=== PATIENT | female | born 1940 | race Caucasian/White ===

== ENCOUNTER 2019-07-22 19:41 | Outpatient (CLI) | payer MEDICARE, BC, SELFPAY ==
--- NOTE | 2019-08-10 06:13 | SLEEP_ITS ---
Sleep Study DATE OF STUDY: PRIMARY DOCTOR: Dr. Kortney Aguirre. HISTORY: The patient is 78 years of age. She is 64 inches tall, weighs 198 pounds with a BMI of 34 kg/m2. The patient gives a history of snoring, history of daytime sleepiness. Has had a history of atrial fibrillation, believed to have reversed to sinus rhythm currently. She has comorbid conditions of hypertension, type 2 diabetes, chronic kidney disease, and peripheral neuropathy. This patient underwent a polysomnographic evaluation using standard monitoring, a split night protocol was used. In the diagnostic study, the sleep architecture was as follows: Lights out was 9:06 p.m., lights on 12:09 a.m. Total recording time 183 minutes. Total sleep time 125 minutes with a 68% sleep efficiency. Sleep latency was 17 minutes and there was no REM sleep in the diagnostic study. SLEEP STAGES: The patient was awake for 41 minutes after sleep onset. Stage N1 was 23.2%, N2 76.8%, and there was absence of stage N3 and stage R. BODY POSITION: Patient was supine 40% of the time. Rest of it was nonsupine. RESPIRATORY EVENTS: Snoring was present, at times loud. CMS criteria were used for identification of hypopneas. The patient had a total of 22 obstructive apneas with index of 10.6. The patient had 68 hypopneas with index of 32.7, apnea-hypopnea index was 43.2. Events were more frequent in supine position with a supine index of 71.3 as compared to nonsupine index of 24.2. This is which is consistent with severe obstructive sleep apnea. LEG MOVEMENT SUMMARY: There were no periodic limb movements noted. EKG ANALYSIS: Rhythm appeared to be relatively regular, but I could not identify P waves easily. The average heart rate during sleep was around 53 beats per minute, presumed to be sinus rhythm. OXYGEN SATURATION: The average saturation was 93%. Lowest saturation was 86%. 6.3 minutes of the record occurred with saturation of 89 or below and 2.3 minutes of record occurred with saturation of 87 or below. Because of the severe nature of the obstructive sleep apnea identified in this study, the patient was offered a CPAP titration study. The patient used AirFit F20 full face mask of medium size. THERAPY ANALYSIS: SLEEP ARCHITECTURE: Total recording time was 303 minutes. Total sleep time was 183 minutes with 60.4% sleep efficiency. Sleep latency was 30 minutes, REM latency was 36 minutes. SLEEP STAGES: The patient was awake for 89 minutes after sleep onset. Stage N1 was 6.3%, N2 78.2%, and stage R of 15.5%. BODY POSITION: During CPAP, the patient was supine 71% of the time, rest was nonsupine. RESPIRATORY EVENTS: During titration, the patient had 5 apneas, all of them were central in nature with index of 1.6. The patient also had 26 hypopneas with index of 8.5. Therefore, combined apnea-hypopnea index was 10.2. Supine index was 11.1, nonsupine index was 7.9, non-REM index was 11.3, and REM index was 4.2. LEG MOVEMENT SUMMARY: There were no periodic limb movements noted. OXYGENATION SUMMARY: The average oxygen saturation during CPAP therapy was 92%. Lowest saturation was 89%. Only 0.4% of the record or 1.3 minutes of the record occurred with saturation of 89, so hypoxia was considered minimal and intermittent. CPAP PRESSURE ANALYSIS: The patient was started on a CPAP of 5 and was titrated to level of 11 cm, which was the highest pressure reached. The patient had 2 hours and 39 minutes of trial at CPAP of 11, about 10 minutes of REM sleep and 1 hour and 11 minutes of non-REM sleep occurred. The patient was in supine position for about 70% of the time during CPAP of 11. The patient during that time had 3 central apneas along with 3 hypopneas, with apne
== END 2019-07-22 19:42 | disposition home or self-care (01) ==
LOC: CHSCSM 19:43
PROVIDERS: PCP Family Medicine; Visit Provider Internal Medicine Critical Care Medicine
DX: G47.30 Sleep apnea, unspecified (principal)
CPT/HCPCS: 95811

== ENCOUNTER 2019-08-09 12:11 | Outpatient (CLI) | payer MEDICARE, BC, SELFPAY ==
--- NOTE | ~2019-08-09 | XR_ITS ---
EXAMINATION: XR knee RT 2V DATE: 08/09/2019 12:43 INDICATION: Right knee pain. Fall. TECHNIQUE: 2 views of right knee were obtained. COMPARISON: Right knee radiograph 11/08/2003 FINDINGS: Bone alignment is normal. No fracture. There is a 2.5 cm sclerotic lesion in proximal tibia l metaphysis without change, likely an enchondroma or osteonecrosis. There is moderate osteoarthritis of medial and patellofemoral compartments and mild osteoarthritis of lateral compartment. There is a small knee joint effusion. IMPRESSION: 1. Moderate right knee osteoarthritis. 2. Small right knee joint effusion. Reviewed, dictated and finalized at location A. ING CARE PRACTITIONER
[2019-08-09 12:24] LABS: Hematocrit 38.8 % (35.0-42.0); Mean Corpuscular HGB Conc 33.5 g/dL (32.0-36.0); Mean Corpuscular Hemoglobin 30.5 pg (27.0-31.0); Mean Corpuscular Volume 91.1 fL (78.0-102.0); Mean Platelet Volume 10.5 fl (9.2-11.8); Platelet Count Result 211 K/mm3 (150-420); Red Blood Count 4.26 M/mm3 (4.20-5.40); White Blood Count 9.2 K/mm3 (4.8-10.8)
[2019-08-09 12:47] LABS: Hemoglobin A1C 6.9 % (<5.7)
[2019-08-09 13:36] LABS: Alanine Aminotransferase 57 U/L (14-59); Albumin Level 3.8 g/dL (3.4-5.0); Alkaline Phosphatase 99 U/L (46-116); Anion Gap 16.4 mmol/L (7-16); Aspartate Amino Transferase 65 U/L (15-37); Bilirubin,Total 0.6 mg/dL (0.00-1.00); Blood Urea Nitrogen 15 mg/dL (7-18); Calcium 9.1 mg/dL (8.5-10.1); Carbon Dioxide 28 mmol/L (21-32); Chloride 103 mmol/L (98-108); Cholesterol 163 mg/dL (0-200); Estimated Glomerular Filt Rate > 60; Glucose 78 mg/dL (70-99); HDL Direct 52 mg/dL (40-60); LDL Cholesterol Calculated 89 mg/dL (<130); Osmolality Calculated 295 mOsm/kg (285-295); Potassium 4.4 mmol/L (3.5-5.1); Sodium 143 mmol/L (136-145); Triglycerides 110 mg/dL (0-150)
[2019-08-09 13:55] LABS: Thyroid Stimulating Hormone Reflex 2.01 u/IU/mL (0.36-3.74)
== END 2019-08-09 12:12 | disposition home or self-care (01) ==
LOC: CHSLAB 12:15
PROVIDERS: PCP Family Medicine; Visit Provider Family Medicine
DX: M25.00 Hemarthrosis, unspecified joint (principal); Z79.01 Long term (current) use of anticoagulants; R53.83 Other fatigue; E11.9 Type 2 diabetes mellitus without complications; I10 Essential (primary) hypertension; M25.561 Pain in right knee
CPT/HCPCS: 36415; 73560; 80053; 80061; 83036; 84443; 85027

== ENCOUNTER 2019-08-26 09:16 | Outpatient (RCR) | payer MEDICARE, SELFPAY ==
[2019-06-20 09:47] LABS: INR 1.7; Prothrombin Time 17.7 Seconds (9.64-11.0)
[2019-07-04 08:25] LABS: INR 2.3; Prothrombin Time 23.4 Seconds (9.64-11.0)
[2019-08-26 09:38] LABS: INR 2.5; Prothrombin Time 25.4 Seconds (9.64-11.0)
== END 2019-09-18 23:59 | disposition home or self-care (01) ==
LOC: CHSLAB 09:16
PROVIDERS: PCP Internal Medicine Cardiovascular Disease; Visit Provider Internal Medicine Cardiovascular Disease
DX: I48.19 Other persistent atrial fibrillation (principal); Z79.01 Long term (current) use of anticoagulants
CPT/HCPCS: 36415; 85610

== ENCOUNTER 2019-08-28 13:07 | Inpatient (IN) | payer MEDICARE, BC, SELFPAY ==
[2019-08-28] VITALS (8 sets, daily range): BP systolic 130–190; BP diastolic 51–109; PULSE 56–71; RESP 16–20; TEMP 36.3–37; O2SAT 94–97; BMI 34.0
--- NOTE | ~2019-08-28 | XR_ITS ---
XR chest 1V 08/28/2019 13:57 Indication: Chest pain after fall Procedure: AP view of the chest Comparison: Comparison to multiple prior studies sequentially, with oldest reviewed study dated 07/06. Findings: Cardiomegaly with pulmonary vascular congestion. No focal pneumonia. No pleural effusion or pneumothorax. No acute osseous abnormality. Impression: 1: Cardiomegaly with pulmonary vascular congestion. Reviewed, dictated and finalized at location A. Impression: 1: Cardiomegaly with pulmonary vascular congestion.
--- NOTE | ~2019-08-28 | XR_ITS ---
EXAMINATION: XR hip RT 1V DATE: 08/31/2019 10:18 INDICATION: Postoperative right hip pain TECHNIQUE: AP view of the right hip was obtained. COMPARISON: None. FINDINGS: Again seen is a noncemented bipolar type right hip hemiarthroplasty which appears to remain well seat ed in near-anatomic alignment. No fracture. Expected small amount of residual postoperative gas along the musculature lateral to the proximal right femur. IMPRESSION: 1. Expected appearance post bipolar type right hip hemiarthroplasty. Reviewed, dictated and finalized at location A.
--- NOTE | ~2019-08-28 | XR_ITS ---
EXAMINATION: XR hip RT 1V DATE: 08/30/2019 18:07 INDICATION: Right femoral neck fracture. TECHNIQUE: A single view of right hip was obtained. COMPARISON: Right hip radiographs 08/28/2019 FINDINGS: There is a bipolar right hip hemiarthroplasty in near-anatomic alignment. No fracture. Righ t hip joint space is normal. There is gas in the soft tissues, consistent with recent surgery. IMPRESSION: 1. Bipolar right hip hemiarthroplasty in near-anatomic alignment. Reviewed, dictated and finalized at location A.
--- NOTE | ~2019-08-28 | CT_ITS ---
EXAMINATION: CT brain wo con DATE: 08/28/2019 13:53 INDICATION: Status post fall. Headache. TECHNIQUE: Computed tomography (CT) of the head was performed without intravenous contrast. The dose- length product was 605.33 mGy-cm. The mA was adjusted according to patient size. Iterative reconstruc tion technique was employed. COMPARISON: CT dated 07/31/2018 FINDINGS: Mild generalized atrophy. No ventriculomegaly or midline shift. Basilar cisterns are patent . There is intracranial atherosclerosis. Basilar cisterns are patent. There are scattered mild perive ntricular and subcortical white matter changes, most likely related to small vessel ischemic disease (microangiopathy). No acute intracranial hemorrhage, infarction, mass or mass effect. There is chroni c right maxillary sinusitis with mucoperiosteal reaction. Mastoids are pneumatized. No depressed skul l fractures. IMPRESSION: 1. No acute intracranial abnormality. 2: Chronic right maxillary sinusitis. 3: Chronic age-related findings. Reviewed, dictated and finalized at location A.
--- NOTE | ~2019-08-28 | XR_ITS ---
XR hip RT min 3V w AP pelvis 08/28/2019 13:46 Indication: Right hip pain after fall Procedure: AP pelvis and 4 views right hip Comparison: 01/23/2011 Findings: There is a displaced right femoral neck fracture with varus angulation pelvic rings are int act. Mild degenerative changes of the hips. No significant soft tissue abnormality. Impression: 1: Displaced right femoral neck fracture with varus angulation. Reviewed, dictated and finalized at location A. Impression: 1: Displaced right femoral neck fracture with varus angulation.
--- NOTE | 2019-08-28 13:26 | ED.GENADULT ---
HPI - General Adult General Chief complaint: Fall Stated complaint: fall, hip fx ?? Time Seen by Provider: 08/28/19 13:11 Source: patient, family and EMS Mode of arrival: EMS Limitations: no limitations History of Present Illness HPI narrative: Patient is a 79-year-old female who presents per EMS from home after her right knee buckled causing her to fall forward onto the right hip patient has since been unable to ambulate with moderate pain to the right hip patient denies other injuries or complaints or recent illness. Patient denies having struck the head loss of consciousness or syncope. Patient on arrival is in mild acute pain distress with any manipulation or movement. Related Data Home Medications Medication Instructions Recorded Confirmed aspirin 81 mg tablet,delayed 81 mg PO DAILY 04/20/19 06/22/19 release fluticasone propionate 110 1 puff INHALATION Q12H 04/20/19 06/22/19 mcg/actuation HFA aerosol inhaler insulin glargine 100 unit/mL 30 unit SUB-Q BID ml 04/20/19 06/22/19 subcutaneous solution lisinopril 20 mg tablet 20 mg PO DAILY 04/20/19 06/22/19 rosuvastatin 20 mg tablet 20 mg PO DAILY 04/20/19 06/22/19 hydrochlorothiazide 12.5 mg capsule 25 mg PO DAILY cap 04/25/19 06/22/19 amiodarone 200 mg tablet 200 mg PO DAILY 06/22/19 06/22/19 glucosamine-chondroitin 250 mg-200 2 tablet PO TID 06/22/19 06/22/19 mg tablet multivit with 1 tablet PO DAILY 06/22/19 06/22/19 srmdjewr-bymc-NL-lutein 8 mg iron-400 mcg-300 mcg tablet warfarin 5 mg tablet 5 mg PO QMWF 06/22/19 06/22/19 eszopiclone 1 mg tablet 1 mg PO ONCE 07/01/19 Allergies Allergy/AdvReac Type Severity Reaction Status Date / Time No Known Allergies Allergy Verified 08/28/19 13:20 Review of Systems Review of Systems: All systems reviewed & are unremarkable except as noted in HPI and below PMFSH Past Medical History Medical History Breast cancer Chronic anticoagulation Chronic kidney disease, stage 3 (moderate) Coronary artery disease Essential hypertension Idiopathic peripheral neuropathy Iron deficiency anemia Mild persistent asthma without complication Paroxysmal atrial fibrillation Personal history of breast cancer Type 2 diabetes mellitus with stage 3 chronic kidney disease and hypertension Family History Family History Father Cerebrovascular accident Hypertension Family history of diabetes mellitus in first degree relative Mother Family history of heart disease in male family member before age 55 Hypertension, Onset Age: 68 Family history of coronary artery disease, Onset Age: 68 Patient's mother is , Onset Age: 68 Other Diabetes mellitus Social History Social History Smoking status: Never smoker Second hand tobacco smoke exposure: No Alcohol intake: never Exam Narrative: Exam Narrative: GENERAL: Well-appearing, well-nourished, and in no acute distress. HEAD: Normocephalic, atraumatic. EYES: PERRLA and EOMI. ENT: Nares clear, no rhinorrhea or epistaxis. Mucous membranes moist. Oropharynx without tonsillar hypertrophy exudate or other lesions. NECK: Supple. No adenopathy or masses. CHEST: Clear to auscultation. No respiratory distress. No wheezes rales or rhonchi HEART: Regular rate and rhythm. No murmur heard. Normal peripheral pulses. ABDOMEN: Soft, nontender, nondistended EXTREMITIES: Tenderness of the right hip SKIN: Warm, dry, no rash. NEURO: No focal deficits. Alert and oriented x3. Cranial nerves II through XII grossly intact PSYCH: Normal mood and affect. Course Course Emergency Course: Patient in the room in no distress aware of case findings treatment plan and diagnosis agreeing to stay in hospital aware of discussions with orthopedic surgery and hospital Consultations Consultation #1: Discusse
[2019-08-28] MEDS: MORPHINE SULFATE 2 MG/ML INJ IV PUSH (13:29)
[2019-08-28] MEDS: ONDANSETRON INJ 4 MG/2 ML VIAL IV PUSH ×2 (13:29→16:07)
[2019-08-28] MEDS: SODIUM CHLORIDE 0.9% IV 1,000 ML 150 ML IV CONT (13:29)
[2019-08-28 13:33] LABS: Basophils Absolute Auto 0.1 K/mm3 (0.0-0.1); Basophils Percent Auto 0.7 % (0.2-1.2); Eosinophils Absolute Auto 0.2 K/mm3 (0-0.3); Eosinophils Percent Auto 2.2 % (0-4.4); Hematocrit 39.3 % (37.0-47.0); Hemoglobin 12.7 g/dL (12.0-15.0); Immature Granulocyte Absolute 0.06 K/mm3 (0.00-0.031); Immature Granulocyte Percent A 0.7 % (0-0.5); Lymphocytes Absolute Auto 2.12 K/mm3 (0.9-3.2); Lymphocytes Percent Auto 23.6 % (18.3-44.2); Mean Corpuscular HGB Conc 32.3 g/dl (32-36); Mean Corpuscular Hemoglobin 29.8 pg (26-34); Mean Corpuscular Volume 92.3 fl (80-100); Mean Platelet Volume 10.9 fl (7.4-10.4); Monocytes Absolute Auto 0.7 K/mm3 (0.1-0.6); Monocytes Percent Auto 7.6 % (2.6-8.5); Neutrophils Absolute Auto 5.9 K/mm3 (1.3-6.7); Neutrophils Percent Auto 65.2 % (45.5-73.1); Platelet Count Result 201 k/mm3 (150-375); Red Blood Count 4.26 M/mm3 (4.2-5.4); Red Cell Distribution Width 14.1 % (11.5-14.5)
[2019-08-28 13:44] LABS: Blood Urea Nitrogen 23 mg/dL (7-17); Calcium 9.6 mg/dL (8.4-10.2); Carbon Dioxide 30 mmol/L (22-30); Chloride 99 mmol/L (98-107); Estimated CRCL calculation 45 ml/min; Estimated Glomerular Filt Rate 53; Glucose 158 mg/dL (65-105); Potassium 4.3 mmol/L (3.4-5.0); Sodium 137 mmol/L (137-145)
[2019-08-28 13:46] LABS: INR 2.2
[2019-08-28 13:47] LABS: Partial Thromboplastin Time 38.3 SECONDS (22.3-36.8)
--- NOTE | 2019-08-28 13:50 | ECG_ITS ---
Measurements Intervals [place] Rate: 58 P: 90 OR: 252 QRS: 70 QRSD: 110 T: 84 QT: 487 QTc: 480 Interpretive Statements SINUS BRADYCARDIA WITH FIRST DEGREE AV BLOCK BORDERLINE ST-T WAVE ABNORMALITY- LATERAL LEADS PROLONGED QT INTERVAL BASELINE ARTIFACT- I, II, III, AVL, AVF ABNORMAL ECG Electronically Signed On 08-28-2019 14:50:51 CDT by Yuniel Wynn D.O.
[2019-08-28] MEDS: MORPHINE SULFATE 4 MG/ML INJ IV PUSH (14:31)
[2019-08-28 14:33] LABS: Add Urine Microscopic? YES; Appearance Urine Clear (Clear); Bilirubin Urine Negative (Negative); Blood Urine Negative (Negative); Color Urine Straw (Yellow); Glucose Urine UA Negative (Negative); Ketones Urine Negative (Negative); Leukocyte Esterase Ur Negative LEU/UL (Negative); Mucus Urine Rare /lpf; Nitrate Urine Negative (Negative); Protein Urine Negative (Negative); Specific Grav Ur 1.013 (1.001-1.035); Squamous Epithelial Cell Urine Rare /hpf (Few); Urobilinogen Urine Negative mg/dL (<2.0); WBC Urine 0-3 /hpf
[2019-08-28 14:52] LABS: NT Pro B Type Natriuretic Pept 564 PG/ML (5-100)
--- NOTE | 2019-08-28 15:17 | ADMGEN ---
This patient, Nohelia Laurent, was admitted to 3 [facility] Surg Room 322-01 @ 1512. Patient/family oriented to hospital policies and general routines including ID bracelet, bed and alarms, visiting hours, pain management, procedures, bathroom and other care routines, personal items, smoking policy, room service/diet, and visiting hours. Valuables list has been completed. Information on how to activate the Rapid Response Team has been discussed. Patient/Family are encouraged to report perceived risks to care and to ask questions if they do not understand what they are told or what they should do.
--- NOTE | 2019-08-28 15:30 | PM.IMHP ---
H&P: HPI History of Present Illness Chief complaint: Hip pain after fall. Narrative: Nohelia Laurent is an 79-year-old female with coronary artery disease and history of stents, paroxysmal atrial fibrillation on long-term anticoagulation, insulin-dependent type 2 diabetes mellitus, hypertension, and history of breast cancer who presented to the emergency department earlier today via EMS for evaluation of hip pain after a fall. While walking down the stairs, her right knee buckled, causing her to fall down 1 step, landing on her right side. She had immediate pain in her right hip, and was unable to move without severe pain. EMS gave her fentanyl on route to the hospital, which did seem to help somewhat. She has subsequently received morphine, also with some benefit, however that has caused her nausea and 1 episode of emesis at the time my evaluation. Currently she complains of a severe spasm and pain on her right lateral hip, occasionally radiating into the groin. She sustained no other injuries in the fall and specifically denies head trauma. There was no loss of consciousness. She was not feeling lightheaded or dizzy prior to the fall, and states it was simply due to her ?bum knee? giving out. Review of Systems Review of Systems: Narrative: Twelve systems were reviewed with pertinent positives and negatives as per HPI. No fever, chills, or sweats. No lightheadedness or dizziness. She denies recent cold and flu symptoms. No exertional chest pain. She does have chronic dyspnea on exertion and that is unchanged. Occasional, intermittent lower extremity edema but nothing significant. No orthopnea or PND. She recently had her CPAP delivered, and has had a hard time getting used to it due to the pressure but is trying. No history of venous thromboembolism. No diarrhea or dysuria. Her diabetes is well controlled with a recent hemoglobin A1c of 6.9% earlier this month. She does have peripheral neuropathy and previous gastric emptying study showed delayed transit consistent with gastroparesis. Except as documented, all other systems were reviewed and are negative. [facility] Past Medical History Medical History (Updated 08/28/19 @ 16:39 by Mansi Mcdonald PA-C) Chronic anticoagulation : Warfarin for paroxysmal atrial fibrillation. Chronic kidney disease, stage 3 (moderate) : GFR ranging between 43 and > 60. Coronary artery disease : With history of stent to LAD done at [facility]. Essential hypertension History of colon polyps History of left breast cancer : Status post lumpectomy, chemotherapy, and radiation. 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 : Hemoglobin A1c was 6.9% 08/09/2019. Iron deficiency anemia Mild persistent asthma without complication Osteoarthritis Paroxysmal atrial fibrillation : History of cardioversions, with previously noted loosely organized thrombus in the left atrial appendage, for which she was subsequently switched from Xarelto to warfarin. : Last cardioversion attempt in May 2018 was unsuccessful and she was referred to an ice handler at [place]. On arrival to that appointment, she was found to be in a normal sinus rhythm, and to her knowledge has remained in such since. Severe obstructive sleep apnea : Noted on sleep study 08/10/2019. : CPAP titrated to 11 cm. Surgical History Surgical History (Updated 08/28/19 @ 15:55 by Mansi Mcdonald PA-C) History of appendectomy History of bilateral cataract extraction History of bladder suspension procedure History of cholecystectomy History of D&C History of heart artery stent : Stent to LAD, done at [facility]. History of hysterectomy History of lumpectomy of left breast Family History Family History Father Family history of diabetes mellitus in first degree relative Hypertension
[2019-08-28] MEDS: carvediloL 25 MG TABLET PO (22:28)
[2019-08-28] MEDS: FAMOTIDINE 20 MG/2 ML VIAL IV PUSH (22:36)
[2019-08-28] MEDS: INSULIN GLARGINE (*BKC) 100 UNITS/ML 30 UNITS SUB-Q (22:37)
[2019-08-28 23:09] LABS: Glucose Point of Care 109 (65-105)
[2019-08-29] VITALS (12 sets, daily range): BP systolic 144–181; BP diastolic 45–92; PULSE 51–83; RESP 18–20; TEMP 36.8–37.3; O2SAT 93–97
[2019-08-29] MEDS: MORPHINE SULFATE 4 MG/ML INJ IV PUSH (00:38)
[2019-08-29] MEDS: ONDANSETRON INJ 4 MG/2 ML VIAL IV PUSH ×3 (00:38→10:48)
[2019-08-29 08:02] LABS: Glucose Point of Care 108 (65-105)
[2019-08-29 08:21] LABS: Basophils Absolute Auto 0.1 K/mm3 (0.0-0.1); Basophils Percent Auto 0.6 % (0.2-1.2); Eosinophils Absolute Auto 0.5 K/mm3 (0-0.3); Eosinophils Percent Auto 4.9 % (0-4.4); Hematocrit 35.3 % (37.0-47.0); Hemoglobin 11.6 g/dL (12.0-15.0); Immature Granulocyte Absolute 0.04 K/mm3 (0.00-0.031); Immature Granulocyte Percent A 0.4 % (0-0.5); Lymphocytes Absolute Auto 1.69 K/mm3 (0.9-3.2); Lymphocytes Percent Auto 17.8 % (18.3-44.2); Mean Corpuscular HGB Conc 32.9 g/dl (32-36); Mean Corpuscular Hemoglobin 30.3 pg (26-34); Mean Corpuscular Volume 92.2 fl (80-100); Mean Platelet Volume 10.8 fl (7.4-10.4); Monocytes Absolute Auto 0.9 K/mm3 (0.1-0.6); Monocytes Percent Auto 9.3 % (2.6-8.5); Neutrophils Absolute Auto 6.4 K/mm3 (1.3-6.7); Platelet Count Result 168 k/mm3 (150-375); Red Blood Count 3.83 M/mm3 (4.2-5.4); Red Cell Distribution Width 14.4 % (11.5-14.5); White Blood Count 9.5 K/mm3 (4.5-10.0)
[2019-08-29 08:32] LABS: INR 2.3; Prothrombin Time 25.1 Seconds (11.1-14.7)
[2019-08-29 08:33] LABS: Blood Urea Nitrogen 19 mg/dL (7-17); Calcium 8.8 mg/dL (8.4-10.2); Carbon Dioxide 29 mmol/L (22-30); Chloride 100 mmol/L (98-107); Estimated CRCL calculation 47 ml/min; Estimated Glomerular Filt Rate 60; Glucose 114 mg/dL (65-105); Sodium 135 mmol/L (137-145)
[2019-08-29] MEDS: PERFLUTREN LIPID MICROSPHERES 1.5 ML VIAL DILUTED TO 10 ML TOTAL VOLUME IV PUSH (09:44)
[2019-08-29] MEDS: FAMOTIDINE 20 MG/2 ML VIAL IV PUSH ×2 (10:05→20:13)
[2019-08-29] MEDS: PHYTONADIONE INJ 10 MG/ML AMP SUB-Q (10:47)
--- NOTE | 2019-08-29 10:48 | PM.CNCAR ---
Assessment and Plan Additional Plan 79-year-old lady with stable coronary artery disease and paroxysmal atrial fib, currently in sinus rhythm on amiodarone treatment. She enters the hospital with a fall and a fracture of her right hip. I do not perceive there to be a significant cardiac issue clinically. Obviously she needs to come off of systemic anticoagulation to have her hip surgery done. Resuming the anticoagulation will of course be deferred to the surgeon and should be resumed as soon is it is surgically acceptable. There is no cardiac urgency to this since she is in sinus rhythm. There is no cardiac alanis to get the patient anticoagulated immediately following an operation. Please call me if you have any cardiac questions but at this point I do not have any specific recommendations soon she does not seem to be in the hospital with a cardiac problem John Najera MD [facility] History of Present Illness History of Present Illness Consult date/time: Date of service Amrita 08/29/19 10:48 Reason For Visit: Hip pain after fall. Narrative: This is an 79-year-old woman who follows in our office with Dr. Bradley who has a history of coronary artery disease and paroxysmal atrial fibrillation. We are seeing the patient at the request of the hospitalist's presumably to see her prior to noncardiac surgery. The notes in the chart however do not specifically detail the reason for cardiology consultation or what is expected. In any event this is a patient that has a history of previous coronary intervention with a stent in her LAD which was done about 11 years ago in 2008. She also has a history of paroxysmal atrial fibrillation which has been her most problematic cardiac diagnosis over the same period of time. She has been essentially maintained in sinus rhythm with antiarrhythmic therapy and has been cardioverted a couple of times. She was initially taking sotalol and because of recurrences is now taking amiodarone. The patient is maintaining sinus rhythm and has not had any recent recognized recurrences of atrial fibrillation. She is in the hospital because she lost her balance with her with her knee giving out resulting in a fall and a fracture of the surgical neck of the right femur. The patient is anticoagulated with warfarin for her atrial fibrillation in this setting we are seeing her in consultation. She not having any cardiac symptoms currently denies any recent significant chest pain not been having orthopnea PND or edema she has not had any palpitations or symptoms to suggest recurrence of atrial fibrillation. Her amiodarone dose to is currently 200 mg daily and her warfarin dosage is 5 mg daily with 2.5 mg once per week. Review of Systems Constitutional: Constitutional: Reports fatigue and Reports lethargy Eyes: Eyes: Reports no additional eye complaints ENT: Reports system reviewed and no additional complaints, except as documented Cardiovascular: Cardiovascular: Reports no additional cardiovascular complaints Respiratory: Respiratory: Reports no additional respiratory complaints Gastrointestinal: Gastrointestinal: Reports no additional gastrointestinal complaints Musculoskeletal: Musculoskeletal: Reports no additional musculoskeletal complaints Integumentary/Breasts: Skin/Breast: Reports system reviewed and no additional complaints, except as docu Neurologic: Reports system reviewed and no additional complaints, except as documented Endocrine: Endocrine: Reports no additional endocrine complaints Hematologic/Lymphatic: Hematologic/Lymphatic: Reports no additional hematologic/lymphatic complaints Allergic/Immunologic: Allergic/Immunologic: Reports no additional allergic/immunologic complaints [facility] Past Medical History Medical History (Updated 08/28/19 @ 16:39 by Mansi Mcdonald PA-C) Chronic anticoagulation : Warfarin for paroxysmal atrial fibrillation. Chronic kidney disease, stage 3 (moderate) : GFR ranging betwe
[2019-08-29 11:37] LABS: Glucose Point of Care 104 (65-105)
[2019-08-29] MEDS: lisinopriL 20 MG TABLET PO (11:38)
[2019-08-29] MEDS: carvediloL 25 MG TABLET PO ×2 (11:39→20:13)
[2019-08-29] MEDS: AMIODARONE HCL 200 MG TABLET PO (11:39)
[2019-08-29] MEDS: hydroCHLOROthiazide 25 MG TABLET PO (11:39)
--- NOTE | 2019-08-29 11:57 | PM.IMPN ---
Progress Note: A&P Assessment and Plan (1) Closed fracture of right hip: Code(s): S72.001A - Fracture of unspecified part of neck of right femur, initial encounter for closed fracture Status: Acute Assessment and Plan: Orthopedic consultation Surgical intervention when INR is 1.5 or below. Analgesics and bowel regimen in the meantime (2) Paroxysmal atrial fibrillation: Code(s): I48.0 - Paroxysmal atrial fibrillation Status: Acute Assessment and Plan: Reverse anticoagulation with vitamin K. Follow-up INR (3) Chronic anticoagulation: Code(s): Z79.01 - superintendent container terminal (current) use of anticoagulants Status: Acute Assessment and Plan: Withhold and reverse for anticipated surgery (4) Severe obstructive sleep apnea: Code(s): G47.33 - Obstructive sleep apnea (adult) (pediatric) Status: Acute Assessment and Plan: CPAP with home settings (5) Insulin dependent type 2 diabetes mellitus: Code(s): E11.9 - Type 2 diabetes mellitus without complications; Z79.4 - superintendent container terminal (current) use of insulin Status: Acute Assessment and Plan: Basal and sliding scale insulin (6) Coronary artery disease: Code(s): I25.10 - Atherosclerotic heart disease of [place] coronary artery without angina pectoris Status: Acute (7) Essential hypertension: Code(s): I10 - Essential (primary) hypertension Status: Acute Assessment and Plan: Asymptomatic Continue home regimen (8) Chronic kidney disease, stage 3 (moderate): Code(s): N18.3 - Chronic kidney disease, stage 3 (moderate) Status: Acute Assessment and Plan: Creatinine is now within normal limits Continue to monitor Subjective Date/time seen: 08/29/19 11:57 Interval history: 79-year-old female with coronary artery disease without angina and chronic atrial fibrillation on warfarin presented with right hip pain after a slip and fall on the last step of the staircase at her home on August 27. She had no loss of consciousness. Currently her only complaint is right hip pain. She denied chest pain palpitations shortness of breath edema abdominal pain diarrhea constipation dysuria or hematuria or other abnormal bleeding. Review of Systems Review of Systems: All systems reviewed & are unremarkable except as noted in HPI and below Exam Narrative: Exam Narrative: HEENT: EOMI, PERRL, sclera nonicteric, pharyngeal mucosa pink and intact NECK: No JVD CHEST: Clear to auscultation. Normal effort. HEART: NL S1/S2, regular, no murmur ABDOMEN: BS+, soft, nontender, no mass, no bruits EXTREMITIES: No cyanosis, edema, or clubbing NEUROLOGIC: CN intact and symmetric to inspection. MUSCULOSKELETAL: Tone and strength symmetric. PSYCH: Alert. Oriented to person, place, and time. Objective Data Vital Signs Vital Signs: Vital Signs - 24 hr 08/28/19 13:06 08/28/19 13:18 08/28/19 14:57 Temperature 97.4 F L Pulse Rate 58 L Respiratory Rate 18 Blood Pressure 190/77 H Pulse Oximetry 95 94 94 08/28/19 15:04 08/28/19 15:20 08/28/19 19:40 Temperature 97.9 F Pulse Rate 68 71 Respiratory Rate 16 20 Blood Pressure 172/67 H 142/109 H 130/80 Pulse Oximetry 94 94 08/28/19 20:00 08/28/19 22:00 08/29/19 00:00 Temperature 98.6 F Pulse Rate 61 61 51 L Respiratory Rate 20 20 Blood Pressure 143/51 H Pulse Oximetry 97 97 08/29/19 02:30 08/29/19 04:00 08/29/19 06:00 Temperature 98.2 F 98.3 F Pulse Rate 70 52 L 61 Respiratory Rate 20 20 Blood Pressure 144/58 H 152/45 H Pulse Oximetry 93 97 08/29/19 08:00 08/29/19 11:39 Temperature Pulse Rate 63 63 Respiratory Rate Blood Pressure Pulse Oximetry Intake/Output Intake/Output: Intake & Output 08/26/19 08/27/19 08/28/19 08/29/19 23:59 23:59 23:59 23:59 Intake Total 500 450 Output Total 600 650 Balance -100 -200 Meds/Results Medications: Active Medicatio
[2019-08-29] MEDS: PROCHLORPERAZINE EDISYLATE 10 MG/2 ML VIAL IV PUSH (12:35)
[2019-08-29] MEDS: HYDROMORPHONE HCL 1 MG/ML INJ IV PUSH (12:36)
--- NOTE | 2019-08-29 14:42 | PC.NURSE ---
Dr. Ruiz and Dr. Mcclellan notified of nausea and vomiting.
[2019-08-29 16:42] LABS: Glucose Point of Care 125 (65-105)
--- NOTE | 2019-08-29 17:19 | PM.CNOR ---
Assessment and Plan Assessment and plan (1) Closed fracture of right hip: Qualifiers: Encounter type: initial encounter Qualified Code(s): S72.001A - Fracture of unspecified part of neck of right femur, initial encounter for closed fracture Code(s): S72.001A - Fracture of unspecified part of neck of right femur, initial encounter for closed fracture Status: Acute Assessment and Plan: Displaced femoral neck fracture. Will benefit from bipolar hemiarthroplasty. We discussed the risks, benefits, and alternatives to surgery. Will start nubain from pain control, as she is very sensitive to narcotics. Also ativan for nausea. vitamin K given to assist normalizing the INR. She is up to 2.3 from 2.2. Will see what it looks like tomorrow afternoon. If she remains elevated we will plan on surgery the following morning. At this point she is scheduled for tomorrow late afternoon. Goal is less than 1.4. History of Present Illness HPI Consult date: 08/29/19 Chief complaint: Hip pain after fall. Narrative: Patient complains of acute hip pain. Fell from standing height. Admitted through the emergency room for definitive managmenet. No previous hip pain. Uncomfortable at rest. No previous hip pain. Review of Systems Review of Systems: Narrative: Denies loss of consciousness. No fever, chills, or sweats. No lightheadedness or dizziness. She denies recent cold and flu symptoms. No exertional chest pain. She does have chronic dyspnea on exertion and that is unchanged. Occasional, intermittent lower extremity edema but nothing significant. No orthopnea or PND. She recently had her CPAP delivered, and has had a hard time getting used to it due to the pressure but is trying. No history of venous thromboembolism. No diarrhea or dysuria. Her diabetes is well controlled with a recent hemoglobin A1c of 6.9% earlier this month. She does have peripheral neuropathy and previous gastric emptying study showed delayed transit consistent with gastroparesis. All systems reviewed & are unremarkable except as noted in HPI and below PMFSH Past Medical History Medical History Chronic anticoagulation : Warfarin for paroxysmal atrial fibrillation. Chronic kidney disease, stage 3 (moderate) : GFR ranging between 43 and > 60. Coronary artery disease : With history of stent to LAD done at [facility]. Essential hypertension History of colon polyps History of left breast cancer : Status post lumpectomy, chemotherapy, and radiation. 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 : Hemoglobin A1c was 6.9% 08/09/2019. Iron deficiency anemia Mild persistent asthma without complication Osteoarthritis Paroxysmal atrial fibrillation : History of cardioversions, with previously noted loosely organized thrombus in the left atrial appendage, for which she was subsequently switched from Xarelto to warfarin. : Last cardioversion attempt in May 2018 was unsuccessful and she was referred to an claim service representative at [place]. On arrival to that appointment, she was found to be in a normal sinus rhythm, and to her knowledge has remained in such since. Severe obstructive sleep apnea : Noted on sleep study 08/10/2019. : CPAP titrated to 11 cm. Surgical History Surgical History History of appendectomy History of bilateral cataract extraction History of bladder suspension procedure History of cholecystectomy History of D&C History of heart artery stent : Stent to LAD, done at [facility]. History of hysterectomy History of lumpectomy of left breast Family History Family History Father Family history of diabetes mellitus in first degree relative Hypertension Cerebrovascular a
[2019-08-29] MEDS: SENNOSIDES 8.6 MG TABLET PO (17:46)
--- NOTE | 2019-08-29 18:16 | ECHO_ITS ---
Patient Info Name: Nohelia Laurent Age: 79 years : 1940 Gender: Female Ht: 64 in Wt: 198 lbs BSA: 2.05 m2 HR: 60 bpm BP: 152 / 45 mmHg Heart Rhythm: Sinus Rhythm Technical Quality: Good Exam Date: 08/29/2019 9:17 AM Exam Location: [facility] [place] Card Pulmonary Patient Status: Inpatient Admit Date: 08/28/2019 Staff Ordering Physician: Mansi Mcdonald PA-C Mannequin Mold Maker: Imer Kwon RDCS Attending Provider: Mina Brown MD Referring Physician: Tamara CANALES; Exam Type: CA echo dop color flow w con Study Info Indications I51.7 - Cardiomegaly Complete two-dimensional, color flow and Doppler transthoracic echocardiogram is performed. Contrast/Agitated Saline Contrast/Ag. Saline: Definity Amount: 2.00 ml Administered By: Ti Mcdonnell, RN Existing IV Access: Yes History/Risk Factors Cardiomegaly; CAD w/ stents, Afib, DM2, HTN, THOMPSON, murmur. Summary 1. Left ventricular systolic function is normal, estimated at 50-55%. 2. There is mild concentric increased left ventricular wall thickness. 3. Left atrial chamber dimension is moderately enlarged. 4. There is mild aortic valve stenosis with a peak velocity of 280.08 cm/s, mean gradient of 18 mmHg, and aortic valve area of 1.20 cm2. Left Ventricle Left ventricular chamber dimension is normal. Left ventricular systolic function is normal, estimated at 50-55%. There is mild concentric increased left ventricular wall thickness. The left ventricular diastolic function is grade I diastolic dysfunction. Right Ventricle Right ventricular chamber dimension is normal. Left Atria Left atrial chamber dimension is moderately enlarged. Right Atria Right atrial chamber dimension is normal. Aortic Valve The aortic valve is trileaflet. There is mild aortic valve sclerosis. There is mild aortic valve stenosis with a peak velocity of 280.08 cm/s, mean gradient of 18 mmHg, and aortic valve area of 1.20 cm2. Pulmonic Valve The pulmonic valve is not well visualized. Mitral Valve The mitral valve has normal leaflets and calcified annulus. There is trace mitral valve regurgitation. Tricuspid Valve The tricuspid valve leaflets are normal. Pericardium/Pleural The pericardium appears normal. Aorta The aortic root size at the sinus of Valsalva is normal. Left Ventricular Outflow Tract Name Value Normal LVOT 2D LVOT Diameter 1.87 cm LVOT Doppler LVOT Peak Gradient 6 mmHg LVOT Mean Gradient 3 mmHg LVOT VTI 27.82 cm LVOT VTI/AV VTI Ratio 0.37 LVOT Stroke Volume 76.05 ml LVOT CO 4.21 l/min LVOT CI 2.05 L/min/m2 Mitral Valve Name Value Normal MV Doppler
[2019-08-29] MEDS: INSULIN GLARGINE (*BKC) 100 UNITS/ML 30 UNITS SUB-Q (20:11)
[2019-08-29] MEDS: NALBUPHINE HCL 10 MG/ML AMPUL IM (20:20)
[2019-08-29] MEDS: LORAZEPAM INJ 2 MG/ML VIAL 1 MG IV PUSH (21:38)
[2019-08-29 22:34] LABS: Glucose Point of Care 133 (65-105)
[2019-08-30] VITALS (20 sets, daily range): BP systolic 117–210; BP diastolic 45–88; PULSE 51–88; RESP 13–20; TEMP 36.5–37.7; O2SAT 88–99
[2019-08-30] MEDS: NALBUPHINE HCL 10 MG/ML AMPUL IM ×2 (02:14→09:22)
[2019-08-30 05:43] LABS: Hematocrit 38.9 % (37.0-47.0); Hemoglobin 12.7 g/dL (12.0-15.0); Mean Corpuscular HGB Conc 32.6 g/dl (32-36); Mean Platelet Volume 10.3 fl (7.4-10.4); Platelet Count Result 182 k/mm3 (150-375); Red Blood Count 4.23 M/mm3 (4.2-5.4); Red Cell Distribution Width 13.9 % (11.5-14.5); White Blood Count 9.8 K/mm3 (4.5-10.0)
[2019-08-30 05:53] LABS: INR 1.6; Prothrombin Time 18.7 Seconds (11.1-14.7)
[2019-08-30 06:07] LABS: Blood Urea Nitrogen 15 mg/dL (7-17); Calcium 9.1 mg/dL (8.4-10.2); Carbon Dioxide 33 mmol/L (22-30); Chloride 97 mmol/L (98-107); Estimated CRCL calculation 53 ml/min; Estimated Glomerular Filt Rate > 60; Glucose 103 mg/dL (65-105); Potassium 3.9 mmol/L (3.4-5.0); Sodium 133 mmol/L (137-145)
[2019-08-30] MEDS: PROCHLORPERAZINE EDISYLATE 10 MG/2 ML VIAL IV PUSH (09:21)
[2019-08-30] MEDS: LACTATED RINGERS 1,000 ML 30 ML IV CONT ×3 (09:25→17:24)
[2019-08-30] MEDS: ROSUVASTATIN 10 MG TABLET 20 MG PO (09:32)
[2019-08-30] MEDS: SENNOSIDES 8.6 MG TABLET PO (09:32)
[2019-08-30] MEDS: AMIODARONE HCL 200 MG TABLET PO (09:33)
[2019-08-30] MEDS: lisinopriL 20 MG TABLET PO (09:33)
[2019-08-30] MEDS: THERAPEUTIC MULTIVITAMINS/MINERALS TAB (*BKC) 1 TABLET PO (09:33)
[2019-08-30] MEDS: FAMOTIDINE 20 MG/2 ML VIAL IV PUSH ×2 (09:34→20:22)
[2019-08-30] MEDS: carvediloL 25 MG TABLET PO ×2 (09:34→21:07)
[2019-08-30 09:52] LABS: Glucose Point of Care 109 (65-105)
--- NOTE | 2019-08-30 10:02 | PM.IMPN ---
Progress Note: A&P Assessment and Plan (1) Closed fracture of right hip: Qualifiers: Encounter type: initial encounter Qualified Code(s): S72.001A - Fracture of unspecified part of neck of right femur, initial encounter for closed fracture Code(s): S72.001A - Fracture of unspecified part of neck of right femur, initial encounter for closed fracture Status: Acute Assessment and Plan: Orthopedic has seen and plans on OR later today, INR decreased to 1.6 today Analgesics and bowel regimen in the meantime (2) Paroxysmal atrial fibrillation: Code(s): I48.0 - Paroxysmal atrial fibrillation Status: Acute Assessment and Plan: Reversed anticoagulation with vitamin K. INR today is 1.6 which is acceptable with ortho (3) Chronic anticoagulation: Code(s): Z79.01 - salvage determiner (current) use of anticoagulants Status: Acute Assessment and Plan: Withhold and reverse for anticipated surgery start postop per ortho , in SR so not emergent (4) Severe obstructive sleep apnea: Code(s): G47.33 - Obstructive sleep apnea (adult) (pediatric) Status: Acute Assessment and Plan: CPAP with home settings (5) Insulin dependent type 2 diabetes mellitus: Code(s): E11.9 - Type 2 diabetes mellitus without complications; Z79.4 - detention (current) use of insulin Status: Acute Assessment and Plan: Basal and sliding scale insulin (6) Coronary artery disease: Code(s): I25.10 - Atherosclerotic heart disease of [place] coronary artery without angina pectoris Status: Acute Assessment and Plan: stable , will continue beta regina, RENÉ and statin post op (7) Essential hypertension: Code(s): I10 - Essential (primary) hypertension Status: Acute Assessment and Plan: Asymptomatic Continue home regimen, beta regina, rené and diuretic (8) Chronic kidney disease, stage 3 (moderate): Code(s): N18.3 - Chronic kidney disease, stage 3 (moderate) Status: Acute Assessment and Plan: Creatinine is now within normal limits Continue to monitor Subjective Date/time seen: 08/30/19 10:02 Interval history: Date of visit 08/29. 79-year-old female with coronary artery disease without angina and chronic atrial fibrillation on warfarin presented with right hip pain after a slip and fall on the last step of the staircase at her home on August 27. She had no loss of consciousness. Currently her only complaint is right hip pain. She denied chest pain palpitations shortness of breath edema abdominal pain diarrhea constipation dysuria or hematuria or other abnormal bleeding. surgery today Exam Narrative: Exam Narrative: HEENT: EOMI, PERRL, sclera nonicteric, NECK: No JVD CHEST: Clear to auscultation. Normal effort. HEART: NL S1/S2, regular, no murmur ABDOMEN: BS+, soft, nontender, no mass, no bruits EXTREMITIES: No cyanosis, edema, or clubbing, R leg rotated laterally NEUROLOGIC: CN intact and symmetric to inspection. MUSCULOSKELETAL: Tone and strength symmetric. PSYCH: Alert. Oriented to person, place, and time. Objective Data Vital Signs Vital Signs: Vital Signs - 24 hr 08/29/19 11:39 08/29/19 12:00 08/29/19 14:27 Temperature 37.3 C Pulse Rate 63 63 68 Respiratory Rate 18 Blood Pressure 181/56 H Pulse Oximetry 94 08/29/19 16:00 08/29/19 20:00 08/29/19 20:13 Temperature Pulse Rate 57 L 69 60 Respiratory Rate Blood Pressure Pulse Oximetry 08/29/19 22:00 08/30/19 00:00 08/30/19 02:00 Temperature 36.9 C 36.6 C Pulse Rate 83 60 71 Respiratory Rate 20 20 Blood Pressure 158/92 H 210/65 H Pulse Oximetry 94 96 08/30/19 03:09 08/30/19 04:00 08/30/19 06:00 Temperature 36.5 C Pulse Rate 59 L 57 L Respiratory Rate 16 Blood Pressure 142/88 H 178/57 H Pulse Oximetry 99 08/30/19 09:33 08/30/19 09:34 Temperature Pulse Rate 70 70 Respiratory Rate B
[2019-08-30 12:34] LABS: Glucose Point of Care 114 (65-105)
--- NOTE | 2019-08-30 14:54 | PC.NURSE ---
To OR per [ bed], IV [ 20 RAC SL]
--- NOTE | 2019-08-30 15:35 | WPDHPUPDATE1 ---
History and Physical Update Update Date/Time: 08/30/19 15:35 History and Physical has been reviewed, including an updated exam of the patient. There are NO changes in the patient's condition. Risks, benefits, and alternatives have been discussed and questions answered. Patient agrees to proceed with procedure.
--- NOTE | 2019-08-30 15:38 | WPDANESEPPF ---
Anes - Initial Pre Proc Eval Procedure: Operation Date: 08/30/19 16:30 Proposed Procedures p Bipolar Right Hip Replacement - Terrance Ruiz MD Date/Time: 08/30/19 15:38 Surgeon: Wayne Brown MD Pre Op Diagnosis: Closed R hip fracture Patient Data Age: 79 Gender: F Height: 5 ft 4 in Weight: 91.8 kg Last Vital Signs Temp 37.7 C H 08/30/19 15:08 Pulse 72 08/30/19 15:08 Resp 20 08/30/19 15:08 BP 161/59 H 08/30/19 15:08 Pulse Ox 92 08/30/19 15:08 Allergies Allergy/AdvReac Type Severity Reaction Status Date / Time No Known Allergies Allergy Verified 08/28/19 13:20 Home Medications Medication Instructions Recorded Confirmed Type fluticasone propionate 110 1 puff INHALATION Q12H PRN 04/20/19 08/28/19 History mcg/actuation HFA aerosol inhaler insulin glargine 100 unit/mL 30 unit SUB-Q HS ml 04/20/19 08/28/19 History subcutaneous solution lisinopril 20 mg tablet 20 mg PO DAILY 04/20/19 08/28/19 History rosuvastatin 20 mg tablet 20 mg PO DAILY 04/20/19 08/28/19 History hydrochlorothiazide 12.5 mg capsule 25 mg PO DAILY cap 04/25/19 08/28/19 History nitroglycerin 0.4 mg sublingual 0.4 mg SUBLINGUAL Q5M PRN #30 04/25/19 08/28/19 Rx tablet tablet amiodarone 200 mg tablet 200 mg PO DAILY 06/22/19 08/28/19 History glucosamine-chondroitin 250 mg-200 1 tablet PO DAILY 06/22/19 08/28/19 History mg tablet multivit with 1 tablet PO DAILY 06/22/19 08/28/19 History xworrjkg-jnaj-AQ-lutein 8 mg iron-400 mcg-300 mcg tablet warfarin 5 mg tablet 5 mg PO DAILY 06/22/19 08/28/19 History folic acid 1 mg tablet See Rx Instructions .ROUTE 08/23/19 08/28/19 Rx .COMPLEX #90 tablet warfarin 2.5 mg PO WEEKLY 08/28/19 08/28/19 History carvedilol 12.5 mg tablet 25 mg PO Q12H #60 tablet 08/30/19 Rx Laboratory Tests 08/29/19 08/29/19 08/30/19 16:39 20:09 05:36 WBC RBC Hgb Hct MCV MCH MCHC RDW Plt Count MPV PT 18.7 Seconds H D Seconds (11.1-14.7) INR 1.6 Sodium Potassium Chloride Carbon Dioxide BUN Creatinine Estim Creat Clear Calc Estimated GFR Glucose POC Capillary Glucose 125 mg/dl H mg/dl 133 mg/dl H mg/dl (65-105) (65-105) Calcium Blood Type Antibody Screen 08/30/19 08/30/19 08/30/19 05:36 05:36 09:21 WBC 9.8 K/mm3 K/mm3 (4.5-10.0) RBC 4.23 M/mm3 M/mm3 (4.2-5.4) Hgb 12.7 g/dL g/dL (12.0-15.0) Hct 38.9 % % (37.0-47.0) MCV 92.0 fl fl (80-100) MCH 30.0 pg pg (26-34) MCHC 32.6 g/dl g/dl (32-36) RDW 13.9 % % (11.5-14.5) Plt Count 182 k/mm3 k/mm3 (150-375) MPV 10.3 fl fl (7.4-10.4) PT INR Sodium 133 mmol/L L mmol/L (137-145) Potassium 3.9 mmol/L mmol/L (3.4-5.0) Chloride 97 mmol/L L mmol/L (98-107) Carbon Dioxide 33 mmol/L H mmol/L (22-30) BUN 15 mg/dL mg/dL (7-17) Creatinine 0.80 mg/dL mg/dL (0.7-1.0) Estim Creat Clear Calc 53 ml/min ml/min Estimated GFR > 60 (59 - ) Glucose 103 mg/dL mg/dL (65-105) POC Capillary Glucose 109 mg/dl mg/dl (65-105) Calcium 9.1 mg/dL mg/dL (8.4-10.2) Blood Type Antibody Screen 08/30/19 08/30/19 10:06 12:31 WBC RBC Hgb Hct MCV MCH MCHC RDW Plt Count MPV PT INR Sodium Potassium Chloride Carbon Dioxide BUN Creatinine Estim Creat Clear Calc Estimated GFR
[2019-08-30] MEDS: ceFAZolin 2 GM/D5W 50 ML 2 GM/50 ML BAG IVPB (15:43)
--- NOTE | 2019-08-30 15:58 | PM.PROC ---
Procedure Note - Detailed Date of procedure: 08/30/19 Pre-op diagnosis: Closed R hip fracture Displaced femoral neck fracture. Post-op diagnosis: same Procedure performed: Bipolar hemiarthroplasty, right hip. Implants: Marguerite Accolade 2 hip stem. Size 4, 127 degree, 47 mm bipolar component, 28 mm -4 metal head. Anesthesia: GETA Surgeon: Terrance Ruiz MD Estimated blood loss (mL): 500 Drains: No Complications: None Condition: stable Disposition: PACU Findings: A general anesthetic was administered. The patient was carefully placed in the lateral decubitus position on the peg board positioner. An axillary roll was placed. The hip was prepped and draped in the usual sterile fashion. A minimally invasive optimized posterior approach to the hip was performed. An L shaped capsulotomy was created along the upper border of the piriformis. The short external rotators were tagged with number 2 high strength suture for later repair. The labrum was preserved. The femoral neck cut was performed. The femoral head was removed and sized. The acetabular floor was cleared of debris and loose tissue. The femur was sequentially reamed and broached. Trial was assessed for leg length and stability. The real component was impacted into position, trialed again, and the final head and bipolar component were assembled. The hip was reduced after copious irrigation. The short external rotators and capsule were repaired through drill holes in the posterior trochanter. The wound was closed in layers with 1 vicryl, 2,0, and 2-0 running barbed suture. Adhesive tapes were placed on the skin, followed by a sterile gauze dressing. The patient was extubated and brought to the recovery room.
--- NOTE | 2019-08-30 17:06 | SUR.OPER ---
[id number]
[2019-08-30] MEDS: MIDAZOLAM HCL 2 MG/2 ML VIAL IV PUSH (17:44)
[2019-08-30] MEDS: ONDANSETRON INJ 4 MG/2 ML VIAL IV PUSH (17:50)
--- NOTE | 2019-08-30 18:01 | SUR.PHASEI ---
pt arrived in the PACU at 1724 She became combative within a couple minutes Called Dr Ann to put in an order for Fenanyl Pt continued to be combative; saying she wanted to leave She tried to get out of the bed. She began to hit when I told her she can not get out of bed Called Dr Ann again and he gave a verbal order for Versed Pt tried to rip of bandage on right hip, take IV off and would not keep nasal canula in her nose
--- NOTE | 2019-08-30 18:31 | SUR.PHASEI ---
called dr Ann at 1820 to inform him that patient was still combative He gave verbal order for Valium
--- NOTE | 2019-08-30 19:53 | SUR.PHASEI ---
1914 Pt became combative again, she ripped off mepilex dressing, and ripped off electrodes. Called Dr Ann for assistance Dr Ann gave verbal order of 2.5mg Valium and 25mg Benedryl He helped restrain and keep pt calm
[2019-08-30] MEDS: KCL 20 MEQ/D5/0.45% SOD CHL 1,000 ML 80 ML IV CONT (20:20)
[2019-08-30] MEDS: INSULIN GLARGINE (*BKC) 100 UNITS/ML 30 UNITS SUB-Q (20:27)
[2019-08-30 21:38] LABS: Glucose Point of Care 150 (65-105)
[2019-08-31] VITALS (11 sets, daily range): BP systolic 106–197; BP diastolic 41–89; PULSE 56–84; RESP 16–18; TEMP 36.8–37.5; O2SAT 93–98; BMI 11.0
[2019-08-31] MEDS: LORAZEPAM INJ 2 MG/ML VIAL 1 MG IV PUSH (01:37)
[2019-08-31] MEDS: hydrALAZINE HCL 20 MG/ML VIAL 10 MG IV PUSH (01:45)
[2019-08-31] MEDS: PROCHLORPERAZINE EDISYLATE 10 MG/2 ML VIAL IV PUSH (04:30)
[2019-08-31 06:21] LABS: Basophils Percent Auto 0.2 % (0.2-1.2); Eosinophils Percent Auto 0.1 % (0-4.4); Hematocrit 33.7 % (37.0-47.0); Hemoglobin 11.2 g/dL (12.0-15.0); Immature Granulocyte Absolute 0.07 K/mm3 (0.00-0.031); Immature Granulocyte Percent A 0.6 % (0-0.5); Lymphocytes Percent Auto 11.6 % (18.3-44.2); Mean Corpuscular HGB Conc 33.2 g/dl (32-36); Mean Corpuscular Hemoglobin 29.9 pg (26-34); Mean Corpuscular Volume 90.1 fl (80-100); Monocytes Absolute Auto 1.4 K/mm3 (0.1-0.6); Monocytes Percent Auto 11.2 % (2.6-8.5); Neutrophils Absolute Auto 9.2 K/mm3 (1.3-6.7); Neutrophils Percent Auto 76.3 % (45.5-73.1); Platelet Count Result 175 k/mm3 (150-375); Red Blood Count 3.74 M/mm3 (4.2-5.4); Red Cell Distribution Width 13.5 % (11.5-14.5); White Blood Count 12.1 K/mm3 (4.5-10.0)
[2019-08-31 06:29] LABS: INR 1.3; Prothrombin Time 15.7 Seconds (11.1-14.7)
[2019-08-31 06:36] LABS: Blood Urea Nitrogen 22 mg/dL (7-17); Calcium 8.8 mg/dL (8.4-10.2); Carbon Dioxide 31 mmol/L (22-30); Chloride 96 mmol/L (98-107); Estimated CRCL calculation 49 ml/min; Estimated Glomerular Filt Rate 60; Glucose 207 mg/dL (65-105); Potassium 4.2 mmol/L (3.4-5.0); Sodium 131 mmol/L (137-145)
--- NOTE | 2019-08-31 07:43 | WPDANESPN ---
Anes - Prog Note Post-Op Date/Time: 08/31/19 07:43 Cardiovascular status: normal Respiratory status: normal Airway patency: baseline Mental status: baseline Post-Op hydration status: normal Vital Signs: Last Vital Signs Temp 37.5 C 08/31/19 05:00 Pulse 84 08/31/19 05:00 Resp 16 08/31/19 05:00 BP 159/89 H 08/31/19 05:00 Pulse Ox 96 08/31/19 05:00 I/O: Intake & Output 08/30/19 08/30/19 08/31/19 15:59 23:59 07:59 Intake Total 894 110 Output Total 735 275 Balance 159 -165 Laboratory Tests 08/31/19 05:59 08/31/19 05:59 08/30/19 08/30/19 08/30/19 09:21 10:06 12:31 WBC RBC Hgb Hct MCV MCH MCHC RDW Plt Count MPV Immature Gran % (Auto) Neut % (Auto) Lymph % (Auto) [place] % (Auto) Eos % (Auto) Baso % (Auto) Lymph # (Auto) [place] # (Auto) Eos # (Auto) Baso # (Auto) Abs Immat Gran (auto) Absolute Neuts (auto) Absolute Nucleated RBC Nucleated RBC % PT INR Sodium Potassium Chloride Carbon Dioxide BUN Creatinine Estim Creat Clear Calc Estimated GFR Glucose POC Capillary Glucose 109 114 H Calcium Blood Type O Positive Antibody Screen Negative 08/30/19 08/31/19 08/31/19 20:26 05:59 05:59 WBC 12.1 H RBC 3.74 L Hgb 11.2 L Hct 33.7 L MCV 90.1 MCH 29.9 MCHC 33.2 RDW 13.5 Plt Count 175 MPV 11.0 H Immature Gran % (Auto) 0.6 H Neut % (Auto) 76.3 H Lymph % (Auto) 11.6 L [place] % (Auto) 11.2 H Eos % (Auto) 0.1 Baso % (Auto) 0.2 Lymph # (Auto) 1.40 [place] # (Auto) 1.4 H Eos # (Auto) 0.0 Baso # (Auto) 0.0 Abs Immat Gran (auto) 0.07 H Absolute Neuts (auto) 9.2 H Absolute Nucleated RBC 0.0 Nucleated RBC % 0.0 PT 15.7 H INR 1.3 Sodium Potassium Chloride Carbon Dioxide BUN Creatinine Estim Creat Clear Calc Estimated GFR Glucose POC Capillary Glucose 150 H Calcium Blood Type Antibody Screen 08/31/19 05:59 WBC RBC Hgb Hct MCV MCH MCHC RDW Plt Count MPV Immature Gran % (Auto) Neut % (Auto) Lymph % (Auto) [place] % (Auto) Eos % (Auto) Baso % (Auto) Lymph # (Auto) [place] # (Auto) Eos # (Auto) Baso # (Auto) Abs Immat Gran (auto) Absolute Neuts (auto) Absolute Nucleated RBC Nucleated RBC % PT INR Sodium 131 L Potassium 4.2 Chloride 96 L Carbon Dioxide 31 H BUN 22 H Creatinine 0.90 Estim Creat Clear Calc 49 Estimated GFR 60 Glucose 207 H POC Capillary Glucose Calcium 8.8 Blood Type Antibody Screen Post-procedural complaints: none Patient Feedback: Patient satisfied with anesthetic care.
[2019-08-31 07:46] LABS: Glucose Point of Care 177 (65-105)
[2019-08-31] MEDS: DOCUSATE SODIUM 100 MG CAPSULE PO ×2 (09:44→17:26)
[2019-08-31] MEDS: THERAPEUTIC MULTIVITAMINS/MINERALS TAB (*BKC) 1 TABLET PO (09:44)
[2019-08-31] MEDS: AMIODARONE HCL 200 MG TABLET PO (09:44)
[2019-08-31] MEDS: FAMOTIDINE 20 MG/2 ML VIAL IV PUSH ×2 (09:48→21:29)
[2019-08-31] MEDS: ROSUVASTATIN 10 MG TABLET 20 MG PO (09:48)
[2019-08-31] MEDS: carvediloL 25 MG TABLET PO ×2 (09:48→21:29)
[2019-08-31] MEDS: lisinopriL 20 MG TABLET PO (09:48)
[2019-08-31] MEDS: SENNOSIDES 8.6 MG TABLET PO ×2 (09:55→17:27)
[2019-08-31] MEDS: KCL 20 MEQ/D5/0.45% SOD CHL 1,000 ML 80 ML IV CONT (09:56)
--- NOTE | 2019-08-31 10:05 | PM.PNORT ---
Progress Note: A&P Assessment and Plan (1) History of right hip hemiarthroplasty: Onset Date: 08/30/19 Code(s): Z96.641 - Presence of right artificial hip joint Status: Acute Assessment and Plan: Confused. Thrashing in the bed post op. Mild internal rotation of the hip. Unable to stand with 2 assist. Appears comfortable. Will check an xray to rule out dislocation. Place an abductor pillow. Hold narcotics and ativan. Counadin 5 mg now and continue at hs daily. Wound with scant drainage. No hematoma. Calves non tender. No edema. No definite deformity. Initial post op film satisfactory. Subjective Subjective Date/Time Seen: 08/31/19 10:05 Objective Data Vital Signs Vital Signs: Vital Signs - 24 hr 08/30/19 12:00 08/30/19 15:08 08/30/19 17:25 Temperature 37.7 C H 37.0 C Pulse Rate 88 72 57 L Respiratory Rate 20 18 Blood Pressure 161/59 H 117/46 L Pulse Oximetry 92 95 08/30/19 18:00 08/30/19 18:30 08/30/19 19:05 Temperature Pulse Rate 52 L 51 L Respiratory Rate 13 14 Blood Pressure 138/62 146/47 H 147/51 H Pulse Oximetry 95 95 95 08/30/19 19:43 08/30/19 19:50 08/30/19 20:00 Temperature 36.8 C Pulse Rate 68 74 55 L Respiratory Rate 16 18 Blood Pressure 120/49 L Pulse Oximetry 88 L 98 08/30/19 21:07 08/30/19 22:00 08/31/19 00:00 Temperature 36.7 C Pulse Rate 70 58 L 59 L Respiratory Rate 16 Blood Pressure 149/45 H Pulse Oximetry 98 08/31/19 02:00 08/31/19 04:24 08/31/19 05:00 Temperature 37.1 C 37.5 C Pulse Rate 76 81 84 Respiratory Rate 16 16 Blood Pressure 197/64 H 159/89 H Pulse Oximetry 98 96 08/31/19 08:00 Temperature Pulse Rate 62 Respiratory Rate Blood Pressure Pulse Oximetry Intake/Output Intake/Output: Intake & Output 08/28/19 08/29/19 08/30/19 08/31/19 23:59 23:59 23:59 23:59 Intake Total 500 1290 894 110 Output Total 600 2646 9965 275 [place]anner -100 -110 -991 -165 Meds/Results Medications: Active Medications Generic Name Dose Route Start Last Admin Trade Name Binta PRN Reason Stop Dose Admin Amiodarone HCl 200 mg 08/29/19 09:00 08/30/19 09:33 Pacerone PO 200 mg DAILY DAYSI Administration Bisacodyl 10 mg 08/29/19 11:56 Dulcolax Suppository RECTAL QAM PRN Constipation Carvedilol 25 mg 08/28/19 21:00 08/30/19 21:07 Coreg PO 25 mg Q12HR DAYSI Administration Cyclobenzaprine HCl 10 mg 08/30/19 19:18 Flexeril PO Q8H PRN Muscle Spasm Dextrose 12.5 gm 08/28/19 18:16 Dextrose 50% Syringe IV PUSH PRN PRN Hypoglycemia Protocol Docusate Sodium 100 mg 08/31/19 09:00 Colace Capsule PO BID DAYSI Famotidine 20 mg 08/28/19 21:00 08/30/19 20:22 Pepcid Iv IV PUSH 20 mg Q12HR DAYSI Administration Fluticasone Propionate 1 puff 08/28/19 18:18 Flovent INHALATION Q12H PRN Shortness Of Breath Glucagon 1 mg 08/28/19 18:16 Glucagon For Inj IM PRN PRN Hypoglycemia Protocol Glucose 15 gm 08/28/19 18:16 Glutose 15 PO PRN PRN Hypoglycemia Protocol Hydralazine HCl 10 mg 08/30/19 10:53 08/31/19 01:45 Apresoline Hcl Inj IV PUSH 10 mg Q6H PRN Administration Blood Pressure - High Dextrose 1,000 mls @ 100 mls/hr 08/28/19 18:16 Dextrose 5% 1,000 Ml IVPB PRN PRN Hypoglycemia Protocol Lactated Ringer's 1,000 mls @ 30 mls/hr 08/30/19 08:45 08/30/19 19:21 Lr - Lactated Ringers Iv IV CONT Infused .Q24H DAYSI Infusion Potassium Chloride/Dextrose/Sod Cl 1,000 mls @ 80 mls/hr 08/30/19 19:18 08/30/19 20:20 Kcl 20 Meq/D5/0.45% Sod Chl IV CONT 80 mls/hr .[id number] DAYSI Administration Cefazolin Sodium 1 gm in 50 mls @ 100 mls/hr 08/30/19 22:00 08/31/19 05:55 Ancef 1 Gm/D5w 50 Ml Pm IVPB 08/31/19 14:29 Infused Q8H DAYSI Infusion Insulin Aspart 2 - 5 units 08/29/19 08:00 08/31/19 07:54 Novolog SUB-Q Not Given TIDWM S
--- NOTE | 2019-08-31 11:43 | PM.IMPN ---
Progress Note: A&P Assessment and Plan (1) Closed fracture of right hip: Qualifiers: Encounter type: initial encounter Qualified Code(s): S72.001A - Fracture of unspecified part of neck of right femur, initial encounter for closed fracture Code(s): S72.001A - Fracture of unspecified part of neck of right femur, initial encounter for closed fracture Status: Acute Assessment and Plan: POD# 1 R hemiarthroplast , INR decreased to 1.3 today Analgesics and bowel regimen (2) Paroxysmal atrial fibrillation: Code(s): I48.0 - Paroxysmal atrial fibrillation Status: Acute Assessment and Plan: Reversed anticoagulation with vitamin K. INR today is 1.3 and warfarin restarted. to rise slowly, which is ok since in SR (3) Chronic anticoagulation: Code(s): Z79.01 - care home (current) use of anticoagulants Status: Acute Assessment and Plan: Withheld and reversed for anticipated surgery started now postop per ortho , in SR so not emergent (4) Severe obstructive sleep apnea: Code(s): G47.33 - Obstructive sleep apnea (adult) (pediatric) Status: Acute Assessment and Plan: CPAP with home settings (5) Insulin dependent type 2 diabetes mellitus: Code(s): E11.9 - Type 2 diabetes mellitus without complications; Z79.4 - continuous churn buttermaker (current) use of insulin Status: Acute Assessment and Plan: Basal and sliding scale insulin, FBS 207 (6) Coronary artery disease: Code(s): I25.10 - Atherosclerotic heart disease of [place] coronary artery without angina pectoris Status: Acute Assessment and Plan: stable , will continue beta regina, RENÉ and statin post op (7) Essential hypertension: Code(s): I10 - Essential (primary) hypertension Status: Acute Assessment and Plan: Asymptomatic Continue home regimen, beta regina, rené and diuretic (8) Chronic kidney disease, stage 3 (moderate): Code(s): N18.3 - Chronic kidney disease, stage 3 (moderate) Status: Acute Assessment and Plan: Creatinine is now within normal limits Continue to monitor Subjective Date/time seen: 08/31/19 11:43 Interval history: Date of visit 08/30. 79-year-old female with coronary artery disease without angina and chronic atrial fibrillation on warfarin presented with right hip pain after a slip and fall on the last step of the staircase at her home on August 27. She had no loss of consciousness. Currently her only complaint is right hip pain POD # 1 .. She denied chest pain palpitations shortness of breath edema abdominal pain diarrhea constipation dysuria or hematuria or other abnormal bleeding. Exam Narrative: Exam Narrative: Blood pressure 160/86 pulse is 84 and regular HEENT: EOMI, PERRL, sclera nonicteric, NECK: No JVD CHEST: Clear to auscultation. Normal effort. HEART: NL S1/S2, regular, ANTONIA ABDOMEN: BS+, soft, nontender, no mass, no bruits EXTREMITIES: No cyanosis, edema, or clubbing, R leg no longer rotated laterally NEUROLOGIC: CN intact and symmetric to inspection. Confused last pm but much improved this am . Objective Data Vital Signs Vital Signs: Vital Signs - 24 hr 08/30/19 12:00 08/30/19 15:08 08/30/19 17:25 Temperature 37.7 C H 37.0 C Pulse Rate 88 72 57 L Respiratory Rate 20 18 Blood Pressure 161/59 H 117/46 L Pulse Oximetry 92 95 08/30/19 18:00 08/30/19 18:30 08/30/19 19:05 Temperature Pulse Rate 52 L 51 L Respiratory Rate 13 14 Blood Pressure 138/62 146/47 H 147/51 H Pulse Oximetry 95 95 95 08/30/19 19:43 08/30/19 19:50 08/30/19 20:00 Temperature 36.8 C Pulse Rate 68 74 55 L Respiratory Rate 16 18 Blood Pressure 120/49 L Pulse Oximetry 88 L 98 08/30/19 21:07 08/30/19 22:00 08/31/19 00:00 Temperature 36.7 C Pulse Rate 70 58 L 59 L Respiratory Rate 16 Blood Pressure 149/45 H Pulse Oximetry 98 08/31/19 02:00 08/31/19 04:24 08/31/19 0
[2019-08-31] MEDS: WARFARIN (*PBKC) 5 MG TABLET PO ×2 (12:01→17:26)
[2019-08-31 12:22] LABS: Glucose Point of Care 168 (65-105)
[2019-08-31] MEDS: INSULIN ASPART (*BKC) 100 UNITS/ML SUB-Q (17:33)
[2019-08-31 17:57] LABS: Glucose Point of Care 234 (65-105)
[2019-08-31] MEDS: SODIUM CHLORIDE 0.9% IV 500 ML IV CONT (18:23)
[2019-08-31] MEDS: SODIUM CHLORIDE 0.9% IV 1,000 ML 100 ML IV CONT (18:24)
[2019-08-31 21:40] LABS: Glucose Point of Care 119 (65-105)
[2019-08-31] MEDS: INSULIN GLARGINE (*BKC) 100 UNITS/ML 30 UNITS SUB-Q (21:41)
[2019-09-01] MEDS: SODIUM CHLORIDE 0.9% IV 1,000 ML 100 ML IV CONT ×2 (05:37→20:12)
[2019-09-01 05:57] LABS: INR 1.3; Prothrombin Time 15.8 Seconds (11.1-14.7)
[2019-09-01 06:00] VITALS: BP 133/43; PULSE 68; RESP 16; TEMP 36.8; O2SAT 92
[2019-09-01 06:00] LABS: Basophils Percent Auto 0.4 % (0.2-1.2); Eosinophils Absolute Auto 0.1 K/mm3 (0-0.3); Eosinophils Percent Auto 0.9 % (0-4.4); Hematocrit 29.9 % (37.0-47.0); Hemoglobin 9.8 g/dL (12.0-15.0); Immature Granulocyte Absolute 0.05 K/mm3 (0.00-0.031); Immature Granulocyte Percent A 0.4 % (0-0.5); Lymphocytes Absolute Auto 2.38 K/mm3 (0.9-3.2); Lymphocytes Percent Auto 20.9 % (18.3-44.2); Mean Corpuscular HGB Conc 32.8 g/dl (32-36); Mean Corpuscular Hemoglobin 30.3 pg (26-34); Mean Corpuscular Volume 92.6 fl (80-100); Mean Platelet Volume 11.2 fl (7.4-10.4); Monocytes Absolute Auto 1.6 K/mm3 (0.1-0.6); Monocytes Percent Auto 13.7 % (2.6-8.5); Neutrophils Absolute Auto 7.3 K/mm3 (1.3-6.7); Neutrophils Percent Auto 63.7 % (45.5-73.1); Platelet Count Result 156 k/mm3 (150-375); Red Blood Count 3.23 M/mm3 (4.2-5.4); White Blood Count 11.4 K/mm3 (4.5-10.0)
[2019-09-01 06:05] LABS: Blood Urea Nitrogen 36 mg/dL (7-17); Calcium 8.2 mg/dL (8.4-10.2); Carbon Dioxide 25 mmol/L (22-30); Chloride 100 mmol/L (98-107); Estimated CRCL calculation 32 ml/min; Estimated Glomerular Filt Rate 36; Glucose 85 mg/dL (65-105); Potassium 4.1 mmol/L (3.4-5.0); Sodium 131 mmol/L (137-145)
[2019-09-01] MEDS: SODIUM CHLORIDE 0.9% IV 500 ML IV CONT (08:44)
[2019-09-01] MEDS: ROSUVASTATIN 10 MG TABLET 20 MG PO (08:59)
[2019-09-01 09:00] VITALS: PULSE 72
[2019-09-01] MEDS: DOCUSATE SODIUM 100 MG CAPSULE PO ×2 (09:00→17:36)
[2019-09-01] MEDS: AMIODARONE HCL 200 MG TABLET PO (09:00)
[2019-09-01] MEDS: THERAPEUTIC MULTIVITAMINS/MINERALS TAB (*BKC) 1 TABLET PO (09:01)
[2019-09-01 09:02] VITALS: PULSE 72
[2019-09-01] MEDS: carvediloL 25 MG TABLET PO ×2 (09:02→20:10)
[2019-09-01] MEDS: SENNOSIDES 8.6 MG TABLET PO ×2 (09:02→17:36)
[2019-09-01] MEDS: FAMOTIDINE 20 MG/2 ML VIAL IV PUSH ×2 (09:03→20:12)
--- NOTE | 2019-09-01 09:28 | PM.PNORT ---
Progress Note: A&P Assessment and Plan (1) History of right hip hemiarthroplasty: Onset Date: 08/30/19 Code(s): Z96.641 - Presence of right artificial hip joint Status: Acute Assessment and Plan: Mobilizing slowly. X-ray confirms the hip remains reduced. Continue therapy. Evaluate for the TRC. Subjective Subjective Date/Time Seen: 09/01/19 09:28 Objective Data Vital Signs Vital Signs: Vital Signs - 24 hr 08/31/19 09:44 08/31/19 09:48 08/31/19 10:00 Temperature 36.8 C Pulse Rate 60 60 61 Respiratory Rate 18 Blood Pressure 110/51 L Pulse Oximetry 95 08/31/19 14:00 08/31/19 21:29 08/31/19 22:00 Temperature 36.8 C 36.9 C Pulse Rate 56 L 65 65 Respiratory Rate 16 16 Blood Pressure 106/43 L 113/41 L Pulse Oximetry 93 93 09/01/19 06:00 09/01/19 09:00 09/01/19 09:02 Temperature 36.8 C Pulse Rate 68 72 72 Respiratory Rate 16 Blood Pressure 133/43 L Pulse Oximetry 92 Intake/Output Intake/Output: Intake & Output 08/29/19 08/30/19 08/31/19 09/01/19 23:59 23:59 23:59 23:59 Intake Total 8587 209 3004 1360 Output Total 1400 1885 425 150 Balance -110 -991 1565 1210 Meds/Results Medications: Active Medications Generic Name Dose Route Start Last Admin Trade Name Freq PRN Reason Stop Dose Admin Amiodarone HCl 200 mg 08/29/19 09:00 09/01/19 09:00 Pacerone PO 200 mg DAILY DAYSI Administration Bisacodyl 10 mg 08/29/19 11:56 Dulcolax Suppository RECTAL QAM PRN Constipation Carvedilol 25 mg 08/28/19 21:00 09/01/19 09:02 Coreg PO 25 mg Q12HR DAYSI Administration Cyclobenzaprine HCl 10 mg 08/30/19 19:18 Flexeril PO Q8H PRN Muscle Spasm Dextrose 12.5 gm 08/28/19 18:16 Dextrose 50% Syringe IV PUSH PRN PRN Hypoglycemia Protocol Docusate Sodium 100 mg 08/31/19 09:00 08/31/19 17:26 Colace Capsule PO 100 mg BID DAYSI Administration Famotidine 20 mg 08/28/19 21:00 09/01/19 09:03 Pepcid Iv IV PUSH 20 mg Q12HR DAYSI Administration Fluticasone Propionate 1 puff 08/28/19 18:18 Flovent INHALATION Q12H PRN Shortness Of Breath Glucagon 1 mg 08/28/19 18:16 Glucagon For Inj IM PRN PRN Hypoglycemia Protocol Glucose 15 gm 08/28/19 18:16 Glutose 15 PO PRN PRN Hypoglycemia Protocol Hydralazine HCl 10 mg 08/30/19 10:53 08/31/19 01:45 Apresoline Hcl Inj IV PUSH 10 mg Q6H PRN Administration Blood Pressure - High Dextrose 1,000 mls @ 100 mls/hr 08/28/19 18:16 Dextrose 5% 1,000 Ml IVPB PRN PRN Hypoglycemia Protocol Sodium Chloride 1,000 mls @ 100 mls/hr 08/31/19 18:40 09/01/19 05:37 Normal Saline Iv IV CONT 100 mls/hr .Q10H DAYSI Administration Insulin Aspart 2 - 5 units 08/29/19 08:00 09/01/19 08:59 Novolog SUB-Q Not Given TIDWM [facility] Protocol Insulin Glargine 30 units 08/28/19 21:00 08/31/19 21:41 Lantus SUB-Q 30 units HS DAYSI Administration Magnesium Hydroxide 30 ml 08/30/19 19:18 Milk Of Magnesia PO BID PRN Constipation Multivitamins/Calcium 1 tablet 08/29/19 09:00 09/01/19 09:01 Therapeutic Multivitamins/Minerals PO 1 tablet DAILY DAYSI Administration Nalbuphine HCl 10 mg 08/29/19 15:04 08/30/19 09:22 Nubain IM 10 mg Q4H PRN Administration Pain Rated 7-10 Naloxone HCl 0.1 mg 08/30/19 19:18 Narcan IV PUSH Q2M PRN Opiate Reversal Polyethylene Glycol 17 gm 08/29/19 11:55 Miralax PO BID PRN Constipation Prochlorperazine Edisylate 10 mg 08/29/19 11:54 08/31/19 04:30 Compazine IV PUSH 10 mg Q6H PRN Administration Nausea And Vomiting Rosuvastatin Calcium 20 mg 08/29/19 09:00 09/01/19 08:59 Crestor PO 20 mg DAILY DAYSI Administration Senna 8.6 mg 08/29/19 17:00 09/01/19 09:02 Senokot Tablet PO 8.6 mg BID DAYSI Administration Katherineari
[2019-09-01 10:22] LABS: Glucose Point of Care 88 (65-105)
--- NOTE | 2019-09-01 10:35 | PM.IMPN ---
Progress Note: A&P Assessment and Plan (1) Closed fracture of right hip: Qualifiers: Encounter type: initial encounter Qualified Code(s): S72.001A - Fracture of unspecified part of neck of right femur, initial encounter for closed fracture Code(s): S72.001A - Fracture of unspecified part of neck of right femur, initial encounter for closed fracture Status: Acute Assessment and Plan: POD# 2 R hemiarthroplast , PT/OT Analgesics and bowel regimen (2) Paroxysmal atrial fibrillation: Code(s): I48.0 - Paroxysmal atrial fibrillation Status: Acute Assessment and Plan: Reversed anticoagulation with vitamin K. INR today is still 1.3 and warfarin restarted 08/30. to rise slowly, which is ok since in SR (3) Chronic anticoagulation: Code(s): Z79.01 - roasterman (current) use of anticoagulants Status: Acute Assessment and Plan: Withheld and reversed for anticipated surgery started now postop per ortho , in SR so not emergent (4) Severe obstructive sleep apnea: Code(s): G47.33 - Obstructive sleep apnea (adult) (pediatric) Status: Acute Assessment and Plan: CPAP with home settings (5) Insulin dependent type 2 diabetes mellitus: Code(s): E11.9 - Type 2 diabetes mellitus without complications; Z79.4 - [facility]PC (current) use of insulin Status: Acute Assessment and Plan: Basal and sliding scale insulin, FBS 126 today (6) Coronary artery disease: Code(s): I25.10 - Atherosclerotic heart disease of [place] coronary artery without angina pectoris Status: Acute Assessment and Plan: stable , will continue beta regina, and statin post op, hold [place] with lower bp yesterday and creatinine up to 1.4 today (7) Essential hypertension: Code(s): I10 - Essential (primary) hypertension Status: Acute Assessment and Plan: Asymptomatic Continue home regimen, beta regina, and hold hawk and diuretic with increased creatinine 1.4 with lower bp 08/30 (8) Chronic kidney disease, stage 3 (moderate): Code(s): N18.3 - Chronic kidney disease, stage 3 (moderate) Status: Acute Assessment and Plan: hydrating and holding some bp meds with creatinine up to 1.4 today Continue to monitor Subjective Date/time seen: 09/01/19 10:35 Interval history: Date of visit 3/26. 79-year-old female with coronary artery disease without angina and chronic atrial fibrillation(in SR) on warfarin presented with right hip pain after a slip and fall on the last step of the staircase at her home on August 27. She had no loss of consciousness. Currently her only complaint is some back pain POD # 2 .. She denied chest pain palpitations shortness of breath edema abdominal pain diarrhea constipation dysuria or hematuria or other abnormal bleeding. Exam Narrative: Exam Narrative: Blood pressure 160/86 pulse is 84 and regular HEENT: EOMI, PERRL, sclera nonicteric, NECK: No JVD CHEST: Clear to auscultation. Normal effort. HEART: NL S1/S2, regular, ANTONIA ABDOMEN: BS+, soft, nontender, no mass, no bruits EXTREMITIES: No cyanosis, edema, or clubbing, R leg no longer rotated laterally NEUROLOGIC: CN intact and symmetric to inspection. Confused at times especially night, but much improved this am . Objective Data Vital Signs Vital Signs: Vital Signs - 24 hr 08/31/19 14:00 08/31/19 21:29 08/31/19 22:00 Temperature 36.8 C 36.9 C Pulse Rate 56 L 65 65 Respiratory Rate 16 16 Blood Pressure 106/43 L 113/41 L Pulse Oximetry 93 93 09/01/19 06:00 09/01/19 09:00 09/01/19 09:02 Temperature 36.8 C Pulse Rate 68 72 72 Respiratory Rate 16 Blood Pressure 133/43 L Pulse Oximetry 92 Intake/Output Intake/Output: Intake & Output 08/29/19 08/30/19 08/31/19 09/01/19 23:59 23:59 23:59 23:59 Intake Total 1932 804 0499 1360 Output Total 1400 0775 425 150 Balance -110 -991 1565 1210 Meds/Results Medi
[2019-09-01 11:42] LABS: Glucose Point of Care 111 (65-105)
[2019-09-01 13:45] VITALS: BP 135/50; PULSE 71; RESP 16; TEMP 36.4; O2SAT 95
[2019-09-01] MEDS: TRAMADOL HCL 50 MG TABLET PO ×2 (16:27→23:38)
[2019-09-01] MEDS: WARFARIN (*PBKC) 5 MG TABLET PO (17:36)
[2019-09-01 19:57] LABS: Glucose Point of Care 102 (65-105)
[2019-09-01 20:10] VITALS: PULSE 64
[2019-09-01] MEDS: INSULIN GLARGINE (*BKC) 100 UNITS/ML 30 UNITS SUB-Q (20:13)
[2019-09-01 21:14] LABS: Glucose Point of Care 109 (65-105)
[2019-09-01 21:15] VITALS: BP 105/50; PULSE 62; RESP 16; TEMP 36.8; O2SAT 93
[2019-09-02] MEDS: SODIUM CHLORIDE 0.9% IV 1,000 ML 100 ML IV CONT (05:52)
[2019-09-02] MEDS: TRAMADOL HCL 50 MG TABLET PO (05:53)
[2019-09-02 06:00] VITALS: BP 139/59; PULSE 58; RESP 16; TEMP 36.8; O2SAT 94
[2019-09-02 06:15] LABS: Basophils Percent Auto 0.4 % (0.2-1.2); Eosinophils Absolute Auto 0.2 K/mm3 (0-0.3); Eosinophils Percent Auto 2.1 % (0-4.4); Hematocrit 26.1 % (37.0-47.0); Hemoglobin 8.4 g/dL (12.0-15.0); Immature Granulocyte Absolute 0.07 K/mm3 (0.00-0.031); Immature Granulocyte Percent A 0.7 % (0-0.5); Lymphocytes Absolute Auto 1.91 K/mm3 (0.9-3.2); Lymphocytes Percent Auto 19.5 % (18.3-44.2); Mean Corpuscular HGB Conc 32.2 g/dl (32-36); Mean Corpuscular Hemoglobin 30.3 pg (26-34); Mean Corpuscular Volume 94.2 fl (80-100); Mean Platelet Volume 10.9 fl (7.4-10.4); Monocytes Absolute Auto 1.3 K/mm3 (0.1-0.6); Monocytes Percent Auto 13.2 % (2.6-8.5); Neutrophils Absolute Auto 6.3 K/mm3 (1.3-6.7); Neutrophils Percent Auto 64.1 % (45.5-73.1); Platelet Count Result 146 k/mm3 (150-375); Red Blood Count 2.77 M/mm3 (4.2-5.4); Red Cell Distribution Width 14.2 % (11.5-14.5); White Blood Count 9.8 K/mm3 (4.5-10.0)
[2019-09-02 06:23] LABS: INR 1.3; Prothrombin Time 15.7 Seconds (11.1-14.7)
[2019-09-02 06:38] LABS: Blood Urea Nitrogen 26 mg/dL (7-17); Calcium 8.2 mg/dL (8.4-10.2); Carbon Dioxide 27 mmol/L (22-30); Chloride 105 mmol/L (98-107); Estimated CRCL calculation 45 ml/min; Estimated Glomerular Filt Rate 53; Glucose 97 mg/dL (65-105); Sodium 132 mmol/L (137-145)
[2019-09-02 08:34] LABS: Glucose Point of Care 92 (65-105)
[2019-09-02 09:11] VITALS: PULSE 87
[2019-09-02] MEDS: AMIODARONE HCL 200 MG TABLET PO (09:11)
[2019-09-02 09:12] VITALS: PULSE 87
[2019-09-02] MEDS: FAMOTIDINE 20 MG/2 ML VIAL IV PUSH (09:12)
[2019-09-02] MEDS: THERAPEUTIC MULTIVITAMINS/MINERALS TAB (*BKC) 1 TABLET PO (09:12)
[2019-09-02] MEDS: carvediloL 25 MG TABLET PO (09:12)
[2019-09-02] MEDS: DOCUSATE SODIUM 100 MG CAPSULE PO (09:12)
[2019-09-02] MEDS: ROSUVASTATIN 10 MG TABLET 20 MG PO (09:13)
[2019-09-02] MEDS: SENNOSIDES 8.6 MG TABLET PO (09:13)
--- NOTE | 2019-09-02 10:54 | WPDCDIQUERY2 ---
CDI Query Clarification Request - 08/27 H&H 12.7/39.3 - Fractured right hip documented - EBL 500cc during OR documented -09/01 H&H 8.4/26.1 Please clarify if there is a corresponding diagnosis for above findings.
[2019-09-02 12:31] LABS: Glucose Point of Care 115 (65-105)
[2019-09-02 14:00] VITALS: BP 137/63; PULSE 83; RESP 16; TEMP 36.7; O2SAT 93
--- NOTE | 2019-09-03 13:50 | P.DS_ITS ---
DS: Diagnosis Admitting Diagnosis Admitting Diagnosis: Fracture of unspecified part of neck of right femur, initia l encounter for closed fracture Discharge Diagnosis (1) Closed fracture of right hip: Qualifiers: Encounter type: initial encounter Qualified Code(s): S72.001A - Fracture of unspecified part of neck of right femur, initial encounter for closed fracture Code(s): S72.001A - Fracture of unspecified part of neck of right femur, initial encounter for closed fracture Status: Acute Assessment and Plan: * POD# 3 R hemiarthroplast , PT/OT * Analgesics and bowel regimen * To [facility] today for further rehab (2) Paroxysmal atrial fibrillation: Code(s): I48.0 - Paroxysmal atrial fibrillation Status: Acute Assessment and Plan: * Reversed anticoagulation with vitamin K. * INR today is still 1.3 and warfarin restarted 08/30. to rise slowly, which is ok since in SR * follow on [facility] (3) Chronic anticoagulation: Code(s): Z79.01 - USP (current) use of anticoagulants Status: Acute Assessment and Plan: * Withheld and reversed for surgery * started now postop per ortho , in SR so not emergent (4) Severe obstructive sleep apnea: Code(s): G47.33 - Obstructive sleep apnea (adult) (pediatric) Status: Acute Assessment and Plan: * CPAP with home settings (5) Insulin dependent type 2 diabetes mellitus: Code(s): E11.9 - Type 2 diabetes mellitus without complications; Z79.4 - USP (current) use of insulin Status: Acute Assessment and Plan: * Basal and sliding scale insulin, FBS 126 today (6) Coronary artery disease: Code(s): I25.10 - Atherosclerotic heart disease of [place] coronary artery without angina pectoris Status: Acute Assessment and Plan: stable , will continue beta regina, and statin post op, and resumed RENÉ on d/c (7) Essential hypertension: Code(s): I10 - Essential (primary) hypertension Status: Acute Assessment and Plan: * Asymptomatic * Continue home regimen, beta regina, and resume RENÉ with creatinine down to 1.0 and bp up (8) Chronic kidney disease, stage 3 (moderate): Code(s): N18.3 - Chronic kidney disease, stage 3 (moderate) Status: Acute Assessment and Plan: * hydrated and creatinine back to baseline at 1.0 today * Continue to monitor (9) Acute postoperative anemia due to expected blood loss: Code(s): D62 - Acute posthemorrhagic anemia Status: Acute Assessment and Plan: Hemoglobin fell to 8.4 by the time of discharge. Did not have to be transfused. Will be followed on [facility]. DS: Summary Hospital Course Hospital Course: 79-year-old hypertensive white female with history of paroxysmal AFib on anticoagulation admitted after fall fracture of right hip. Anticoagulation was reversed and patient was taken for right hemiarthroplasty by Ortho.. Did well postop with slight falling of hemoglobin but no transfusion required. RENÉ-inhibitor held initially when creatinine up to 1.4 but with hydration came back to 1.0 Transferred to [facility] for further rehabilitation. Warfarin was restarted postop day 1. And INR was still 1.3 the day of discharge Time Spent with Patient Time attestation: Total time spent providing and/or coordinating discharge services:35 Exam Narrative: Exam Narrative: Condition on discharge Blood pressure 136/62 pulse is 82 and regular Lungs are clear CV regular rate rhythm with systolic ejection murmur Abdomen s
--- NOTE | 2019-09-03 13:50 | PM.DS ---
DS: Diagnosis Admitting Diagnosis Admitting Diagnosis: Fracture of unspecified part of neck of right femur, initial encounter for closed fracture Discharge Diagnosis (1) Closed fracture of right hip: Qualifiers: Encounter type: initial encounter Qualified Code(s): S72.001A - Fracture of unspecified part of neck of right femur, initial encounter for closed fracture Code(s): S72.001A - Fracture of unspecified part of neck of right femur, initial encounter for closed fracture Status: Acute Assessment and Plan: POD# 3 R hemiarthroplast , PT/OT Analgesics and bowel regimen To [facility] today for further rehab (2) Paroxysmal atrial fibrillation: Code(s): I48.0 - Paroxysmal atrial fibrillation Status: Acute Assessment and Plan: Reversed anticoagulation with vitamin K. INR today is still 1.3 and warfarin restarted 08/30. to rise slowly, which is ok since in follow on [facility] (3) Chronic anticoagulation: Code(s): Z79.01 - group home (current) use of anticoagulants Status: Acute Assessment and Plan: Withheld and reversed for surgery started now postop per ortho , in SR so not emergent (4) Severe obstructive sleep apnea: Code(s): G47.33 - Obstructive sleep apnea (adult) (pediatric) Status: Acute Assessment and Plan: CPAP with home settings (5) Insulin dependent type 2 diabetes mellitus: Code(s): E11.9 - Type 2 diabetes mellitus without complications; Z79.4 - terminal gauger (current) use of insulin Status: Acute Assessment and Plan: Basal and sliding scale insulin, FBS 126 today (6) Coronary artery disease: Code(s): I25.10 - Atherosclerotic heart disease of [place] coronary artery without angina pectoris Status: Acute Assessment and Plan: stable , will continue beta regina, and statin post op, and resumed RENÉ on d/c (7) Essential hypertension: Code(s): I10 - Essential (primary) hypertension Status: Acute Assessment and Plan: Asymptomatic Continue home regimen, beta regina, and resume RENÉ with creatinine down to 1.0 and bp up (8) Chronic kidney disease, stage 3 (moderate): Code(s): N18.3 - Chronic kidney disease, stage 3 (moderate) Status: Acute Assessment and Plan: hydrated and creatinine back to baseline at 1.0 today Continue to monitor (9) Acute postoperative anemia due to expected blood loss: Code(s): D62 - Acute posthemorrhagic anemia Status: Acute Assessment and Plan: Hemoglobin fell to 8.4 by the time of discharge. Did not have to be transfused. Will be followed on [facility]. DS: Summary Hospital Course Hospital Course: 79-year-old hypertensive white female with history of paroxysmal AFib on anticoagulation admitted after fall fracture of right hip. Anticoagulation was reversed and patient was taken for right hemiarthroplasty by Ortho.. Did well postop with slight falling of hemoglobin but no transfusion required. RENÉ-inhibitor held initially when creatinine up to 1.4 but with hydration came back to 1.0 Transferred to [facility] for further rehabilitation. Warfarin was restarted postop day 1. And INR was still 1.3 the day of discharge Time Spent with Patient Time attestation: Total time spent providing and/or coordinating discharge services:35 Exam Narrative: Exam Narrative: Condition on discharge Blood pressure 136/62 pulse is 82 and regular Lungs are clear CV regular rate rhythm with systolic ejection murmur Abdomen soft nontender Extremities without edema distal pulses 2+ Neuro alert x3 with no focal deficits Discharge Plan Discharge Attending physician on discharge: Willis Lyon Consulting providers: Thor Jimenes ; Terrance Ruiz Discharging Clinician: Willis Lyon Patient Disposition: Inpatient Rehab Facility Activity: as tolerated Diet: diabetic and low sodium Patient Instructions: Warfarin
== END 2019-09-02 16:00 | DRG 470 ==
LOC: ANHED 14:23 → ANH3MEDSUR 14:45 → ANH3MED 09-05 14:24 → ANH3MEDSUR 09-05 14:24
PROVIDERS: Emergency Medicine Emergency Medical Services; Internal Medicine; Orthopaedic Surgery; Physician Assistant; Admitting Provider Internal Medicine; Emergency Provider Emergency Medicine; PCP Family Medicine; Visit Provider Internal Medicine
PROC: 0SRR01A Replacement of Right Hip Joint, Femoral Surface with Metal Synthetic Substitute, Uncemented, Open Approach (ICD-10-PCS; CPT 27125; principal; 2019-08-30 16:30)
DX: S72.001A Fracture of unspecified part of neck of right femur, initial encounter for closed fracture (principal); D62 Acute posthemorrhagic anemia; I25.10 Atherosclerotic heart disease of native coronary artery without angina pectoris; Z95.5 Presence of coronary angioplasty implant and graft; I48.0 Paroxysmal atrial fibrillation; Z79.4 Long term (current) use of insulin; Z85.3 Personal history of malignant neoplasm of breast; W10.9XXA Fall (on) (from) unspecified stairs and steps, initial encounter; N18.3 Chronic kidney disease, stage 3 (moderate); E11.22 Type 2 diabetes mellitus with diabetic chronic kidney disease; Z79.01 Long term (current) use of anticoagulants; D50.9 Iron deficiency anemia, unspecified; Z86.010 Personal history of colon polyps; Z92.21 Personal history of antineoplastic chemotherapy; Z92.3 Personal history of irradiation; E11.43 Type 2 diabetes mellitus with diabetic autonomic (poly)neuropathy; K31.84 Gastroparesis; Z87.11 Personal history of peptic ulcer disease; J45.30 Mild persistent asthma, uncomplicated; M19.90 Unspecified osteoarthritis, unspecified site; G47.33 Obstructive sleep apnea (adult) (pediatric); Z98.41 Cataract extraction status, right eye; Z98.42 Cataract extraction status, left eye; Z90.49 Acquired absence of other specified parts of digestive tract; I12.9 Hypertensive chronic kidney disease with stage 1 through stage 4 chronic kidney disease, or unspecified chronic kidney disease; E11.42 Type 2 diabetes mellitus with diabetic polyneuropathy; E66.9 Obesity, unspecified; Z68.38 Body mass index [BMI] 38.0-38.9, adult
CPT/HCPCS: 36415; 70450; 71045; 73501; 73502; 80048; 81001; 83880; 85025; 85027; 85610; 85730; 86850; 86900; 86901; 93005; 96361; 96374; 96375; 96376; 97110; 97116; 97163; 97165; 97530; 97535; 99285; A9270; C1713; C1776; C8929; J0131; J0171; J0360; J0690; J0780; J1170; J1200; J1815; J1885; J2060; J2250; J2270; J2300; J2370; J2405; J2704; J2710; J2795; J3010; J3360; J3430; J3480; J7030; J7040; J7120; Q9957

== ENCOUNTER 2019-09-02 16:05 | IRF | payer MEDICARE, BC, SELFPAY ==
--- NOTE | ~2019-09-02 | US_ITS ---
EXAMINATION: US venous doppler LE EXAM DATE: 09/08/2019 17:44 INDICATION: Right fracture. TECHNIQUE: Multiple grayscale, color flow and Doppler images of the lower extremity deep venous syste ms bilaterally were obtained and reviewed. FINDINGS: RIGHT SIDE Common femoral: -------- Normal. Profunda femoral: ------- Normal. Femoral: Normal. Popliteal: Normal. Posterior tibial: --------- Normal. Peroneal: Thrombosed. Gastrocnemius: Not visualized. Soleus: Not visualized. Greater saphenous: ----- Normal. Lesser saphenous: ------ Not visualized. LEFT SIDE Common femoral: -------- Normal. Profunda femoral: ------- Normal. Femoral: Normal. Popliteal: Normal. Posterior tibial: --------- Normal. Peroneal: Paired, 1 thrombosed. Gastrocnemius: Not visualized. Soleus: Not visualized. Greater saphenous: ----- Normal. Lesser saphenous: ------ Not visualized. IMPRESSION: 1. Positive for bilateral peroneal DVT. I phoned thrombus results, discussed with [facility] staff Irais at 09/08/2019 17:48 CDT. Reviewed, dictated and finalized at location A.
[2019-09-02 16:10] VITALS: BP 142/75; PULSE 66; RESP 18; TEMP 37.1; O2SAT 95; BMI 36.4
--- NOTE | 2019-09-02 16:34 | ADMGEN ---
This patient, Nohelia Laurent, was admitted to [facility] Room 222-01. Patient/family oriented to hospital policies and general routines including ID bracelet, bed and alarms, visiting hours, pain management, procedures, bathroom and other care routines, personal items, smoking policy, room service/diet, and visiting hours. Valuables list has been completed. Information on how to activate the Rapid Response Team has been discussed. Patient/Family are encouraged to report perceived risks to care and to ask questions if they do not understand what they are told or what they should do.
[2019-09-02 20:43] VITALS: PULSE 86
[2019-09-02] MEDS: INSULIN GLARGINE (*BKC) 100 UNITS/ML 30 UNITS SUB-Q (20:43)
[2019-09-02] MEDS: WARFARIN (*PBKC) 5 MG TABLET PO (20:43)
[2019-09-02] MEDS: carvediloL 25 MG TABLET PO (20:43)
[2019-09-02 20:50] LABS: Glucose Point of Care 123 (65-105)
[2019-09-02 21:24] VITALS: PULSE 57; RESP 15; O2SAT 94
[2019-09-02 22:00] VITALS: BP 126/65; PULSE 55; RESP 20; TEMP 37.7; O2SAT 97
[2019-09-03 05:47] LABS: Basophils Percent Auto 0.4 % (0.2-1.2); Eosinophils Absolute Auto 0.4 K/mm3 (0-0.3); Eosinophils Percent Auto 4.1 % (0-4.4); Hematocrit 26.2 % (37.0-47.0); Hemoglobin 8.5 g/dL (12.0-15.0); Immature Granulocyte Absolute 0.08 K/mm3 (0.00-0.031); Immature Granulocyte Percent A 0.9 % (0-0.5); Lymphocytes Absolute Auto 1.86 K/mm3 (0.9-3.2); Lymphocytes Percent Auto 20.2 % (18.3-44.2); Mean Corpuscular HGB Conc 32.4 g/dl (32-36); Mean Corpuscular Hemoglobin 29.9 pg (26-34); Mean Corpuscular Volume 92.3 fl (80-100); Mean Platelet Volume 11.1 fl (7.4-10.4); Monocytes Absolute Auto 1.2 K/mm3 (0.1-0.6); Monocytes Percent Auto 13.2 % (2.6-8.5); Neutrophils Absolute Auto 5.6 K/mm3 (1.3-6.7); Neutrophils Percent Auto 61.2 % (45.5-73.1); Platelet Count Result 180 k/mm3 (150-375); Red Blood Count 2.84 M/mm3 (4.2-5.4); Red Cell Distribution Width 14.2 % (11.5-14.5); White Blood Count 9.2 K/mm3 (4.5-10.0)
[2019-09-03 05:52] LABS: Blood Urea Nitrogen 23 mg/dL (7-17); Calcium 8.5 mg/dL (8.4-10.2); Carbon Dioxide 26 mmol/L (22-30); Chloride 105 mmol/L (98-107); Estimated CRCL calculation 44 ml/min; Estimated Glomerular Filt Rate 53; Glucose 98 mg/dL (65-105); Potassium 3.9 mmol/L (3.4-5.0); Sodium 133 mmol/L (137-145)
[2019-09-03 05:55] LABS: INR 1.3; Prothrombin Time 16.2 Seconds (11.1-14.7)
[2019-09-03 06:00] VITALS: BP 130/70; PULSE 60; RESP 20; TEMP 37.6; O2SAT 96
[2019-09-03 07:00] LABS: Glucose Point of Care 105 (65-105)
[2019-09-03] MEDS: ROSUVASTATIN 10 MG TABLET 20 MG PO (09:10)
[2019-09-03] MEDS: THERAPEUTIC MULTIVITAMINS/MINERALS TAB (*BKC) 1 TABLET PO (09:11)
[2019-09-03] MEDS: lisinopriL 20 MG TABLET PO (09:11)
[2019-09-03] MEDS: FOLIC ACID 1 MG TABLET PO (09:11)
[2019-09-03] MEDS: ACETAMINOPHEN 325 MG TABLET 650 MG PO (09:23)
[2019-09-03 09:24] VITALS: PULSE 60
[2019-09-03] MEDS: AMIODARONE HCL 200 MG TABLET PO (09:24)
[2019-09-03] MEDS: carvediloL 25 MG TABLET PO ×2 (09:24→21:06)
[2019-09-03 11:47] LABS: Glucose Point of Care 114 (65-105)
[2019-09-03 14:00] VITALS: BP 135/49; PULSE 57; RESP 20; TEMP 37.2; O2SAT 95
[2019-09-03 16:55] LABS: Glucose Point of Care 108 (65-105)
--- NOTE | 2019-09-03 17:40 | REHAB_ITS ---
DATE OF SERVICE: An 79 years old right-handed female, has been admitted to acute rehab of [facility] with a primary rehab impairment category of orthopedic that is lower extremity fracture and etiological diagnosis of displaced right femur neck fracture with varus angulation. She was seen [id number] on 09/03/2019 at 11:00 a.m. HISTORY OF PRESENT ILLNESS: An 79 years old right-handed female presented to [facility] on 08/28/2019, for the complaints of right hip pain subsequent to fall. Reportedly, she was walking down the stairs when her right knee buckled and she fell down 1 step landing on her right side. She developed immediate pain in right hip and was unable to move without severe pain. She gave no history of any other trauma. She gave no history of loss of consciousness. At the time of admission, her blood pressure was 190/77. Right hip x-ray documented displaced right femur neck fracture with varus angulation. Head CT scan was negative. Chest x-ray revealed cardiomegaly with pulmonary vascular congestion. Echocardiogram revealed ejection fraction of 50% to 55%, for which Cardiology team was consulted and patient was cleared for surgical intervention once INR was 1.5. Orthopedic Surgery was consulted and Dr. Ruiz performed a right bipolar hemiarthroplasty on 08/30/2019. Postoperatively, patient was noted to have episodes of confusion, but showing signs of improvement as well. She was awake, alert, oriented x2-3. Therapy reported the patient was doing very well cognitively and was very motivated and engaging with the staff during the treatment. Other postop complications included leukocytosis, anemia, postoperative pain, hyponatremia with elevated BUN and creatinine, elevated blood sugar, hypocalcemia, and hypotension. She has had a Lindquist catheter since August 27, which will require voiding trials, will discontinue. She was to wear CPAP at night while sleeping and patient was discharged to [facility] on Coumadin for DVT prophylaxis. The patient has not traveled outside the [place] or had contact with someone who is ill that has traveled outside the [place] in the past 21 days. The patient has not traveled to an area of the [place] that is experiencing known transmission of the COVID and has not had any close personal contact with someone who had the COVID-19. The patient does not have a fever. She is not experiencing lower respiratory illness symptoms. Therapy was initiated at the acute care facility. The patient was transferred to from [place] from 08/26/2019. SURGERY OR FALLS: The patient has had major surgery in the last 100 days prior to admission. She has had falls in the past year. She has had fall with injury in the past year as well. PAST MEDICAL HISTORY: Severe obstructive sleep apnea, sleep study 08/10/2019 was done. 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 Paroxysmal atrial fibrillation with previous cardioversion, chronic anticoagulation therapy, coronary artery disease, hypersomnia, idiopathic peripheral neuropathy, chronic kidney disease stage 3, bronchial asthma, peptic ulcer, left breast cancer, status post lumpectomy, chemotherapy and radiation therapy, osteoarthritis, and colon polyp. PAST SURGICAL HISTORY: Status post cardioversion, appendectomy, bilateral cataract extraction, bladder suspension procedure, cholecystectomy, D and C, heart with coronary stent in the left anterior descending coronary artery, hysterectomy, left breast lumpectomy, and right hip hemiarthroplasty. SOCIAL HISTORY: The patient is , has 7 children. 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 Her son is her surrogate decision maker a
[2019-09-03] MEDS: WARFARIN (*PBKC) 2.5 MG TABLET PO (18:09)
[2019-09-03] MEDS: ACETAMINOPHEN 500 MG TABLET 1000 MG PO (18:09)
[2019-09-03 21:06] VITALS: PULSE 60
[2019-09-03 22:00] VITALS: BP 119/46; PULSE 56; RESP 20; TEMP 37.7; O2SAT 98
--- NOTE | 2019-09-03 22:06 | PC.NURSE ---
accucheck 104 at hs, pt requests lantus held at , she prefers it be given in am as she took it at home, dr alicea notified, orders recd to change lantus to am-- pt aware
[2019-09-03] MEDS: CYCLOBENZAPRINE HCL 5 MG TABLET PO (22:23)
[2019-09-03 22:27] LABS: Glucose Point of Care 104 (65-105)
[2019-09-04] VITALS (7 sets, daily range): BP systolic 124–145; BP diastolic 48–70; PULSE 60–71; RESP 18; TEMP 36.8–37.6; O2SAT 96–98
[2019-09-04 05:11] LABS: INR 1.4; Prothrombin Time 16.8 Seconds (11.1-14.7)
[2019-09-04 07:05] LABS: Glucose Point of Care 109 (65-105)
[2019-09-04] MEDS: AMIODARONE HCL 200 MG TABLET PO (09:14)
[2019-09-04] MEDS: INSULIN GLARGINE (*BKC) 100 UNITS/ML 30 UNITS SUB-Q (09:14)
[2019-09-04] MEDS: carvediloL 25 MG TABLET PO ×2 (09:15→20:30)
[2019-09-04] MEDS: lisinopriL 20 MG TABLET PO (09:15)
[2019-09-04] MEDS: ROSUVASTATIN 10 MG TABLET 20 MG PO (09:15)
[2019-09-04] MEDS: THERAPEUTIC MULTIVITAMINS/MINERALS TAB (*BKC) 1 TABLET PO (09:15)
[2019-09-04] MEDS: FOLIC ACID 1 MG TABLET PO (09:15)
[2019-09-04 11:57] LABS: Glucose Point of Care 125 (65-105)
[2019-09-04 17:07] LABS: Glucose Point of Care 121 (65-105)
[2019-09-04] MEDS: WARFARIN (*PBKC) 5 MG TABLET PO (17:23)
[2019-09-05 05:07] LABS: INR 1.6; Prothrombin Time 18.3 Seconds (11.1-14.7)
[2019-09-05 05:49] LABS: Glucose Point of Care 113 (65-105)
[2019-09-05 06:00] VITALS: BP 132/49; PULSE 56; RESP 18; TEMP 36.8; O2SAT 96
[2019-09-05] MEDS: INSULIN GLARGINE (*BKC) 100 UNITS/ML 30 UNITS SUB-Q (07:21)
[2019-09-05 08:38] VITALS: PULSE 56
[2019-09-05] MEDS: ROSUVASTATIN 10 MG TABLET 20 MG PO (08:38)
[2019-09-05] MEDS: lisinopriL 20 MG TABLET PO (08:38)
[2019-09-05] MEDS: carvediloL 25 MG TABLET PO ×2 (08:38→22:44)
[2019-09-05 08:39] VITALS: PULSE 56
[2019-09-05] MEDS: AMIODARONE HCL 200 MG TABLET PO (08:39)
[2019-09-05] MEDS: THERAPEUTIC MULTIVITAMINS/MINERALS TAB (*BKC) 1 TABLET PO (08:39)
[2019-09-05] MEDS: FOLIC ACID 1 MG TABLET PO (08:39)
[2019-09-05] MEDS: ACETAMINOPHEN 500 MG TABLET 1000 MG PO ×2 (08:41→14:43)
--- NOTE | 2019-09-05 09:25 | WPDNEURORHBP ---
Subjective Date/time seen: Right femur displaced neck /30/20 with AF,IDD,with NeuropathyOA,CRD stage 3 09:25 Review of Systems Review of Systems: All systems reviewed & are unremarkable except as noted in HPI and below Functional Status Ambulation Ability Ability to Ambulate 10 Feet: Minimum Assistance X 1 Ambulation Assistive Devices: Walker, Wheeled Exam Const: General: cooperative, comfortable, no acute distress, alert and awake Eyes: General: appearance normal, both eyes and all related structures Neck: Neck: normal visual inspection, full ROM and no lymphadenopathy Resp: Effort & Inspection: normal respiratory effort and able to speak in complete sentences Auscultation: rhonchi Cardio: Rhythm: abnormal rhythm GI: Auscultation: normal bowel sounds Skin: General skin exam: no rashes or lesions noted Neuro: General: patient oriented x3 and moves all extremities Cranial nerves: Yes CN's II-XII intact bilaterally, Yes Equal, round and reactive pupils present, Yes Nystagmus not present, Yes Normal facial strength present, Yes Midline tongue present, Yes Symmetric palate elevation present, Yes Normal hearing present and Yes Ability to bilaterally elevate shoulders present Cognition (Neuro): normal cognition Speech: normal speech Sensory Exam: Sensory deficit (Neuro) (distally) Deep tendon reflexes (DTR's): Right triceps reflex intensity grade: 1+, Left triceps reflex intensity grade: 1+, Rt Biceps (C5, C6): 1+, Left biceps reflex intensity grade: 1+, Right brachioradialis reflex intensity grade: 1+, Left brachioradialis reflex intensity grade: 1+, Right patellar reflex intensity grade: 1+, Left patellar reflex intensity grade: 1+, Right ankle reflex intensity grade: 0 and Left ankle reflex intensity grade: 0 Plantar Reflex Responses: downgoing: bilateral Coordination: [id number] test normal Psych: Appearance: grossly normal Objective Data Vital Signs Vital Signs: Vital Signs - 24 hr 09/04/19 14:00 09/04/19 20:30 09/04/19 21:30 Temperature 36.9 C Pulse Rate 60 70 Respiratory Rate 18 Blood Pressure 139/51 L Pulse Oximetry 98 96 09/04/19 22:00 09/05/19 06:00 09/05/19 08:38 Temperature 37.6 C H 36.8 C Pulse Rate 71 56 L 56 L Respiratory Rate 18 18 Blood Pressure 145/48 H 132/49 L Pulse Oximetry 96 96 09/05/19 08:39 Temperature Pulse Rate 56 L Respiratory Rate Blood Pressure Pulse Oximetry Intake/Output Intake/Output: Intake & Output 09/02/19 09/03/19 09/04/19 09/05/19 23:59 23:59 23:59 23:59 Intake Total 480 680 Balance 480 680 Meds/Results Medications: Active Medications Generic Name Dose Route Start Last Admin Trade Name Freq PRN Reason Stop Dose Admin Acetaminophen 1,000 mg 09/03/19 13:48 09/05/19 08:41 Tylenol Tablet PO 1,000 mg Q6H PRN Administration Pain Rated 5 or Less Amiodarone HCl 200 mg 09/03/19 09:00 09/05/19 08:39 Pacerone PO 200 mg DAILY DAYSI Administration Bisacodyl 10 mg 09/02/19 16:55 Dulcolax Suppository RECTAL QAM PRN Constipation Carvedilol 25 mg 09/02/19 21:00 09/05/19 08:38 Coreg PO 25 mg Q12HR DAYSI Administration Cyclobenzaprine HCl 5 mg 09/03/19 13:51 09/03/19 22:23 Flexeril PO 5 mg Q8H PRN Administration Muscle Spasm Dextrose 12.5 gm 09/02/19 18:14 Dextrose 50% Syringe IV PUSH PRN PRN Hypoglycemia Protocol Fluticasone Propionate 1 puff 09/02/19 20:00 Flovent INHALATION Q12HRT PRN Shortness Of Breath Folic Acid 1 mg 09/03/19 09:00 09/05/19 08:39 Folic Acid PO 1 mg DAILY DAYSI Administration Glucagon 1 mg 09/02/19 18:14 Glucagon For Inj IM PRN PRN Hypoglycemia Protocol Glucose 15 gm 09/02/19 18:14 Glutose 15 PO PRN PRN Hypoglycemia Protocol Dextrose 1,000 mls @ 100 mls/hr 09/02/19 18:14 Dextrose 5% 1,000 Ml IVPB PRN PRN Hypoglycemia
--- NOTE | 2019-09-05 09:43 | PCPTNOTE ---
Nohelia Laurent was evaluated for a wheeled walker on 09/05/2019 by this physical therapist phys assistant. The wheeled walker will resolve patient's mobility limitations and will be used for ADL's within the home. The patient can safely use the wheeled walker. ?The wheeled walker will resolve the patient?s mobility deficits, including decreased endurance, strength and pain in right lower extremity.
[2019-09-05 11:20] VITALS: BMI 36.4
[2019-09-05 11:48] LABS: Glucose Point of Care 132 (65-105)
[2019-09-05 14:00] VITALS: BP 117/50; PULSE 57; RESP 20; TEMP 36.2; O2SAT 98
[2019-09-05 14:35] VITALS: BP 108/56; PULSE 65; O2SAT 95
--- NOTE | 2019-09-05 14:39 | RPD ---
INDIVIDUALIZED PLAN OF CARE FOR Nohelia Laurent Brief Synthesis of Pre-Admission Screen, Post-Admission Evaluation and Therapy Evaluations: The patient presents to rehab with displaced right femoral neck fracture with varus angulation. Comorbidities include Paroxysmal atrial fibrillation with chronic anticoagulation, severe obstructive sleep apnea, insulin dependent type 2 diabetes mellitus with diabetic nephropathy and gastroparesis, coronary artery disease, hypersomnia, idiopahtic peripheral neuropathy, essential hypertension, chronic kidney disease stage 3, iron deficiency anemia, asthma, osteoarthritis, cardiomegaly with pulmonary vascular congestion. The patient requires physician services for medical oversight, management of post-op complications in setting of present comorbidities, and pain management. She will be followed at least three times a week by the rehabilitation physician. Labs will be drawn to monitor blood counts and electrolytes periodically. The patient requires nursing services for DVT prophylactics, infection protection, medication management and education, pressure relief, and wound care. Deficits include:ADLs, Balance, Cognition, Endurance, Mobility, Pain Management, ROM, Safety,Strength, Transfers Ruffling Hemmer Automatic/Case Management for: Discharge Planning and Patient/Family Counseling Physical Therapy: 5 days per week for 90 minutes. Treatments may include: Therapeutic Exercise, Gait Training, Neuromuscular Re-education, Transfer Training, Community Reintegration, Bed Mobility, Patient/Family Education, Wheelchair Mobility Group Therapy/Concurrent Therapy Rationales: -Improve attention span during functional activities in a distracted environment. -Enhance problem solving and/or adequate judgment skills during functional activities in a distracted environment. -Promote increased safety awareness in a distracted environment to reduce fall risk with functional tasks, transfers, and ambulation to allow a more safe, self-sufficient return to the home environment. -Improve dynamic balance skills to promote safety and independence with functional activities in a distracted environment for maximum gain. Occupational Therapy: 5 days per week for 90 minutes. Treatments may include: Therapeutic Exercise, Therapeutic Activity, Cognitive Training, Self-Care Transfer Training, Community Reintegration, Home Management, Patient/Family Education, Wheelchair Mobility Training, Energy Conservation Training Group Therapy/Concurrent Therapy Rationales: -Allow therapist to observe and teach generalization and carry-over of skills learned in individual therapy. -Enhance problem solving and sequencing skills during therapeutic activities in a distracted environment. -Promote increased safety awareness in a realistic setting to reduce fall risk with functional tasks due to visual and verbal distractions. -Increase functional level with ADLs, ADL transfers and use of adaptive equipment through therapeutic activities with others while promoting safety to allow a more safe, self-sufficient return home. Medical Prognosis: Good Anticipated Length of Stay: 12 days Rehab Goals: Eating Goal: 06-Independent Oral Hygiene Goal: 06-Independent Toileting Hygiene Goal: 05-Setup or Clean Up Assistance Shower/Bathe Self Goal: 05-Setup or Clean Up Assistance Upper Body Dressing Goal: 05-Setup or Clean Up Assistance Lower Body Dressing Goal: 05-Setup or Clean Up Assistance Putting On/Taking Off Footwear Goal: 05-Setup or Clean Up Assistance Rolling Left and Right Goal: 06-Independent Sit to Lying Goal: 06-Independent Lying to Sitting on Side of Bed Goal: 06-Independent Sit to Stand Goal: 06-Independent Chair/Ofh-na-Ccins Transfer Goal: 06-Independent Toilet Transfer Goal: 05-Setup or Clean Up Assistance Car Transfer Goal: 06-Independent Walk 10' Goal: 06-Independent Walk 50' with Two Turns Goal: 06-Independent Walk 150' Goal: 06-Independent Walk 10' on Uneven Surfa
[2019-09-05] MEDS: WARFARIN (*PBKC) 5 MG TABLET PO (17:24)
[2019-09-05 21:22] LABS: Glucose Point of Care 116 (65-105)
[2019-09-05 22:00] VITALS: BP 119/45; PULSE 63; RESP 20; TEMP 36.3; O2SAT 98
[2019-09-06] VITALS (7 sets, daily range): BP systolic 143–151; BP diastolic 41–50; PULSE 58–70; RESP 18–20; TEMP 36.4–37.4; O2SAT 96–98
[2019-09-06 05:06] LABS: INR 1.8; Prothrombin Time 20.4 Seconds (11.1-14.7)
[2019-09-06 06:58] LABS: Glucose Point of Care 141 (65-105)
[2019-09-06] MEDS: carvediloL 25 MG TABLET PO ×2 (10:44→20:44)
[2019-09-06] MEDS: AMIODARONE HCL 200 MG TABLET PO (10:45)
[2019-09-06] MEDS: FOLIC ACID 1 MG TABLET PO (10:45)
[2019-09-06] MEDS: ROSUVASTATIN 10 MG TABLET 20 MG PO (10:46)
[2019-09-06] MEDS: THERAPEUTIC MULTIVITAMINS/MINERALS TAB (*BKC) 1 TABLET PO (10:46)
[2019-09-06] MEDS: INSULIN GLARGINE (*BKC) 100 UNITS/ML 30 UNITS SUB-Q (10:48)
--- NOTE | 2019-09-06 11:55 | WPDNEURORHBP ---
Subjective Date/time seen: 09/06/19 11:55 Interval history: this 79-year-old wound is here after having had the right femur followed by the bipolar hemiarthroplasty with underlying multiple comorbidities including severe sleep apnea atrial fibrillation on chronic anticoagulation and many others mentioned in the detailed history and physical examination of Dr Price patient is doing fairly well and denies any headache nausea vomiting fevers chills sore throat she was present for the team conference Review of Systems Review of Systems: All systems reviewed & are unremarkable except as noted in HPI and below Functional Status Ambulation Ability Ability to Ambulate 10 Feet: Minimum Assistance X 1 Ambulation Assistive Devices: Walker, Wheeled Exam Const: General: comfortable and no acute distress HENMT: General nose exam: Normal nares present Mouth: Yes moist mucous membranes Eyes: General: appearance normal, both eyes and all related structures Neck: Neck: supple and no JVD Resp: Effort & Inspection: normal respiratory effort Auscultation: clear to auscultation bilaterally Cardio: Rate: regular rate Rhythm: regular rhythm GI: GI Palp: Yes Soft to palpation Auscultation: normal bowel sounds Skin: General skin exam: normal color and no rashes or lesions noted Neuro: Other: patient is awake alert and well oriented time place person has normal speech and language function are working combination as generalized weakness of both upper lower extremities needing assistance all the activities of daily living and she has a weight-bearing restriction also on the right lower extremity after having had the arthroplasty Extrem: General: normal to inspection Other: the surgical site is clean and healthy Psych: Mental Status: mental status grossly normal Objective Data Vital Signs Vital Signs: Vital Signs - 24 hr 09/05/19 14:00 09/05/19 14:35 09/05/19 22:00 Temperature 36.2 C L 36.3 C L Pulse Rate 57 L 65 63 Respiratory Rate 20 20 Blood Pressure 117/50 L 108/56 L 119/45 L Pulse Oximetry 98 95 98 09/06/19 06:00 09/06/19 10:44 09/06/19 10:45 Temperature 37.4 C Pulse Rate 70 70 70 Respiratory Rate 20 Blood Pressure 143/50 H Pulse Oximetry 96 Intake/Output Intake/Output: Intake & Output 09/03/19 09/04/19 09/05/19 09/06/19 23:59 23:59 23:59 23:59 Intake Total 480 680 240 Balance 480 680 240 Meds/Results Medications: Active Medications Generic Name Dose Route Start Last Admin Trade Name Freq PRN Reason Stop Dose Admin Acetaminophen 1,000 mg 09/03/19 13:48 09/05/19 14:43 Tylenol Tablet PO 1,000 mg Q6H PRN Administration Pain Rated 5 or Less Amiodarone HCl 200 mg 09/03/19 09:00 09/06/19 10:45 Pacerone PO 200 mg DAILY DAYSI Administration Bisacodyl 10 mg 09/02/19 16:55 Dulcolax Suppository RECTAL QAM PRN Constipation Carvedilol 25 mg 09/02/19 21:00 09/06/19 10:44 Coreg PO 25 mg Q12HR DAYSI Administration Cyclobenzaprine HCl 5 mg 09/03/19 13:51 09/03/19 22:23 Flexeril PO 5 mg Q8H PRN Administration Muscle Spasm Dextrose 12.5 gm 09/02/19 18:14 Dextrose 50% Syringe IV PUSH PRN PRN Hypoglycemia Protocol Fluticasone Propionate 1 puff 09/02/19 20:00 Flovent INHALATION Q12HRT PRN Shortness Of Breath Folic Acid 1 mg 09/03/19 09:00 09/06/19 10:45 Folic Acid PO 1 mg DAILY DAYSI Administration Glucagon 1 mg 09/02/19 18:14 Glucagon For Inj IM PRN PRN Hypoglycemia Protocol Glucose 15 gm 09/02/19 18:14 Glutose 15 PO PRN PRN Hypoglycemia Protocol Dextrose 1,000 mls @ 100 mls/hr 09/02/19 18:14 Dextrose 5% 1,000 Ml IVPB PRN PRN Hypoglycemia Protocol Insulin Glargine 30 units 09/04/19 09:00 09/06/19 10:48 Lantus SUB-Q 30 units QAM DAYSI Administration Lisinopril 20 mg 09/03/19 09:00 09/05/19 08:38 Radha
[2019-09-06 11:57] LABS: Glucose Point of Care 162 (65-105)
[2019-09-06 17:37] LABS: Glucose Point of Care 176 (65-105)
[2019-09-06] MEDS: WARFARIN (*PBKC) 5 MG TABLET PO (18:47)
[2019-09-06] MEDS: CYCLOBENZAPRINE HCL 5 MG TABLET PO (23:47)
[2019-09-07] VITALS (7 sets, daily range): BP systolic 120–142; BP diastolic 41–54; PULSE 50–60; RESP 18; TEMP 36.5–36.6; O2SAT 94–99
[2019-09-07 05:02] LABS: INR 2.2
[2019-09-07 07:06] LABS: Glucose Point of Care 99 (65-105)
[2019-09-07] MEDS: INSULIN GLARGINE (*BKC) 100 UNITS/ML 30 UNITS SUB-Q (10:04)
[2019-09-07] MEDS: ACETAMINOPHEN 500 MG TABLET 1000 MG PO (10:04)
[2019-09-07] MEDS: ROSUVASTATIN 10 MG TABLET 20 MG PO (10:05)
[2019-09-07] MEDS: carvediloL 25 MG TABLET PO ×2 (10:06→21:36)
[2019-09-07] MEDS: FOLIC ACID 1 MG TABLET PO (10:06)
[2019-09-07] MEDS: AMIODARONE HCL 200 MG TABLET PO (10:08)
[2019-09-07] MEDS: THERAPEUTIC MULTIVITAMINS/MINERALS TAB (*BKC) 1 TABLET PO (10:08)
[2019-09-07] MEDS: CYCLOBENZAPRINE HCL 5 MG TABLET PO (10:09)
[2019-09-07] MEDS: polyethylene glycoL 3350 17 GM POWD.PACK PO (11:34)
[2019-09-07] MEDS: DOCUSATE SODIUM 100 MG CAPSULE PO ×2 (11:35→21:37)
[2019-09-07 11:59] LABS: Glucose Point of Care 167 (65-105)
--- NOTE | 2019-09-07 14:29 | WPDNEURORHBP ---
Subjective Date/time seen: 09/07/19 14:29 Interval history: this very pleasant good for her age of 79 woman is here after having had surgery for the closed right hip fracture she is doing fairly well and moving forward engage in therapy quite motivated without any neurological symptoms or any other symptoms particularly no headache no fever no chills no sore throat no headache nausea vomiting abdominal pain or diarrhea Review of Systems Review of Systems: All systems reviewed & are unremarkable except as noted in HPI and below Functional Status Ambulation Ability Ability to Ambulate 10 Feet: Contact Guard Ability to Ambulate 50 Feet With 2 Turns: Contact Guard Ambulation Assistive Devices: Walker, Wheeled Transfers Ability Ability to Transfer In/Out of Chair: Contact Guard Exam Const: General: comfortable and no acute distress HENMT: General nose exam: Normal nares present Mouth: Yes moist mucous membranes Eyes: General: appearance normal, both eyes and all related structures Neck: Neck: supple and no JVD Resp: Effort & Inspection: normal respiratory effort Auscultation: clear to auscultation bilaterally Cardio: Rate: regular rate Rhythm: regular rhythm GI: GI Palp: Yes Soft to palpation Auscultation: normal bowel sounds Back/Spine/Pelvis: Other: the incision of from the hip surgery on the right side is clean no unusual drainage or sign of infection is noted Skin: General skin exam: normal color Neuro: Other: patient is awake and alert well oriented time place person is speech and language functions are normal cranial exam shows normal her strength is improving bilateral she is able to bear weight the side where the surgery was performed and looking forward to going home once the rehab is complete Extrem: General: normal to inspection Psych: Mental Status: mental status grossly normal Objective Data Vital Signs Vital Signs: Vital Signs - 24 hr 09/06/19 20:05 09/06/19 20:44 09/06/19 22:00 Temperature 36.4 C L Pulse Rate 61 68 61 Respiratory Rate 18 18 Blood Pressure 151/43 H Pulse Oximetry 98 98 09/07/19 06:00 09/07/19 10:06 09/07/19 10:08 Temperature 36.6 C Pulse Rate 50 L 54 L 54 L Respiratory Rate 18 Blood Pressure 142/42 H Pulse Oximetry 98 09/07/19 14:00 Temperature 36.5 C Pulse Rate 59 L Respiratory Rate 18 Blood Pressure 120/41 L Pulse Oximetry 96 Intake/Output Intake/Output: Intake & Output 09/04/19 09/05/19 09/06/19 09/07/19 23:59 23:59 23:59 23:59 Intake Total 680 720 600 Balance 680 720 600 Meds/Results Medications: Active Medications Generic Name Dose Route Start Last Admin Trade Name Freq PRN Reason Stop Dose Admin Acetaminophen 1,000 mg 09/03/19 13:48 09/07/19 10:04 Tylenol Tablet PO 1,000 mg Q6H PRN Administration Pain Rated 5 or Less Amiodarone HCl 200 mg 09/03/19 09:00 09/07/19 10:08 Pacerone PO 200 mg DAILY DAYSI Administration Bisacodyl 10 mg 09/02/19 16:55 Dulcolax Suppository RECTAL QAM PRN Constipation Carvedilol 25 mg 09/02/19 21:00 09/07/19 10:06 Coreg PO 25 mg Q12HR DAYSI Administration Cyclobenzaprine HCl 5 mg 09/03/19 13:51 09/07/19 10:09 Flexeril PO 5 mg Q8H PRN Administration Muscle Spasm Dextrose 12.5 gm 09/02/19 18:14 Dextrose 50% Syringe IV PUSH PRN PRN Hypoglycemia Protocol Docusate Sodium 100 mg 09/07/19 11:30 09/07/19 11:35 Colace Capsule PO 100 mg Q12HR DAYSI Administration Fluticasone Propionate 1 puff 09/02/19 20:00 Flovent INHALATION Q12HRT PRN Shortness Of Breath Folic Acid 1 mg 09/03/19 09:00 09/07/19 10:06 Folic Acid PO 1 mg DAILY DAYSI Administration Glucagon 1 mg 09/02/19 18:14 Glucagon For Inj IM PRN PRN Hypoglycemia Protocol Glucose 15 gm 09/02/19 18:14 Glutose 15 PO PRN PRN Hypoglycemia Protocol Dextrose 1,000 mls @ 100 mls
[2019-09-07 17:00] LABS: Glucose Point of Care 139 (65-105)
[2019-09-07] MEDS: WARFARIN (*PBKC) 5 MG TABLET PO (18:18)
[2019-09-07 22:04] LABS: Glucose Point of Care 153 (65-105)
[2019-09-08 05:19] LABS: INR 2.6; Prothrombin Time 27.6 Seconds (11.1-14.7)
[2019-09-08 06:00] VITALS: BP 144/46; PULSE 56; RESP 18; TEMP 36.9; O2SAT 98
[2019-09-08 07:23] LABS: Glucose Point of Care 101 (65-105)
[2019-09-08] MEDS: CYCLOBENZAPRINE HCL 5 MG TABLET PO ×2 (09:33→19:39)
[2019-09-08] MEDS: ACETAMINOPHEN 500 MG TABLET 1000 MG PO ×2 (09:34→19:39)
[2019-09-08 09:48] VITALS: PULSE 56
[2019-09-08] MEDS: AMIODARONE HCL 200 MG TABLET PO (09:48)
[2019-09-08 09:49] VITALS: PULSE 56
[2019-09-08] MEDS: DOCUSATE SODIUM 100 MG CAPSULE PO ×2 (09:49→20:24)
[2019-09-08] MEDS: carvediloL 25 MG TABLET PO ×2 (09:49→20:24)
[2019-09-08] MEDS: FOLIC ACID 1 MG TABLET PO (09:49)
[2019-09-08] MEDS: polyethylene glycoL 3350 17 GM POWD.PACK PO (09:50)
[2019-09-08] MEDS: THERAPEUTIC MULTIVITAMINS/MINERALS TAB (*BKC) 1 TABLET PO (09:50)
[2019-09-08] MEDS: INSULIN GLARGINE (*BKC) 100 UNITS/ML 30 UNITS SUB-Q (09:50)
[2019-09-08] MEDS: ROSUVASTATIN 10 MG TABLET 20 MG PO (09:51)
[2019-09-08 11:52] LABS: Glucose Point of Care 144 (65-105)
--- NOTE | 2019-09-08 12:45 | WPDNEURORHBP ---
Subjective Date/time seen: 09/08/19 12:45 Interval history: this 79-year-old woman is recuperating here and acute rehab receiving extensive PT OT and gait training after having had surgery for the right hip closed fracture, her INR is 2.6 and she is on warfarin denies any headache chest pain shortness of breath fever chills sore throat nausea and vomiting and progressing well in the therapy program Review of Systems Review of Systems: All systems reviewed & are unremarkable except as noted in HPI and below Functional Status Ambulation Ability Ability to Ambulate 10 Feet: Contact Guard Ability to Ambulate 50 Feet With 2 Turns: Contact Guard Ambulation Assistive Devices: Walker, Wheeled Transfers Ability Ability to Transfer In/Out of Chair: Contact Guard Exam Const: General: comfortable and no acute distress HENMT: General nose exam: Normal nares present Mouth: Yes moist mucous membranes Eyes: General: appearance normal, both eyes and all related structures Neck: Neck: supple and no JVD Resp: Effort & Inspection: normal respiratory effort Auscultation: clear to auscultation bilaterally Cardio: Rate: regular rate Rhythm: regular rhythm GI: GI Palp: Yes Soft to palpation Auscultation: normal bowel sounds Back/Spine/Pelvis: Other: the area of the surgery at the right hip is clean Skin: General skin exam: normal color Neuro: Other: patient's mental status is normal cranial nerve examination is normal is strength upper extremities fairly decent and intact lower extremity strength is compromised because of having at surgery and the weight-bearing status of the right lower extremity to T rib fracture Extrem: General: normal to inspection Psych: Mental Status: mental status grossly normal Objective Data Vital Signs Vital Signs: Vital Signs - 24 hr 09/07/19 14:00 09/07/19 19:21 09/07/19 21:36 Temperature 36.5 C Pulse Rate 59 L 60 56 L Respiratory Rate 18 Blood Pressure 120/41 L Pulse Oximetry 96 94 09/07/19 22:00 09/08/19 06:00 09/08/19 09:48 Temperature 36.5 C 36.9 C Pulse Rate 51 L 56 L 56 L Respiratory Rate 18 18 Blood Pressure 133/54 L 144/46 H Pulse Oximetry 99 98 09/08/19 09:49 Temperature Pulse Rate 56 L Respiratory Rate Blood Pressure Pulse Oximetry Intake/Output Intake/Output: Intake & Output 09/05/19 09/06/19 09/07/19 09/08/19 23:59 23:59 23:59 23:59 Intake Total 720 840 240 Balance 720 840 240 Meds/Results Medications: Active Medications Generic Name Dose Route Start Last Admin Trade Name Freq PRN Reason Stop Dose Admin Acetaminophen 1,000 mg 09/03/19 13:48 09/08/19 09:34 Tylenol Tablet PO 1,000 mg Q6H PRN Administration Pain Rated 5 or Less Amiodarone HCl 200 mg 09/03/19 09:00 09/08/19 09:48 Pacerone PO 200 mg DAILY DAYSI Administration Bisacodyl 10 mg 09/02/19 16:55 Dulcolax Suppository RECTAL QAM PRN Constipation Carvedilol 25 mg 09/02/19 21:00 09/08/19 09:49 Coreg PO 25 mg Q12HR DAYSI Administration Cyclobenzaprine HCl 5 mg 09/03/19 13:51 09/08/19 09:33 Flexeril PO 5 mg Q8H PRN Administration Muscle Spasm Dextrose 12.5 gm 09/02/19 18:14 Dextrose 50% Syringe IV PUSH PRN PRN Hypoglycemia Protocol Docusate Sodium 100 mg 09/07/19 11:30 09/08/19 09:49 Colace Capsule PO 100 mg Q12HR DAYSI Administration Fluticasone Propionate 1 puff 09/02/19 20:00 Flovent INHALATION Q12HRT PRN Shortness Of Breath Folic Acid 1 mg 09/03/19 09:00 09/08/19 09:49 Folic Acid PO 1 mg DAILY DAYSI Administration Glucagon 1 mg 09/02/19 18:14 Glucagon For Inj IM PRN PRN Hypoglycemia Protocol Glucose 15 gm 09/02/19 18:14 Glutose 15 PO PRN PRN Hypoglycemia Protocol Dextrose 1,000 mls @ 100 mls/hr 09/02/19 18:14 Dextrose 5% 1,000 Ml IVPB PRN PRN Hypoglycemia Protocol Insulin
[2019-09-08 14:00] VITALS: BP 120/48; PULSE 60; RESP 18; TEMP 36.2; O2SAT 97
[2019-09-08 17:49] LABS: Glucose Point of Care 146 (65-105)
[2019-09-08] MEDS: WARFARIN (*PBKC) 5 MG TABLET PO (18:04)
--- NOTE | 2019-09-08 19:15 | WPDCN ---
Assessment and Plan Assessment and plan (1) DVT, bilateral lower limbs: Code(s): I82.403 - Acute embolism and thrombosis of unspecified deep veins of lower extremity, bilateral Status: Acute Assessment and Plan: INR has been > 2.0 for the past 2 days, and this is sufficient for treatment of such. Continue warfarin with goal INR between 2.0 and 3.0. (2) Paroxysmal atrial fibrillation: Code(s): I48.0 - Paroxysmal atrial fibrillation Status: Acute Assessment and Plan: Currently sounds to be in a sinus rhythm. Continue warfarin and amiodarone. (3) Severe obstructive sleep apnea: Code(s): G47.33 - Obstructive sleep apnea (adult) (pediatric) Status: Acute Assessment and Plan: CPAP to be worn when sleeping. (4) Insulin dependent type 2 diabetes mellitus: Code(s): E11.9 - Type 2 diabetes mellitus without complications; Z79.4 - [facility] (current) use of insulin Status: Acute Assessment and Plan: Continue basal insulin. Initiate sliding scale insulin, Accu-Cheks, and hypoglycemic protocol. (5) Chronic anticoagulation: Code(s): Z79.01 - intermission coordinator (current) use of anticoagulants Status: Acute Assessment and Plan: INR is now therapeutic, with a goal between 2.0 and 3.0. (6) Essential hypertension: Code(s): I10 - Essential (primary) hypertension Status: Acute Assessment and Plan: Blood pressures reviewed and are stable. Continue antihypertensives and monitor. Additional Plan No further recommendations as patient's INR is therapeutic. We will sign off, but please do not hesitate to contact us if needed. HPI Data of Consult Date/Time: 09/08/191914 Requesting Physician: Dallin Bauer MD Primary Care Provider: Kortney Aguirre MD Consult Narrative Narrative: Nohelia Laurent is an 79-year-old female whom the hospitalist service has been consulted given new finding of bilateral lower extremity DVT. Her medical history is significant for chronic kidney disease stage 3, coronary artery disease with history of stents, hypertension, insulin-dependent diabetes, sleep apnea, chronic anemia, and paroxysmal atrial fibrillation. She is known to myself and the hospitalist service as I admitted her after a fall 08/28/2019, found to have right hip fracture. Her warfarin was of course held and reversed in anticipation of the surgery. INR was subtherapeutic for approximately 7 days thereafter, but has been > 2.0 for the past 2 days at the time of this dictation. She had a right hemiarthroplasty done per Dr. Ruiz and was discharged to [facility] on 09/02/2019. She has been participating in rehab and has been doing quite well. Over the past couple of days, however, she has developed swelling in both legs and notes aching discomfort due to that. Venous Doppler ultrasounds of the lower legs performed today showed peroneal DVTs bilaterally. At the time my evaluation, patient does not have many complaints except for mild discomfort in her legs. She had some constipation earlier, but has since been started on stool softeners and that has not been an issue. She denies chest pain, pleuritic pain, palpitations, and shortness of breath. No nausea or vomiting. Review of Systems Review of Systems: Narrative: Twelve systems were reviewed with pertinent positives and negatives as per HPI. Except as documented, all other systems were reviewed and are negative. [facility] Past Medical History Medical History (Updated 09/08/19 @ 23:07 by Mansi Mcdonald PA-C) Chronic anticoagulation : Warfarin for paroxysmal atrial fibrillation. Chronic kidney disease, stage 3 (moderate) : GFR ranging between 43 and > 60. Coronary artery disease : With history of stent to LAD done at [facility]. Essential hypertension History of colon polyps History of left breast cancer : Status post lumpectomy, chemotherapy, and rad
[2019-09-08 20:24] VITALS: PULSE 72
--- NOTE | 2019-09-08 20:33 | PC.NURSE ---
Nohelia c/o right ankle pain this afternoon; placed call to Dr. Bauer and ordered B/L dopplers which resulted with B/L peroneal DVT. Called with results and asked for hospitalist consult due to patient already on Coumadin. Mansi Jackman ([facility]) responded and stated her PT/INR are theraupeutic now and we will monitor.
[2019-09-08 20:52] LABS: Glucose Point of Care 129 (65-105)
[2019-09-08 22:00] VITALS: BP 131/43; PULSE 53; RESP 18; TEMP 36.9; O2SAT 98
[2019-09-09] VITALS (7 sets, daily range): BP systolic 130–146; BP diastolic 39–50; PULSE 50–60; RESP 18; TEMP 36.2–36.8; O2SAT 94–99
[2019-09-09] MEDS: ACETAMINOPHEN 500 MG TABLET 1000 MG PO (00:13)
[2019-09-09 04:43] LABS: Hematocrit 25.8 % (37.0-47.0); Hemoglobin 8.3 g/dL (12.0-15.0); Mean Corpuscular HGB Conc 32.2 g/dl (32-36); Mean Corpuscular Hemoglobin 30.4 pg (26-34); Mean Corpuscular Volume 94.5 fl (80-100); Mean Platelet Volume 9.6 fl (7.4-10.4); Platelet Count Result 313 k/mm3 (150-375); Red Blood Count 2.73 M/mm3 (4.2-5.4); Red Cell Distribution Width 14.9 % (11.5-14.5); White Blood Count 9.3 K/mm3 (4.5-10.0)
[2019-09-09 05:06] LABS: INR 3.1; Prothrombin Time 31.3 Seconds (11.1-14.7)
[2019-09-09 05:15] LABS: Blood Urea Nitrogen 20 mg/dL (7-17); Calcium 8.4 mg/dL (8.4-10.2); Carbon Dioxide 30 mmol/L (22-30); Chloride 106 mmol/L (98-107); Estimated CRCL calculation 54 ml/min; Estimated Glomerular Filt Rate > 60; Glucose 79 mg/dL (65-105); Sodium 137 mmol/L (137-145)
[2019-09-09 05:26] LABS: Potassium 3.9 mmol/L (3.4-5.0)
[2019-09-09 06:12] LABS: Glucose Point of Care 82 (65-105)
[2019-09-09] MEDS: AMIODARONE HCL 200 MG TABLET PO (10:20)
[2019-09-09] MEDS: DOCUSATE SODIUM 100 MG CAPSULE PO ×2 (10:22→19:49)
[2019-09-09] MEDS: carvediloL 25 MG TABLET PO ×2 (10:22→19:46)
[2019-09-09] MEDS: ROSUVASTATIN 10 MG TABLET 20 MG PO (10:22)
[2019-09-09] MEDS: FOLIC ACID 1 MG TABLET PO (10:22)
[2019-09-09] MEDS: polyethylene glycoL 3350 17 GM POWD.PACK PO (10:23)
[2019-09-09] MEDS: THERAPEUTIC MULTIVITAMINS/MINERALS TAB (*BKC) 1 TABLET PO (10:23)
[2019-09-09] MEDS: INSULIN GLARGINE (*BKC) 100 UNITS/ML 30 UNITS SUB-Q (10:24)
--- NOTE | 2019-09-09 11:38 | PCDIET ---
Nutrition Follow-Up Complete: Nutrition Diagnosis: Suboptimal oral intake at present related to recent surgery as evidenced by average intake of 52% of meals. Nutrition Goals: Patient to consume 75% of meals/supplements. Goal met. Patient consuming 90-100% of most meals on diabetic diet which is appropriate. Last recorded weight is 96.3 kg. Recommend obtaining new weight. Bowel Motility: +BM on 09/07/19. Labs Reviewed: BUN (20), Hgb (8.3), Hct (25.8) Meds Noted: Dulcolax, Colace, Folic Acid, Coumadin, Novolog, Lantus, MVI/minerals, Miralax Additional Notes: Right hip incision with dressing. No documented pressure ulcers. Will continue to monitor with same goals. Nutrition Monitoring and Evaluation: Follow up in 5 days.
[2019-09-09 11:53] LABS: Glucose Point of Care 116 (65-105)
--- NOTE | 2019-09-09 12:23 | WPDNEURORHBP ---
Subjective Date/time seen: 09/09/19 12:23 Interval history: patient had complains of lower extremity pain right more so than the left for which venous Doppler was performed which revealed DVT and bilateral peroneal veins medical consult was obtained and essentially we need to continue the warfarin at this point INR today is 3.1 we will carefully observe she denies any chest pain shortness of breath fever chills sore throat she is doing very well in the therapy and able to bear the weight as tolerated in the right lower extremity and able to maintain it Review of Systems Review of Systems: All systems reviewed & are unremarkable except as noted in HPI and below Functional Status Ambulation Ability Ability to Ambulate 10 Feet: Contact Guard Ability to Ambulate 50 Feet With 2 Turns: Contact Guard Ability to Ambulate 150 Feet: Contact Guard Ambulation Assistive Devices: Walker, Wheeled Transfers Ability Ability to Transfer In/Out of Chair: Contact Guard Exam Const: General: comfortable and no acute distress HENMT: General nose exam: Normal nares present Mouth: Yes moist mucous membranes Eyes: General: appearance normal, both eyes and all related structures Neck: Neck: supple and no JVD Resp: Effort & Inspection: normal respiratory effort Auscultation: clear to auscultation bilaterally Cardio: Rate: regular rate Rhythm: regular rhythm GI: GI Palp: Yes Soft to palpation Auscultation: normal bowel sounds Skin: General skin exam: normal color and no rashes or lesions noted Neuro: Other: patient's mental status is normal cranial nerve exam shows normal motor examination reveals upper extremity strength 4.5 lower extremity stents for over 5 reflexes are 1+ with Babinski sign is negative Is still needing assistance activities of daily living Extrem: General: normal to inspection Other: the incision is clean and healthy Psych: Mental Status: mental status grossly normal Objective Data Vital Signs Vital Signs: Vital Signs - 24 hr 09/08/19 14:00 09/08/19 20:24 09/08/19 22:00 Temperature 36.2 C L 36.9 C Pulse Rate 60 72 53 L Respiratory Rate 18 18 Blood Pressure 120/48 L 131/43 L Pulse Oximetry 97 98 09/09/19 06:00 09/09/19 09:44 09/09/19 10:20 Temperature 36.4 C Pulse Rate 50 L 58 L Respiratory Rate 18 Blood Pressure 146/40 H Pulse Oximetry 99 94 09/09/19 10:22 Temperature Pulse Rate 58 L Respiratory Rate Blood Pressure Pulse Oximetry Intake/Output Intake/Output: Intake & Output 09/06/19 09/07/19 09/08/19 09/09/19 23:59 23:59 23:59 23:59 Intake Total 720 840 480 240 Balance 720 840 480 240 Meds/Results Medications: Active Medications Generic Name Dose Route Start Last Admin Trade Name Freq PRN Reason Stop Dose Admin Acetaminophen 1,000 mg 09/03/19 13:48 09/09/19 00:13 Tylenol Tablet PO 1,000 mg Q6H PRN Administration Pain Rated 5 or Less Amiodarone HCl 200 mg 09/03/19 09:00 09/09/19 10:20 Pacerone PO 200 mg DAILY DAYSI Administration Bisacodyl 10 mg 09/02/19 16:55 Dulcolax Suppository RECTAL QAM PRN Constipation Carvedilol 25 mg 09/02/19 21:00 09/09/19 10:22 Coreg PO 25 mg Q12HR DAYSI Administration Cyclobenzaprine HCl 5 mg 09/03/19 13:51 09/08/19 19:39 Flexeril PO 5 mg Q8H PRN Administration Muscle Spasm Dextrose 12.5 gm 09/02/19 18:14 Dextrose 50% Syringe IV PUSH PRN PRN Hypoglycemia Protocol Dextrose 12.5 gm 09/08/19 23:12 Dextrose 50% Syringe IV PUSH PRN PRN Hypoglycemia Protocol Docusate Sodium 100 mg 09/07/19 11:30 09/09/19 10:22 Colace Capsule PO 100 mg Q12HR DAYSI Administration Fluticasone Propionate 1 puff 09/02/19 20:00 Flovent INHALATION Q12HRT PRN Shortness Of Breath Folic Acid 1 mg 09/03/19 09:00 09/09/19 10:22 Folic Acid PO 1 mg DAILY DAYSI Administration Glucagon 1 mg 09/02/19 18:14 Glu
[2019-09-09] MEDS: WARFARIN (*PBKC) 5 MG TABLET PO (16:49)
[2019-09-09 16:56] LABS: Glucose Point of Care 119 (65-105)
[2019-09-09 20:47] LABS: Glucose Point of Care 150 (65-105)
[2019-09-10 04:41] LABS: Basophils Absolute Auto 0.1 K/mm3 (0.0-0.1); Basophils Percent Auto 0.8 % (0.2-1.2); Eosinophils Absolute Auto 0.7 K/mm3 (0-0.3); Eosinophils Percent Auto 7.1 % (0-4.4); Hematocrit 25.7 % (37.0-47.0); Hemoglobin 8.1 g/dL (12.0-15.0); Immature Granulocyte Absolute 0.26 K/mm3 (0.00-0.031); Immature Granulocyte Percent A 2.8 % (0-0.5); Lymphocytes Absolute Auto 2.61 K/mm3 (0.9-3.2); Lymphocytes Percent Auto 28.4 % (18.3-44.2); Mean Corpuscular HGB Conc 31.5 g/dl (32-36); Mean Corpuscular Hemoglobin 29.9 pg (26-34); Mean Corpuscular Volume 94.8 fl (80-100); Mean Platelet Volume 9.7 fl (7.4-10.4); Monocytes Absolute Auto 0.7 K/mm3 (0.1-0.6); Monocytes Percent Auto 7.5 % (2.6-8.5); Neutrophils Absolute Auto 4.9 K/mm3 (1.3-6.7); Neutrophils Percent Auto 53.4 % (45.5-73.1); Platelet Count Result 327 k/mm3 (150-375); Red Blood Count 2.71 M/mm3 (4.2-5.4); Red Cell Distribution Width 15.3 % (11.5-14.5); White Blood Count 9.2 K/mm3 (4.5-10.0)
[2019-09-10 04:55] LABS: INR 3.3; Prothrombin Time 32.7 Seconds (11.1-14.7)
[2019-09-10 05:09] LABS: Blood Urea Nitrogen 18 mg/dL (7-17); Calcium 8.4 mg/dL (8.4-10.2); Carbon Dioxide 28 mmol/L (22-30); Chloride 106 mmol/L (98-107); Estimated CRCL calculation 54 ml/min; Estimated Glomerular Filt Rate > 60; Glucose 89 mg/dL (65-105); Potassium 4.3 mmol/L (3.4-5.0); Sodium 138 mmol/L (137-145)
[2019-09-10 06:00] VITALS: BP 136/46; PULSE 52; RESP 18; TEMP 36.5; O2SAT 97
[2019-09-10 07:06] LABS: Glucose Point of Care 92 (65-105)
[2019-09-10 08:58] VITALS: PULSE 52
[2019-09-10] MEDS: AMIODARONE HCL 200 MG TABLET PO (08:58)
[2019-09-10 08:59] VITALS: PULSE 52
[2019-09-10] MEDS: carvediloL 25 MG TABLET PO ×2 (08:59→21:00)
[2019-09-10] MEDS: THERAPEUTIC MULTIVITAMINS/MINERALS TAB (*BKC) 1 TABLET PO (09:00)
[2019-09-10] MEDS: DOCUSATE SODIUM 100 MG CAPSULE PO ×2 (09:00→21:00)
[2019-09-10] MEDS: FOLIC ACID 1 MG TABLET PO (09:00)
[2019-09-10] MEDS: ROSUVASTATIN 10 MG TABLET 20 MG PO (09:00)
[2019-09-10] MEDS: polyethylene glycoL 3350 17 GM POWD.PACK PO (09:03)
[2019-09-10] MEDS: INSULIN GLARGINE (*BKC) 100 UNITS/ML 25 UNITS SUB-Q (09:11)
[2019-09-10 12:05] LABS: Glucose Point of Care 102 (65-105)
[2019-09-10 14:00] VITALS: BP 125/47; PULSE 56; RESP 18; TEMP 36.1; O2SAT 98
[2019-09-10 17:26] LABS: Glucose Point of Care 135 (65-105)
--- NOTE | 2019-09-10 19:21 | PC.NURSE ---
Dr. Bauer called with INR earlier today-coumadin on hold tonight per Dr. thomas.
[2019-09-10 21:00] VITALS: PULSE 64
[2019-09-10 21:24] LABS: Glucose Point of Care 129 (65-105)
[2019-09-10] MEDS: ACETAMINOPHEN 500 MG TABLET 1000 MG PO (21:39)
[2019-09-10 22:00] VITALS: BP 136/42; PULSE 50; RESP 18; TEMP 36.5; O2SAT 98
[2019-09-11 04:55] LABS: INR 3.4; Prothrombin Time 33.6 Seconds (11.1-14.7)
[2019-09-11 06:00] VITALS: BP 139/45; PULSE 51; RESP 18; TEMP 36.5; O2SAT 98
[2019-09-11 07:24] LABS: Glucose Point of Care 85 (65-105)
[2019-09-11 09:25] VITALS: PULSE 51
[2019-09-11] MEDS: AMIODARONE HCL 200 MG TABLET PO (09:25)
[2019-09-11] MEDS: carvediloL 25 MG TABLET PO (09:25)
[2019-09-11] MEDS: FOLIC ACID 1 MG TABLET PO (09:26)
[2019-09-11] MEDS: THERAPEUTIC MULTIVITAMINS/MINERALS TAB (*BKC) 1 TABLET PO (09:26)
[2019-09-11] MEDS: ROSUVASTATIN 10 MG TABLET 20 MG PO (09:26)
[2019-09-11] MEDS: polyethylene glycoL 3350 17 GM POWD.PACK PO (09:27)
[2019-09-11] MEDS: EUCERIN CREAM 120 GM JAR 1 APPLIC TOPICAL (09:28)
[2019-09-11] MEDS: DOCUSATE SODIUM 100 MG CAPSULE PO (09:30)
[2019-09-11] MEDS: INSULIN GLARGINE (*BKC) 100 UNITS/ML 25 UNITS SUB-Q (09:30)
[2019-09-11 11:51] LABS: Glucose Point of Care 101 (65-105)
[2019-09-11 14:00] VITALS: BP 148/54; PULSE 57; RESP 18; TEMP 36.2; O2SAT 99
--- NOTE | 2019-09-11 16:20 | WPDNEURORHBP ---
Subjective Date/time seen: 09/11/19 16:20 Interval history: this 79-year-old woman is here after having had surgery for the closed right hip fracture. Also she is on warfarin and the INR is relatively elevated so Coumadin is being held she denies any chest pain shortness of breath fever chills sore throat diarrhea vomiting and engage in therapy quite well Review of Systems Review of Systems: All systems reviewed & are unremarkable except as noted in HPI and below Functional Status Ambulation Ability Ability to Ambulate 10 Feet: Standby Assistance Ability to Ambulate 50 Feet With 2 Turns: Standby Assistance Ability to Ambulate 150 Feet: Standby Assistance Ambulation Assistive Devices: Walker, Wheeled Transfers Ability Ability to Transfer In/Out of Chair: Standby Assistance Exam Const: General: comfortable and no acute distress HENMT: General nose exam: Normal nares present Mouth: Yes moist mucous membranes Eyes: General: appearance normal, both eyes and all related structures Neck: Neck: supple and no JVD Resp: Effort & Inspection: normal respiratory effort Auscultation: clear to auscultation bilaterally Cardio: Rate: regular rate Rhythm: regular rhythm GI: GI Palp: Yes Soft to palpation Auscultation: normal bowel sounds Skin: General skin exam: normal color and no rashes or lesions noted Neuro: Other: patient remains awake and alert with normal mental status examination normal cranial exam appiah improving strength in the lower extremities unable to engage in therapy quite well and she is making progress Extrem: General: normal to inspection Psych: Mental Status: mental status grossly normal Objective Data Vital Signs Vital Signs: Vital Signs - 24 hr 09/10/19 21:00 09/10/19 22:00 09/11/19 06:00 Temperature 36.5 C 36.5 C Pulse Rate 64 50 L 51 L Respiratory Rate 18 18 Blood Pressure 136/42 L 139/45 L Pulse Oximetry 98 98 09/11/19 09:25 09/11/19 14:00 Temperature 36.2 C L Pulse Rate 51 L 57 L Respiratory Rate 18 Blood Pressure 148/54 H Pulse Oximetry 99 Intake/Output Intake/Output: Intake & Output 09/08/19 09/09/19 09/10/19 09/11/19 23:59 23:59 23:59 23:59 Intake Total 480 720 580 480 Balance 480 720 580 480 Meds/Results Medications: Active Medications Generic Name Dose Route Start Last Admin Trade Name Freq PRN Reason Stop Dose Admin Acetaminophen 1,000 mg 09/03/19 13:48 09/10/19 21:39 Tylenol Tablet PO 1,000 mg Q6H PRN Administration Pain Rated 5 or Less Amiodarone HCl 200 mg 09/03/19 09:00 09/11/19 09:25 Pacerone PO 200 mg DAILY DAYSI Administration Bisacodyl 10 mg 09/02/19 16:55 Dulcolax Suppository RECTAL QAM PRN Constipation Carvedilol 25 mg 09/02/19 21:00 09/11/19 09:25 Coreg PO 25 mg Q12HR DAYSI Administration Cyclobenzaprine HCl 5 mg 09/03/19 13:51 09/08/19 19:39 Flexeril PO 5 mg Q8H PRN Administration Muscle Spasm Dextrose 12.5 gm 09/02/19 18:14 Dextrose 50% Syringe IV PUSH PRN PRN Hypoglycemia Protocol Dextrose 12.5 gm 09/08/19 23:12 Dextrose 50% Syringe IV PUSH PRN PRN Hypoglycemia Protocol Docusate Sodium 100 mg 09/07/19 11:30 09/11/19 09:30 Colace Capsule PO 100 mg Q12HR DAYSI Administration Fluticasone Propionate 1 puff 09/02/19 20:00 Flovent INHALATION Q12HRT PRN Shortness Of Breath Folic Acid 1 mg 09/03/19 09:00 09/11/19 09:26 Folic Acid PO 1 mg DAILY DAYSI Administration Glucagon 1 mg 09/02/19 18:14 Glucagon For Inj IM PRN PRN Hypoglycemia Protocol Glucagon 1 mg 09/08/19 23:12 Glucagon For Inj IM PRN PRN Hypoglycemia Protocol Glucose 15 gm 09/02/19 18:14 Glutose 15 PO PRN PRN Hypoglycemia Protocol Glucose 15 gm 09/08/19 23:12 Glutose 15 PO PRN PRN Hypoglycemia Protocol Dextrose 1,000 mls @ 100 mls/hr
[2019-09-11 17:15] LABS: Glucose Point of Care 120 (65-105)
[2019-09-11 20:13] VITALS: O2SAT 94
[2019-09-11 20:36] LABS: Glucose Point of Care 112 (65-105)
[2019-09-11 21:07] VITALS: BP 154/51; PULSE 62; RESP 16; TEMP 36.5; O2SAT 97
[2019-09-11] MEDS: ACETAMINOPHEN 500 MG TABLET 1000 MG PO (21:51)
[2019-09-12 05:00] LABS: Prothrombin Time 30.5 Seconds (11.1-14.7)
[2019-09-12 06:00] VITALS: BP 145/42; PULSE 50; RESP 20; TEMP 36.8; O2SAT 99
[2019-09-12 06:50] LABS: Glucose Point of Care 84 (65-105)
[2019-09-12] MEDS: ACETAMINOPHEN 500 MG TABLET 1000 MG PO (07:08)
[2019-09-12 09:25] VITALS: PULSE 50
[2019-09-12] MEDS: AMIODARONE HCL 200 MG TABLET PO (09:25)
[2019-09-12 09:26] VITALS: PULSE 50
[2019-09-12] MEDS: FOLIC ACID 1 MG TABLET PO (09:26)
[2019-09-12] MEDS: DOCUSATE SODIUM 100 MG CAPSULE PO ×2 (09:26→20:26)
[2019-09-12] MEDS: carvediloL 25 MG TABLET PO ×2 (09:26→20:26)
[2019-09-12] MEDS: INSULIN GLARGINE (*BKC) 100 UNITS/ML 25 UNITS SUB-Q (09:27)
[2019-09-12] MEDS: EUCERIN CREAM 120 GM JAR 1 APPLIC TOPICAL (09:27)
[2019-09-12] MEDS: ROSUVASTATIN 10 MG TABLET 20 MG PO (09:27)
[2019-09-12] MEDS: THERAPEUTIC MULTIVITAMINS/MINERALS TAB (*BKC) 1 TABLET PO (09:27)
[2019-09-12 11:57] LABS: Glucose Point of Care 96 (65-105)
--- NOTE | 2019-09-12 12:19 | WPDNEURORHBP ---
Subjective Date/time seen: 09/12/19 12:19 S/P right hip fracture Review of Systems Review of Systems: All systems reviewed & are unremarkable except as noted in HPI and below Functional Status Ambulation Ability Ability to Ambulate 10 Feet: Independent Ability to Ambulate 50 Feet With 2 Turns: Independent Ability to Ambulate 150 Feet: Independent Ambulation Assistive Devices: Walker, Wheeled Transfers Ability Ability to Transfer In/Out of Chair: Standby Assistance Exam Const: General: cooperative, comfortable and no acute distress Eyes: General: appearance normal, both eyes and all related structures Neck: Neck: full ROM Resp: Effort & Inspection: normal respiratory effort Auscultation: clear to auscultation bilaterally Cardio: Rate: regular rate Rhythm: regular rhythm GI: Auscultation: normal bowel sounds Neuro: General: patient oriented x3 and moves all extremities Cranial nerves: Yes CN's II-XII intact bilaterally, Yes Equal, round and reactive pupils present, Yes Bilaterally intact EOM present, Yes Nystagmus not present, Yes Normal facial strength present, Yes Midline tongue present, Yes Symmetric palate elevation present, Yes Ability to bilaterally rotate head present and Yes Ability to bilaterally elevate shoulders present Cognition (Neuro): normal cognition Speech: normal speech Gait exam (Neuro): Unable to assess gait Deep tendon reflexes (DTR's): Right triceps reflex intensity grade: 1+, Left triceps reflex intensity grade: 1+, Rt Biceps (C5, C6): 1+, Left biceps reflex intensity grade: 1+, Right brachioradialis reflex intensity grade: 1+, Left brachioradialis reflex intensity grade: 1+, Right patellar reflex intensity grade: 1+, Left patellar reflex intensity grade: 1+, Right ankle reflex intensity grade: 0 and Left ankle reflex intensity grade: 0 Plantar Reflex Responses: downgoing: bilateral Psych: Appearance: grossly normal Objective Data Vital Signs Vital Signs: Vital Signs - 24 hr 09/11/19 14:00 09/11/19 20:13 09/11/19 21:07 Temperature 36.2 C L 36.5 C Pulse Rate 57 L 62 Respiratory Rate 18 16 Blood Pressure 148/54 H 154/51 H Pulse Oximetry 99 94 97 09/12/19 06:00 09/12/19 09:25 09/12/19 09:26 Temperature 36.8 C Pulse Rate 50 L 50 L 50 L Respiratory Rate 20 Blood Pressure 145/42 H Pulse Oximetry 99 Intake/Output Intake/Output: Intake & Output 09/09/19 09/10/19 09/11/19 09/12/19 23:59 23:59 23:59 23:59 Intake Total 720 580 720 240 Balance 720 580 720 240 Meds/Results Medications: Active Medications Generic Name Dose Route Start Last Admin Trade Name Freq PRN Reason Stop Dose Admin Acetaminophen 1,000 mg 09/03/19 13:48 09/12/19 07:08 Tylenol Tablet PO 1,000 mg Q6H PRN Administration Pain Rated 5 or Less Amiodarone HCl 200 mg 09/03/19 09:00 09/12/19 09:25 Pacerone PO 200 mg DAILY DAYSI Administration Bisacodyl 10 mg 09/02/19 16:55 Dulcolax Suppository RECTAL QAM PRN Constipation Carvedilol 25 mg 09/02/19 21:00 09/12/19 09:26 Coreg PO 25 mg Q12HR DAYSI Administration Cyclobenzaprine HCl 5 mg 09/03/19 13:51 09/08/19 19:39 Flexeril PO 5 mg Q8H PRN Administration Muscle Spasm Dextrose 12.5 gm 09/02/19 18:14 Dextrose 50% Syringe IV PUSH PRN PRN Hypoglycemia Protocol Dextrose 12.5 gm 09/08/19 23:12 Dextrose 50% Syringe IV PUSH PRN PRN Hypoglycemia Protocol Diphenhydramine HCl 25 mg 09/11/19 18:26 09/12/19 07:09 Benadryl Cap PO 25 mg Q6H PRN Administration Itching Docusate Sodium 100 mg 09/07/19 11:30 09/12/19 09:26 Colace Capsule PO 100 mg Q12HR DAYSI Administration Fluticasone Propionate 1 puff 09/02/19 20:00 Flovent INHALATION Q12HRT PRN Shortness Of Breath Folic Acid 1 mg 09/03/19 09:00 09/12/19 09:26 Folic Acid PO 1 mg DAILY DAYSI Administration Glucagon 1 mg 09/02/19 18:14 Glucag
[2019-09-12 14:00] VITALS: BP 133/54; PULSE 52; RESP 18; TEMP 36.5; O2SAT 97
[2019-09-12 16:55] LABS: Glucose Point of Care 108 (65-105)
[2019-09-12 20:26] VITALS: PULSE 62
[2019-09-12 20:50] LABS: Glucose Point of Care 170 (65-105)
[2019-09-12 22:00] VITALS: BP 146/42; PULSE 56; RESP 18; TEMP 36.4; O2SAT 98
[2019-09-13] VITALS (7 sets, daily range): BP systolic 139–154; BP diastolic 39–51; PULSE 50–62; RESP 16–18; TEMP 36.3–37; O2SAT 95–98
[2019-09-13] MEDS: ACETAMINOPHEN 500 MG TABLET 1000 MG PO (02:36)
[2019-09-13 04:57] LABS: INR 2.6; Prothrombin Time 27.1 Seconds (11.1-14.7)
[2019-09-13 06:59] LABS: Glucose Point of Care 82 (65-105)
[2019-09-13] MEDS: AMIODARONE HCL 200 MG TABLET PO (10:15)
[2019-09-13] MEDS: carvediloL 25 MG TABLET PO ×2 (10:16→20:20)
[2019-09-13] MEDS: DOCUSATE SODIUM 100 MG CAPSULE PO ×2 (10:16→20:20)
[2019-09-13] MEDS: FOLIC ACID 1 MG TABLET PO (10:16)
[2019-09-13] MEDS: INSULIN GLARGINE (*BKC) 100 UNITS/ML 25 UNITS SUB-Q (10:17)
[2019-09-13] MEDS: ROSUVASTATIN 10 MG TABLET 20 MG PO (10:18)
[2019-09-13] MEDS: EUCERIN CREAM 120 GM JAR 1 APPLIC TOPICAL (10:18)
[2019-09-13] MEDS: THERAPEUTIC MULTIVITAMINS/MINERALS TAB (*BKC) 1 TABLET PO (10:18)
[2019-09-13 12:15] LABS: Glucose Point of Care 124 (65-105)
--- NOTE | 2019-09-13 12:37 | WPDNEURORHBP ---
Subjective Date/time seen: 09/13/19 12:37 Interval history: this 79-year-old Brittany is here after having had surgery for closed a right hip fracture. The patient has chronic atrial fibrillation is on anticoagulation. She has been complaining of right knee swelling and pain I have consulted Dr. Portillo person who has been the initial surgeon performing gait and hopefully he will see her today her INR is in therapeutic range and have adjusted her Coumadin accordingly her blood pressure is running soft so have decrease the lisinopril to 10 milligram daily On the other hand the patient has no fever chills sore throat headache nausea vomiting chest pain or shortness of breath Review of Systems Review of Systems: All systems reviewed & are unremarkable except as noted in HPI and below Functional Status Ambulation Ability Ability to Ambulate 10 Feet: Independent Ability to Ambulate 50 Feet With 2 Turns: Independent Ability to Ambulate 150 Feet: Independent Ambulation Assistive Devices: Walker, Wheeled Transfers Ability Ability to Transfer In/Out of Chair: Standby Assistance Exam Const: General: comfortable and no acute distress HENMT: General nose exam: Normal nares present Mouth: Yes moist mucous membranes Eyes: General: appearance normal, both eyes and all related structures Neck: Neck: supple and no JVD Resp: Effort & Inspection: normal respiratory effort Auscultation: clear to auscultation bilaterally Cardio: Rate: regular rate Rhythm: regular rhythm GI: GI Palp: Yes Soft to palpation Auscultation: normal bowel sounds Skin: General skin exam: normal color and no rashes or lesions noted Neuro: Other: patient is awake and alert well oriented time place and person is speech and language functions are normal cranial examination is normal upper extremity strength is 4.55 lower extremity strength is 4 or 5 she is doing fairly well we discussed in over team conference and questions were answered Extrem: General: normal to inspection Other: swelling of the right knee most likely related related to the hip surgery however inherent her right knee osteoarthritis is also possibility I have requested the treating surgeon to have a look at it hoping that he will see her prior to discharge Psych: Mental Status: mental status grossly normal Objective Data Vital Signs Vital Signs: Vital Signs - 24 hr 09/12/19 14:00 09/12/19 20:26 09/12/19 22:00 Temperature 36.5 C 36.4 C Pulse Rate 52 L 62 56 L Respiratory Rate 18 18 Blood Pressure 133/54 L 146/42 H Pulse Oximetry 97 98 09/13/19 06:00 09/13/19 10:15 09/13/19 10:16 Temperature 36.6 C Pulse Rate 54 L 54 L 54 L Respiratory Rate 18 Blood Pressure 139/39 L Pulse Oximetry 98 Intake/Output Intake/Output: Intake & Output 09/10/19 09/11/19 09/12/19 09/13/19 23:59 23:59 23:59 23:59 Intake Total 580 720 720 240 Balance 580 720 720 240 Meds/Results Medications: Active Medications Generic Name Dose Route Start Last Admin Trade Name Freq PRN Reason Stop Dose Admin Acetaminophen 1,000 mg 09/03/19 13:48 09/13/19 02:36 Tylenol Tablet PO 1,000 mg Q6H PRN Administration Pain Rated 5 or Less Amiodarone HCl 200 mg 09/03/19 09:00 09/13/19 10:15 Pacerone PO 200 mg DAILY DAYSI Administration Bisacodyl 10 mg 09/02/19 16:55 Dulcolax Suppository RECTAL QAM PRN Constipation Carvedilol 25 mg 09/02/19 21:00 09/13/19 10:16 Coreg PO 25 mg Q12HR DAYSI Administration Cyclobenzaprine HCl 5 mg 09/03/19 13:51 09/08/19 19:39 Flexeril PO 5 mg Q8H PRN Administration Muscle Spasm Dextrose 12.5 gm 09/02/19 18:14 Dextrose 50% Syringe IV PUSH PRN PRN Hypoglycemia Protocol Dextrose 12.5 gm 09/08/19 23:12 Dextrose 50% Syringe IV PUSH PRN PRN Hypoglycemia Protocol Diphenhydramine HCl 25 mg 09/11/19 18:26 09/13/19 10:14 Benadryl Cap PO 25 mg Q6H PRN A
--- NOTE | 2019-09-13 13:36 | PCDIET ---
Nutrition Follow-Up Complete: Nutrition Diagnosis: Suboptimal oral intake at present related to recent surgery as evidenced by average intake of 52% of meals. Nutrition Goal: Patient to consume 75% of meals/supplements. Goal met. Patient consuming 75-100% of most meals on diabetic diet. Recommend addition of heart healthy diet long-term. Last recorded weight is 96.3 kg. Recommend obtaining new weight. Bowel Motility: +BS. Abdomen soft. No issues reported. Labs Reviewed: Glu (124) Meds Noted: Colace, Folic Acid, Novolog, Lantus, MVI/minerals, Miralax, Coumadin Additional Notes: Right hip incision well-approximated. No documented pressure sores. Will continue to monitor with same goal. Nutrition Monitoring and Evaluation: Follow up in 7 days.
[2019-09-13 17:02] LABS: Glucose Point of Care 95 (65-105)
[2019-09-13] MEDS: WARFARIN (*PBKC) 5 MG TABLET PO (18:09)
[2019-09-14] VITALS (7 sets, daily range): BP systolic 128–147; BP diastolic 43–62; PULSE 53–58; RESP 16–18; TEMP 36.2–36.7; O2SAT 94–98
[2019-09-14 05:13] LABS: Prothrombin Time 22.4 Seconds (11.1-14.7)
[2019-09-14] MEDS: ACETAMINOPHEN 500 MG TABLET 1000 MG PO ×2 (06:44→20:36)
[2019-09-14 06:57] LABS: Glucose Point of Care 88 (65-105)
[2019-09-14] MEDS: AMIODARONE HCL 200 MG TABLET PO (09:38)
[2019-09-14] MEDS: carvediloL 25 MG TABLET PO ×2 (09:39→20:38)
[2019-09-14] MEDS: THERAPEUTIC MULTIVITAMINS/MINERALS TAB (*BKC) 1 TABLET PO (09:40)
[2019-09-14] MEDS: DOCUSATE SODIUM 100 MG CAPSULE PO ×2 (09:40→20:39)
[2019-09-14] MEDS: FOLIC ACID 1 MG TABLET PO (09:40)
[2019-09-14] MEDS: ROSUVASTATIN 10 MG TABLET 20 MG PO (09:41)
[2019-09-14] MEDS: polyethylene glycoL 3350 17 GM POWD.PACK PO (09:41)
[2019-09-14] MEDS: EUCERIN CREAM 120 GM JAR 1 APPLIC TOPICAL (09:42)
[2019-09-14] MEDS: INSULIN GLARGINE (*BKC) 100 UNITS/ML 25 UNITS SUB-Q (09:43)
--- NOTE | 2019-09-14 13:34 | WPDNEURORHBP ---
Subjective Date/time seen: 09/14/19 13:34 Interval history: this 79-year-old woman is here post surgery for his or her other right hip fracture doing fairly well the right knee swelling is less when she proper leg the treating surgeon was able to see her today and she is more comfortable with that she denies any chest pain shortness of breath headache nausea vomiting fevers chills or sore throat Review of Systems Review of Systems: All systems reviewed & are unremarkable except as noted in HPI and below Functional Status Ambulation Ability Ability to Ambulate 10 Feet: Independent Ability to Ambulate 50 Feet With 2 Turns: Independent Ability to Ambulate 150 Feet: Independent Ambulation Assistive Devices: Walker, Wheeled Transfers Ability Ability to Transfer In/Out of Chair: Standby Assistance Exam Const: General: comfortable and no acute distress HENMT: General nose exam: Normal nares present Mouth: Yes moist mucous membranes Eyes: General: appearance normal, both eyes and all related structures Neck: Neck: supple and no JVD Resp: Effort & Inspection: normal respiratory effort Auscultation: clear to auscultation bilaterally Cardio: Rate: regular rate Rhythm: regular rhythm GI: GI Palp: Yes Soft to palpation Auscultation: normal bowel sounds Skin: General skin exam: normal color and no rashes or lesions noted Neuro: Other: patient is awake and alert well oriented in time place and person normal cranial nerve examination normal upper extremity strength and improving lower extremity strength doing well in the rehab Extrem: General: normal to inspection Psych: Mental Status: mental status grossly normal Objective Data Vital Signs Vital Signs: Vital Signs - 24 hr 09/13/19 14:00 09/13/19 20:20 09/13/19 22:00 Temperature 36.3 C L 37.0 C Pulse Rate 56 L 62 50 L Respiratory Rate 18 16 Blood Pressure 150/50 H 154/51 H Pulse Oximetry 96 95 09/13/19 22:02 09/14/19 05:48 09/14/19 09:38 Temperature 36.4 C L Pulse Rate 54 L 54 L Respiratory Rate 18 Blood Pressure 147/43 H Pulse Oximetry 95 98 09/14/19 09:39 Temperature Pulse Rate 54 L Respiratory Rate Blood Pressure Pulse Oximetry Intake/Output Intake/Output: Intake & Output 09/11/19 09/12/19 09/13/19 09/14/19 23:59 23:59 23:59 23:59 Intake Total 720 720 720 480 Balance 720 720 720 480 Meds/Results Medications: Active Medications Generic Name Dose Route Start Last Admin Trade Name Davidq PRN Reason Stop Dose Admin Acetaminophen 1,000 mg 09/03/19 13:48 09/14/19 06:44 Tylenol Tablet PO 1,000 mg Q6H PRN Administration Pain Rated 5 or Less Amiodarone HCl 200 mg 09/03/19 09:00 09/14/19 09:38 Pacerone PO 200 mg DAILY DAYSI Administration Bisacodyl 10 mg 09/02/19 16:55 Dulcolax Suppository RECTAL QAM PRN Constipation Carvedilol 25 mg 09/02/19 21:00 09/14/19 09:39 Coreg PO 25 mg Q12HR DAYSI Administration Cyclobenzaprine HCl 5 mg 09/03/19 13:51 09/08/19 19:39 Flexeril PO 5 mg Q8H PRN Administration Muscle Spasm Dextrose 12.5 gm 09/02/19 18:14 Dextrose 50% Syringe IV PUSH PRN PRN Hypoglycemia Protocol Dextrose 12.5 gm 09/08/19 23:12 Dextrose 50% Syringe IV PUSH PRN PRN Hypoglycemia Protocol Diphenhydramine HCl 25 mg 09/11/19 18:26 09/13/19 10:14 Benadryl Cap PO 25 mg Q6H PRN Administration Itching Docusate Sodium 100 mg 09/07/19 11:30 09/14/19 09:40 Colace Capsule PO 100 mg Q12HR DAYSI Administration Fluticasone Propionate 1 puff 09/02/19 20:00 Flovent INHALATION Q12HRT PRN Shortness Of Breath Folic Acid 1 mg 09/03/19 09:00 09/14/19 09:40 Folic Acid PO 1 mg DAILY DAYSI Administration Glucagon 1 mg 09/02/19 18:14 Glucagon For Inj IM PRN PRN Hypoglycemia Protocol Glucagon 1 mg 09/08/19 23:12 Glucagon For Inj IM PRN PRN
[2019-09-14] MEDS: WARFARIN (*PBKC) 2 MG TABLET PO (14:22)
--- NOTE | 2019-09-14 15:37 | PM.PNORT ---
Progress Note: A&P Assessment and Plan (1) History of right hip hemiarthroplasty: Onset Date: 08/30/19 Code(s): Z96.641 - Presence of right artificial hip joint Status: Acute Assessment and Plan: Progressing quite well. Edema and swelling within normal limits, given the DVT. I reassured the patient. The hip itself appears to be functioning and healing well. Questions answered. Continue therapy. I recommend a hip x-ray prior to discharge from the rehabilitation unit. (2) DVT, bilateral lower limbs: Code(s): I82.403 - Acute embolism and thrombosis of unspecified deep veins of lower extremity, bilateral Status: Acute Subjective Subjective Date/Time Seen: 09/14/19 12:30 Interval history: Patient seen in the rehabilitation unit. Seven weeks status post bipolar hemiarthroplasty. She has been progressing nicely with physical therapy. She has mild discomfort at the hip. She complains primarily of bilateral lower leg swelling and occasional pain. She was diagnosed with bilateral DVT. She is being treated appropriately with Coumadin. Exam Narrative: Exam Narrative: No distress. Alert and oriented. Dressing clean and dry. No significant swelling or ecchymosis at the hip. No hematoma. Mild tenderness. Bilateral lower extremity edema [id number]. Slightly worse on the right. No erythema. Wiggles toes with good strength. Anterior tibialis strength normal. Light touch sensation intact. Objective Data Vital Signs Vital Signs: Vital Signs - 24 hr 09/13/19 20:20 09/13/19 22:00 09/13/19 22:02 Temperature 37.0 C Pulse Rate 62 50 L Respiratory Rate 16 Blood Pressure 154/51 H Pulse Oximetry 95 95 09/14/19 05:48 09/14/19 09:38 09/14/19 09:39 Temperature 36.4 C L Pulse Rate 54 L 54 L 54 L Respiratory Rate 18 Blood Pressure 147/43 H Pulse Oximetry 98 09/14/19 14:00 Temperature 36.7 C Pulse Rate 54 L Respiratory Rate 18 Blood Pressure 128/44 L Pulse Oximetry 98 Intake/Output Intake/Output: Intake & Output 09/11/19 09/12/19 09/13/19 09/14/19 23:59 23:59 23:59 23:59 Intake Total 720 720 720 480 Balance 720 720 720 480 Meds/Results Medications: Active Medications Generic Name Dose Route Start Last Admin Trade Name Freq PRN Reason Stop Dose Admin Acetaminophen 1,000 mg 09/03/19 13:48 09/14/19 06:44 Tylenol Tablet PO 1,000 mg Q6H PRN Administration Pain Rated 5 or Less Amiodarone HCl 200 mg 09/03/19 09:00 09/14/19 09:38 Pacerone PO 200 mg DAILY DAYSI Administration Bisacodyl 10 mg 09/02/19 16:55 Dulcolax Suppository RECTAL QAM PRN Constipation Carvedilol 25 mg 09/02/19 21:00 09/14/19 09:39 Coreg PO 25 mg Q12HR DAYSI Administration Cyclobenzaprine HCl 5 mg 09/03/19 13:51 09/08/19 19:39 Flexeril PO 5 mg Q8H PRN Administration Muscle Spasm Dextrose 12.5 gm 09/02/19 18:14 Dextrose 50% Syringe IV PUSH PRN PRN Hypoglycemia Protocol Dextrose 12.5 gm 09/08/19 23:12 Dextrose 50% Syringe IV PUSH PRN PRN Hypoglycemia Protocol Diphenhydramine HCl 25 mg 09/11/19 18:26 09/14/19 13:43 Benadryl Cap PO 25 mg Q6H PRN Administration Itching Docusate Sodium 100 mg 09/07/19 11:30 09/14/19 09:40 Colace Capsule PO 100 mg Q12HR DAYSI Administration Fluticasone Propionate 1 puff 09/02/19 20:00 Flovent INHALATION Q12HRT PRN Shortness Of Breath Folic Acid 1 mg 09/03/19 09:00 09/14/19 09:40 Folic Acid PO 1 mg DAILY DAYSI Administration Glucagon 1 mg 09/02/19 18:14 Glucagon For Inj IM PRN PRN Hypoglycemia Protocol Glucagon 1 mg 09/08/19 23:12 Glucagon For Inj IM PRN PRN Hypoglycemia Protocol Glucose 15 gm 09/02/19 18:14 Glutose 15 PO PRN PRN Hypoglycemia Protocol Glucose 15 gm 09/08/19 23:12 Glutose 15 PO PRN PRN
[2019-09-14 17:21] LABS: Glucose Point of Care 96 (65-105)
[2019-09-14] MEDS: WARFARIN (*PBKC) 5 MG TABLET PO (18:26)
[2019-09-15 04:44] LABS: INR 2.2; Prothrombin Time 24.3 Seconds (11.1-14.7)
[2019-09-15 06:00] VITALS: BP 146/56; PULSE 51; RESP 18; TEMP 36.3; O2SAT 97
[2019-09-15 06:43] LABS: Glucose Point of Care 79 (65-105)
[2019-09-15 09:17] VITALS: PULSE 51
[2019-09-15] MEDS: carvediloL 25 MG TABLET PO ×2 (09:17→20:41)
[2019-09-15] MEDS: AMIODARONE HCL 200 MG TABLET PO (09:17)
[2019-09-15] MEDS: INSULIN GLARGINE (*BKC) 100 UNITS/ML 25 UNITS SUB-Q (09:18)
[2019-09-15] MEDS: THERAPEUTIC MULTIVITAMINS/MINERALS TAB (*BKC) 1 TABLET PO (09:18)
[2019-09-15] MEDS: DOCUSATE SODIUM 100 MG CAPSULE PO ×2 (09:18→20:42)
[2019-09-15] MEDS: FOLIC ACID 1 MG TABLET PO (09:18)
[2019-09-15] MEDS: ROSUVASTATIN 10 MG TABLET 20 MG PO (09:18)
[2019-09-15] MEDS: polyethylene glycoL 3350 17 GM POWD.PACK PO (09:19)
[2019-09-15] MEDS: EUCERIN CREAM 120 GM JAR 1 APPLIC TOPICAL (09:19)
--- NOTE | 2019-09-15 11:52 | WPDNEURORHBP ---
Subjective Date/time seen: 09/15/19 11:52 Interval history: this 79-year-old woman is here after having had surgery performed for the right hip fracture she has a history of paroxysmal atrial fibrillation and has developed peroneal DVT here but the treatment remains the same she is on warfarin with slowly moving INR upwards Denies any headache nausea vomiting chest pain shortness of breath and discharge planning is for tomorrow Review of Systems Review of Systems: All systems reviewed & are unremarkable except as noted in HPI and below Functional Status Ambulation Ability Ability to Ambulate 10 Feet: Independent Ability to Ambulate 50 Feet With 2 Turns: Independent Ability to Ambulate 150 Feet: Independent Ambulation Assistive Devices: Walker, Wheeled Transfers Ability Ability to Transfer In/Out of Chair: Standby Assistance Exam Const: General: comfortable and no acute distress HENMT: General nose exam: Normal nares present Mouth: Yes moist mucous membranes Eyes: General: appearance normal, both eyes and all related structures Neck: Neck: supple and no JVD Resp: Effort & Inspection: normal respiratory effort Auscultation: clear to auscultation bilaterally Cardio: Rate: regular rate Rhythm: regular rhythm GI: GI Palp: Yes Soft to palpation Auscultation: normal bowel sounds Skin: General skin exam: normal color and no rashes or lesions noted Neuro: Other: patient is awake alert well oriented to time place and person has normal speech renal function normal getting some appiah normal upper extremity strength and significantly improved lower extremity strength post surgery Extrem: General: normal to inspection Psych: Mental Status: mental status grossly normal Objective Data Vital Signs Vital Signs: Vital Signs - 24 hr 09/14/19 14:00 09/14/19 20:38 09/14/19 21:33 Temperature 36.7 C Pulse Rate 54 L 58 L Respiratory Rate 18 Blood Pressure 128/44 L Pulse Oximetry 98 94 09/14/19 22:00 09/15/19 06:00 09/15/19 09:17 Temperature 36.2 C L 36.3 C L Pulse Rate 53 L 51 L 51 L Respiratory Rate 16 18 Blood Pressure 147/62 H 146/56 H Pulse Oximetry 97 97 Intake/Output Intake/Output: Intake & Output 09/12/19 09/13/19 09/14/19 09/15/19 23:59 23:59 23:59 23:59 Intake Total 720 720 720 360 Balance 720 720 720 360 Meds/Results Medications: Active Medications Generic Name Dose Route Start Last Admin Trade Name Freq PRN Reason Stop Dose Admin Acetaminophen 1,000 mg 09/03/19 13:48 09/14/19 20:36 Tylenol Tablet PO 1,000 mg Q6H PRN Administration Pain Rated 5 or Less Amiodarone HCl 200 mg 09/03/19 09:00 09/15/19 09:17 Pacerone PO 200 mg DAILY DAYSI Administration Bisacodyl 10 mg 09/02/19 16:55 Dulcolax Suppository RECTAL QAM PRN Constipation Carvedilol 25 mg 09/02/19 21:00 09/15/19 09:17 Coreg PO 25 mg Q12HR DAYSI Administration Cyclobenzaprine HCl 5 mg 09/03/19 13:51 09/08/19 19:39 Flexeril PO 5 mg Q8H PRN Administration Muscle Spasm Dextrose 12.5 gm 09/02/19 18:14 Dextrose 50% Syringe IV PUSH PRN PRN Hypoglycemia Protocol Dextrose 12.5 gm 09/08/19 23:12 Dextrose 50% Syringe IV PUSH PRN PRN Hypoglycemia Protocol Diphenhydramine HCl 25 mg 09/11/19 18:26 09/14/19 13:43 Benadryl Cap PO 25 mg Q6H PRN Administration Itching Docusate Sodium 100 mg 09/07/19 11:30 09/15/19 09:18 Colace Capsule PO 100 mg Q12HR DAYSI Administration Fluticasone Propionate 1 puff 09/02/19 20:00 Flovent INHALATION Q12HRT PRN Shortness Of Breath Folic Acid 1 mg 09/03/19 09:00 09/15/19 09:18 Folic Acid PO 1 mg DAILY DAYSI Administration Glucagon 1 mg 09/02/19 18:14 Glucagon For Inj IM PRN PRN Hypoglycemia Protocol Glucagon 1 mg 09/08/19 23:12 Glucagon For Inj IM PRN PRN Hypoglycemia Protocol Glucose 15
[2019-09-15 14:00] VITALS: BP 147/45; PULSE 54; RESP 18; TEMP 37.3; O2SAT 98
[2019-09-15 17:15] LABS: Glucose Point of Care 89 (65-105)
[2019-09-15] MEDS: WARFARIN (*PBKC) 5 MG TABLET PO (17:51)
[2019-09-15] MEDS: ACETAMINOPHEN 500 MG TABLET 1000 MG PO (20:37)
[2019-09-15 20:41] VITALS: PULSE 56
[2019-09-15 21:34] VITALS: BP 135/48; PULSE 52; RESP 16; TEMP 36.5; O2SAT 97
[2019-09-16 05:17] LABS: INR 2.5; Prothrombin Time 26.5 Seconds (11.1-14.7)
[2019-09-16 06:00] VITALS: BP 146/55; PULSE 54; RESP 16; TEMP 36.6; O2SAT 97
[2019-09-16 06:47] LABS: Glucose Point of Care 69 (65-105)
[2019-09-16 09:36] VITALS: PULSE 54
[2019-09-16] MEDS: AMIODARONE HCL 200 MG TABLET PO (09:36)
[2019-09-16 09:37] VITALS: PULSE 54
[2019-09-16] MEDS: DOCUSATE SODIUM 100 MG CAPSULE PO (09:37)
[2019-09-16] MEDS: FOLIC ACID 1 MG TABLET PO (09:37)
[2019-09-16] MEDS: ROSUVASTATIN 10 MG TABLET 20 MG PO (09:37)
[2019-09-16] MEDS: INSULIN GLARGINE (*BKC) 100 UNITS/ML 25 UNITS SUB-Q (09:37)
[2019-09-16] MEDS: THERAPEUTIC MULTIVITAMINS/MINERALS TAB (*BKC) 1 TABLET PO (09:37)
[2019-09-16] MEDS: carvediloL 25 MG TABLET PO (09:37)
[2019-09-16] MEDS: EUCERIN CREAM 120 GM JAR 1 APPLIC TOPICAL (09:38)
[2019-09-16 11:48] LABS: Glucose Point of Care 71 (65-105)
--- NOTE | 2019-09-16 12:47 | WPDNEURORHBP ---
Subjective Date/time seen: 09/16/19 12:47 Interval history: This 79-year-old woman who has been here after having had surgery for a closed hip fracture she has done well in the rehab and ready to be discharged without any complaints and quite happy with the care she received Review of Systems Review of Systems: All systems reviewed & are unremarkable except as noted in HPI and below Functional Status Ambulation Ability Ability to Ambulate 10 Feet: Independent Ability to Ambulate 50 Feet With 2 Turns: Independent Ability to Ambulate 150 Feet: Independent Ambulation Assistive Devices: Walker, Wheeled Transfers Ability Ability to Transfer In/Out of Chair: Standby Assistance Exam Const: General: comfortable and no acute distress HENMT: General nose exam: Normal nares present Mouth: Yes moist mucous membranes Eyes: General: appearance normal, both eyes and all related structures Neck: Neck: supple and no JVD Resp: Effort & Inspection: normal respiratory effort Auscultation: clear to auscultation bilaterally Cardio: Rate: regular rate Rhythm: regular rhythm GI: GI Palp: Yes Soft to palpation Auscultation: normal bowel sounds Skin: General skin exam: normal color and no rashes or lesions noted Neuro: Other: patient remains lucid well oriented time place person has normal speech and language functions cranial exam shows normal strength is symmetrically has including the site where she had the carole Extrem: Other: the swelling of the right lower extremity is less there is no calf tenderness and she has negative Brittany sign Psych: Mental Status: mental status grossly normal Objective Data Vital Signs Vital Signs: Vital Signs - 24 hr 09/15/19 14:00 09/15/19 20:41 09/15/19 21:34 Temperature 37.3 C 36.5 C Pulse Rate 54 L 56 L 52 L Respiratory Rate 18 16 Blood Pressure 147/45 H 135/48 L Pulse Oximetry 98 97 09/16/19 06:00 09/16/19 09:36 09/16/19 09:37 Temperature 36.6 C Pulse Rate 54 L 54 L 54 L Respiratory Rate 16 Blood Pressure 146/55 H Pulse Oximetry 97 Intake/Output Intake/Output: Intake & Output 09/13/19 09/14/19 09/15/19 09/16/19 23:59 23:59 23:59 23:59 Intake Total 720 720 840 240 Balance 720 720 840 240 Meds/Results Medications: Active Medications Generic Name Dose Route Start Last Admin Trade Name Freq PRN Reason Stop Dose Admin Acetaminophen 1,000 mg 09/03/19 13:48 09/15/19 20:37 Tylenol Tablet PO 1,000 mg Q6H PRN Administration Pain Rated 5 or Less Amiodarone HCl 200 mg 09/03/19 09:00 09/16/19 09:36 Pacerone PO 200 mg DAILY DAYSI Administration Bisacodyl 10 mg 09/02/19 16:55 Dulcolax Suppository RECTAL QAM PRN Constipation Carvedilol 25 mg 09/02/19 21:00 09/16/19 09:37 Coreg PO 25 mg Q12HR DAYSI Administration Cyclobenzaprine HCl 5 mg 09/03/19 13:51 09/08/19 19:39 Flexeril PO 5 mg Q8H PRN Administration Muscle Spasm Dextrose 12.5 gm 09/02/19 18:14 Dextrose 50% Syringe IV PUSH PRN PRN Hypoglycemia Protocol Dextrose 12.5 gm 09/08/19 23:12 Dextrose 50% Syringe IV PUSH PRN PRN Hypoglycemia Protocol Diphenhydramine HCl 25 mg 09/11/19 18:26 09/15/19 20:35 Benadryl Cap PO 25 mg Q6H PRN Administration Itching Docusate Sodium 100 mg 09/07/19 11:30 09/16/19 09:37 Colace Capsule PO 100 mg Q12HR DAYSI Administration Fluticasone Propionate 1 puff 09/02/19 20:00 Flovent INHALATION Q12HRT PRN Shortness Of Breath Folic Acid 1 mg 09/03/19 09:00 09/16/19 09:37 Folic Acid PO 1 mg DAILY DAYSI Administration Glucagon 1 mg 09/02/19 18:14 Glucagon For Inj IM PRN PRN Hypoglycemia Protocol Glucagon 1 mg 09/08/19 23:12 Glucagon For Inj IM PRN PRN Hypoglycemia Protocol Glucose 15 gm 09/02/19 18:14 Glutose 15 PO PRN PRN Hypoglycemia Protocol Glucose 15
--- NOTE | 2019-09-21 12:35 | DS_ITS ---
DATE OF DISCHARGE: 09/16/2019 DISCHARGE ACUTE REHABILITATION DIAGNOSIS: Primary rehab impairment category of Orthopedic that is lower extremity fracture with etiological diagnosis of displaced right femur neck fracture with varus angulation. DISCHARGE ACTIVE COMORBID CONDITIONS: 1. Severe obstructive sleep apnea. 2. Insulin-dependent diabetes mellitus with neuropathy, nephropathy and gastroparesis. 3. Paroxysmal atrial fibrillation with history of cardioversion. 4. Chronic anticoagulation therapy. 5. Coronary artery disease. 6. Chronic kidney disease. 7. Idiopathic peripheral neuropathy. 8. Osteoarthritis. REASON FOR ADMISSION: An 79-year-old right-handed female presented to [facility] on 08/28/2019, for the complaints of right hip pain subsequent to fall. When she was walking down the stairs, her right knee buckled and she fell down, one step landing on the right side and developed immediate pain in her right hip and was subsequently unable to move without severe pain. She did not become unconscious. On initial evaluation, her blood pressure was 190/77. Right hip x-ray was compatible with displaced. Right femur neck fracture with varus angulation. CT of the head was negative. X-ray chest revealed cardiomegaly with pulmonary vascular congestion. Echocardiogram revealed 50% to 55% ejection fraction. She was cleared for surgical intervention. Once her INR was 1.5. Dr. Ruiz performed the right bipolar hemiarthroplasty on 08/30/2019. Postoperatively, she became confusion, but gradually improved. She was very motivated and cognitively improved and she was engaging in the physical therapy also, though she did have postoperatively leukocytosis, anemia, hyponatremia, elevated BUN and creatinine, elevated blood sugar, hypocalcemia, hypotension, and postoperative pain. She was placed with a Lindquist catheter since August 27, which required discontinuation after the trials. She was to wear CPAP at night while sleeping and patient was discharged to [facility] on Coumadin therapy for DVT prophylaxis. The patient has not traveled outside the [place] had no contact with someone who was ill and has traveled outside the [place] in the last 21 days and she had not traveled to any area of the [place] that were experiencing known transmission of the COVID-19 and no personal contacts. Initial functional evaluation revealed her to have need for setup for the eating and oral hygiene, partial assistance for toileting and bathing, supervision for upper body dressing, substantial assistance for lower body dressing. She was dependent for footwear, partial assistance for rolling in bed, substantial assistance for sit to lying. She was unable to lying to sitting. She required substantial assistance for sit to stand, partial assistance for chair transfer, toilet transfer, car transfer, 10 feet walking. She was unable to walk 50 feet with 2 turns, 150 feet. She was dependent for 10 feet on uneven surfaces. She required partial assistance for the curb or step, and she was unable to take 4 steps, 12 steps, wheelchair for 50 feet or 150 feet. Even for picking up object, she required partial assistance. ANTICIPATED REHABILIATION GOALS AT THE TIME OF ADMISSION: Were to make her independent eating and oral hygiene, required only setup for the toileting, bathing, upper body dressing, lower body dressing, footwear, rolling in bed, sit to lying, lying to sit, sit to stand, chair transfer, toilet transfer, make her independent for car transfer, walking 10 feet, 50 feet with 2 turns, 150 feet, 10 feet on uneven surfaces, curb or step, 4 steps, 12 steps, picking up object and independent for wheelchair 50 or 150 feet. LEVEL OF FUNCTION AT THE TIME OF DISCHARGE: She became independent eating and oral hygiene and toileting, required supervision for bat
== END 2019-09-16 13:20 | disposition home health service (06) | DRG 560 ==
PROVIDERS: Physician Assistant; Admitting Provider Psychiatry & Neurology Neurology; PCP Family Medicine; Visit Provider Psychiatry & Neurology Neurology
DX: Z47.1 Aftercare following joint replacement surgery (principal); I82.453 Acute embolism and thrombosis of peroneal vein, bilateral; S72.001D Fracture of unspecified part of neck of right femur, subsequent encounter for closed fracture with routine healing; Z96.641 Presence of right artificial hip joint; D50.9 Iron deficiency anemia, unspecified; E11.65 Type 2 diabetes mellitus with hyperglycemia; E11.22 Type 2 diabetes mellitus with diabetic chronic kidney disease; E11.21 Type 2 diabetes mellitus with diabetic nephropathy; E11.42 Type 2 diabetes mellitus with diabetic polyneuropathy; G47.33 Obstructive sleep apnea (adult) (pediatric); I13.10 Hypertensive heart and chronic kidney disease without heart failure, with stage 1 through stage 4 chronic kidney disease, or unspecified chronic kidney disease; I48.0 Paroxysmal atrial fibrillation; I95.81 Postprocedural hypotension; I25.10 Atherosclerotic heart disease of native coronary artery without angina pectoris; J45.909 Unspecified asthma, uncomplicated; K31.84 Gastroparesis; M19.90 Unspecified osteoarthritis, unspecified site; N18.3 Chronic kidney disease, stage 3 (moderate); Z95.5 Presence of coronary angioplasty implant and graft; Z79.4 Long term (current) use of insulin; Z79.01 Long term (current) use of anticoagulants; Z85.3 Personal history of malignant neoplasm of breast; Z92.3 Personal history of irradiation; Z92.21 Personal history of antineoplastic chemotherapy; W10.9XXD Fall (on) (from) unspecified stairs and steps, subsequent encounter
CPT/HCPCS: 36415; 80048; 85025; 85027; 85610; 93970; 94660; 97110; 97112; 97116; 97161; 97166; 97530; 97535; 97542; A9270; J1815

== ENCOUNTER 2019-11-16 11:25 | Outpatient (CLI) | payer MEDICARE, SELFPAY ==
[2019-11-16 11:35] LABS: Hematocrit 36.8 % (35.0-42.0); Hemoglobin 12.2 g/dL (11.7-13.8); Mean Corpuscular HGB Conc 33.2 g/dL (32.0-36.0); Mean Corpuscular Volume 90.4 fL (78.0-102.0); Mean Platelet Volume 10.8 fl (9.2-11.8); Platelet Count Result 219 K/mm3 (150-420); Red Blood Count 4.07 M/mm3 (4.20-5.40); Red Cell Distribution Width 14.7 % (11.6-14.4); White Blood Count 8.2 K/mm3 (4.8-10.8)
== END 2019-11-16 11:26 | disposition home or self-care (01) ==
PROVIDERS: PCP Family Medicine; Visit Provider Internal Medicine Critical Care Medicine
DX: R06.02 Shortness of breath (principal)
CPT/HCPCS: 36415; 85027

== ENCOUNTER 2020-01-17 07:51 | Outpatient (RCR) | payer MEDICARE, SELFPAY ==
[2019-10-27 09:26] LABS: INR 3.5; Prothrombin Time 34.3 Seconds (9.64-11.0)
[2019-11-10 10:19] LABS: INR 2.8; Prothrombin Time 27.6 Seconds (9.64-11.0)
[2019-12-07 10:39] LABS: INR 1.9; Prothrombin Time 19.7 Seconds (9.64-11.0)
[2020-01-17 08:20] LABS: INR 2.6
== END 2020-01-25 23:59 | disposition home or self-care (01) ==
LOC: CHSLAB 07:51
PROVIDERS: PCP Family Medicine; Visit Provider Internal Medicine Cardiovascular Disease
DX: I48.19 Other persistent atrial fibrillation (principal); Z79.01 Long term (current) use of anticoagulants
CPT/HCPCS: 36415; 85610

== ENCOUNTER 2020-02-14 07:28 | Outpatient (CLI) | payer MEDICARE, BC, SELFPAY ==
--- NOTE | ~2020-02-14 | XR_ITS ---
XR tibia fibula RT 2V DATE: 02/14/2020 07:52 INDICATION: Pain and swelling in right lower leg and ankle TECHNIQUE: AP and lateral views COMPARISON: None FINDINGS: There is a sclerotic area in the proximal tibial diametaphysis, likely bone infarct or prasanth gn calcified cartilaginous lesion. There is periarticular spurring at the medial and to a lesser extent lateral compartments with mild l oss of height of the medial compartment joint space. There is osteoarthritic change including joint s pace target spurring at the patellofemoral joint. There is hypertrophic change of the tibial spines. No fracture or dislocation, periosteal reaction or bone destruction is detected. Alignment is preserv ed at the knee and ankle joints. Plantar calcaneal enthesopathy. 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 IMPRESSION: Osteoarthritis at the knee joint Bone infarct or benign calcified cartilaginous tumor at proximal tibial diameta physis
== END 2020-02-14 07:29 | disposition home or self-care (01) ==
LOC: CHSIMG 07:30
PROVIDERS: PCP Family Medicine; Visit Provider Family Medicine
DX: M79.89 Other specified soft tissue disorders (principal)
CPT/HCPCS: 73590

== ENCOUNTER 2020-03-30 15:27 | Outpatient (CLI) | payer MEDICARE, BC, SELFPAY ==
--- NOTE | ~2020-03-30 | US_ITS ---
EXAMINATION: US venous doppler LE RT EXAM DATE: 03/30/2020 16:10 INDICATION: M79.89 - Other specified soft tissue disorders . Right lower extremity swelling. TECHNIQUE: Multiple grayscale, color flow and Doppler images of the right lower extremity deep venous system were obtained and reviewed. There is no prior study for comparison. FINDINGS: The right common femoral, femoral and profunda veins demonstrate normal color flow, respira tory variation, augmentation and compressibility. Compressibility, color flow confirmed within the r ight popliteal, posterior tibial, peroneal, and greater saphenous veins. IMPRESSION: 1. No right lower extremity deep venous thrombosis. Reviewed, dictated and finalized at location A.
== END 2020-03-30 15:28 | disposition home or self-care (01) ==
LOC: ANHIMG 15:32
PROVIDERS: PCP Family Medicine; Visit Provider Orthopaedic Surgery
DX: M79.89 Other specified soft tissue disorders (principal)
CPT/HCPCS: 93971

== ENCOUNTER 2020-04-30 15:09 | Outpatient (CLI) | payer MEDICARE, BC, SELFPAY ==
--- NOTE | ~2020-04-30 | MM_ITS ---
EXAMINATION: MM screening jame BI w cass HISTORY: Screening mammogram TECHNIQUE: Craniocaudal and mediolateral oblique 3-D tomosynthesis images were obtained and synthetic 2-D images were generated. CAD analysis was submitted and interpreted. COMPARISON: No prior mammogram is available for comparison at this institution. BREAST PARENCHYMAL COMPOSITION: There are scattered areas of fibroglandular density. FINDINGS: There is postoperative change from left partial mastectomy, including chronic volume loss a nd asymmetric increased density of the left breast. There are again multiple bilateral benign-appeari ng breast calcifications, more numerous on the left There is no evidence of suspicious mass, calcific ation, or architectural distortion to suggest malignancy in either breast. There has been no suspicio us interval change. IMPRESSION: 1. No mammographic evidence of malignancy. 2. Recommend routine screening mammography in one year. BI-RADS Category 2: Benign Reviewed, dictated and finalized at location A. STANCE BRAZER
== END 2020-04-30 15:10 | disposition home or self-care (01) ==
LOC: ANHIMG 15:11
PROVIDERS: PCP Family Medicine; Visit Provider Family Medicine
DX: Z12.31 Encounter for screening mammogram for malignant neoplasm of breast (principal)
CPT/HCPCS: 77063; 77067

== ENCOUNTER 2020-05-10 09:16 | Outpatient (RCR) | payer MEDICARE, SELFPAY ==
[2020-02-24 08:10] LABS: INR 2.8; Prothrombin Time 28.1 Seconds (9.64-11.0)
[2020-03-21 08:53] LABS: INR 3.8; Prothrombin Time 37.9 Seconds (9.64-11.0)
[2020-04-04 08:22] LABS: INR 3.3; Prothrombin Time 32.8 Seconds (9.64-11.0)
[2020-05-10 09:39] LABS: INR 2.3
== END 2020-05-24 23:59 | disposition home or self-care (01) ==
LOC: CHSLAB 09:16
PROVIDERS: PCP Internal Medicine Cardiovascular Disease; Visit Provider Internal Medicine Cardiovascular Disease
DX: I48.19 Other persistent atrial fibrillation (principal); Z79.01 Long term (current) use of anticoagulants
CPT/HCPCS: 36415; 85610

== ENCOUNTER 2020-06-06 10:49 | Outpatient (CLI) | payer MEDICARE, SELFPAY ==
[2020-06-06 11:02] LABS: Hematocrit 35.6 % (35.0-42.0); Hemoglobin 11.6 g/dL (11.7-13.8); Mean Corpuscular HGB Conc 32.6 g/dL (32.0-36.0); Mean Corpuscular Hemoglobin 30.4 pg (27.0-31.0); Mean Corpuscular Volume 93.4 fL (78.0-102.0); Platelet Count Result 183 K/mm3 (150-420); Red Blood Count 3.81 M/mm3 (4.20-5.40); Red Cell Distribution Width 14.6 % (11.6-14.4); White Blood Count 7.8 K/mm3 (4.8-10.8)
[2020-06-06 11:15] LABS: Hemoglobin A1C 6.1 % (<5.7)
[2020-06-06 11:16] LABS: INR 2.7; Prothrombin Time 28.5 Seconds (9.50-12.10)
[2020-06-06 11:52] LABS: Alanine Aminotransferase 44 U/L (14-59); Albumin Level 3.7 g/dL (3.4-5.0); Alkaline Phosphatase 93 U/L (46-116); Anion Gap 8 mmol/L (8-16); Aspartate Amino Transferase 65 U/L (15-37); Bilirubin,Total 0.5 mg/dL (0.00-1.00); Blood Urea Nitrogen 21 mg/dL (7-18); Calcium 9.7 mg/dL (8.5-10.1); Carbon Dioxide 29 mmol/L (21-32); Chloride 103 mmol/L (98-108); Cholesterol 173 mg/dL (0-200); Estimated Glomerular Filt Rate 45; Glucose 178 mg/dL (70-99); HDL Direct 57 mg/dL (40-60); LDL Cholesterol Calculated 92 mg/dL (<130); Osmolality Calculated 297 mOsm/kg (285-295); Potassium 4.6 mmol/L (3.5-5.1); Sodium 140 mmol/L (136-145); Triglycerides 118 mg/dL (0-150)
[2020-06-06 11:53] LABS: Thyroid Stimulating Hormone Reflex 2.01 u/IU/mL (0.36-3.74)
[2020-06-11 02:02] LABS: Vitamin D 25 Hydroxy 35 ng/mL (30-100)
== END 2020-06-06 10:50 | disposition home or self-care (01) ==
LOC: CHSLAB 10:52
PROVIDERS: PCP Internal Medicine Cardiovascular Disease; Visit Provider Family Medicine
DX: E11.9 Type 2 diabetes mellitus without complications (principal); R53.83 Other fatigue; E55.9 Vitamin D deficiency, unspecified; R06.02 Shortness of breath; R22.41 Localized swelling, mass and lump, right lower limb; E78.2 Mixed hyperlipidemia; I12.9 Hypertensive chronic kidney disease with stage 1 through stage 4 chronic kidney disease, or unspecified chronic kidney disease; N18.30 Chronic kidney disease, stage 3 unspecified; Z79.4 Long term (current) use of insulin; I48.19 Other persistent atrial fibrillation; Z79.01 Long term (current) use of anticoagulants
CPT/HCPCS: 36415; 80053; 80061; 82306; 83036; 84443; 85027; 85610

== ENCOUNTER 2020-08-09 13:04 | Outpatient (CLI) | payer MEDICARE, BC, SELFPAY ==
--- NOTE | 2020-08-10 08:04 | P.PCNPFT_ITS ---
PFT Interpretation This is a pulmonary function test with pre and post-bronchodilator spirometry, plethysmography and diffusing capacity. The test was performed and results interpreted in accordance with the 2019 and 2005 ATS/ERS Task Force guidelines respectively using the Global Lung Function Initiative-2012 reference equations. Patient demonstrated good effort and co operation. Reproducibility criteria were met. The quality of the pre bronchodilator spirometry maneuver was Grade A and post bronchodilator spirometry maneuver was Grade B. Findings: Spirometry: The contour of the inspiratory and expiratory flow tracing are normal. The pre bronchodilator at FVC is 1.84 L, 73% predicted. The pre bronchodilator FEV1 is 1.37 L, 71% predicted. The FEV1: FVC ratio 74%. The post bronchodilator FVC is 1.74 L, representing a 6% decrease. The post bronchodilator FEV1 is 1.52 L, representing an 11% increase. Plethysmography: The total lung capacity is 4.04 L, 79% predicted. Functional residual capacity is 2.17 L, 74% predicted. The residual volume is 2.13 L, 88% predicted. Diffusing capacity: The absolute diffusing capacity is 13.1, 68% predicted. The diffusing capacity corrected for alveolar volume is 3.85, 94% predicted. When compared to the most recent pulmonary function test in our laboratory on 06/14/2015 the post bronchodilator FVC has decreased from 2.44 L to 1.74 L. The post bronchodilator FEV1 has decreased from 1.91 to 1.52 L. The total lung capacity has decreased from 4.84 L to 4.04 L. The functional residual capacity has decreased from 2.77 L to 2.17 L. The residual volume is unchanged from 2.16 L to 2.13 L. the absolute diffusion capacity has decreased from 17.4 to 13.1. The diffusing capacity corrected for alveolar volume has decreased from 4.29- 3.85. Impression: The spirometry is normal without evidence of an obstructive abnormality. There is no significant improvement after inhaling a single dose of albuterol. The lung volumes are normal. The diffusing capacity is normal. When compared to prior pulmonary function test on 06/14/2015 there has been a greater than anticipated time dependent decrease in FVC, FEV1, total lung capacity, residual volume, DLCO and DLCO corrected for alveolar volume. Clinical correlation is recommended. There are no prior studies for comparison
--- NOTE | 2020-08-10 08:09 | WPDSIXMINUTE ---
Six Minute Walk This is a 6 minutes walk test. The test was performed and interpreted in accordance with the 2014 ERS/ATS task force guidelines. Findings: The patient's resting room air oxygen saturation measured by pulse oximetry was 95% and her heart rate was 60 bpm. Patient ambulated for 274 meters and oxygen saturation remained 94 to 96%. Heart rate at the end of the study was 76 bpm. There are no prior studies for comparison.
== END 2020-08-09 13:05 | disposition home or self-care (01) ==
LOC: ANHPFT 13:08
PROVIDERS: PCP Family Medicine; Visit Provider Nurse Practitioner Family
DX: R06.02 Shortness of breath (principal)
CPT/HCPCS: 94060; 94726; 94729

== ENCOUNTER 2020-10-05 07:54 | Outpatient (RCR) | payer MEDICARE, SELFPAY ==
[2020-07-12 10:44] LABS: INR 3.5; Prothrombin Time 34.9 Seconds (9.50-12.10)
[2020-07-27 09:26] LABS: INR 2.2; Prothrombin Time 22.9 Seconds (9.50-12.10)
[2020-10-05 08:32] LABS: INR 1.3
== END 2020-10-10 23:59 | disposition home or self-care (01) ==
LOC: CHSLAB 07:54
PROVIDERS: PCP Family Medicine; Visit Provider Internal Medicine Cardiovascular Disease
DX: I48.19 Other persistent atrial fibrillation (principal); Z79.01 Long term (current) use of anticoagulants
CPT/HCPCS: 36415; 85610

== ENCOUNTER 2020-11-01 20:23 | Emergency (ER) | payer MEDICARE, BC, SELFPAY ==
--- NOTE | ~2020-11-01 | XR_ITS ---
XR hip RT 2V w AP pelvis 11/01/2020 21:28 Indication: Right hip pain after walking Procedure: AP pelvis and 2 views right hip Comparison: Comparison to multiple prior studies sequentially, with oldest reviewed study dated 08/30. Findings: Pelvic rings are intact. There is a right bipolar hip arthroplasty. Prosthesis in expected position. No fracture or traumatic malalignment. There is lower lumbar spondylosis. There is osteitis pubis. Mild osteoarthritis of the left hip. Impression: 1: No acute fracture or traumatic malalignment. Reviewed, dictated and finalized at location A. Impression: 1: No acute fracture or traumatic malalignment.
[2020-11-01 20:20] VITALS: BP 162/107; PULSE 61; RESP 20; TEMP 36.9; O2SAT 97
--- NOTE | 2020-11-01 21:20 | PC.NURSE ---
Pt to XY via stretcher at this time.
--- NOTE | 2020-11-01 21:26 | ED.LOWEXIN ---
HPI - Extremity Injury (Lower) General Chief Complaint: Extremity Injury, Lower Stated Complaint: rt hip pain Time Seen by Provider: 11/01/20 20:53 Related Data Home Medications Medication Instructions Recorded Confirmed amiodarone 200 mg tablet 200 mg PO DAILY 06/22/19 08/29/20 glucosamine-chondroitin 250 mg-200 1 tablet PO DAILY 06/22/19 08/29/20 mg tablet multivit with 1 tablet PO DAILY 06/22/19 08/29/20 wsuwbapo-irup-QN-lutein 8 mg iron-400 mcg-300 mcg tablet warfarin 5 mg tablet 5 mg PO DAILY 02/09/20 08/29/20 carvedilol 25 mg tablet 25 mg PO Q12HR tablet 08/29/20 08/29/20 Allergies Allergy/AdvReac Type Severity Reaction Status Date / Time No Known Allergies Allergy Verified 11/01/20 21:41 Review of Systems Review of Systems: Narrative: CONSTITUTIONAL: Denies fever, chills, or sweats. EYES: Denies visual changes, redness, or discharge. ENT: Denies rhinorrhea, congestion, sore throat, or otalgia. CARDIOVASCULAR: Denies chest pain, palpitations, or edema. RESPIRATORY: Denies cough or dyspnea. GASTROINTESTINAL: Denies abdominal pain, nausea, vomiting, or diarrhea. GENITOURINARY: Denies dysuria or hematuria. SKIN: Denies rash or itching. MUSCULOSKELETAL: Reports right hip pain NEUROLOGIC: Denies headache, numbness, dizziness, or weakness. PSYCHIATRIC: Denies anxiety or depression. [facility] Past Medical History Medical History Chronic anticoagulation : Warfarin for paroxysmal atrial fibrillation. Chronic kidney disease, stage 3 (moderate) : GFR ranging between 43 and > 60. Colon cancer screening (~06/2020) cologuard negative Coronary artery disease : With history of stent to LAD done at [facility]. Essential hypertension History of colon polyps History of left breast cancer : Status post lumpectomy, chemotherapy, and radiation. 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 : Hemoglobin A1c was 6.9% 08/09/2019. Iron deficiency anemia Mild persistent asthma without complication On amiodarone therapy Osteoarthritis Paroxysmal atrial fibrillation : History of cardioversions, with previously noted loosely organized thrombus in the left atrial appendage, for which she was subsequently switched from Xarelto to warfarin. : Last cardioversion attempt in May 2018 was unsuccessful and she was referred to an hacksaw inspector at [place]. On arrival to that appointment, she was found to be in a normal sinus rhythm, and to her knowledge has remained in such since. Severe obstructive sleep apnea : Noted on sleep study 08/10/2019. : CPAP titrated to 11 cm. Surgical History Surgical History History of appendectomy History of bilateral cataract extraction History of bladder suspension procedure History of cholecystectomy History of D&C History of heart artery stent : Stent to LAD, done at [facility]. History of hysterectomy History of lumpectomy of left breast History of right hip hemiarthroplasty (08/30/19) Family History Family History Father Family history of diabetes mellitus in first degree relative Hypertension Cerebrovascular accident Mother Family history of heart disease in male family member before age 55 Patient's mother is , Onset Age: 68 Family history of coronary artery disease, Onset Age: 68 Hypertension, Onset Age: 68 Sibling Cerebrovascular accident Other Diabetes mellitus Social History Social History Social History: The patient is and lives in [place]. She has 7 children. 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 Her son, Jn, is he
[2020-11-01] MEDS: ONDANSETRON INJ 4 MG/2 ML VIAL IV PUSH ×2 (21:41→22:48)
[2020-11-01] MEDS: MORPHINE SULFATE (*CRX) 2 MG/ML INJ IV PUSH (21:43)
[2020-11-01 21:53] VITALS: BP 141/105; PULSE 87; RESP 18; O2SAT 99
[2020-11-01 21:56] LABS: Basophils Absolute Auto 0.1 K/mm3 (0.0-0.1); Basophils Percent Auto 0.6 % (0.2-1.2); Eosinophils Absolute Auto 0.3 K/mm3 (0-0.3); Eosinophils Percent Auto 2.9 % (0-4.4); Hematocrit 36.7 % (37.0-47.0); Hemoglobin 12.1 g/dL (12.0-15.0); Immature Granulocyte Absolute 0.02 K/mm3 (0.00-0.031); Immature Granulocyte Percent A 0.2 % (0-0.5); Lymphocytes Absolute Auto 2.86 K/mm3 (0.9-3.2); Lymphocytes Percent Auto 29.6 % (18.3-44.2); Mean Corpuscular Hemoglobin 30.3 pg (26-34); Mean Platelet Volume 10.9 fl (7.4-10.4); Monocytes Absolute Auto 0.8 K/mm3 (0.1-0.6); Monocytes Percent Auto 8.3 % (2.6-8.5); Neutrophils Absolute Auto 5.7 K/mm3 (1.3-6.7); Neutrophils Percent Auto 58.4 % (45.5-73.1); Platelet Count Result 188 k/mm3 (150-375); Red Blood Count 3.99 M/mm3 (4.2-5.4); Red Cell Distribution Width 14.4 % (11.5-14.5); White Blood Count 9.7 K/mm3 (4.5-10.0)
[2020-11-01 22:14] LABS: Alanine Aminotransferase 33 U/L (4-35); Albumin Level 3.9 g/dL (3.5-5.1); Alkaline Phosphatase 105 U/L (38-126); Anion Gap 7 mmol/L (8-16); Aspartate Amino Transferase 50 U/L (14-36); Bilirubin,Total 0.5 mg/dL (0.2-1.3); Blood Urea Nitrogen 22 mg/dL (7-17); Calcium 9.7 mg/dL (8.4-10.2); Carbon Dioxide 26 mmol/L (22-30); Chloride 106 mmol/L (98-107); Estimated CRCL calculation 33 ml/min; Estimated Glomerular Filt Rate 53; Glucose 137 mg/dL (65-105); Sodium 139 mmol/L (137-145)
[2020-11-01] MEDS: MORPHINE SULFATE (*CRX) 2 MG/ML INJ 1 MG IV PUSH (22:51)
[2020-11-01 22:53] VITALS: BP 125/73; PULSE 73; RESP 18; O2SAT 95
[2020-11-01 23:33] VITALS: BP 115/64; PULSE 67; RESP 18; O2SAT 96
== END 2020-11-02 03:54 | disposition home or self-care (01) ==
PROVIDERS: Emergency Provider Nurse Practitioner; PCP Family Medicine
DX: M54.31 Sciatica, right side (principal); I48.0 Paroxysmal atrial fibrillation; E11.22 Type 2 diabetes mellitus with diabetic chronic kidney disease; I12.9 Hypertensive chronic kidney disease with stage 1 through stage 4 chronic kidney disease, or unspecified chronic kidney disease; N18.30 Chronic kidney disease, stage 3 unspecified; I25.10 Atherosclerotic heart disease of native coronary artery without angina pectoris; Z85.3 Personal history of malignant neoplasm of breast; Z86.010 Personal history of colon polyps; D50.9 Iron deficiency anemia, unspecified; J45.30 Mild persistent asthma, uncomplicated; G47.33 Obstructive sleep apnea (adult) (pediatric); Z98.42 Cataract extraction status, left eye; Z98.41 Cataract extraction status, right eye; Z95.5 Presence of coronary angioplasty implant and graft; Z96.641 Presence of right artificial hip joint; Z79.01 Long term (current) use of anticoagulants; Z79.4 Long term (current) use of insulin
CPT/HCPCS: 36415; 73502; 80053; 85025; 96374; 96375; 96376; 99284; J2270; J2405

== ENCOUNTER 2020-11-15 08:43 | Outpatient (CLI) | payer MEDICARE, SELFPAY ==
[2020-11-15 08:57] LABS: Hematocrit 39.6 % (35.0-42.0); Mean Corpuscular HGB Conc 32.8 g/dL (32.0-36.0); Mean Corpuscular Hemoglobin 30.4 pg (27.0-31.0); Mean Corpuscular Volume 92.7 fL (78.0-102.0); Mean Platelet Volume 11.1 fl (9.2-11.8); Platelet Count Result 224 K/mm3 (150-420); Red Blood Count 4.27 M/mm3 (4.20-5.40); Red Cell Distribution Width 14.6 % (11.6-14.4); White Blood Count 10.2 K/mm3 (4.8-10.8)
[2020-11-15 09:05] LABS: Hemoglobin A1C 7.4 % (<5.7)
[2020-11-15 09:09] LABS: Creatinine Urine 196.77 mg/dL (40-278); MALB Creatinine Ratio 28.7 mg/g (0-30); Microalbumin Urine Random 56.5 mg/L
[2020-11-15 09:13] LABS: INR 3.4
[2020-11-15 10:24] LABS: Alanine Aminotransferase 61 U/L (14-59); Albumin Level 3.5 g/dL (3.4-5.0); Alkaline Phosphatase 103 U/L (46-116); Anion Gap 7 mmol/L (8-16); Aspartate Amino Transferase 45 U/L (15-37); Bilirubin,Total 0.7 mg/dL (0.00-1.00); Blood Urea Nitrogen 25 mg/dL (7-18); Calcium 9.2 mg/dL (8.5-10.1); Carbon Dioxide 30 mmol/L (21-32); Chloride 104 mmol/L (98-108); Cholesterol 179 mg/dL (0-200); Estimated Glomerular Filt Rate 38; Ferritin 101 ng/mL (8-252); Glucose 173 mg/dL (70-99); HDL Direct 49 mg/dL (40-60); Iron 93 ug/dL (50-170); LDL Cholesterol Calculated 85 mg/dL (<130); Osmolality Calculated 300 mOsm/kg (285-295); Percent Iron Saturation 25 % (12-57); Potassium 4.6 mmol/L (3.5-5.1); Sodium 141 mmol/L (136-145); Total Protein 6.4 g/dL (6.4-8.2); Triglycerides 226 mg/dL (0-150); Vitamin B12 897 pg/mL (193-986)
[2020-11-15 10:25] LABS: Folic Acid > 20.0 ng/mL (8.6->20); Thyroid Stimulating Hormone Reflex 1.85 u/IU/mL (0.36-3.74)
[2020-11-16 10:07] LABS: Erythrocyte Sedimentation Rate 7 mm/hr (0-20)
[2020-11-20 14:09] LABS: Vitamin D 25 Hydroxy 37 ng/mL (30-100)
== END 2020-11-15 08:44 | disposition home or self-care (01) ==
LOC: CHSLAB 08:45
PROVIDERS: PCP Family Medicine; Visit Provider Internal Medicine Cardiovascular Disease
DX: I48.19 Other persistent atrial fibrillation (principal); Z79.01 Long term (current) use of anticoagulants; E03.9 Hypothyroidism, unspecified; E55.9 Vitamin D deficiency, unspecified; E11.9 Type 2 diabetes mellitus without complications; Z79.4 Long term (current) use of insulin; D64.9 Anemia, unspecified; E78.2 Mixed hyperlipidemia; L60.8 Other nail disorders; M25.50 Pain in unspecified joint
CPT/HCPCS: 36415; 80053; 80061; 82043; 82306; 82607; 82728; 82746; 83036; 83540; 83550; 84443; 85027; 85610; 85652

== ENCOUNTER 2020-11-23 10:43 | Outpatient (CLI) | payer MEDICARE, BC, SELFPAY ==
--- NOTE | ~2020-11-23 | XR_ITS ---
EXAMINATION: XR chest 2V 11/23/2020 11:02 INDICATION: Drug therapy. Shortness of breath. PROCEDURE: 2 view chest COMPARISON: Comparison to multiple prior studies sequentially, with oldest reviewed study dated 06/26. FINDINGS: The lungs are clear. The cardiomediastinal silhouette is within normal limits. There are no pleural effusions. There is no pneumothorax suspected. IMPRESSION: 1: NO ACUTE CARDIOPULMONARY DISEASE. Reviewed, dictated and finalized at location A.
== END 2020-11-23 10:44 | disposition home or self-care (01) ==
PROVIDERS: PCP Family Medicine; Visit Provider Family Medicine
DX: R06.02 Shortness of breath (principal); Z79.899 Other long term (current) drug therapy
CPT/HCPCS: 71046

== ENCOUNTER 2020-12-27 07:48 | Outpatient (RCR) | payer MEDICARE, SELFPAY ==
[2020-10-12 09:02] LABS: INR 2.3; Prothrombin Time 23.8 Seconds (9.50-12.10)
[2020-11-22 10:21] LABS: INR 2.8; Prothrombin Time 28.6 Seconds (9.50-12.10)
[2020-12-27 08:21] LABS: INR 2.8; Prothrombin Time 28.5 Seconds (9.50-12.10)
== END 2021-01-10 23:59 | disposition home or self-care (01) ==
LOC: CHSLAB 07:48
PROVIDERS: PCP Family Medicine; Visit Provider Internal Medicine Cardiovascular Disease
DX: I48.19 Other persistent atrial fibrillation (principal); Z79.01 Long term (current) use of anticoagulants
CPT/HCPCS: 36415; 85610

== ENCOUNTER 2021-01-12 06:54 | Emergency (ER) | payer MEDICARE, BC, SELFPAY ==
--- NOTE | 2021-01-12 07:02 | ED.WOUNDLAC ---
HPI - Wound/Laceration General Chief Complaint: Wound/Laceration Stated Complaint: L thumb lac Time Seen by Provider: 01/12/21 07:03 Source: patient Mode of arrival: ambulatory Limitations: no limitations History of Present Illness Onset (ago): hour(s) Location: other (thumb laceration) Related Data Home Medications Medication Instructions Recorded Confirmed amiodarone 200 mg tablet 200 mg PO DAILY 06/22/19 01/12/21 multivit with 1 tablet PO DAILY 06/22/19 01/12/21 ekghaupf-hyld-KA-lutein 8 mg iron-400 mcg-300 mcg tablet warfarin 5 mg tablet 5 mg PO DAILY 02/09/20 01/12/21 carvedilol 25 mg tablet 12.5 mg PO Q12HR tablet 08/29/20 01/12/21 folic acid 1 mg PO DAILY 01/12/21 01/12/21 insulin glargine [Lantus Solostar 80 unit SUBCUT DAILY 01/12/21 01/12/21 U-100 Insulin] nitroglycerin 0.4 mg SUBLINGUAL ONCE 01/12/21 01/12/21 viyS-A8-L-W-kvmhrq-otjhask-min 1 tablet PO DAILY 01/12/21 01/12/21 [ICaps] Allergies Allergy/AdvReac Type Severity Reaction Status Date / Time No Known Allergies Allergy Verified 01/04/21 11:36 [facility] Past Medical History Medical History Chronic anticoagulation : Warfarin for paroxysmal atrial fibrillation. Chronic kidney disease, stage 3 (moderate) : GFR ranging between 43 and > 60. Colon cancer screening (~06/2020) cologuard negative Coronary artery disease : With history of stent to LAD done at [facility]. Essential hypertension History of colon polyps History of left breast cancer : Status post lumpectomy, chemotherapy, and radiation. 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 : Hemoglobin A1c was 6.9% 08/09/2019. Iron deficiency anemia Mild persistent asthma without complication On amiodarone therapy Osteoarthritis Paroxysmal atrial fibrillation : History of cardioversions, with previously noted loosely organized thrombus in the left atrial appendage, for which she was subsequently switched from Xarelto to warfarin. : Last cardioversion attempt in May 2018 was unsuccessful and she was referred to an public policy analyst at [place]. On arrival to that appointment, she was found to be in a normal sinus rhythm, and to her knowledge has remained in such since. Severe obstructive sleep apnea : Noted on sleep study 08/10/2019. : CPAP titrated to 11 cm. Surgical History Surgical History History of appendectomy History of bilateral cataract extraction History of bladder suspension procedure History of cholecystectomy History of D&C History of heart artery stent : Stent to LAD, done at [facility]. History of hysterectomy History of lumpectomy of left breast History of right hip hemiarthroplasty (08/30/19) Family History Family History Father Family history of diabetes mellitus in first degree relative Hypertension Cerebrovascular accident Mother Family history of heart disease in male family member before age 55 Patient's mother is , Onset Age: 68 Family history of coronary artery disease, Onset Age: 68 Hypertension, Onset Age: 68 Sibling Cerebrovascular accident Other Diabetes mellitus Social History Social History Social History: The patient is and lives in [place]. She has 7 children. 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 Her son, Jn, is her surrogate decision maker and she wishes to be a full code. She is a lifelong nonsmoker and denies alcohol and drug abuse. Smoking status: Never smoker Alcohol intake: never Substance use: never Spiritual care concerns: No Agree to blood products: Yes Discharge Plan Discharge Clinica
[2021-01-12 07:13] VITALS: BP 171/84; PULSE 79; RESP 20; TEMP 36.6; O2SAT 98
[2021-01-12 07:58] LABS: Prothrombin Time 40.3 Seconds (9.50-12.10)
[2021-01-12 08:00] VITALS: RESP 16
== END 2021-01-12 08:00 | disposition home or self-care (01) ==
PROVIDERS: Emergency Provider Emergency Medicine; PCP Family Medicine
DX: S61.012A Laceration without foreign body of left thumb without damage to nail, initial encounter (principal); W26.0XXA Contact with knife, initial encounter; Z79.01 Long term (current) use of anticoagulants; I10 Essential (primary) hypertension
CPT/HCPCS: 36415; 85610; 99282; 99283

== ENCOUNTER 2021-02-01 08:49 | Outpatient (CLI) | payer MEDICARE, SELFPAY ==
[2021-02-01 09:13] LABS: Prothrombin Time 30.1 Seconds (9.50-12.10)
[2021-02-01 09:59] LABS: Alanine Aminotransferase 44 U/L (14-59); Albumin Level 3.6 g/dL (3.4-5.0); Alkaline Phosphatase 99 U/L (46-116); Anion Gap 12 mmol/L (8-16); Aspartate Amino Transferase 38 U/L (15-37); Bilirubin,Total 0.5 mg/dL (0.00-1.00); Blood Urea Nitrogen 21 mg/dL (7-18); Calcium 9.2 mg/dL (8.5-10.1); Carbon Dioxide 23 mmol/L (21-32); Chloride 107 mmol/L (98-108); Estimated Glomerular Filt Rate 47; Glucose 166 mg/dL (70-99); Osmolality Calculated 301 mOsm/kg (285-295); Potassium 4.7 mmol/L (3.5-5.1); Sodium 142 mmol/L (136-145); Total Protein 6.8 g/dL (6.4-8.2)
== END 2021-02-01 08:50 | disposition home or self-care (01) ==
LOC: CHSLAB 08:51
PROVIDERS: PCP Family Medicine; Visit Provider Internal Medicine Cardiovascular Disease
DX: I48.91 Unspecified atrial fibrillation (principal); Z79.01 Long term (current) use of anticoagulants; N18.2 Chronic kidney disease, stage 2 (mild)
CPT/HCPCS: 36415; 80053; 85610

== ENCOUNTER 2021-03-02 11:05 | Outpatient (CLI) | payer MEDICARE, SELFPAY ==
[2021-03-02 11:33] LABS: INR 2.8; Prothrombin Time 28.5 Seconds (9.50-12.10)
== END 2021-03-02 11:06 | disposition home or self-care (01) ==
LOC: CHSLAB 11:07
PROVIDERS: PCP Family Medicine; Visit Provider Internal Medicine Cardiovascular Disease
DX: I48.91 Unspecified atrial fibrillation (principal); Z79.01 Long term (current) use of anticoagulants
CPT/HCPCS: 36415; 85610

== ENCOUNTER 2021-03-23 08:33 | Outpatient (CLI) | payer MEDICARE, SELFPAY ==
[2021-03-23 09:08] LABS: Prothrombin Time 53.6 Seconds (9.50-12.10)
[2021-03-23 09:24] LABS: INR 5.4
== END 2021-03-23 08:34 | disposition home or self-care (01) ==
LOC: CHSLAB 08:34
PROVIDERS: PCP Family Medicine; Visit Provider Internal Medicine Cardiovascular Disease
DX: I48.91 Unspecified atrial fibrillation (principal); Z79.01 Long term (current) use of anticoagulants
CPT/HCPCS: 36415; 85610

== ENCOUNTER 2021-03-30 08:54 | Outpatient (CLI) | payer MEDICARE, SELFPAY ==
[2021-03-30 09:12] LABS: Hemoglobin 12.8 g/dL (11.7-13.8); Mean Corpuscular Hemoglobin 29.3 pg (27.0-31.0); Mean Corpuscular Volume 91.5 fL (78.0-102.0); Platelet Count Result 195 K/mm3 (150-420); Red Blood Count 4.37 M/mm3 (4.20-5.40); Red Cell Distribution Width 16.6 % (11.6-14.4)
[2021-03-30 09:19] LABS: Creatinine Urine 103.54 mg/dL (40-278); MALB Creatinine Ratio 17.8 mg/g (0-30); Microalbumin Urine Random 18.5 mg/L
[2021-03-30 09:23] LABS: Hemoglobin A1C 7.5 % (<5.7)
[2021-03-30 09:30] LABS: INR 2.5; Prothrombin Time 25.7 Seconds (9.50-12.10)
[2021-03-30 10:07] LABS: Alanine Aminotransferase 51 U/L (14-59); Albumin Level 3.4 g/dL (3.4-5.0); Alkaline Phosphatase 90 U/L (46-116); Anion Gap 10 mmol/L (8-16); Aspartate Amino Transferase 34 U/L (15-37); Bilirubin,Total 0.4 mg/dL (0.00-1.00); Blood Urea Nitrogen 23 mg/dL (7-18); Calcium 8.9 mg/dL (8.5-10.1); Carbon Dioxide 29 mmol/L (21-32); Chloride 104 mmol/L (98-108); Cholesterol 150 mg/dL (0-200); Estimated Glomerular Filt Rate 48; Glucose 139 mg/dL (70-99); HDL Direct 50 mg/dL (40-60); LDL Cholesterol Calculated 79 mg/dL (<130); Osmolality Calculated 301 mOsm/kg (285-295); Potassium 4.5 mmol/L (3.5-5.1); Sodium 143 mmol/L (136-145); Total Protein 6.4 g/dL (6.4-8.2); Triglycerides 104 mg/dL (0-150)
[2021-03-30 10:09] LABS: Thyroid Stimulating Hormone Reflex 1.82 u/IU/mL (0.36-3.74)
== END 2021-03-30 08:55 | disposition home or self-care (01) ==
PROVIDERS: PCP Family Medicine; Visit Provider Family Medicine
DX: I48.91 Unspecified atrial fibrillation (principal); Z79.01 Long term (current) use of anticoagulants; E78.2 Mixed hyperlipidemia; I10 Essential (primary) hypertension; E11.9 Type 2 diabetes mellitus without complications; Z79.899 Other long term (current) drug therapy
CPT/HCPCS: 36415; 80053; 80061; 82043; 83036; 84443; 85027; 85610

== ENCOUNTER 2021-04-12 08:34 | Outpatient (RCR) | payer MEDICARE, SELFPAY ==
[2021-01-17 08:07] LABS: INR 2.1; Prothrombin Time 21.6 Seconds (9.50-12.10)
[2021-01-25 10:01] LABS: INR 3.3; Prothrombin Time 32.9 Seconds (9.50-12.10)
[2021-04-12 08:57] LABS: INR 2.1; Prothrombin Time 21.2 Seconds (9.50-12.10)
== END 2021-04-17 23:59 | disposition home or self-care (01) ==
LOC: CHSLAB 08:34
PROVIDERS: PCP Family Medicine; Visit Provider Internal Medicine Cardiovascular Disease
DX: I48.91 Unspecified atrial fibrillation (principal); Z79.01 Long term (current) use of anticoagulants
CPT/HCPCS: 36415; 85610

== ENCOUNTER 2021-05-06 08:53 | Outpatient (CLI) | payer MEDICARE, BC, SELFPAY ==
--- NOTE | ~2021-05-06 | XR_ITS ---
EXAMINATION: XR cervical spine min 6V EXAM DATE: 05/06/2021 09:10 INDICATION: Cerv Radiculopathy down L arm x 5 yrs, worse x2mo, NKI, stiff. TECHNIQUE: Cervical spine frontal, lateral, lateral swimmers, and open-mouth odontoid projections. Additional bilateral oblique projections, lateral flexion and lateral extension projections. Comparis on is made to prior examination from 08/22/2011. 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 There is moderate disc dise ase at 6-7, mild to moderate at C5-6. There is 2-3 mm retrolisthesis C5 on C6 on the neutral and exte nsion projections which normalizes on flexion projection. Prevertebral soft tissue and pre-dens space are within normal limits. The odontoid process is intact. The lateral masses of C1 line up with C2. There is advanced lower cervical uncovertebral joint arthropathy probably causing significant neural foraminal stenosis. Overall moderate cervical facet arthropathy. Significant progression in spondylo sis compared to 2011. IMPRESSION: 1. Congenitally fused C2-C3 vertebral body. 2. Mild retrolisthesis C5 on C6 on 2 out of 3 lateral projections, normalizes on flexion. 3. Arthropathy causing significant lower cervical stenosis. Reviewed, dictated and finalized at location A. SORTER
== END 2021-05-06 08:54 | disposition home or self-care (01) ==
LOC: CHSIMG 08:56
PROVIDERS: PCP Family Medicine; Visit Provider Family Medicine
DX: M54.12 Radiculopathy, cervical region (principal)
CPT/HCPCS: 72052

== ENCOUNTER 2021-05-08 13:36 | Outpatient (CLI) | payer MEDICARE, BC, SELFPAY ==
--- NOTE | ~2021-05-08 | MM_ITS ---
EXAMINATION: MM screening jame BI w cass HISTORY: Screening mammogram TECHNIQUE: Craniocaudal and mediolateral oblique 3-D tomosynthesis images were obtained and synthetic 2-D images were generated. CAD analysis was submitted and interpreted. COMPARISON: 04/30/2020, 03/29/2019, 02/16/2018, 02/03/2017 bilateral screening mammogram examinations BREAST PARENCHYMAL COMPOSITION: There are scattered areas of fibroglandular density. FINDINGS: Status post left partial mastectomy 8 and radiotherapy for breast cancer in 2009. In addition to left breast volume loss there are chronic asymmetric accentuated stromal markings and numerous benign-appearing calcifications of the left breast. There is no evidence of suspicious mass, calcification, or architectural distortion to suggest malig hakan in either breast. There has been no suspicious interval change. IMPRESSION: 1. Chronic postmastectomy and post radiotherapy changes of left breast. No mammographic evidence of m alignancy. 2. Recommend routine screening mammography in one year. BI-RADS Category 2: Benign finding(s). Reviewed, dictated and finalized at location A. [employer]OR DECOR[employer] IMPRESSION: 1. Chronic postmastectomy and post radiotherapy changes of left breast. No mamm ographic evidence of malignancy. 2. Recommend routine screening mammography in one year. BI-RADS Category 2: Benign finding(s).
--- NOTE | ~2021-05-08 | DEXA_ITS ---
Bone Density Report Name: Nohelia Laurent Age: 80 Sex: Female Ethnicity: White Date of : 1940 Indication: postmenopausal; screening for osteoporosis; height loss; prior fracture; cancer; Referring Provider: Kortney Aguirre Study: Bone densitometry was performed. Exam Date: May 08, 2021 Accession number: [id number] Bone Density: Region BMD T-score Z-score Classification AP Spine(L1-L4) 1.177 1.2 4.0 Normal Femoral Neck (Left) 0.773 -0.7 1.7 Normal Total Hip (Left) 0.921 -0.2 2.0 Normal World Health Organization criteria for BMD impression classify patients as: Normal (T-score at or above -1.0), Osteopenia (T-score between -1.0 and -2.5), or Osteoporosis (T-score at or below -2.5). 10-year Fracture Risk: FRAX not reported because: All T-scores for Spine Total, Hip Total, Femoral Neck at or above -1.0 Prior hip or vertebral fracture Clinical Information Provided by Patient: Have had a previous hip or vertebral fracture Has had a low trauma fracture Has used the following medications: Vitamin D, Calcium Has the following medical conditions: Cancer Patient maximum height was 65 Menopause Age: 50 No regular weight bearing exercise Onset of menses at age 10 Number of children 7 Impression: The patient has normal bone mass. The patient has risk factors, including: previous fracture. Discussion: INCREASED RISK OF FRACTURE DUE TO HISTORY OF FRACTURE. The patient's previous fracture puts the patient at high risk of a future fracture. In untreated patients, the risk of osteoporotic fracture increases approximately two-fold for each 1.0 SD decrease in T-score. Low bone density is not the only risk factor for fracture; also consider factors such as patient's age, frailty or poor health, risk of falling, risk of injury, previous osteoporotic fracture, family history of osteoporosis, cigarette smoking, low body weight, etc. Not everyone with a low trauma fracture has osteoporosis; osteomalacia and other metabolic bone disorders should also be considered. Patients who have osteoporosis should be evaluated for specific diseases and conditions (secondary causes) that may cause or contribute to bone loss and fracture risk. National Osteoporosis Foundation (NOF) recommends pharmacologic intervention for patients with a prior hip or vertebral fracture regardless of BMD T-score. The patient should follow a healthful lifestyle (good nutrition with adequate calcium and vitamin D, and appropriate weight-bearing exercise). Follow-Up: Consider a repeat BMD and Vertebral Fracture Assessment (VFA) exam in 2 years or sooner if medically necessary, to reassess this patient's status. Reported by: Dr. Krishna Ruby on 05/08/2021 2:12:00 PM. Reviewed, dictated and finalized at location ANikole CAPUTO
== END 2021-05-08 13:37 | disposition home or self-care (01) ==
LOC: CHSIMG 13:37
PROVIDERS: PCP Family Medicine; Visit Provider Family Medicine
DX: Z78.0 Asymptomatic menopausal state (principal); Z12.31 Encounter for screening mammogram for malignant neoplasm of breast
CPT/HCPCS: 77063; 77067; 77080

== ENCOUNTER 2021-06-19 10:56 | Outpatient (RCR) | payer MEDICARE, SELFPAY ==
--- NOTE | 2021-06-19 11:50 | PTOPEVAL ---
Thank you for referring Nohelia Laurent to [facility].? The patient is scheduled to be seen for therapy? ____x/week for ___ weeks. Please review, sign, date and return this plan of care VELVET. I agree with and certify that the following plan of care is medically necessary. Referring Physician Date Admitting Provider: Attending Provider: Terrance Ruiz MD Referring Provider: *PT Outpatient Evaluation Start: 06/19/21 11:05 Freq: Status: Active Protocol: Document 06/19/21 11:05 Vicente (Rec: 06/19/21 11:50 RUST [email or web address]) Therapy Assessment Status Assessment Status Assessment Status Evaluation Outpatient Past Medical History Cardiovascular History Hx Hypercholesterolemia Yes Hx Hypertension Yes Respiratory History Hx Pneumonia Yes Hx Sleep Apnea Yes Gastrointestinal History Hx Appendectomy Yes Hx Cholecystectomy Yes Hx Gastroesophageal Reflux Disease Yes Genitourinary History Hx Renal Disease Yes Musculoskeletal History Hx Arthritis Yes: gianna knees Hx Fractures Yes Hx Joint Replacement Yes: R HIP Endocrine History Hx Diabetes Yes HEENT History Hx Cataracts Yes: gianna cataract removal Pain History Has Past Pain Affected Your Daily Life Yes Other History Hx Cancer Yes: lt breast Evaluation Information Problem Diagnosis L shoulder pain Onset 06/17/21 Additional Evaluation Detail quick dash = 43% functionally declined Subjective Information patient reports she has been Query Text:As Reported By Patient/ having a lot of pain in the L Family shoulder lately. she reports she had a cortisone injection on thursday, but so far has felt no relief. she reports pain has been going on for about 1. 5 years. she reports she was helping her home nurse lift her in bed. she reports she felt something go in the shoulder. she reports she had an xray but no mri. she reports her MD believes she may have torn part of her RTC. she reports increased pain in the L shoulder with using the arm to reach to side and to front at shoulder level. she reports she also
== END 2021-06-25 09:28 | disposition home or self-care (01) ==
LOC: CHSPT 10:56
PROVIDERS: Visit Provider Orthopaedic Surgery
DX: M25.512 Pain in left shoulder (principal); G89.29 Other chronic pain
CPT/HCPCS: 97014; 97110; 97161; G0283

== ENCOUNTER 2021-06-27 08:03 | Emergency (ER) | payer MEDICARE, BC, SELFPAY ==
--- NOTE | ~2021-06-27 | XR_ITS ---
EXAMINATION: XR ribs LT 2V EXAM DATE: 06/27/2021 08:56 INDICATION: Fell onto cabinet door this morning, L ant lower rib pain. Initial encounter. TECHNIQUE: Frontal projection of the upper left ribs, frontal projection of the lower left ribs, obli que projection of the left ribs, without chest x-ray(s) for interpretation. Correlation is made to est x-ray 11/23/2020. FINDINGS: There are no displaced acute left rib fractures identified. There is no soft tissue abnor mality seen. Consider educating patient that even if there is a radiographically occult nondisplaced rib fracture, there is no specific treatment other than to refrain from activity that prevents healin g. IMPRESSION: No displaced left rib fractures. Reviewed, dictated and finalized at location B. ERY GUMMER
[2021-06-27 08:29] VITALS: BP 163/78; PULSE 82; RESP 16; TEMP 36.8; O2SAT 96
[2021-06-27] MEDS: ACETAMINOPHEN 500 MG TABLET 1000 MG PO (08:43)
--- NOTE | 2021-06-27 09:09 | ED.FALL ---
HPI - Fall General Chief Complaint: Fall Stated Complaint: Rib pain Source: patient Mode of arrival: ambulatory Limitations: no limitations History of Present Illness HPI Narrative: this an 80-year-old female with a history of atrial fibrillation currently on Coumadin and had a fall yesterday hitting side of a cabinet causing some bruising to her left lower rib area, patient did take some Tylenol last night with minimal relief there is no shortness of breath no fever chills no chest pain there is a bruise and small abrasion to the left lateral rib area. No other injuries noted, patient denies any other injury. complaint: fall Onset (ago): day(s) Fall from: standing Fall witnessed: no Place fall occurred: home Loss of consciousness: none Prolonged down time: no Symptoms prior to fall: lightheadedness Related Data Home Medications Medication Instructions Recorded Confirmed amiodarone 200 mg tablet 200 mg PO DAILY 06/22/19 06/17/21 multivit with 1 tablet PO DAILY 06/22/19 06/17/21 qvpyfhrk-nvyp-YW-lutein 8 mg iron-400 mcg-300 mcg tablet warfarin 5 mg tablet 5 mg PO DAILY 02/09/20 06/17/21 carvedilol 25 mg tablet 12.5 mg PO Q12HR tablet 08/29/20 06/17/21 insulin glargine [Lantus Solostar 80 unit SUBCUT DAILY 01/12/21 06/17/21 U-100 Insulin] nitroglycerin 0.4 mg SUBLINGUAL ONCE 01/12/21 06/17/21 hqoQ-A4-O-L-jfgukp-jkrzqcl-min 1 tablet PO DAILY 01/12/21 06/17/21 [ICaps] Allergies Allergy/AdvReac Type Severity Reaction Status Date / Time No Known Allergies Allergy Verified 06/17/21 09:08 Review of Systems Review of Systems: All systems reviewed & are unremarkable except as noted in HPI and below PMFSH Past Medical History Medical History Cervical radiculopathy Chronic anticoagulation : Warfarin for paroxysmal atrial fibrillation. Chronic kidney disease, stage 3 (moderate) : GFR ranging between 43 and > 60. Colon cancer screening (~06/2020) cologuard negative Coronary artery disease : With history of stent to LAD done at [facility]. Essential hypertension History of colon polyps History of left breast cancer : Status post lumpectomy, chemotherapy, and radiation. 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 : Hemoglobin A1c was 6.9% 08/09/2019. Iron deficiency anemia Mild persistent asthma without complication On amiodarone therapy Osteoarthritis Paroxysmal atrial fibrillation : History of cardioversions, with previously noted loosely organized thrombus in the left atrial appendage, for which she was subsequently switched from Xarelto to warfarin. : Last cardioversion attempt in May 2018 was unsuccessful and she was referred to an metal finisher at [place]. On arrival to that appointment, she was found to be in a normal sinus rhythm, and to her knowledge has remained in such since. Severe obstructive sleep apnea : Noted on sleep study 08/10/2019. : CPAP titrated to 11 cm. Surgical History Surgical History History of appendectomy History of bilateral cataract extraction History of bladder suspension procedure History of cholecystectomy History of D&C History of heart artery stent : Stent to LAD, done at [facility]. History of hysterectomy History of lumpectomy of left breast History of right hip hemiarthroplasty (08/30/19) Family History Family History Father Family history of diabetes mellitus in first degree relative Hypertension Cerebrovascular accident Mother Family history of heart disease in male family member before age 55 Patient's mother is , Onset Age: 68 Family history of coronary artery disease, Onset Age: 68 Hypertension, Onset Age: 68 Sibling Cerebrovascular accident Other
== END 2021-06-27 09:33 | disposition home or self-care (01) ==
PROVIDERS: Emergency Provider Emergency Medicine; PCP Family Medicine
DX: S22.32XA Fracture of one rib, left side, initial encounter for closed fracture (principal); W19.XXXA Unspecified fall, initial encounter; Z79.01 Long term (current) use of anticoagulants; N18.30 Chronic kidney disease, stage 3 unspecified; I25.10 Atherosclerotic heart disease of native coronary artery without angina pectoris; Z85.3 Personal history of malignant neoplasm of breast
CPT/HCPCS: 36415; 71100; 85610; 99282; 99284

== ENCOUNTER 2021-07-03 14:30 | Outpatient (RCR) | payer MEDICARE, BC, SELFPAY | END 2021-07-03 23:59 | disposition home or self-care (01) | LOC: ANHDMC 14:30 | PROVIDERS: PCP Family Medicine; Visit Provider Physician Assistant | DX: E11.65 Type 2 diabetes mellitus with hyperglycemia (principal); Z79.4 Long term (current) use of insulin; Z71.89 Other specified counseling | CPT/HCPCS: G0108; G0109 ==

== ENCOUNTER 2021-08-14 08:48 | Outpatient (RCR) | payer MEDICARE, BC, SELFPAY ==
--- NOTE | 2021-08-14 09:39 | PTOPEVAL ---
Thank you for referring Nohelia Laurent to [facility].? The patient is scheduled to be seen for therapy? __3__x/week for 12 visits. Please review, sign, date and return this plan of care VELVET. I agree with and certify that the following plan of care is medically necessary. Referring Physician Date Admitting Provider: Attending Provider: Terrance Ruiz MD Referring Provider: *PT Outpatient Evaluation Start: 08/14/21 09:07 Freq: Status: Active Protocol: Document 08/14/21 09:07 ANTHONY (Rec: 08/14/21 09:37 ANTHNOY [email or web address]) Therapy Assessment Status Assessment Status Assessment Status Evaluation Outpatient Past Medical History Cardiovascular History Hx Hypercholesterolemia Yes Hx Hypertension Yes Respiratory History Hx Pneumonia Yes Hx Sleep Apnea Yes Gastrointestinal History Hx Appendectomy Yes Hx Cholecystectomy Yes Hx Gastroesophageal Reflux Disease Yes Genitourinary History Hx Renal Disease Yes Musculoskeletal History Hx Arthritis Yes: gianna knees Hx Fractures Yes Hx Joint Replacement Yes: R HIP Endocrine History Hx Diabetes Yes HEENT History Hx Cataracts Yes: gianna cataract removal Reproductive History Hx Post Menopausal Yes Pain History Has Past Pain Affected Your Daily Life Yes Other History Hx Cancer Yes: lt breast Evaluation Information Problem Diagnosis left shoulder pain Onset 07/17/21 Subjective Information Pt. reports she tripped over Query Text:As Reported By Patient/ the fur sewer door, falling Family into her cabinets while walking in her kitchen. She states that she developed immediate left shoulder pain, described in the lateral brachial region. she reports her pain is constant. She reports that reaching overhead is most problematic. She states that pain will wake her at night on occassion. She states that she enjoys sewing but states that the pain in her arm has kept her from sewing. She reports that her goal is to decrease her left shoulder pain and return to sewing. Prior Level of Function Activity Level (Last 3 Months) Occupation
== END 2021-09-04 10:47 | disposition home or self-care (01) ==
LOC: CHSPT 08:48
PROVIDERS: Visit Provider Orthopaedic Surgery
DX: M25.512 Pain in left shoulder (principal); G89.29 Other chronic pain
CPT/HCPCS: 97014; 97110; 97140; 97161; G0283

== ENCOUNTER 2021-08-19 08:25 | Outpatient (RCR) | payer MEDICARE, SELFPAY ==
[2021-05-24 09:50] LABS: INR 1.1; Prothrombin Time 11.5 Seconds (9.50-12.10)
[2021-05-30 08:26] LABS: INR 1.4; Prothrombin Time 14.3 Seconds (9.50-12.10)
[2021-06-04 07:49] LABS: INR 1.8; Prothrombin Time 19.1 Seconds (9.50-12.10)
[2021-06-19 10:37] LABS: INR 1.7; Prothrombin Time 17.6 Seconds (9.50-12.10)
[2021-06-27 10:01] LABS: INR 1.4; Prothrombin Time 15.1 Seconds (9.50-12.10)
[2021-07-05 09:21] LABS: INR 2.5; Prothrombin Time 25.8 Seconds (9.50-12.10)
[2021-08-09 10:28] LABS: INR 4.1; Prothrombin Time 41.3 Seconds (9.50-12.10)
== END 2021-08-22 23:59 | disposition home or self-care (01) ==
LOC: CHSLAB 08:25
PROVIDERS: Visit Provider Internal Medicine Cardiovascular Disease
DX: I48.91 Unspecified atrial fibrillation (principal); Z79.01 Long term (current) use of anticoagulants
CPT/HCPCS: 36415; 85610

== ENCOUNTER 2021-09-19 14:13 | Outpatient (CLI) | payer MEDICARE, BC, SELFPAY ==
--- NOTE | 2021-09-19 16:12 | WPDSIXMINUTE ---
Six Minute Walk Procedure Procedure Performed Pulmonary Stress Test (6 min walk) Six Minute Walk This is a 6 minute walk test. The test was performed and interpreted in accordance with the 2014 ERS/ATS task force guidelines. Findings: The patient's resting room air oxygen saturation measured by pulse oximetry was 95% and heart rate was 82 bpm. Patient ambulated for 305 meters and oxygen saturation remained 95 to 98%. Heart rate at the end of the study was 112 bpm. The patient did not qualify for supplemental oxygen at rest or with ambulation. There are no prior studies for comparison.
--- NOTE | 2021-09-19 16:14 | P.PCNPFT_ITS ---
PFT Procedure Performed PFT Procedure Performed Spirometry with Pre/Post Bronchodilator Plethysmography (Lung Vol) Diffusing Cap (DLCO) Flow Vol Loop PFT Interpretation This is a pulmonary function test with pre and post-bronchodilator spirometry, plethysmography and diffusing capacity. The test was performed and results interpreted in accordance with the 2019 and 2005 ATS/ERS Task Force guidelines respectively using the Global Lung Function Initiative-2012 reference equations. Patient demonstrated good effort and cooperation. Reproducibility criteria were met. The quality of the pre bronchodilator spirometry maneuver was Grade A and post bronchodilator spirometry maneuver was Grade B. Findings: Spirometry: There is a mid expiratory notch in 2 of 3 pre bronchodilator efforts and 1 of 2 post bronchodilator maneuvers. Contour the inspiratory flow tracing is normal. The pre bronchodilator FVC is 1.63 L, 66% predicted. The pre bronchodilator FEV1 is 1.55 L, 83% predicted. The pre bronchodilator FEV1: FVC ratio was 95%. The post bronchodilator FVC is 1.76 L, representing an 8% increase. The post bronchodilator FEV1 is 1.56 L, representing 1% increase. The post bronchodilator FEV1: FVC ratio is 89%. Plethysmography: The total lung capacity is 4.55 L, 90% predicted. The functional residual capacity is 3.12 L, 106% predicted. The residual volume is 2.44 L, 99% predicted. Diffusing capacity: The diffusion capacity unadjusted for hemoglobin and carboxyhemoglobin is 13.1, 69% predicted. The diffusing capacity corrected for alveolar volume is 3.82, 94% predicted. In comparison to previous pulmonary function test on 08/09/2020 the post bronchodilator FVC is unchanged from 1.74 L to 1.76 L. The post bronchodilator FEV1 is unchanged from 1.52 L to 1.56 L. The total lung capacity is unchanged from 4.04 L to 4.55 L. The functional residual capacity is increased from 2.17 L to 3.12 L. The residual volume is increased from 2.13 L to 2.44 L. The diffusing capacity unadjusted for hemoglobin and carboxyhemoglobin is unchanged from 13.1 to 13.1. The diffusing capacity adjusted for alveolar volume is unchanged from 3.85 to 3.82 Impression: The contour the expiratory flow tracing demonstrates a notched pattern in 3 of 5 maneuvers and this has been described with tracheobr onchomalacia. Clinical correlation is recommended. Otherwise, the spirometry is normal without evidence of an obstructive abnormality. There is no significant improvement after inhaling a single dose of albuterol. The lung volumes are normal. The diffusing capacity is normal. In comparison to previous pulmonary function test on 08/09/2020, there has been a greater than anticipated time dependent increase in the functional residual capacity and residual volume with no change in the FVC, FEV1, total lung capacity and diffusing capacity. Correlation is recommended.
== END 2021-09-19 14:14 | disposition home or self-care (01) ==
LOC: ANHPFT 14:16
PROVIDERS: PCP Family Medicine; Visit Provider Nurse Practitioner Family
DX: R06.02 Shortness of breath (principal); Z79.899 Other long term (current) drug therapy; R06.00 Dyspnea, unspecified
CPT/HCPCS: 94060; 94618; 94726; 94729

== ENCOUNTER 2021-09-27 07:44 | Outpatient (CLI) | payer MEDICARE, BC, SELFPAY ==
--- NOTE | ~2021-09-27 | XR_ITS ---
EXAMINATION: XR chest 2V DATE: 09/27/2021 08:14 INDICATION: Breast cancer. Dyspnea. TECHNIQUE: Frontal and lateral views of the chest were obtained. COMPARISON: Chest 2 views 11/23/2020, chest CT 03/25/2019 FINDINGS: There is stable mild scarring at the lung apices. No pleural effusion or pneumothorax. Card iomegaly is noted. IMPRESSION: 1. Stable mild scarring at the lung apices. 2. Cardiomegaly. Reviewed, dictated and finalized at location B.
[2021-09-27 08:55] LABS: Thyroid Stimulating Hormone Reflex 1.74 u/IU/mL (0.36-3.74)
== END 2021-09-27 07:45 | disposition home or self-care (01) ==
LOC: CHSLAB 07:47
PROVIDERS: PCP Family Medicine; Visit Provider Internal Medicine Cardiovascular Disease
DX: Z91.89 Other specified personal risk factors, not elsewhere classified (principal); Z79.899 Other long term (current) drug therapy
CPT/HCPCS: 36415; 71046; 84443

== ENCOUNTER 2021-10-10 14:15 | Outpatient (RCR) | payer MEDICARE, BC, SELFPAY | END 2021-10-10 14:59 | disposition home or self-care (01) | LOC: ANHDMC 14:15 | PROVIDERS: Visit Provider Physician Assistant | DX: E11.65 Type 2 diabetes mellitus with hyperglycemia (principal); Z79.4 Long term (current) use of insulin; Z71.89 Other specified counseling | CPT/HCPCS: 99199; G0108; G0109 ==

== ENCOUNTER 2021-10-29 09:51 | Outpatient (CLI) | payer MEDICARE, BC, SELFPAY ==
--- NOTE | ~2021-10-29 | CT_ITS ---
EXAMINATION:CT diagnostic chest wo con DATE: 10/29/2021 10:25 INDICATION: Shortness of breath. Chronic cough. TECHNIQUE: Computed tomography (CT) of the chest was performed without intravenous contrast. Automate d exposure control and iterative reconstruction technique were employed. The dose-length product (DLP ) was 234.21 mGy-cm. COMPARISON: Chest CT 03/25/2019 FINDINGS: There is mild scarring at the lung apices. There are chronic mild groundglass opacities and septal thickening in paraspinal right lower lobe. There is a 3 mm nodule at right major fissure with out change, likely benign. There is a 4 mm nodule left lower lobe without change, likely benign. Ther e is mild atelectasis in the lungs. No bronchiectasis or honeycombing. No pleural effusion. Cardiomeg sylvain is noted. There are coronary artery calcifications. There are calcifications aortic valve. No per icardial effusion. The central pulmonary arteries are enlarged, consistent with pulmonary arterial hy pertension. There is a small sliding hiatal hernia. There is mild thoracic spondylosis. IMPRESSION: 1. Stable mild chronic lung disease at the lung apices and in paraspinal right lower lobe. 2. Cardiomegaly. 3. Small sliding hiatal hernia. Reviewed, dictated and finalized at location A.
== END 2021-10-29 09:52 | disposition home or self-care (01) ==
LOC: ANHIMG 09:55
PROVIDERS: PCP Family Medicine; Visit Provider Nurse Practitioner Family
DX: R05.3 Chronic cough (principal); R06.02 Shortness of breath
CPT/HCPCS: 71250

== ENCOUNTER 2021-11-08 07:48 | Outpatient (CLI) | payer MEDICARE, SELFPAY ==
[2021-11-08 08:14] LABS: INR 2.5; Prothrombin Time 25.6 Seconds (9.50-12.10)
[2021-11-08 08:33] LABS: Cholesterol 135 mg/dL (0-200); HDL Direct 49 mg/dL (40-60); LDL Cholesterol Calculated 60 mg/dL (<130); Triglycerides 130 mg/dL (0-150)
== END 2021-11-08 07:49 | disposition home or self-care (01) ==
LOC: CHSLAB 07:51
PROVIDERS: PCP Family Medicine; Visit Provider Internal Medicine Cardiovascular Disease
DX: I48.91 Unspecified atrial fibrillation (principal); Z79.01 Long term (current) use of anticoagulants; E11.69 Type 2 diabetes mellitus with other specified complication; E78.2 Mixed hyperlipidemia
CPT/HCPCS: 36415; 80061; 85610

== ENCOUNTER 2021-11-22 09:14 | Outpatient (CLI) | payer MEDICARE, BC, SELFPAY ==
[2021-11-22 09:58] LABS: Alanine Aminotransferase 27 U/L (14-59); Albumin Level 3.6 g/dL (3.4-5.0); Alkaline Phosphatase 72 U/L (46-116); Anion Gap 7 mmol/L (8-16); Aspartate Amino Transferase 27 U/L (15-37); Bilirubin,Total 0.6 mg/dL (0.00-1.00); Blood Urea Nitrogen 21 mg/dL (7-18); Calcium 9.5 mg/dL (8.5-10.1); Carbon Dioxide 26 mmol/L (21-32); Chloride 105 mmol/L (98-108); Estimated Glomerular Filt Rate 46; Glucose 125 mg/dL (70-99); Osmolality Calculated 290 mOsm/kg (285-295); Potassium 4.3 mmol/L (3.5-5.1); Sodium 138 mmol/L (136-145); Total Protein 7.7 g/dL (6.4-8.2)
[2021-11-22 10:11] LABS: Thyroid Stimulating Hormone Reflex 1.92 u/IU/mL (0.36-3.74)
[2021-11-22 10:22] LABS: Hemoglobin A1C 7.1 % (<5.7)
== END 2021-11-22 09:15 | disposition home or self-care (01) ==
LOC: CHSLAB 09:16
PROVIDERS: PCP Family Medicine; Visit Provider Family Medicine
DX: E11.9 Type 2 diabetes mellitus without complications (principal); Z79.899 Other long term (current) drug therapy; R53.83 Other fatigue
CPT/HCPCS: 36415; 80053; 83036; 84443

== ENCOUNTER 2021-11-25 16:25 | Emergency (ER) | payer MEDICARE, BC, SELFPAY ==
[2021-11-25 16:36] VITALS: BP 155/84; PULSE 73; RESP 18; TEMP 36.4; O2SAT 97
--- NOTE | 2021-11-25 16:36 | ED.EAR ---
HPI - Ear Problem General Chief complaint: Ear Stated complaint: ear troubles Time Seen by Provider: 11/25/21 16:37 Source: patient and RN notes reviewed Mode of arrival: ambulatory Limitations: no limitations History of Present Illness HPI Narrative: Patient states she has a crackling sound in her left ear. Been going on since yesterday. She denies using anything in her ear such as Q-tips. Complaint: foreign body Location: right ear Duration: constant Severity: moderate Relieving factors: nothing Exacerbating factors: nothing Discharge from ear: Reports no Treatment prior to arrival: none Related Data Home Medications Medication Instructions Recorded Confirmed amiodarone 200 mg tablet 200 mg PO DAILY 06/22/19 11/14/21 multivit with 1 tablet PO DAILY 06/22/19 11/14/21 lywnxdpf-tlbb-XV-lutein 8 mg iron-400 mcg-300 mcg tablet (Centrum Silver Women) warfarin 5 mg tablet 5 mg PO DAILY 02/09/20 11/14/21 carvedilol 25 mg tablet (Coreg) 12.5 mg PO Q12HR 08/29/20 11/14/21 nitroglycerin 0.4 mg sublingual 0.4 mg sublingual ONCE 01/12/21 11/14/21 tablet otyF-M5-W-Z-tlucln-gsdhvhv-min 1 tablet PO DAILY 01/12/21 11/14/21 3,300 unit-5 mg-200mg-75 unit tablet ER (ICaps) insulin glargine 100 unit/mL (3 75 unit subcut DAILY 11/15/21 mL) subcutaneous pen (Lantus Solostar U-100 Insulin) Allergies Allergy/AdvReac Type Severity Reaction Status Date / Time No Known Allergies Allergy Verified 11/25/21 16:39 [facility] Past Medical History Medical History Cervical radiculopathy Chronic anticoagulation : Warfarin for paroxysmal atrial fibrillation. Chronic kidney disease, stage 3 (moderate) : GFR ranging between 43 and > 60. Colon cancer screening (~06/2020) cologuard negative Coronary artery disease : With history of stent to LAD done at [facility]. Essential hypertension History of colon polyps History of left breast cancer : Status post lumpectomy, chemotherapy, and radiation. 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 : Hemoglobin A1c was 6.9% 08/09/2019. Iron deficiency anemia Mild persistent asthma without complication On amiodarone therapy Osteoarthritis Paroxysmal atrial fibrillation : History of cardioversions, with previously noted loosely organized thrombus in the left atrial appendage, for which she was subsequently switched from Xarelto to warfarin. : Last cardioversion attempt in May 2018 was unsuccessful and she was referred to an inspector salvage at [place]. On arrival to that appointment, she was found to be in a normal sinus rhythm, and to her knowledge has remained in such since. Severe obstructive sleep apnea : Noted on sleep study 08/10/2019. : CPAP titrated to 11 cm. Surgical History Surgical History History of appendectomy History of bilateral cataract extraction History of bladder suspension procedure History of cholecystectomy History of D&C History of heart artery stent : Stent to LAD, done at [facility]. History of hysterectomy History of lumpectomy of left breast History of right hip hemiarthroplasty (08/30/19) Family History Family History Father Family history of diabetes mellitus in first degree relative Hypertension Cerebrovascular accident Mother Family history of heart disease in male family member before age 55 Patient's mother is , Onset Age: 68 Family history of coronary artery disease, Onset Age: 68 Hypertension, Onset Age: 68 Sibling Cerebrovascular accident Other Diabetes mellitus Social History Social History Social History: The patient is and lives in [place]. She has 7 children. She stat
--- NOTE | 2021-11-25 17:12 | PC.NURSE ---
Left ear irrigated with peroxide, removed two large wax balls and a live spider. aware.
[2021-11-25 17:30] VITALS: BP 127/60; PULSE 66; RESP 16; TEMP 36.4; O2SAT 96
== END 2021-11-25 17:30 | disposition home or self-care (01) ==
PROVIDERS: Emergency Provider Emergency Medicine; PCP Family Medicine
DX: T16.2XXA Foreign body in left ear, initial encounter (principal)
CPT/HCPCS: 69209; 99282

== ENCOUNTER 2021-11-27 19:45 | Outpatient (CLI) | payer MEDICARE, BC, SELFPAY ==
--- NOTE | 2021-12-24 19:12 | WPDSLEEPSTUD ---
Sleep Study Date of Study: 11/27/21 Ordering Provider: Walter Patiño APRN Interpreting Physician: Carmina Zapata MD Sleep Study Type: Split Polysomnogram Height: 1.63 m Weight: 87.997 kg Body Mass Index: 33.3 Neck Circumference (inches): 17 Becker: 7 Reason for Sleep Study history of [place], difficultly using CPAP Sleep History Nohelia Laurent is an 81 year old female with a history of obstructive sleep apnea with difficulty tolerating CPAP in the past. She had a sleep study 07/22/2019 showing severe obstructive sleep apnea with an AHI 43.2, supine index was 71.3, minimum saturation 86%. Her BMI at the time was 34, about the same as now. She was titrated on CPAP with an AirFit F20 fullface mask medium size with an optimal pressure 11 cm however the sleep efficiency was low at 50%. She had a few central apneas at this setting. Due to her inability to tolerate PAP therapy she continues to have non restorative sleep. She frequently awakens from sleep feeling short of breath. She does not awaken at night with heartburn, belching or coughing. She does not snore. She does not have trouble sleeping with a occasionally wakes up gasping for breath at night. She rarely has breathing problems at night observed by others. She does not sweat excessively at night. She rarely notices her heart pounding or beating irregularly at night. She frequently falls asleep during the day but never while driving. She does not have loss of muscle tone with strong emotion. She does not feel paralyzed on waking or falling asleep. She occasionally has vivid dreamlike scenes upon awakening or falling asleep. She does not feel afraid to go to sleep. She rarely has nightmares and rarely remembers her dreams. She occasionally has racing thoughts. She does not feel sad, depressed or anxious. She does not have muscular tension. She rarely notices parts of her body jerking. She occasionally kicks at night. She rarely has crawling or aching feelings in her legs. She really has any kind of leg pain at night. She rarely has morning jaw pain. She does not grind her teeth during sleep. She occasionally is bothered by pain during the day. She is not awakened at night with pain. She frequently wakes up feeling stiff in the morning. She occasionally wakes up with sore achy muscles. She occasionally wakes up with pain in the neck and spine. She has fatigue, memory problems and headaches. Normal bedtime is 10:00 p.m. falling asleep within 30 minutes, waking 7 8 times at night for just a few minutes. It is not clear what she is doing but she says she ameks plans for the following day. She wakes the morning at 7:00 a.m.. She takes naps in the day. She sometimes feels refreshed after short nap. She is drowsy in the morning for 2 hours after waking. Habits: Never smoked tobacco. Caffeine 50 oz a day. No alcohol or recreational drugs. [facility] Past Medical History Medical History Cervical radiculopathy Chronic anticoagulation : Warfarin for paroxysmal atrial fibrillation. Chronic kidney disease, stage 3 (moderate) : GFR ranging between 43 and > 60. Colon cancer screening (~06/2020) cologuard negative Coronary artery disease : With history of stent to LAD done at [facility]. Essential hypertension History of colon polyps History of left breast cancer : Status post lumpectomy, chemotherapy, and radiation. 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 : Hemoglobin A1c was 6.9% 08/09/2019. Iron deficiency anemia Mild persistent asthma without complication On amiodarone therapy Osteoarthritis Paroxysmal atrial fibrillation : History of cardioversions, with previously noted loosely organized thrombus in the left atrial appendage, for which she was subsequently switched from Xarelto to warfarin. : Last cardioversion attem
[2021-12-24 20:42] VITALS: BMI 33.3
== END 2021-11-28 22:33 | disposition home or self-care (01) ==
LOC: CHSCSM 19:47
PROVIDERS: PCP Family Medicine; Visit Provider Nurse Practitioner Family
DX: G47.33 Obstructive sleep apnea (adult) (pediatric) (principal)
CPT/HCPCS: 95811

== ENCOUNTER 2021-12-06 08:48 | Outpatient (RCR) | payer MEDICARE, SELFPAY ==
[2021-09-19 08:25] LABS: Prothrombin Time 20.2 Seconds (9.50-12.10)
[2021-10-11 09:09] LABS: INR 3.4; Prothrombin Time 34.4 Seconds (9.50-12.10)
[2021-12-06 09:29] LABS: INR 3.4; Prothrombin Time 33.5 Seconds (9.50-12.10)
== END 2021-12-18 23:59 | disposition home or self-care (01) ==
LOC: CHSLAB 08:48
PROVIDERS: PCP Family Medicine; Visit Provider Internal Medicine Cardiovascular Disease
DX: I48.91 Unspecified atrial fibrillation (principal); Z79.01 Long term (current) use of anticoagulants
CPT/HCPCS: 36415; 85610

== ENCOUNTER 2022-02-17 08:24 | Outpatient (CLI) | payer MEDICARE, BC, SELFPAY ==
--- NOTE | ~2022-02-17 | XR_ITS ---
EXAMINATION: XR ribs LT 2V w CXR 2V INDICATION: Left-sided chest pain after fall TECHNIQUE: Frontal and lateral views of the chest and 3 views of the left ribs were obtained. COMPARISON: 09/27/2021 FINDINGS: The lungs are free of acute opacities. No pleural effusion or pneumothorax. The cardiomedia stinal silhouette is normal. There is moderate thoracic spondylosis. No displaced rib fracture is id entified. Changes of ventral hernia repair are noted. IMPRESSION: 1. No acute cardiopulmonary abnormality or evidence of displaced rib fracture. Reviewed, dictated and finalized at location B.
== END 2022-02-17 08:25 | disposition home or self-care (01) ==
LOC: CHSLAB 08:28
PROVIDERS: PCP Family Medicine; Visit Provider Nurse Practitioner Family
DX: R07.89 Other chest pain (principal); W19.XXXA Unspecified fall, initial encounter
CPT/HCPCS: 71046; 71100

== ENCOUNTER 2022-02-24 09:21 | Emergency (ER) | payer MEDICARE, BC, SELFPAY ==
[2022-02-24 09:29] VITALS: BP 140/83; PULSE 86; RESP 19; TEMP 36.2; O2SAT 97
[2022-02-24 09:33] VITALS: BP 140/83; PULSE 86; RESP 19; TEMP 36.2; O2SAT 97
[2022-02-24] MEDS: ACETAMINOPHEN 325 MG TABLET 650 MG PO (10:16)
[2022-02-24] MEDS: cefTRIAXone 1 GM, LIDOCAINE HCL 1% LOCAL INJ 2.1 ML IM (10:17)
--- NOTE | 2022-02-24 10:20 | PC.NURSE ---
Pt medicated per ERP order. Pt refused arm sling, saying she already has one at home.
--- NOTE | 2022-02-24 10:29 | ED.SKABFB ---
HPI - Skin/Abscess/Foreign Bdy General Chief complaint: Skin/Abscess/Foreign Body Stated complaint: R ARM SWELLING, WASP STING Time Seen by Provider: 02/24/22 09:25 Source: patient and RN notes reviewed Mode of arrival: ambulatory Limitations: no limitations History of Present Illness MD complaint: insect bite/sting (of right forearm.) Onset (ago): day(s) (2) Tetanus up to date: unsure Location: RUE Severity: mild Severity scale (1-10): 3 Quality: aching and pruritic Pain Consistency: constant Relieving factors: medication Exacerbating factors: none Context: witnessed insect bite Associated symptoms: denies other symptoms Related Data Home Medications Medication Instructions Recorded Confirmed amiodarone 200 mg tablet 200 mg PO DAILY 06/22/19 02/24/22 multivit with 1 tablet PO DAILY 06/22/19 02/24/22 zduxnlna-uzfe-MZ-lutein 8 mg iron-400 mcg-300 mcg tablet (Centrum Silver Women) warfarin 5 mg tablet 5 mg PO DAILY 02/09/20 02/24/22 carvedilol 25 mg tablet (Coreg) 12.5 mg PO Q12HR 08/29/20 02/24/22 nitroglycerin 0.4 mg sublingual 0.4 mg sublingual ONCE 01/12/21 02/24/22 tablet mcbO-G4-A-Q-xogthr-obkxprl-min 1 tablet PO DAILY 01/12/21 02/24/22 3,300 unit-5 mg-200mg-75 unit tablet ER (ICaps) Allergies Allergy/AdvReac Type Severity Reaction Status Date / Time No Known Allergies Allergy Verified 02/24/22 09:31 Review of Systems Review of Systems: All systems reviewed & are unremarkable except as noted in HPI and below Constitutional: Constitutional: Reports no additional constitutional complaints Eyes: Eyes: Reports no additional eye complaints ENT: Reports system reviewed and no additional complaints, except as documented Cardiovascular: Cardiovascular: Reports no additional cardiovascular complaints Respiratory: Respiratory: Reports no additional respiratory complaints Gastrointestinal: Gastrointestinal: Reports no additional gastrointestinal complaints Genitourinary: Genitourinary: Reports no additional female genitourinary complaints Musculoskeletal: Musculoskeletal: Reports no additional musculoskeletal complaints Comments: right forearm redness Integumentary/Breasts: Skin/Breast: Reports system reviewed and no additional complaints, except as docu Neurologic: Reports system reviewed and no additional complaints, except as documented Psychiatric: Psychiatric: Reports no additional psychiatric complaints Endocrine: Endocrine: Reports no additional endocrine complaints Hematologic/Lymphatic: Hematologic/Lymphatic: Reports no additional hematologic/lymphatic complaints Allergic/Immunologic: Allergic/Immunologic: Reports no additional allergic/immunologic complaints [facility] Past Medical History Medical History Cervical radiculopathy Chronic anticoagulation : Warfarin for paroxysmal atrial fibrillation. Chronic kidney disease, stage 3 (moderate) : GFR ranging between 43 and > 60. Colon cancer screening (~06/2020) cologuard negative Coronary artery disease : With history of stent to LAD done at [facility]. Essential hypertension History of colon polyps History of left breast cancer : Status post lumpectomy, chemotherapy, and radiation. 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 : Hemoglobin A1c was 6.9% 08/09/2019. Iron deficiency anemia Mild persistent asthma without complication On amiodarone therapy Osteoarthritis Paroxysmal atrial fibrillation : History of cardioversions, with previously noted loosely organized thrombus in the left atrial appendage, for which she was subsequently switched from Xarelto to warfarin. : Last cardioversion attempt in May 2018 was unsuccessful and she was referred to an physician interventional cardiologist at [facility]. On arrival to that appointment, she was found to be in a normal sinus rhythm, and to her knowle
== END 2022-02-24 10:45 | disposition home or self-care (01) ==
PROVIDERS: Emergency Provider Emergency Medicine; PCP Family Medicine
DX: L03.90 Cellulitis, unspecified (principal); T14.8XXA Other injury of unspecified body region, initial encounter; W57.XXXA Bitten or stung by nonvenomous insect and other nonvenomous arthropods, initial encounter; Z79.01 Long term (current) use of anticoagulants; I25.10 Atherosclerotic heart disease of native coronary artery without angina pectoris; I10 Essential (primary) hypertension; Z85.3 Personal history of malignant neoplasm of breast; E11.9 Type 2 diabetes mellitus without complications; I48.0 Paroxysmal atrial fibrillation
CPT/HCPCS: 96372; 99283; A9270; J0696

== ENCOUNTER 2022-03-07 08:17 | Outpatient (RCR) | payer MEDICARE, SELFPAY ==
[2022-01-10 08:21] LABS: INR 2.5; Prothrombin Time 25.5 Seconds (9.50-12.10)
[2022-02-07 10:43] LABS: INR 2.1; Prothrombin Time 21.4 Seconds (9.50-12.10)
[2022-03-07 08:44] LABS: INR 2.7
== END 2022-04-10 23:59 | disposition home or self-care (01) ==
LOC: CHSLAB 08:17
PROVIDERS: PCP Family Medicine; Visit Provider Internal Medicine Cardiovascular Disease
DX: I48.91 Unspecified atrial fibrillation (principal); Z79.01 Long term (current) use of anticoagulants
CPT/HCPCS: 36415; 85610

== ENCOUNTER 2022-03-27 10:52 | Outpatient (CLI) | payer MEDICARE, BC, SELFPAY ==
--- NOTE | ~2022-03-27 | XR_ITS ---
EXAMINATION: XR lumbar spine min 4V DATE: 03/27/2022 11:27 INDICATION: Low back pain TECHNIQUE: Anteroposterior, lateral, and bilateral oblique views of the lumbar spine, and cone-down l ateral view of the lumbosacral junction were obtained. COMPARISON: 01/22/2011 FINDINGS: There are 2 mm of retrolisthesis of L1 on L2. There is severe loss of intervertebral disc s pace height at L1-2 and mild to moderate loss of disc space height throughout the remainder of the jazlyn mbar spine. The vertebral body heights are maintained. There is no fracture. There is advanced facet joint osteoarthritis of the lumbar spine. Calcified atherosclerosis is noted. There are changes of ri ght hip arthroplasty. IMPRESSION: 1. Severe lumbar spondylosis without acute findings. Reviewed, dictated and finalized at location B.
--- NOTE | ~2022-03-27 | XR_ITS ---
EXAMINATION: XR hand RT min 3V DATE: 03/27/2022 11:25 INDICATION: Right hand pain. TECHNIQUE: 3 views of right hand were obtained. COMPARISON: Right wrist radiographs 03/09/2015 FINDINGS: Bone alignment is normal. No fracture. There is mild osteoarthritis of first carpometacarpa l joint and most of the metacarpophalangeal joints and interphalangeal joints. There is moderate oste oarthritis of first metacarpophalangeal joint, first interphalangeal joint, and second distal interph alangeal joint. IMPRESSION: 1. Polyarticular osteoarthritis. Reviewed, dictated and finalized at location A.
[2022-03-27 11:04] LABS: Basophils Absolute Auto 0.06 K/mm3 (0.00-0.10); Basophils Percent Auto 0.6 % (0.0-1.0); Eosinophils Absolute Auto 0.17 K/mm3 (0.02-0.50); Eosinophils Percent Auto 1.8 % (1.0-6.0); Hematocrit 43.5 % (35.0-42.0); Hemoglobin 14.5 g/dL (11.7-13.8); Immature Granulocyte Absolute 0.04 K/mm3 (0.00-0.00); Immature Granulocyte Percent A 0.4 % (0.0-0.0); Lymphocytes Absolute Auto 4.06 K/mm3 (1.10-4.50); Lymphocytes Percent Auto 43.8 % (18.0-42.0); Mean Corpuscular HGB Conc 33.3 g/dL (32.0-36.0); Mean Corpuscular Hemoglobin 31.1 pg (27.0-31.0); Mean Corpuscular Volume 93.3 fL (78.0-102.0); Mean Platelet Volume 10.3 fl (9.2-11.8); Monocytes Absolute Auto 0.65 K/mm3 (0.10-0.90); Neutrophils Absolute Auto 4.3 K/mm3 (1.7-7.2); Neutrophils Percent Auto 46.4 % (50.0-70.0); Platelet Count Result 221 K/mm3 (150-420); Red Blood Count 4.66 M/mm3 (4.20-5.40); Red Cell Distribution Width 15.1 % (11.6-14.4); White Blood Count 9.3 K/mm3 (4.8-10.8)
[2022-03-27 11:47] LABS: Alanine Aminotransferase 140 U/L (14-59); Albumin Level 3.7 g/dL (3.4-5.0); Alkaline Phosphatase 102 U/L (46-116); Anion Gap 8 mmol/L (8-16); Aspartate Amino Transferase 97 U/L (15-37); Bilirubin,Total 0.7 mg/dL (0.00-1.00); Blood Urea Nitrogen 23 mg/dL (7-18); Calcium 9.4 mg/dL (8.5-10.1); Carbon Dioxide 28 mmol/L (21-32); Chloride 103 mmol/L (98-108); Estimated Glomerular Filt Rate 38; Glucose 76 mg/dL (70-99); Osmolality Calculated 290 mOsm/kg (285-295); Potassium 4.9 mmol/L (3.5-5.1); Sodium 139 mmol/L (136-145); Total Protein 6.9 g/dL (6.4-8.2)
== END 2022-03-27 10:53 | disposition home or self-care (01) ==
LOC: CHSLAB 10:55
PROVIDERS: PCP Family Medicine; Visit Provider Family Medicine
DX: R53.83 Other fatigue (principal); E11.9 Type 2 diabetes mellitus without complications; R42 Dizziness and giddiness; M79.641 Pain in right hand; M54.50 Low back pain, unspecified; R29.898 Other symptoms and signs involving the musculoskeletal system
CPT/HCPCS: 36415; 72110; 73130; 80053; 85025

== ENCOUNTER 2022-03-28 11:45 | Outpatient (CLI) | payer MEDICARE, BC, SELFPAY ==
[2022-03-28 12:24] LABS: Add Urine Microscopic? YES; Appearance Urine Clear (Clear); Bacteria Urine 2+ /hpf; Bilirubin Urine Negative (Negative); Blood Urine Negative (Negative); Color Urine Yellow (Yellow); Glucose Urine UA Negative (Negative); Ketones Urine Trace (Negative); Leukocyte Esterase Ur 1+ LEU/UL (Negative); Nitrate Urine Negative (Negative); Protein Urine Negative (Negative); RBC Urine None seen /hpf (0-2); Specific Grav Ur >= 1.030 (1.010-1.020); Squamous Epithelial Cell Urine Moderate /hpf (Few)
[2022-04-02 19:16] LABS: Hepatitis A Antibody IgM Nonreactive; Hepatitis B Core Antibody Nonreactive (Nonreactive); Hepatitis B Surface Antigen Nonreactive (Nonreactive); Hepatitis C Signal to Cutoff 0.01 ratio (<1.00); Hepatitis C Virus Antibody Nonreactive (Nonreactive)
== END 2022-03-28 11:46 | disposition home or self-care (01) ==
LOC: CHSLAB 11:47
PROVIDERS: PCP Family Medicine; Visit Provider Family Medicine
DX: R53.83 Other fatigue (principal); R74.8 Abnormal levels of other serum enzymes; N18.30 Chronic kidney disease, stage 3 unspecified; R82.90 Unspecified abnormal findings in urine
CPT/HCPCS: 36415; 80074; 81001; 87086; 87088

== ENCOUNTER 2022-03-28 21:31 | Emergency (ER) | payer MEDICARE, BC, SELFPAY ==
[2022-03-28 21:32] VITALS: BP 164/86; PULSE 87; RESP 16; TEMP 36.4; O2SAT 98
== END 2022-03-28 23:06 | disposition left against medical advice (07) ==
PROVIDERS: PCP Family Medicine
DX: R21 Rash and other nonspecific skin eruption (principal)
CPT/HCPCS: 99199

== ENCOUNTER 2022-04-04 10:54 | Outpatient (RCR) | payer MEDICARE, BC, SELFPAY ==
--- NOTE | 2022-04-01 10:25 | PTOPEVAL1 ---
Assessment and note entered by Yajaira Galan, PT Evaluation Information Diagnosis Low Back Pain Onset 03/16/22 Subjective Information Nohelia Laurent reports she fell on 03/16/22. She was trying to change a light bulb and was holding the bulb in her right hand and she fell onto her left side. She sustained a head contusion on her left forehead and crushed the bulb in her right hand causing multiple lacerations in her right hand. She states she was able to get the bleeding under control so she did not seek medical care. She then had a dentist appointment the next day and had to take amoxicillin. She then started having difficulty sitting with her back touching the back of the chair and she could not lay flat due to pain in her back. She thought she was having an allergic reaction to the amoxicillin so she called the nurse line through [employer] [facility]. The nurse recommended she go to the ER. She was told it would be a 4 hour wait at the ER so she did not go. She called her doctor and saw her on 03/26/22. Her doctor did not think she had an allergic reaction to amoxicillin. Her doctor recommended she have PT for her back pain and balance as well as have a x-ray on her right hand and lumbar spine. The x-rays were clear on the right hand but showed arthritis in her lumbar spine. She is also scheduled to see a hand surgeon because she is still having pieces of glass from the light bulb come out of her skin. She is reporting low back pain that increases with standing more than 10 minutes that makes cooking difficult. She also can not sit with her back touching a chair or lay on her back when sleeping. She reports she has fallen 3 times in the last 2 months and feels like her right foot/toe catches every time she falls. Reported Pain Level Pain Score 3: Self Report Assessment PT Clinical Summary Nohelia Laurent presents with chronic low back pain with an exacerbation after a fall on 03/16/22. She also reports poor balance and has fallen 3 times in a 2 month span. She has difficulty with prolonged standing, laying on her back, sitting with her back supported, walking without support from a cart, and lifting. She has limitations in her ability to cook, clean, sleep, and perform yard work/gardening. She objectively demonstrates poor posture, tenderne
[2022-04-04 11:30] LABS: INR 5.4
--- NOTE | 2022-06-17 09:20 | PCPTNOTE ---
06/17/22: Patient has not been seen in PT since 04/24/22. She is being discharged.
== END 2022-04-24 09:38 | disposition home or self-care (01) ==
LOC: CHSPT 10:54
PROVIDERS: PCP Family Medicine; Visit Provider Family Medicine
DX: M54.50 Low back pain, unspecified (principal); R29.898 Other symptoms and signs involving the musculoskeletal system; I48.0 Paroxysmal atrial fibrillation; Z79.01 Long term (current) use of anticoagulants
CPT/HCPCS: 36415; 85610; 97014; 97110; 97116; 97161; G0283

== ENCOUNTER 2022-04-10 10:10 | Outpatient (CLI) | payer MEDICARE, BC, SELFPAY ==
--- NOTE | ~2022-04-10 | CT_ITS ---
EXAMINATION: CT brain wo con DATE: 04/10/2022 10:37 INDICATION: Head trauma. Fall on 03/26/2022, trauma to left side of head. Patient on anticoagulant th erapy. TECHNIQUE: Computed tomography (CT) of the head was performed without intravenous contrast. The mA wa s adjusted according to patient size. Iterative reconstruction technique was employed. Exam dose: 60 5.33 mGy-cm total exam DLP. COMPARISON: 08/28/2019 CT brain FINDINGS: There are prominent bilateral vertebral artery, basilar artery and carotid siphon internal carotid artery calcifications consistent with prominent cerebral atherosclerosis. Chronic left basal ganglia lacunar infarct. There is nonspecific diminished attenuation of the cerebr al white matter, likely due to chronic small vessel ischemic changes. Mild right basal ganglia calcif ication. No intracranial mass lesion or hemorrhage or recent cerebrovascular accident is evident. No midline s hift or mass effect. There is age consistent mild cerebral and cerebellar volume loss. No subdural or epidural hematoma is detected. There is posterior right maxillary sinus soft tissue thickening, improved since 08/28/2019. Included p aranasal sinuses and the mastoid air cells are otherwise normally developed and aerated. No fracture or bone destruction of the cranial vault. . IMPRESSION: Prominent cerebral atherosclerosis Chronic left basal ganglia lacunar infarct Chronic small vessel ischemic changes of the cerebral white matter No acute intracranial finding or skull fracture Reviewed, dictated and finalized at Location A. Reviewed, dictated and finalized at location A.
--- NOTE | ~2022-04-10 | MR_ITS ---
EXAMINATION: MR lumbar spine wo con DATE: 04/10/2022 11:07 INDICATION: Low back pain. Right leg weakness. TECHNIQUE: Magnetic resonance imaging (MRI) of the lumbar spine was performed without intravenous con trast. Sequences included sagittal T2-weighted FSE, sagittal T2-weighted FS FSE, sagittal T1-weighted FSE, and axial T2-weighted FSE. COMPARISON: Lumbar spine radiograph 03/27/2022 FINDINGS: There is 3 mm retrolisthesis of L1 on L2 and L2 on L3 and 4 mm anterolisthesis of L4 on L5. Vertebral body heights are normal. There is severely decreased disc height at L1-L2, moderately decr eased disc height at L2-L3, and mildly decreased disc height at L4-L5 and L5-S1. The distal spinal co rd signal intensity is normal. The conus medullaris is at T12-L1. There are cysts in left kidney matthias uring up to 4.4 cm. The following disc levels are specifically discussed: L1-L2: The disc is bulging and has an annular fissure. There is moderate bilateral facet joint osteoa rthritis. There is moderate bilateral neural foraminal stenosis. There is mild central canal stenosis . L2-L3: The disc is bulging and has an annular fissure. There is mild bilateral facet joint osteoarthr itis. There is moderate bilateral neural foraminal stenosis. There is mild central canal stenosis. L3-L4: The disc is bulging and has an annular fissure. There is moderate right and severe left facet joint osteoarthritis. There is moderate right and mild left neural foraminal stenosis. There is mild central canal stenosis. L4-L5: The disc is bulging. There is severe bilateral facet joint osteoarthritis. There is moderate b ilateral neural foraminal stenosis. There is mild central canal stenosis. There is moderate stenosis of the lateral recesses. L5-S1: The disc is bulging and has an annular fissure. There is severe bilateral facet joint osteoart hritis. There is mild bilateral neural foraminal stenosis. There is mild central canal stenosis. IMPRESSION: 1. Severe lumbar spondylosis. Reviewed, dictated and finalized at location A.
== END 2022-04-10 10:11 | disposition home or self-care (01) ==
LOC: ANHIMG 10:12
PROVIDERS: PCP Family Medicine; Visit Provider Family Medicine
DX: R42 Dizziness and giddiness (principal); S09.90XA Unspecified injury of head, initial encounter; X58.XXXA Exposure to other specified factors, initial encounter; Z79.01 Long term (current) use of anticoagulants; M54.50 Low back pain, unspecified; R29.898 Other symptoms and signs involving the musculoskeletal system
CPT/HCPCS: 70450; 72148

== ENCOUNTER 2022-04-11 13:21 | Outpatient (RCR) | payer MEDICARE, SELFPAY ==
[2022-04-11 13:47] LABS: INR 2.6; Prothrombin Time 26.8 Seconds (9.50-12.10)
== END 2022-07-10 23:59 | disposition home or self-care (01) ==
LOC: CHSLAB 13:21
PROVIDERS: PCP Family Medicine; Visit Provider Internal Medicine Cardiovascular Disease
DX: Z51.81 Encounter for therapeutic drug level monitoring (principal); I48.0 Paroxysmal atrial fibrillation; Z79.01 Long term (current) use of anticoagulants
CPT/HCPCS: 36415; 85610

== ENCOUNTER → 2022-05-13 08:48 | Outpatient (CLI) | payer MEDICARE, BC, SELFPAY ==
--- NOTE | ~2022-05-13 | MR_ITS ---
EXAMINATION: MR shoulder LT wo con DATE: 05/13/2022 09:27 INDICATION: Left shoulder pain for one week. Limited range of motion. Fall 1.5 months ago. TECHNIQUE: Magnetic resonance imaging (MRI) of the left shoulder was performed without intravenous co ntrast. Sequences included axial PD-weighted FS FSE, coronal oblique PD-weighted FS FSE and T2-weight ed FS FSE, and sagittal oblique T2-weighted FS FSE and T1-weighted FSE. COMPARISON: None. FINDINGS: Coracoacromial arch: Moderate AC joint hypertrophy. Minimal acromial tip enthesopathy. Minimal anterior downsloping of the type I acromion. No significant subacromial or subcoracoid narrowing. Rotator cuff: 6 mm full-thickness tear in the distal fibers of the supraspinatus at their insertion. Atrophy of the supraspinatus. No significant retraction. Mild atrophy of the infraspinatus. Intrasubstance type tea r of the subscapularis. Teres minor is intact. Biceps tendon and glenoid labrum: Abnormal signal and thickening of the long head of biceps tendon as it exits the bicipital groove. Ir regular and longitudinally oriented abnormal signal in the distal aspect of the long head of biceps t endon. Short of biceps tendon appears to be intact. Degenerative changes in the labrum without focal tear. Fluid: Minimal subacromial subdeltoid fluid. No significant glenohumeral joint effusion. Bones/cartilage: No suspicious focal or diffuse marrow signal. IMPRESSION: 1. Full-thickness supraspinatus tear. 2. Intrasubstance type tear of the subscapularis. 3. Longitudinal type tear of the long head of biceps tendon, in a background of tendinopathy. 4. Moderate AC joint hypertrophy. Mild glenohumeral osteoarthritis. Reviewed, dictated and finalized at location K. SERVICE TEAM MEMBER
== END ==
PROVIDERS: PCP Family Medicine; Visit Provider Orthopaedic Surgery
DX: M75.112 Incomplete rotator cuff tear or rupture of left shoulder, not specified as traumatic (principal); S46.112A Strain of muscle, fascia and tendon of long head of biceps, left arm, initial encounter; M19.012 Primary osteoarthritis, left shoulder; T14.90XA Injury, unspecified, initial encounter
CPT/HCPCS: 73221

== ENCOUNTER 2022-05-14 00:59 | Day surgery (SDC) | payer MEDICARE, BC, SELFPAY ==
[2022-05-13 12:36] VITALS: BMI 32.7
[2022-05-14] VITALS (16 sets, daily range): BP systolic 96–126; BP diastolic 60–85; PULSE 75–93; RESP 12–23; TEMP 36.2; O2SAT 93–97; BMI 31.8
[2022-05-14 07:38] LABS: Basophils Absolute Auto 0.1 K/mm3 (0.0-0.1); Basophils Percent Auto 0.6 % (0.2-1.2); Eosinophils Absolute Auto 0.2 K/mm3 (0-0.3); Eosinophils Percent Auto 1.1 % (0-4.4); Hematocrit 38.7 % (37.0-47.0); Immature Granulocyte Absolute 0.06 K/mm3 (0.00-0.031); Immature Granulocyte Percent A 0.5 % (0-0.5); Lymphocytes Percent Auto 23.5 % (18.3-44.2); Mean Corpuscular HGB Conc 33.6 g/dl (32-36); Mean Corpuscular Hemoglobin 30.7 pg (26-34); Mean Corpuscular Volume 91.5 fl (80-100); Mean Platelet Volume 10.3 fl (7.4-10.4); Monocytes Absolute Auto 1.2 K/mm3 (0.1-0.6); Monocytes Percent Auto 9.4 % (2.6-8.5); Neutrophils Absolute Auto 8.6 K/mm3 (1.3-6.7); Neutrophils Percent Auto 64.9 % (45.5-73.1); Platelet Count Result 215 k/mm3 (150-375); Red Blood Count 4.23 M/mm3 (4.2-5.4); Red Cell Distribution Width 15.2 % (11.5-14.5); White Blood Count 13.2 K/mm3 (4.5-10.0)
[2022-05-14 07:48] LABS: Anion Gap 3 mmol/L (8-16); Blood Urea Nitrogen 19 mg/dL (7-17); Calcium 8.9 mg/dL (8.4-10.2); Carbon Dioxide 27 mmol/L (22-30); Chloride 105 mmol/L (98-107); Estimated CRCL calculation 44 ml/min; Estimated Glomerular Filt Rate 60; Glucose 134 mg/dL (65-110); Potassium 4.5 mmol/L (3.4-5.0); Sodium 135 mmol/L (137-145)
[2022-05-14 08:01] LABS: INR 1.2; Prothrombin Time 14.9 Seconds (11.1-14.7)
[2022-05-14] MEDS: ONDANSETRON INJ 4 MG/2 ML VIAL IV PUSH (08:34)
--- NOTE | 2022-05-14 08:38 | WPDHPUPDATE1 ---
History and Physical Update Update Date/Time: 05/14/22 08:38 History and Physical has been reviewed, including an updated exam of the patient. There are NO changes in the patient's condition. Risks, benefits, and alternatives have been discussed and questions answered. Patient agrees to proceed with procedure.
--- NOTE | 2022-05-14 08:38 | WPDMODSED ---
Moderate Sedation Note-Pt Data Patient Data Diagnosis: Progressive stable angina, CAD Present Complaint: None Procedure to be performed/Plan: Left heart catheterization with selective left and right coronary angiography with left ventriculography and hemodynamics and possible percutaneous intervention and stent implantation. Allergies Allergy/AdvReac Type Severity Reaction Status Date / Time No Known Allergies Allergy Verified 05/13/22 13:50 Home Medications Medication Instructions Recorded Confirmed Type amiodarone 200 mg tablet 200 mg PO DAILY 06/22/19 05/14/22 History multivit with 1 tablet PO DAILY 06/22/19 05/13/22 History enurlrwg-mdwr-JT-lutein 8 mg iron-400 mcg-300 mcg tablet (Centrum Silver Women) warfarin 5 mg tablet 5 mg PO DAILY 02/09/20 05/13/22 History carvedilol 25 mg tablet (Coreg) 6.25 mg PO Q12HR 08/29/20 05/13/22 History nitroglycerin 0.4 mg sublingual 0.4 mg sublingual PRN PRN Chest 01/12/21 05/13/22 History tablet Pain dbhN-K6-Z-T-knkbdw-iqxzgsd-min 1 tablet PO BID 01/12/21 05/13/22 History 3,300 unit-5 mg-200mg-75 unit tablet ER (ICaps) albuterol sulfate 90 mcg/actuation 1 puff inhalation Q4H PRN 10/04/21 05/13/22 Rx aerosol inhaler (ProAir HFA) shortness of breath or wheezing #8.5 grams insulin glargine 100 unit/mL (3 See Rx Instructions .Route 12/09/21 05/13/22 Rx mL) subcutaneous pen (Lantus .COMPLEX #75 mL Solostar U-100 Insulin) pen needle, diabetic 32 gauge x #50 ea 01/13/22 03/26/22 Rx 1/4 (BD Ultra-Fine Micro Pen Needle) folic acid 1 mg tablet 1 mg PO DAILY #90 tabs 02/16/22 05/13/22 Rx tiotropium 2.5 mcg-olodaterol 2.5 2 puff inhalation Q24H #4 grams 02/19/22 05/13/22 Rx mcg/actuation mist for inhalation (Stiolto Respimat) acetaminophen 325 mg capsule 650 mg PO Q8H PRN pain #20 caps 02/24/22 05/13/22 Rx (Tylenol) spirometers and accessories #1 ea 03/07/22 03/26/22 Rx spironolactone 25 mg tablet 25 mg PO DAILY #90 tabs 04/25/22 05/13/22 Rx rivastigmine tartrate 1.5 mg See Rx Instructions .Route 05/05/22 05/13/22 Rx capsule .COMPLEX #180 caps rosuvastatin 20 mg tablet See Rx Instructions .Route 05/05/22 05/13/22 Rx .COMPLEX #90 tabs aspirin 81 mg tablet 81 mg PO DAILY 05/13/22 05/14/22 History azelastine 137 mcg (0.1 %) nasal 1 spray intranasal Q12H PRN 05/13/22 05/13/22 History spray aerosol Congestion ezetimibe 10 mg tablet (Zetia) 10 mg PO DAILY 05/13/22 05/13/22 History isosorbide mononitrate 30 mg 30 mg PO DAILY 05/13/22 05/14/22 History tablet,extended release 24 hr semaglutide 0.25 mg or 0.5 mg (2 0.75 mg subcut WEEKLY 05/13/22 05/13/22 History mg/1.5 mL) subcutaneous pen injector (Ozempic) warfarin 2.5 mg tablet 2.5 mg PO DAILY 05/13/22 05/13/22 History Current Medications: Active Medications Sodium Chloride (Normal Saline Iv) 500 mls @ 100 mls/hr IV CONT .Q5H DAYSI Sedation/Anesthesia: No previous sedation/anesthesia problems (including family history). [facility] Past Medical History Medical History Cervical radiculopathy Chronic anticoagulation : Warfarin for paroxysmal atrial fibrillation. Chronic kidney disease, stage 3 (moderate) : GFR ranging between 43 and > 60. Colon cancer screening (~06/2020) cologuard negative Coronary artery disease : With history of stent to LAD done at [facility]. Essential hypertension History of colon polyps History of left breast cancer : Status post lumpectomy, chemotherapy, and radiation. 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 : Hemoglobin A1c was 6.9% 08/09/2019. Iron deficiency anemia Mild persistent asthma without complication On amiodarone therapy Osteoarthritis Paroxysmal atrial fibrillation : History of cardioversions, with previously noted loosely organized thrombus in the left atrial appendage, for wh
--- NOTE | 2022-05-14 09:46 | PM.OP ---
Procedure Note - Brief Procedure Note - Brief Date of procedure: 05/14/22 Pre-op diagnosis: worsening chest pain Progressive angina, CAD Post-op diagnosis: Same Procedure performed: Left heart catheterization with selective left and right coronary angiography with left ventriculography and hemodynamics and selective right femoral angiography. Description of procedure: BRIEF HISTORY OF PRESENT ILLNESS: Patient is a pleasant 81-year-old female with a history of paroxysmal atrial fibrillation on amiodarone and warfarin, hypertension, history of breast cancer, [place] intolerant to CPAP, history of CAD with previous stent implantation mid LAD with complaints of progressive typical angna referred for left heart caheterization for delineation of her coronary anatomy. PROCEDURES PERFORMED: 1. Left heart catheterization 2. Selective left and right coronary angiography 3. Left ventriculography and hemodynamics 4. Moderate/conscious sedation administration 5. Selective right femoral angiography CATHETERS UTILIZED: Left coronary system- 5 Niuean JL4 catheter Right coronary system- 5 Niuean JR4 catheter Left ventriculography and hemodynamics- 5 Niuean angled pigtail catheter PROCEDURE IN DETAIL: After verbal and written informed consent was obtained the patient, risks, benefits, and alternatives explained in detail the patient agreed to proceed with the plan of care as outlined above. The patient was subsequently brought to the cardiac catheterization lab, placed on the cardiac catheterization table, and prepped and draped in the usual sterile fashion. Utilizing approximately cc of 1% subcutaneous Lidocaine, the right groin was then locally anesthetized. Utilizing the modified Seldinger technique, a 5 Niuean arterial vascular access sheath was inserted in the right common femoral artery easily and without complications. Through this access, coronary angiography was subsequently obtained in multiple standard re-projections. Following this, a 5 Niuean angled pigtail catheter was advanced retrograde across aortic valve into the cavity of the left ventricle. Left ventriculography was performed and pullback across aortic valve was subsequently recorded. The vascular access sheath and angiographic catheters were flushed before and after catheter exchanges. At the conclusion of the diagnostic portion of the procedure, all angiographic guidewires and catheters were removed and the 5 Niuean arterial vascular access sheath was then pulled and satisfactory hemostasis was achieved using manual compression. There no complications noted at the conclusion of the diagnostic portion of the study. MODERATE SEDATION/ANESTHESIA ADMINISTRATION: Patient reports no prior problems with sedation/anesthesia. Please see pre-sedation noted for physical examination documentation. Sedation start time was 0849 and end time was _0917 for a total intra-service/procedure face-face time of 28 minutes. A total of 1 mg intravenous Versed and a total of 50 mcg intravenous Fentanyl was administered for moderate sedation. Moderate sedation was administered by qualified/certified observer Alee Silverio RN under my supervision with intra-procedure [id number] observation and management throughout the entirety of the procedure. There were no other issues or complications and patient tolerated the procedure well. See post-anesthesia documentation. Surgeon: Bart Bradley MD Estimated blood loss (mL): 5 Complications: No immediate complications Condition: Stable Disposition: Same day Findings: CORONARY ANGIOGRAPHY: The LEFT MAIN which short and arose from the left coronary cusp and was without angiographically significant disease. The left main then bifurcated into the left anterior descending artery and circumflex coronary artery. LEFT ANTERIOR DESCENDING ARTERY: Moderate to large caliber vessel with heavy diffuse proximal calcification, 40% proximal stenosis in th
--- NOTE | 2022-05-14 12:29 | SUR.PHASEII ---
Pt resting in bed, meal tray delivered and pt eating without difficulty, no bleeding or hematoma noted, denies pain or other complaints, continue to monitor.
[2022-05-14] MEDS: CLOPIDOGREL BISULFATE 300 MG TABLET 600 MG PO (12:32)
== END 2022-05-14 15:05 | disposition home or self-care (01) ==
PROVIDERS: PCP Family Medicine; Visit Provider Internal Medicine Cardiovascular Disease
PROC: 4A023N7 Measurement of Cardiac Sampling and Pressure, Left Heart, Percutaneous Approach (ICD-10-PCS; CPT 93452; principal; 2022-05-14 08:30)
DX: I25.118 Atherosclerotic heart disease of native coronary artery with other forms of angina pectoris (principal); I48.0 Paroxysmal atrial fibrillation; I12.9 Hypertensive chronic kidney disease with stage 1 through stage 4 chronic kidney disease, or unspecified chronic kidney disease; G47.33 Obstructive sleep apnea (adult) (pediatric); Z95.5 Presence of coronary angioplasty implant and graft; Z79.899 Other long term (current) drug therapy; E11.22 Type 2 diabetes mellitus with diabetic chronic kidney disease; N18.30 Chronic kidney disease, stage 3 unspecified; D50.9 Iron deficiency anemia, unspecified; J45.30 Mild persistent asthma, uncomplicated; Z92.3 Personal history of irradiation; Z92.21 Personal history of antineoplastic chemotherapy; Z79.01 Long term (current) use of anticoagulants; Z85.3 Personal history of malignant neoplasm of breast; Z79.4 Long term (current) use of insulin; Z79.51 Long term (current) use of inhaled steroids; Z79.82 Long term (current) use of aspirin
CPT/HCPCS: 36415; 80048; 85025; 85610; 93458; A9270; C1887; C1894; J0461; J1644; J2250; J2405; J3010; J7040

== ENCOUNTER 2022-06-04 09:22 | Outpatient (CLI) | payer MEDICARE, BC, SELFPAY ==
--- NOTE | ~2022-06-04 | MM_ITS ---
EXAMINATION: MM screening jame BI w cass HISTORY: Screening mammogram TECHNIQUE: Craniocaudal and mediolateral oblique 3-D tomosynthesis images were obtained and synthetic 2-D images were generated. CAD analysis was submitted and interpreted. COMPARISON: 05/08/2021, 04/30/2020, 03/29/2019 bilateral screening mammogram examinations BREAST PARENCHYMAL COMPOSITION: There are scattered areas of fibroglandular density. FINDINGS: Status post left lumpectomy, reportedly benign. There is chronic diminished size and stable asymmetric increased fibroglandular stromal density of the left breast. Extensive bilateral benign calcifications including arterial, secretory calcifications and calcified microhematomas. There is no evidence of suspicious mass, calcification, or architectural distortion t o suggest malignancy in either breast. There has been no suspicious interval change. IMPRESSION: 1. No mammographic evidence of malignancy. 2. Recommend routine screening mammography in one year. BI-RADS Category 2: Benign finding(s). Reviewed, dictated and finalized at location A. ET MAKER PORK
== END 2022-06-04 09:23 | disposition home or self-care (01) ==
LOC: CHSIMG 09:24
PROVIDERS: PCP Family Medicine; Visit Provider Family Medicine
DX: Z12.31 Encounter for screening mammogram for malignant neoplasm of breast (principal)
CPT/HCPCS: 77063; 77067

== ENCOUNTER 2022-06-26 12:03 | Emergency (ER) | payer MEDICARE, BC, SELFPAY ==
--- NOTE | ~2022-06-26 | XR_ITS ---
EXAMINATION: XR knee RT 2V DATE: 06/26/2022 12:20 INDICATION: Right knee pain post fall TECHNIQUE: AP and crosstable lateral views of the right knee were obtained. COMPARISON: None. FINDINGS: Mildly distracted oblique intra-articular fracture extending from superolateral to inferomedial acros s the patella with approximately 4-5 mm lucent fracture gap evident on the frontal image. Minimal inc ongruity of the articular surface on the lateral projection. No other fractures identified. Tricompar tmental osteoarthritis, moderate to potentially severe at the patellofemoral compartment, mild to mod erate medial compartment and mild in the lateral compartment. 1.9 cm enchondroma with typical ring an d arc-like configuration of the chondroid matrix located in the proximal tibial metaphysis. No eviden t joint effusion. Atherosclerotic calcifications along the popliteal artery. IMPRESSION: 1. 4-5 mm distraction of an oblique intra-articular fracture extending across the patella. 2. Tricompartmental osteoarthritis, moderate to severe in the patellofemoral, mild to moderate in the medial and mild in the lateral compartments. 3. Proximal tibial enchondroma. Reviewed, dictated and finalized at location A. MAKER IMPRESSION: 1. 4-5 mm distraction of an oblique intra-articular fracture extending across t he patella. 2. Tricompartmental osteoarthritis, moderate to severe in the patellofemoral, m ild to moderate in the medial and mild in the lateral compartments. 3. Proximal tibial enchondroma.
--- NOTE | ~2022-06-26 | XR_ITS ---
EXAMINATION: XR ankle RT 2V DATE: 06/26/2022 12:21 INDICATION: Right ankle pain post fall TECHNIQUE: Anteroposterior and lateral views of the right ankle were obtained. COMPARISON: None. FINDINGS: Alignment is normal. No fracture. Mild polyarticular osteoarthritis at the talonavicular joint and a few tarsal metatarsal joints. Moderate-sized plantar calcaneal spur. No ankle joint effusion. Soft ti ssues are unremarkable. IMPRESSION: 1. No right ankle joint effusion or acute osseous abnormalities. Reviewed, dictated and finalized at location A. ING SYSTEM ADMINISTRATOR
[2022-06-26 12:15] VITALS: BP 151/75; PULSE 72; RESP 20; TEMP 36.4; O2SAT 98
[2022-06-26] MEDS: KETOROLAC 30 MG/ML VIAL (*BKC) IM (12:30)
--- NOTE | 2022-06-26 12:55 | ED.LOWEXIN ---
HPI - Extremity Injury (Lower) General Chief Complaint: Extremity Injury, Lower Stated Complaint: fall Time Seen by Provider: 06/26/22 12:06 Source: patient and family Mode of arrival: wheelchair Limitations: physical limitation History of Present Illness HPI Narrative: this is an 81-year-old female that has a history of right drop foot history of diabetes hypertension CAD with recent stents placed that had a fall earlier this morning and injuring her right knee and ankle, has a decreased range of motion unable to bear weight without pain pain she rates about a 6/10, there is some point tenderness with palpation and movement with mild swelling currently no bruising of the right knee or ankle. MD complaint: knee injury and ankle injury Onset (ago): hour(s) Injury: Right: knee ( tender with swelling) Type of Injury: blunt Place: other Severity: moderate Severity scale (1-10): 6 Exacerbating factors: weight bearing, movement and palpation Context: fall and direct blow Associated symptoms: swelling and unable to bear weight Other symptoms: none Related Data Home Medications Medication Instructions Recorded Confirmed amiodarone 200 mg tablet 200 mg PO DAILY 06/22/19 06/18/22 multivit with 1 tablet PO DAILY 06/22/19 06/18/22 xbptxhet-abju-PS-lutein 8 mg iron-400 mcg-300 mcg tablet (Centrum Silver Women) carvedilol 25 mg tablet (Coreg) 6.25 mg PO Q12HR 08/29/20 06/18/22 nitroglycerin 0.4 mg sublingual 0.4 mg sublingual PRN PRN Chest 01/12/21 06/18/22 tablet Pain wipA-F6-Y-O-dzdovl-evpzuls-min 1 tablet PO BID 01/12/21 06/18/22 3,300 unit-5 mg-200mg-75 unit tablet ER (ICaps) azelastine 137 mcg (0.1 %) nasal 1 spray intranasal Q12H PRN 05/13/22 06/18/22 spray aerosol Congestion ezetimibe 10 mg tablet (Zetia) 10 mg PO DAILY 05/13/22 06/18/22 isosorbide mononitrate 30 mg 30 mg PO DAILY 05/13/22 06/18/22 tablet,extended release 24 hr semaglutide 0.25 mg or 0.5 mg (2 0.75 mg subcut WEEKLY 05/13/22 06/18/22 mg/1.5 mL) subcutaneous pen injector (Ozempic) Allergies Allergy/AdvReac Type Severity Reaction Status Date / Time No Known Allergies Allergy Verified 06/18/22 09:13 Review of Systems Review of Systems: All systems reviewed & are unremarkable except as noted in HPI and below PMFSH Past Medical History Medical History Cervical radiculopathy Chronic anticoagulation : Warfarin for paroxysmal atrial fibrillation. Chronic kidney disease, stage 3 (moderate) : GFR ranging between 43 and > 60. Colon cancer screening (~06/2020) cologuard negative Coronary artery disease : With history of stent to LAD done at [facility]. Essential hypertension History of colon polyps History of left breast cancer : Status post lumpectomy, chemotherapy, and radiation. 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 : Hemoglobin A1c was 6.9% 08/09/2019. Iron deficiency anemia Mild persistent asthma without complication On amiodarone therapy Osteoarthritis Paroxysmal atrial fibrillation : History of cardioversions, with previously noted loosely organized thrombus in the left atrial appendage, for which she was subsequently switched from Xarelto to warfarin. : Last cardioversion attempt in May 2018 was unsuccessful and she was referred to an real estate administrative assistant at [place]. On arrival to that appointment, she was found to be in a normal sinus rhythm, and to her knowledge has remained in such since. Right forearm cellulitis Severe obstructive sleep apnea : Noted on sleep study 08/10/2019. : CPAP titrated to 11 cm. Surgical History Surgical History History of appendectomy History of bilateral cataract extraction History of bladder suspension procedure History of cholecystectomy History of D&C History of heart artery s
[2022-06-26 13:14] VITALS: BP 160/89; PULSE 67; O2SAT 98
== END 2022-06-26 13:30 | disposition home or self-care (01) ==
LOC: CHSED 13:12
PROVIDERS: Emergency Provider Emergency Medicine; PCP Family Medicine
DX: S82.001A Unspecified fracture of right patella, initial encounter for closed fracture (principal); I48.0 Paroxysmal atrial fibrillation; I25.10 Atherosclerotic heart disease of native coronary artery without angina pectoris; I12.9 Hypertensive chronic kidney disease with stage 1 through stage 4 chronic kidney disease, or unspecified chronic kidney disease; E11.22 Type 2 diabetes mellitus with diabetic chronic kidney disease; N18.30 Chronic kidney disease, stage 3 unspecified; Z85.3 Personal history of malignant neoplasm of breast; W19.XXXA Unspecified fall, initial encounter
CPT/HCPCS: 73560; 73600; 96372; 99284; J1885; L1830

== ENCOUNTER 2022-09-02 08:51 | Outpatient (RCR) | payer MEDICARE, BC, SELFPAY ==
--- NOTE | 2022-09-02 09:31 | PTOPEVAL1 ---
Assessment and note entered by John Sarabia Evaluation Information Assessment Status Evaluation Diagnosis right knee pain, right patella fx, left shoulder pain, left rotator cuff Onset 07/08/22 Subjective Information Pt. reports that she fell at the end of June fx the right knee cap. She states that she also has shoulder pain and has attempted to rehab the shoulder in the past. She reports that since the knee injury she has had more difficulty with getting out of a chair. She reports that she does live with her son and other family that can assist her at home. She has recently returned to local driving. She reports that she has developed right buttock pain since injuring the knee. She reports she is currently capable of walking about 30 minutes and use a rollator for outdoor activities and no AD indoors. She was using no AD prior to her injury. She reports that she still cannot reach overhead with the left u.e. She is right hand dominant. She reports that her goal is to be able to walk without a limp and less pain. Reported Pain Level Pain Score 2,0: Self Report Assessment PT Clinical Summary Pt. is an 82 year old female who enters the clinic with right knee pain and left shoulder pain. She presents with impiared u.e. and l.e. ROM, impaired gait, impaired balance, and generalized weakness of the u.e. and l.e. Continued skilled treatment is indicated in order to improve these areas to assist with improving safety and efficiency with IADL's. Plan of Care Interventions Electrical Stimulation,Gait Training,Hot Pack/Cold Pack,Manual Therapy,Neuro Re-education,Patient/ Caregiver Educati,Therapeutic Activities, Therapeutic Exercise PT Services Indicated Yes Treatment Frequency and 3x/week x 12 visits Duration These treatments will address the objective and functional deficits as defined above. The patient will be advanced safely and appropriately in order for the patient to progress towards his/her prior level of function. Additional exercises will be introduced and as well as a comprehensive home exercise program upon discharge, if needed, ?to ensure carryover of functional gains achieved in the clinic. This treatment plan has been reviewed and agreement upon by the patient.
--- NOTE | 2022-09-30 09:34 | PTOPPROGNS ---
Assessment and note entered by Lolita Mukherjee DPT Evaluation Information Assessment Status Progress Diagnosis right knee pain, right patella fx, left shoulder pain, left rotator cuff Onset 07/08/22 Subjective Information Patient reports she is doing well. She reports she is feeling almost back to prior levels with R knee and L shoulder. She continues to report feeling like her balance is decrease and has a fear of falling. Assessment PT Clinical Summary Patient has been seen for 10 visits from 09/02/22-. She has made good improvements towards goals with improved R knee flexion, L shoulder flexion and improvement in LE strength. She reports she has improved mobility and activity tolerance. She will benefit from continuing her current POC. Plan of Care Interventions Electrical Stimulation,Gait Training,Hot Pack/Cold Pack,Manual Therapy,Neuro Re-education,Patient/ Caregiver Educati,Therapeutic Activities, Therapeutic Exercise PT Services Indicated Yes Treatment Frequency and continue per current POC Duration These treatments will address the objective and functional deficits as defined above. The patient will be advanced safely and appropriately in order for the patient to progress towards his/her prior level of function. Additional exercises will be introduced and as well as a comprehensive home exercise program upon discharge, if needed, ?to ensure carryover of functional gains achieved in the clinic. This treatment plan has been reviewed and agreement upon by the patient.
--- NOTE | 2022-10-15 10:46 | PTOPDC ---
Assessment and note entered by JT File, PT Evaluation Information Assessment Status Discharge Diagnosis right knee pain, right patella fx, left shoulder pain, left rotator cuff Onset 07/08/22 Subjective Information patient reports she feels Good this date. she reports her R knee and L shoulder both feel a lot better. she reports she has set of pulleys at home that she uses daily and has greatly improved her shoulder mobility. Reported Pain Level Pain Score 1,1: Self Report Assessment PT Clinical Summary mrs. plaza presents to skilled PT services for her 12th skilled PT visit this date. as of today, she reports low pain in the L shoulder and R knee, displays improved rom of both the knee and shoulder, improved LE and UE strength, and improved functional activity performance. she has met less than 50% of goals for skilled PT, but has made progress towards all goals. she will DC skilled PT today, and continue with HEP independent at home. Plan of Care PT Services Indicated Yes
== END 2022-10-15 13:24 | disposition home or self-care (01) ==
LOC: CHSPT 08:51
PROVIDERS: Visit Provider Orthopaedic Surgery
DX: S82.001D Unspecified fracture of right patella, subsequent encounter for closed fracture with routine healing (principal); M75.100 Unspecified rotator cuff tear or rupture of unspecified shoulder, not specified as traumatic
CPT/HCPCS: 97014; 97110; 97140; 97161; 97530; G0283

== ENCOUNTER 2023-01-22 08:27 | Outpatient (CLI) | payer MEDICARE, BC, SELFPAY ==
[2023-01-22 08:39] LABS: Basophils Absolute Auto 0.05 K/mm3 (0.00-0.10); Basophils Percent Auto 0.6 % (0.0-1.0); Eosinophils Absolute Auto 0.15 K/mm3 (0.02-0.50); Eosinophils Percent Auto 1.9 % (1.0-6.0); Hematocrit 35.8 % (35.0-42.0); Hemoglobin 11.7 g/dL (11.7-13.8); Immature Granulocyte Absolute 0.04 K/mm3 (0.00-0.00); Immature Granulocyte Percent A 0.5 % (0.0-0.0); Lymphocytes Percent Auto 42.1 % (18.0-42.0); Mean Corpuscular HGB Conc 32.7 g/dL (32.0-36.0); Mean Corpuscular Hemoglobin 31.8 pg (27.0-31.0); Mean Corpuscular Volume 97.3 fL (78.0-102.0); Monocytes Absolute Auto 0.61 K/mm3 (0.10-0.90); Monocytes Percent Auto 7.8 % (2.0-11.0); Neutrophils Absolute Auto 3.7 K/mm3 (1.7-7.2); Neutrophils Percent Auto 47.1 % (50.0-70.0); Platelet Count Result 188 K/mm3 (150-420); Red Blood Count 3.68 M/mm3 (4.20-5.40); Red Cell Distribution Width 14.9 % (11.6-14.4); White Blood Count 7.8 K/mm3 (4.8-10.8)
[2023-01-22 08:48] LABS: Hemoglobin A1C 5.4 % (<5.7)
[2023-01-22 09:50] LABS: Alanine Aminotransferase 36 U/L (14-59); Albumin Level 3.5 g/dL (3.4-5.0); Alkaline Phosphatase 82 U/L (46-116); Anion Gap 7 mmol/L (8-16); Aspartate Amino Transferase 33 U/L (15-37); Bilirubin,Total 0.4 mg/dL (0.00-1.00); Blood Urea Nitrogen 32 mg/dL (7-18); Calcium 9.3 mg/dL (8.5-10.1); Carbon Dioxide 29 mmol/L (21-32); Chloride 109 mmol/L (98-108); Cholesterol 151 mg/dL (0-200); Estimated Glomerular Filt Rate 46; Glucose 98 mg/dL (70-99); HDL Direct 54 mg/dL (40-60); LDL Cholesterol Calculated 77 mg/dL (<130); Osmolality Calculated 306 mOsm/kg (285-295); Potassium 4.9 mmol/L (3.5-5.1); Sodium 145 mmol/L (136-145); Total Protein 6.3 g/dL (6.4-8.2); Triglycerides 102 mg/dL (0-150)
[2023-01-22 09:54] LABS: Thyroid Stimulating Hormone Reflex 2.69 u/IU/mL (0.36-3.74)
[2023-01-26 21:16] LABS: Vitamin D 25 Hydroxy 37 ng/mL (30-100)
== END 2023-01-22 08:28 | disposition home or self-care (01) ==
LOC: CHSLAB 08:29
PROVIDERS: PCP Family Medicine; Visit Provider Family Medicine
DX: E78.2 Mixed hyperlipidemia (principal); E55.9 Vitamin D deficiency, unspecified; Z79.4 Long term (current) use of insulin; R53.83 Other fatigue; E11.9 Type 2 diabetes mellitus without complications; N18.2 Chronic kidney disease, stage 2 (mild)
CPT/HCPCS: 36415; 80053; 80061; 82306; 83036; 84443; 85025

== ENCOUNTER 2023-01-28 08:17 | Outpatient (RCR) | payer MEDICARE, BC, SELFPAY ==
--- NOTE | 2023-01-28 08:55 | PTOPEVAL1 ---
Assessment and note entered by Yajaira Galan, PT Evaluation Information Assessment Status Evaluation Diagnosis Gait Disturbance Onset 01/21/23 Subjective Information Nohelia Laurent reports her balance has gotten bad lately. She notes that her right knee wants to buckle and she has been told she needs to have it replaced but she is not ready for that. She notes that she is less balanced on uneven terrain like grass. She has tried using a single point cane but does not feel balanced enough and she has also tried a large based quad cane and it got in the way of her foot. She is not having right knee pain because she is getting injections every 3 months. She last had a fall about a month ago when she stepped in a soft spot in the yard. She fell to the ground but did not sustain any injury. She is hoping to improve her balance and learn how to use a cane. Reported Pain Level Pain Score 0: Self Report Assessment PT Clinical Summary Nohelia Laurent presents with impaired gait and decreased balance. She has been diagnosed with right knee OA and has been recommended to have her knee replaced. She has difficulty with walking on uneven terrain, going up and down stairs, and walking longer distances. She objectively demonstrates impaired gait, impaired balance, and weakness in the right > left LE. Scores on standard balance tests indicate she is a high fall risk. She will benefit from skilled PT to address these limitations. Plan of Care Interventions Gait Training,Neuro Re-education,Patient/Caregiver Educati,Therapeutic Activities,Therapeutic Exercise PT Services Indicated Yes Treatment Frequency and 2 times a week for 10 visits Duration These treatments will address the objective and functional deficits as defined above. The patient will be advanced safely and appropriately in order for the patient to progress towards his/her prior level of function. Additional exercises will be introduced and as well as a comprehensive home exercise program upon discharge, if needed, ?to ensure carryover of functional gains achieved in the clinic. This treatment plan has been reviewed and agreement upon by the patient.
--- NOTE | 2023-01-28 08:55 | OPREHPOC ---
Outpatient Therapy Plan of Care This is a Multidisciplinary Plan of Care that may contain components documented by all disciplines (PT, OT, and ST.) PT Problem 1 PT Problem #1 Knowledge Deficit PT Goal 1 Goal The patient will demonstrate independence with a home exercise program to continue after discharge from formal PT. Target Visit 10 PT Problem 2 PT Problem #2 Impaired Strength PT Goal 1 Goal The patient will demonstrate right hip flexion, abduction, and knee extension strength of at least 4/5 to improve gait. Target Visit 10 PT Problem 3 PT Problem #3 Impaired Gait PT Goal 1 Goal The patient will demonstrate the ability to ambulate 300 feet with an appropriate AD with proper technique and no cueing needed. Target Visit 10 PT Problem 4 PT Problem #4 Impaired Balance PT Goal 1 Goal The patient will improve Tinetti Balance score to 20 or higher indicating less of a fall risk. Target Visit 10
--- NOTE | 2023-02-26 13:36 | PTOPDC ---
Assessment and note entered by Yajaira Galan, PT Evaluation Information Assessment Status Discharge Diagnosis Gait Disturbance Onset 01/21/23 Subjective Information Nohelia reports her legs seem stronger since she started PT and that is helping her balance. She denies falls since initiating PT. She also notes increased ease with stairs and getting out of chairs. She has been able to walk in grass out to her garden again and she is not using an assistive device except when she walks a longer distance she uses a rollator walker. Reported Pain Level Pain Score 0: Self Report Assessment PT Clinical Summary Nohelia Laurent has completed 9 skilled PT visits for gait disturbance and decreased balance. She is reporting improved balance, stronger legs, and increased ease with stairs and sit to stand transfers. She objectively demonstrates improved LE strength, improved balance, and improved gait. Scores on standard balance tests now indicate a low fall risk which is improved from a high fall risk at initial evaluation. She will be discharged to an independent [facility]. Plan of Care PT Services Indicated No
--- NOTE | 2023-02-26 13:37 | OPREHPOC ---
Outpatient Therapy Plan of Care This is a Multidisciplinary Plan of Care that may contain components documented by all disciplines (PT, OT, and ST.) PT Problem 1 PT Problem #1 Knowledge Deficit PT Goal 1 Goal The patient will demonstrate independence with a home exercise program to continue after discharge from formal PT. Target Visit 10 Progress Met PT Problem 2 PT Problem #2 Impaired Strength PT Goal 1 Goal The patient will demonstrate right hip flexion, abduction, and knee extension strength of at least 4/5 to improve gait. Target Visit 10 Progress Met PT Problem 3 PT Problem #3 Impaired Gait PT Goal 1 Goal The patient will demonstrate the ability to ambulate 300 feet with an appropriate AD with proper technique and no cueing needed. Target Visit 10 Progress Met PT Problem 4 PT Problem #4 Impaired Balance PT Goal 1 Goal The patient will improve Tinetti Balance score to 20 or higher indicating less of a fall risk. Target Visit 10 Progress Met
== END 2023-02-26 18:32 | disposition home or self-care (01) ==
LOC: CHSPT 08:17
PROVIDERS: PCP Family Medicine; Visit Provider Family Medicine
DX: R26.9 Unspecified abnormalities of gait and mobility (principal)
CPT/HCPCS: 97110; 97112; 97116; 97161; 97750

== ENCOUNTER 2023-03-31 09:15 | Outpatient (CLI) | payer MEDICARE, SELFPAY ==
[2023-03-31 09:45] LABS: Basophils Absolute Auto 0.08 K/mm3 (0.00-0.10); Eosinophils Absolute Auto 0.23 K/mm3 (0.02-0.50); Eosinophils Percent Auto 2.8 % (1.0-6.0); Hematocrit 38.7 % (35.0-42.0); Hemoglobin 12.5 g/dL (11.7-13.8); Immature Granulocyte Absolute 0.04 K/mm3 (0.00-0.00); Immature Granulocyte Percent A 0.5 % (0.0-0.0); Lymphocytes Absolute Auto 2.69 K/mm3 (1.10-4.50); Lymphocytes Percent Auto 32.8 % (18.0-42.0); Mean Corpuscular HGB Conc 32.3 g/dL (32.0-36.0); Mean Corpuscular Hemoglobin 30.9 pg (27.0-31.0); Mean Corpuscular Volume 95.8 fL (78.0-102.0); Mean Platelet Volume 10.4 fl (9.2-11.8); Monocytes Absolute Auto 0.77 K/mm3 (0.10-0.90); Monocytes Percent Auto 9.4 % (2.0-11.0); Neutrophils Absolute Auto 4.4 K/mm3 (1.7-7.2); Neutrophils Percent Auto 53.5 % (50.0-70.0); Platelet Count Result 194 K/mm3 (150-420); Red Blood Count 4.04 M/mm3 (4.20-5.40); Red Cell Distribution Width 14.4 % (11.6-14.4); White Blood Count 8.2 K/mm3 (4.8-10.8)
[2023-03-31 09:56] LABS: Anion Gap 9 mmol/L (8-16); Blood Urea Nitrogen 19 mg/dL (7-18); Calcium 9.7 mg/dL (8.5-10.1); Carbon Dioxide 29 mmol/L (21-32); Chloride 107 mmol/L (98-108); Estimated Glomerular Filt Rate 53; Glucose 76 mg/dL (70-99); Osmolality Calculated 301 mOsm/kg (285-295); Potassium 4.6 mmol/L (3.5-5.1); Sodium 145 mmol/L (136-145)
== END 2023-03-31 09:16 | disposition home or self-care (01) ==
LOC: CHSLAB 09:16
PROVIDERS: PCP Family Medicine; Visit Provider Internal Medicine Cardiovascular Disease
DX: I48.11 Longstanding persistent atrial fibrillation (principal)
CPT/HCPCS: 36415; 80048; 85025

== ENCOUNTER 2023-06-16 08:47 | Outpatient (CLI) | payer MEDICARE, BC, SELFPAY ==
[2023-06-16 09:11] LABS: Basophils Absolute Auto 0.05 K/mm3 (0.00-0.10); Basophils Percent Auto 0.7 % (0.0-1.0); Eosinophils Absolute Auto 0.21 K/mm3 (0.02-0.50); Hematocrit 38.9 % (35.0-42.0); Hemoglobin 12.6 g/dL (11.7-13.8); Immature Granulocyte Absolute 0.02 K/mm3 (0.00-0.00); Immature Granulocyte Percent A 0.3 % (0.0-0.0); Lymphocytes Absolute Auto 2.64 K/mm3 (1.10-4.50); Lymphocytes Percent Auto 37.2 % (18.0-42.0); Mean Corpuscular HGB Conc 32.4 g/dL (32.0-36.0); Mean Corpuscular Hemoglobin 30.7 pg (27.0-31.0); Mean Corpuscular Volume 94.9 fL (78.0-102.0); Mean Platelet Volume 10.4 fl (9.2-11.8); Monocytes Absolute Auto 0.59 K/mm3 (0.10-0.90); Monocytes Percent Auto 8.3 % (2.0-11.0); Neutrophils Absolute Auto 3.6 K/mm3 (1.7-7.2); Neutrophils Percent Auto 50.5 % (50.0-70.0); Platelet Count Result 193 K/mm3 (150-420); Red Cell Distribution Width 14.3 % (11.6-14.4); White Blood Count 7.1 K/mm3 (4.8-10.8)
[2023-06-16 09:20] LABS: Hemoglobin A1C 6.8 % (<5.7)
[2023-06-16 09:30] LABS: Creatinine Urine 101.22 mg/dL (40-278); MALB Creatinine Ratio 15.1 mg/g (0-30); Microalbumin Urine Random 15.3 mg/L
[2023-06-16 10:03] LABS: Alanine Aminotransferase 31 U/L (14-59); Albumin Level 3.7 g/dL (3.4-5.0); Alkaline Phosphatase 79 U/L (46-116); Anion Gap 11 mmol/L (8-16); Aspartate Amino Transferase 20 U/L (15-37); Bilirubin,Total 0.3 mg/dL (0.00-1.00); Blood Urea Nitrogen 25 mg/dL (7-18); Calcium 9.6 mg/dL (8.5-10.1); Carbon Dioxide 26 mmol/L (21-32); Chloride 104 mmol/L (98-108); Cholesterol 143 mg/dL (0-200); Estimated Glomerular Filt Rate 37; Glucose 151 mg/dL (70-99); HDL Direct 50 mg/dL (40-60); LDL Cholesterol Calculated 62 mg/dL (<130); Osmolality Calculated 299 mOsm/kg (285-295); Potassium 4.7 mmol/L (3.5-5.1); Sodium 141 mmol/L (136-145); Total Protein 6.3 g/dL (6.4-8.2); Triglycerides 157 mg/dL (0-150)
[2023-06-21 14:05] LABS: Vitamin D 25 Hydroxy 32 ng/mL (30-100)
== END 2023-06-16 08:48 | disposition home or self-care (01) ==
LOC: CHSLAB 08:50
PROVIDERS: PCP Family Medicine; Visit Provider Family Medicine
DX: E11.9 Type 2 diabetes mellitus without complications (principal); R53.83 Other fatigue; E55.9 Vitamin D deficiency, unspecified; E78.2 Mixed hyperlipidemia
CPT/HCPCS: 36415; 80053; 80061; 82043; 82306; 83036; 84443; 85025

== ENCOUNTER 2023-07-02 12:59 | Outpatient (CLI) | payer MEDICARE, BC, SELFPAY ==
--- NOTE | ~2023-07-02 | DEXA_ITS ---
Bone Density Report Name: RICKY SCHAFFER Age: 82 Sex: Female Ethnicity: White Date of : 1940 Indication: postmenopausal; screening for osteoporosis; height loss; prior fracture; cancer; hysterectomy; Referring Provider: Kortney Aguirre Study: Bone densitometry was performed. Exam Date: July 02, 2023 Accession number: [id number] Bone Density: Region BMD T-score Z-score Classification AP Spine(L2, L3, L4) 1.221 1.3 4.2 Normal Femoral Neck (Left) 0.726 -1.1 1.4 Osteopenia Total Hip (Left) 0.898 -0.4 2.0 Normal World Health Organization criteria for BMD impression classify patients as: Normal (T-score at or above -1.0), Osteopenia (T-score between -1.0 and -2.5), or Osteoporosis (T-score at or below -2.5). 10-year Fracture Risk: FRAX not reported because: Prior hip or vertebral fracture Clinical Information Provided by Patient: Have had a previous hip or vertebral fracture Has had a low trauma fracture Has used the following medications: Vitamin D, Calcium Has the following medical conditions: Cancer, Hysterectomy Patient maximum height was 65 Menopause Age: 50 Onset of menses at age 10 Number of children 7 Impression: The patient has low bone mass, based on the Left Femoral Neck T-score. The patient has risk factors, including: previous fracture. Discussion: INCREASED RISK OF FRACTURE DUE TO HISTORY OF FRACTURE. The patient's previous fracture puts the patient at high risk of a future fracture. In untreated patients, the risk of osteoporotic fracture increases approximately two-fold for each 1.0 SD decrease in T-score. Low bone density is not the only risk factor for fracture; also consider factors such as patient's age, frailty or poor health, risk of falling, risk of injury, previous osteoporotic fracture, family history of osteoporosis, cigarette smoking, low body weight, etc. Not everyone with a low trauma fracture has osteoporosis; osteomalacia and other metabolic bone disorders should also be considered. Patients who have osteoporosis should be evaluated for specific diseases and conditions (secondary causes) that may cause or contribute to bone loss and fracture risk. National Osteoporosis Foundation (NOF) recommends pharmacologic intervention for patients with a prior hip or vertebral fracture regardless of BMD T-score. The patient should follow a healthful lifestyle (good nutrition with adequate calcium and vitamin D, and appropriate weight-bearing exercise). Follow-Up: Consider a repeat BMD and Vertebral Fracture Assessment (VFA) exam in 2 years or sooner if medically necessary, to reassess this patient's status. Reported by: Dr. Aristeo Nash on 07/02/2023 1:34:00 PM. Reviewed, dictated and finalized at location ANikole CAPUTO
--- NOTE | ~2023-07-02 | MM_ITS ---
EXAMINATION: MM screening jame BI w cass HISTORY: Screening mammogram TECHNIQUE: Craniocaudal and mediolateral oblique 3-D tomosynthesis images were obtained and synthetic 2-D images were generated. CAD analysis was submitted and interpreted. COMPARISON: 06/04/2022, 05/08/2022, 04/30/2020 BREAST PARENCHYMAL COMPOSITION: There are scattered areas of fibroglandular density. FINDINGS: Stable lumpectomy changes are noted in the left breast. No suspicious mass, calcification, or architectural distortion are identified in either breast to suggest malignancy. There has been no suspicious interval change. IMPRESSION: 1. No mammographic evidence of malignancy. 2. Recommend routine screening mammography while the patient remains in good health. BI-RADS Category 2: Benign finding(s). Reviewed, dictated and finalized at location A. FOOD RECEIVING CLERK IMPRESSION: 1. No mammographic evidence of malignancy. 2. Recommend routine screening mammography while the patient remains in good he alth. BI-RADS Category 2: Benign finding(s).
== END 2023-07-02 13:00 | disposition home or self-care (01) ==
LOC: CHSIMG 13:00
PROVIDERS: PCP Family Medicine; Visit Provider Family Medicine
DX: Z12.31 Encounter for screening mammogram for malignant neoplasm of breast (principal); Z78.0 Asymptomatic menopausal state; M85.88 Other specified disorders of bone density and structure, other site
CPT/HCPCS: 77063; 77067; 77080

== ENCOUNTER 2023-07-07 09:45 | Emergency (ER) | payer MEDICARE, BC, SELFPAY ==
--- NOTE | ~2023-07-07 | XR_ITS ---
XR elbow RT min 3V DATE: 07/07/2023 10:24 INDICATION: Fall last night. Right elbow abrasion, pain TECHNIQUE: 4 views COMPARISON: None FINDINGS: Prominent arterial calcification is noted. No fracture or dislocation or joint effusion of the right elbow. IMPRESSION: No fracture or dislocation or joint effusion Reviewed, dictated and finalized at location L. D EXECUTIVE
[2023-07-07 09:44] VITALS: BP 166/86; PULSE 94; RESP 18; TEMP 36.4; O2SAT 97
--- NOTE | 2023-07-07 09:59 | ED.UPPEXIN ---
HPI - Extremity Injury (Upper) General Chief Complaint: Extremity Injury, Upper Stated Complaint: right arm lac Time Seen by Provider: 07/07/23 09:51 Source: patient Mode of arrival: ambulatory Limitations: no limitations History of Present Illness HPI narrative: Patient is an 82-year-old female with a right upper forearm injury after missing her last step at home. She had no head or neck or other injuries. There was no prodrome syndrome. unknown tetanus status. MD complaint: injury to: right and forearm ( Upper near elbow) Onset (ago): minute(s) (30) Other Extremity Injury: Right: forearm Other injuries: none Place: home Severity: mild Severity scale (1-10): 1 Relieving factors: none Exacerbating factors: none Context: fall Associated symptoms: denies other symptoms Related Data Home Medications Medication Instructions Recorded Confirmed qtqdyqtv-doiw-ksde 8 mg-folic 400 1 tablet PO DAILY 06/22/19 07/07/23 mcg-K 50 mcg-lutein 300 mcg tablet (Centrum Silver Women) carvedilol 25 mg tablet (Coreg) 6.25 mg PO Q12HR 08/29/20 07/07/23 nitroglycerin 0.4 mg sublingual 0.4 mg sublingual PRN PRN Chest 01/12/21 07/07/23 tablet Pain uqjT-C5-N-G-wgjxnb-fnegeqm-min 1 tablet PO BID 01/12/21 07/07/23 3,300 unit-5 mg-200mg-75 unit tablet ER (ICaps) azelastine 137 mcg (0.1 %) nasal 1 spray intranasal Q12H PRN 05/13/22 07/07/23 spray aerosol Congestion ezetimibe 10 mg tablet (Zetia) 10 mg PO DAILY 05/13/22 07/07/23 isosorbide mononitrate 30 mg 30 mg PO DAILY 05/13/22 07/07/23 tablet,extended release 24 hr Allergies Allergy/AdvReac Type Severity Reaction Status Date / Time oxycodone Allergy Mild Vomiting Verified 06/15/23 09:37 codeine AdvReac Vomiting Verified 07/07/23 09:46 morphine AdvReac Vomiting Verified 07/07/23 09:46 Review of Systems Review of Systems: All systems reviewed & are unremarkable except as noted in HPI and below Constitutional: Constitutional: Reports no additional constitutional complaints Eyes: Eyes: Reports no additional eye complaints ENT: Reports system reviewed and no additional complaints, except as documented Cardiovascular: Cardiovascular: Reports no additional cardiovascular complaints Respiratory: Respiratory: Reports no additional respiratory complaints Gastrointestinal: Gastrointestinal: Reports no additional gastrointestinal complaints Genitourinary: Genitourinary: Reports no additional female genitourinary complaints Musculoskeletal: Musculoskeletal: Reports no additional musculoskeletal complaints Integumentary/Breasts: Skin/Breast: Reports system reviewed and no additional complaints, except as docu Neurologic: Reports system reviewed and no additional complaints, except as documented Psychiatric: Psychiatric: Reports no additional psychiatric complaints Endocrine: Endocrine: Reports no additional endocrine complaints Hematologic/Lymphatic: Hematologic/Lymphatic: Reports no additional hematologic/lymphatic complaints Allergic/Immunologic: Allergic/Immunologic: Reports no additional allergic/immunologic complaints [facility] Past Medical History Medical History Aortic stenosis Cervical radiculopathy Chronic anticoagulation : Warfarin for paroxysmal atrial fibrillation. Chronic kidney disease, stage 3 (moderate) : GFR ranging between 43 and > 60. Colon cancer screening (~06/2020) cologuard negative Coronary artery disease : With history of stent to LAD done at [facility]. Essential hypertension History of colon polyps History of left breast cancer : Status post lumpectomy, chemotherapy, and radiation. 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 : Hemoglobin A1c was 6.9% 08/09/2019. Iron deficiency anemia Mild persistent asthma without complication On amiodarone therapy Osteoarthritis Pacemaker (~04/07/23) P
[2023-07-07] MEDS: TETANUS,DIPHTHERIA,AC PERTUSSIS ADULT 0.5 ML (ADACEL) IM (10:31)
[2023-07-07 10:50] VITALS: BP 166/86; PULSE 94; RESP 18; TEMP 36.4; O2SAT 97
== END 2023-07-07 10:50 | disposition home or self-care (01) ==
PROVIDERS: Emergency Provider Emergency Medicine; PCP Family Medicine
DX: S51.811A Laceration without foreign body of right forearm, initial encounter (principal); I48.0 Paroxysmal atrial fibrillation; I25.10 Atherosclerotic heart disease of native coronary artery without angina pectoris; I12.9 Hypertensive chronic kidney disease with stage 1 through stage 4 chronic kidney disease, or unspecified chronic kidney disease; N18.30 Chronic kidney disease, stage 3 unspecified; Z79.899 Other long term (current) drug therapy; Z79.01 Long term (current) use of anticoagulants; Z85.3 Personal history of malignant neoplasm of breast; Z23 Encounter for immunization; W10.8XXA Fall (on) (from) other stairs and steps, initial encounter
CPT/HCPCS: 73080; 90471; 90715; 99283

== ENCOUNTER 2023-07-22 14:28 | Outpatient (CLI) | payer MEDICARE, SELFPAY ==
[2023-07-22 14:42] LABS: Appearance Urine Clear (Clear); Bilirubin Urine Negative (Negative); Blood Urine Negative (Negative); Color Urine Light Yellow (Yellow); Glucose Urine UA Negative (Negative); Ketones Urine Negative (Negative); Leukocyte Esterase Ur Trace LEU/UL (Negative); Nitrate Urine Negative (Negative); Protein Urine Negative (Negative)
[2023-07-22 15:11] LABS: Add Urine Microscopic? YES; Bacteria Urine Trace /hpf; RBC Urine None seen /hpf (0-2); Squamous Epithelial Cell Urine Few /hpf (Few); WBC Urine 0-3 /hpf (0-3)
== END 2023-07-22 14:29 | disposition home or self-care (01) ==
LOC: CHSLAB 14:30
PROVIDERS: PCP Family Medicine; Visit Provider Family Medicine
DX: N18.2 Chronic kidney disease, stage 2 (mild) (principal)
CPT/HCPCS: 81001

== ENCOUNTER 2023-09-30 07:08 | Emergency (ER) | payer MEDICARE, BC, SELFPAY ==
[2023-09-30] VITALS (27 sets, daily range): BP systolic 111–154; BP diastolic 70–99; PULSE 66–87; RESP 12–20; TEMP 36.6; O2SAT 98–100
--- NOTE | ~2023-09-30 | XR_ITS ---
EXAMINATION: XR chest 2V DATE: 09/30/2023 08:24 INDICATION: Mid sternal chest pain and nausea TECHNIQUE: PA and lateral views of the chest were obtained. COMPARISON: Chest radiograph date FINDINGS: The lungs remain clear with no focal airspace opacities, pulmonary edema, pleural effusion or pneumot horax. Mild cardiomegaly. Left anterior chest wall implantable monitoring and evaluation advisor. Skin vamsi project over the right upper quadrant. IMPRESSION: 1. No acute cardiopulmonary disease. Reviewed, dictated and finalized at location A.
--- NOTE | 2023-09-30 07:26 | ECG_ITS ---
SEE SCANNED COPY FOR CONFIRMED REPORT MTDD
[2023-09-30 08:07] LABS: Basophils Absolute Auto 0.1 K/mm3 (0.0-0.1); Basophils Percent Auto 0.5 % (0.2-1.2); Eosinophils Absolute Auto 0.2 K/mm3 (0-0.3); Eosinophils Percent Auto 1.6 % (0-4.4); Hematocrit 39.9 % (37.0-47.0); Immature Granulocyte Absolute 0.11 K/mm3 (0.00-0.031); Immature Granulocyte Percent A 0.9 % (0-0.5); Lymphocytes Absolute Auto 4.04 K/mm3 (0.9-3.2); Lymphocytes Percent Auto 34.2 % (18.3-44.2); Mean Corpuscular HGB Conc 32.6 g/dl (32-36); Mean Corpuscular Hemoglobin 31.2 pg (26-34); Mean Corpuscular Volume 95.7 fl (80-100); Mean Platelet Volume 10.8 fl (7.4-10.4); Monocytes Percent Auto 8.6 % (2.6-8.5); Neutrophils Absolute Auto 6.4 K/mm3 (1.3-6.7); Neutrophils Percent Auto 54.2 % (45.5-73.1); Platelet Count Result 234 k/mm3 (150-375); Red Blood Count 4.17 M/mm3 (4.2-5.4); Red Cell Distribution Width 14.8 % (11.5-14.5); White Blood Count 11.8 K/mm3 (4.5-10.0)
[2023-09-30 08:35] LABS: Alanine Aminotransferase 44 U/L (6-35); Albumin Level 4.1 g/dL (3.5-5.1); Alkaline Phosphatase 92 U/L (38-126); Anion Gap 6 mmol/L (4-12); Aspartate Amino Transferase 34 U/L (14-36); Bilirubin,Total 0.8 mg/dL (0.2-1.3); Blood Urea Nitrogen 25 mg/dL (7-17); Calcium 9.6 mg/dL (8.4-10.2); Carbon Dioxide 26 mmol/L (22-30); Chloride 108 mmol/L (98-107); Estimated CRCL calculation 38 ml/min; Estimated Glomerular Filt Rate 53; Glucose 153 mg/dL (65-110); Lipase 168 U/L (23-300); Potassium 4.4 mmol/L (3.4-5.0); Sodium 140 mmol/L (137-145)
[2023-09-30 08:43] LABS: Troponin I < 0.012 ng/mL (0.000-0.034)
[2023-09-30 09:17] LABS: INR 1.2; Partial Thromboplastin Time 27.4 Seconds (22.3-36.8); Prothrombin Time 15.5 Seconds (11.1-14.7)
--- NOTE | 2023-09-30 09:55 | ED.CHESTPAIN ---
HPI - Chest Pain General Chief Complaint: Chest Pain Stated Complaint: cp Time Seen by Provider: 09/30/23 09:07 Source: patient Mode of arrival: ambulatory Limitations: no limitations History of Present Illness HPI narrative: This is a 83-year-old female who presents to the ED via EMS with chief complaint of chest pain beginning around 0300. Patient reports the pain was located in the central chest and radiated to the jaw and into the back. unable to elaborate on exertional component but does note that the pain was constant for about 3 hours. Patient states her son, who she lives with, gave her nitro and this relieved the pain for several minutes. She states the pain at started to come back so EMS was called. She was given Zofran and NTG en route and patient states this helped her pain immensely. States that she is currently pain-free and nausea free. Denies vomiting, syncope, sweats, abdominal pain. history of 2 stents in the past. she is scheduled for stress test next week through her rifle case repairer here Dr. Banks. Related Data Home Medications Medication Instructions Recorded Confirmed veuyslmd-hdrr-cdbj 8 mg-folic 400 1 tablet PO DAILY 06/22/19 09/17/23 mcg-K 50 mcg-lutein 300 mcg tablet (Centrum Silver Women) carvedilol 25 mg tablet (Coreg) 6.25 mg PO Q12HR 08/29/20 09/17/23 nitroglycerin 0.4 mg sublingual 0.4 mg sublingual PRN PRN Chest 01/12/21 09/17/23 tablet Pain dlhY-E4-F-W-efbvoz-cxulmnr-min 1 tablet PO BID 01/12/21 09/17/23 3,300 unit-5 mg-200mg-75 unit tablet ER (ICaps) azelastine 137 mcg (0.1 %) nasal 1 spray intranasal Q12H PRN 05/13/22 09/17/23 spray aerosol Congestion ezetimibe 10 mg tablet (Zetia) 10 mg PO DAILY 05/13/22 09/17/23 isosorbide mononitrate 30 mg 30 mg PO DAILY 05/13/22 09/17/23 tablet,extended release 24 hr Allergies Allergy/AdvReac Type Severity Reaction Status Date / Time oxycodone Allergy Mild Vomiting Verified 09/17/23 10:01 codeine AdvReac Vomiting Verified 09/17/23 10:01 morphine AdvReac Vomiting Verified 09/17/23 10:01 Review of Systems Review of Systems: All systems as dictated in [facility] Past Medical History Medical History Aortic stenosis Cervical radiculopathy Chronic anticoagulation : Warfarin for paroxysmal atrial fibrillation. Chronic kidney disease, stage 3 (moderate) : GFR ranging between 43 and > 60. Colon cancer screening (~06/2020) cologuard negative Coronary artery disease : With history of stent to LAD done at [facility]. Essential hypertension History of colon polyps History of left breast cancer : Status post lumpectomy, chemotherapy, and radiation. 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 : Hemoglobin A1c was 6.9% 08/09/2019. Iron deficiency anemia Mild persistent asthma without complication On amiodarone therapy Osteoarthritis Pacemaker (~04/07/23) Paroxysmal atrial fibrillation : History of cardioversions, with previously noted loosely organized thrombus in the left atrial appendage, for which she was subsequently switched from Xarelto to warfarin. : Last cardioversion attempt in May 2018 was unsuccessful and she was referred to an commercial housekeeper at [place]. On arrival to that appointment, she was found to be in a normal sinus rhythm, and to her knowledge has remained in such since. Right forearm cellulitis Severe obstructive sleep apnea : Noted on sleep study 08/10/2019. : CPAP titrated to 11 cm. Surgical History Surgical History History of appendectomy History of bilateral cataract extraction History of bladder suspension procedure History of cholecystectomy History of D&C History of heart artery stent : Stent to LAD, done at [facility]. History of hysterectomy History of lum
[2023-09-30 11:12] LABS: Troponin I < 0.012 ng/mL (0.000-0.034)
== END 2023-09-30 12:07 | disposition home or self-care (01) ==
PROVIDERS: Emergency Medicine; Emergency Provider Physician Assistant; PCP Family Medicine
DX: I48.0 Paroxysmal atrial fibrillation (principal); I12.9 Hypertensive chronic kidney disease with stage 1 through stage 4 chronic kidney disease, or unspecified chronic kidney disease; E11.22 Type 2 diabetes mellitus with diabetic chronic kidney disease; N18.30 Chronic kidney disease, stage 3 unspecified; I25.10 Atherosclerotic heart disease of native coronary artery without angina pectoris; J45.30 Mild persistent asthma, uncomplicated; D50.9 Iron deficiency anemia, unspecified; G47.33 Obstructive sleep apnea (adult) (pediatric); M19.90 Unspecified osteoarthritis, unspecified site; Z95.5 Presence of coronary angioplasty implant and graft; Z95.0 Presence of cardiac pacemaker; Z96.643 Presence of artificial hip joint, bilateral; Z85.3 Personal history of malignant neoplasm of breast; Z92.21 Personal history of antineoplastic chemotherapy; Z92.3 Personal history of irradiation; Z86.010 Personal history of colon polyps; Z87.11 Personal history of peptic ulcer disease; Z98.42 Cataract extraction status, left eye; Z98.41 Cataract extraction status, right eye; Z90.49 Acquired absence of other specified parts of digestive tract; Z90.710 Acquired absence of both cervix and uterus; Z77.22 Contact with and (suspected) exposure to environmental tobacco smoke (acute) (chronic); Z79.01 Long term (current) use of anticoagulants; Z79.02 Long term (current) use of antithrombotics/antiplatelets; Z79.85 Long-term (current) use of injectable non-insulin antidiabetic drugs; Z79.4 Long term (current) use of insulin; R94.31 Abnormal electrocardiogram [ECG] [EKG]
CPT/HCPCS: 36415; 71046; 80053; 83690; 84484; 85025; 85610; 85730; 93005; 99284

== ENCOUNTER 2023-10-07 09:28 | Emergency (ER) | payer MEDICARE, BC, SELFPAY ==
[2023-10-07] VITALS (26 sets, daily range): BP systolic 99–148; BP diastolic 61–86; PULSE 101–105; RESP 20; TEMP 37.3; O2SAT 94–98
--- NOTE | ~2023-10-07 | XR_ITS ---
EXAMINATION: XR chest 1V portable DATE: 10/07/2023 10:14 INDICATION: Cough with mucopurulent sputum. TECHNIQUE: A single frontal view of the chest was obtained. COMPARISON: Chest 2 views 09/30/2023 FINDINGS: There are airspace opacities in the lower lung zones, right worse than left. No pleural eff usion or pneumothorax. Cardiomegaly is noted. An implant overlies the heart. IMPRESSION: 1. Airspace opacities in the lower lung zones, right worse than left, consistent with atelectasis aric dung pneumonia. 2. Cardiomegaly. Reviewed, dictated and finalized at location A. IMPRESSION: 1. Airspace opacities in the lower lung zones, right worse than left, consisten t with atelectasis versus pneumonia. 2. Cardiomegaly.
--- NOTE | 2023-10-07 09:50 | ED.URI ---
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 The patient had a negative workup. The patient is due to get a stress test tomorrow. MD elicited complaint: fever and cough Onset (ago): day(s) ( 1 day) Consistency: constant Severity: moderate Description of mucous: yellow Able to tolerate fluids by mouth: Yes Exacerbating factors: nothing Relieving factors: nothing Associated symptoms: fever, sore throat, cough, shortness of breath and nausea Treatments prior to arrival: none Related Data Home Medications Medication Instructions Recorded Confirmed [id number]-nlko-gail 8 mg-folic 400 1 tablet PO DAILY 06/22/19 10/07/23 mcg-K 50 mcg-lutein 300 mcg tablet (Centrum Silver Women) carvedilol 25 mg tablet (Coreg) 6.25 mg PO Q12HR 08/29/20 10/07/23 nitroglycerin 0.4 mg sublingual 0.4 mg sublingual PRN PRN Chest 01/12/21 10/07/23 tablet Pain oiqF-T7-[id number]-C-dqwfwj-urbhjcd-min 1 tablet PO BID 01/12/21 10/07/23 3,300 unit-5 mg-200mg-75 unit tablet ER (ICaps) azelastine 137 mcg (0.1 %) nasal 1 spray intranasal Q12H PRN 05/13/22 10/07/23 spray aerosol Congestion ezetimibe 10 mg tablet (Zetia) 10 mg PO DAILY 05/13/22 10/07/23 isosorbide mononitrate 30 mg 30 mg PO DAILY 05/13/22 10/07/23 tablet,extended release 24 hr insulin glargine 100 unit/mL (3 38 unit subcut DAILY 10/07/23 10/07/23 mL) subcutaneous pen (Lantus Solostar U-100 Insulin) rivastigmine tartrate 1.5 mg 1.5 mg PO BID 10/07/23 10/07/23 capsule rosuvastatin 20 mg tablet 20 mg PO DAILY 10/07/23 10/07/23 Allergies Allergy/AdvReac Type Severity Reaction Status Date / Time oxycodone Allergy Mild Vomiting Verified 10/07/23 11:02 codeine AdvReac Vomiting Verified 10/07/23 11:02 morphine AdvReac Vomiting Verified 10/07/23 11:02 Review of Systems Review of Systems: All systems reviewed & are unremarkable except as noted in HPI and below Constitutional: Constitutional: Reports as per HPI, Reports no additional constitutional complaints and Reports fever(s) Eyes: Eyes: Reports as per HPI and Reports no additional eye complaints ENT: Reports system reviewed and no additional complaints, except as documented and Reports as per HPI Cardiovascular: Cardiovascular: Reports as per HPI and Reports no additional cardiovascular complaints Respiratory: Respiratory: Reports as per HPI, Reports no additional respiratory complaints and Reports cough Comments: pleuritic chest wall pain Gastrointestinal: Gastrointestinal: Reports as per HPI and Reports nausea Genitourinary: Genitourinary: Reports no additional female genitourinary complaints and Reports as per HPI Musculoskeletal: Musculoskeletal: Reports no additional musculoskeletal complaints and Reports as per HPI Integumentary/Breasts: Skin/Breast: Reports system reviewed and no additional complaints, except as docu and Reports as per HPI Neurologic: Reports system reviewed and no additional complaints, except as documented and Reports as per HPI Psychiatric: Psychiatric: Reports no additional psychiatric complaints and Reports as per HPI Endocrine: Endocrine: Reports no additional endocrine complaints and Reports as per HPI Hematologic/Lymphatic: Hematologic/Lymphati
--- NOTE | 2023-10-07 10:06 | ECG_ITS ---
SEE SCANNED COPY FOR CONFIRMED REPORT. MTDD
[2023-10-07 10:17] LABS: SARS-CoV-2 RNA PCR Negative (Negative)
[2023-10-07 10:18] LABS: Influenza A QL RT-PCR Negative (Negative); Influenza B QL RT-PCR Negative (Negative); RSV RNA, RT-PCR Negative (Negative)
[2023-10-07 10:23] LABS: Basophils Absolute Auto 0.06 K/mm3 (0.00-0.10); Basophils Percent Auto 0.8 % (0.0-1.0); Eosinophils Absolute Auto 0.09 K/mm3 (0.02-0.50); Eosinophils Percent Auto 1.2 % (1.0-6.0); Hematocrit 39.2 % (35.0-42.0); Hemoglobin 12.8 g/dL (11.7-13.8); Immature Granulocyte Absolute 0.03 K/mm3 (0.00-0.00); Immature Granulocyte Percent A 0.4 % (0.0-0.0); Lymphocytes Absolute Auto 1.22 K/mm3 (1.10-4.50); Lymphocytes Percent Auto 16.3 % (18.0-42.0); Mean Corpuscular HGB Conc 32.7 g/dL (32-36); Mean Corpuscular Hemoglobin 30.3 pg (27.0-31.0); Mean Corpuscular Volume 92.7 fL (78.0-102.0); Mean Platelet Volume 10.5 fl (9.2-11.8); Monocytes Absolute Auto 0.76 K/mm3 (0.10-0.90); Monocytes Percent Auto 10.2 % (2.0-11.0); Neutrophils Absolute Auto 5.32 K/mm3 (1.70-7.20); Neutrophils Percent Auto 71.1 % (50.0-70.0); Platelet Count Result 162 K/mm3 (150-420); Red Blood Count 4.23 M/mm3 (4.20-5.40); Red Cell Distribution Width 14.6 % (11.6-14.4); White Blood Count 7.5 K/mm3 (4.8-10.8)
[2023-10-07 10:47] LABS: Lactic Acid Reflex 1.6 mmol/L (0.4-2.0)
[2023-10-07 10:48] LABS: Alanine Aminotransferase 26 U/L (14-59); Albumin Level 3.2 g/dL (3.4-5.0); Alkaline Phosphatase 68 U/L (46-116); Anion Gap 9 mmol/L (4-12); Aspartate Amino Transferase 23 U/L (15-37); Bilirubin,Total 0.7 mg/dL (0.00-1.00); Blood Urea Nitrogen 14 mg/dL (7-18); Calcium 9.2 mg/dL (8.5-10.1); Carbon Dioxide 27 mmol/L (21-32); Chloride 101 mmol/L (98-108); Estimated CRCL calculation 33 ml/min; Estimated Glomerular Filt Rate 45; Glucose 174 mg/dL (70-99); NT Pro B Type Natriuretic Pept 1680 pg/mL (0-450); Osmolality Calculated 288 mOsm/kg (285-295); Potassium 4.4 mmol/L (3.5-5.1); Sodium 137 mmol/L (136-145); Troponin I 10.8 ng/L (0.00-60.4)
[2023-10-07] MEDS: CEFEPIME 2 GM/NS 50 ML 2 GM/50 ML BAG IVPB (11:35)
[2023-10-07] MEDS: VANCOMYCIN 1,250 MG/NS 250 ML 1,250 MG/250 ML BAG 200 MG IVPB (11:58)
--- NOTE | 2023-10-13 12:29 | PC.NURSE ---
Final blood culture report, no growth after 5 days, no further action or treatment needed per ERP.
== END 2023-10-07 13:35 | disposition critical access hospital (66) ==
PROVIDERS: Emergency Provider Internal Medicine Critical Care Medicine; PCP Family Medicine
DX: J18.9 Pneumonia, unspecified organism (principal); N18.31 Chronic kidney disease, stage 3a; E11.65 Type 2 diabetes mellitus with hyperglycemia; Z20.822 Contact with and (suspected) exposure to COVID-19; E11.22 Type 2 diabetes mellitus with diabetic chronic kidney disease; Z85.3 Personal history of malignant neoplasm of breast; I25.10 Atherosclerotic heart disease of native coronary artery without angina pectoris; Z96.641 Presence of right artificial hip joint; I48.0 Paroxysmal atrial fibrillation; Z79.01 Long term (current) use of anticoagulants; Z95.0 Presence of cardiac pacemaker; I13.0 Hypertensive heart and chronic kidney disease with heart failure and stage 1 through stage 4 chronic kidney disease, or unspecified chronic kidney disease; I50.9 Heart failure, unspecified; Z79.4 Long term (current) use of insulin
CPT/HCPCS: 36415; 71045; 80053; 83605; 83880; 84484; 85025; 87040; 87637; 93005; 96365; 96367; 99285; J0692; J3370

== ENCOUNTER 2023-10-07 14:19 | Inpatient (IN) | payer MEDICARE, BC, SELFPAY ==
--- NOTE | 2023-10-07 | ECHO_ITS ---
Patient Info Name: Nohelia Laurent Age: 83 years : 1940 Gender: Female Ht: 64 in Wt: 182 lbs BSA: 1.96 m2 HR: 105 bpm BP: 160 / 80 mmHg Heart Rhythm: Atrial Fibrillation Technical Quality: Fair Exam Date: 10/07/2023 4:18 PM Exam Location: Echo Lab Patient Status: Outpatient Admit Date: 10/07/2023 Staff Ordering Physician: Cheri Treadwell APRN Engineer Conductor: Isaiah Corrales RDCS Attending Provider: Abi Sweeney MD Referring Physician: Eben TRUJILLO; Exam Type: CA echo doppler color flow Study Info Indications R06.02 - Shortness of breath I48.1 - Persistent atrial fibrillation Complete two-dimensional, color flow and Doppler transthoracic echocardiogram is performed. Summary 1. Left ventricular chamber dimension is normal. 2. Left ventricular systolic function is normal, estimated at 50-55%. 3. Right ventricular systolic function is normal. 4. Left atrial chamber dimension is severely enlarged. 5. Right atrial chamber dimension is severely enlarged. 6. There is moderate aortic valve calcification. 7. There is mild-moderate aortic valve stenosis with a peak velocity of 255 cm/s, mean gradient of 13 mmHg, and aortic valve area of 1.2 cm2. 8. There is mild mitral valve regurgitation. 9. There is mild tricuspid valve regurgitation. Left Ventricle Left ventricular chamber dimension is normal. Left ventricular systolic function is normal, estimated at 50-55%. There is no increased left ventricular wall thickness. Right Ventricle Right ventricular chamber dimension is normal. Right ventricular systolic function is normal. Left Atria Left atrial chamber dimension is severely enlarged. Right Atria Right atrial chamber dimension is severely enlarged. Atrial Septum Intact interatrial septum visualized by color flow imaging. Aortic Valve There is mild-moderate aortic valve stenosis with a peak velocity of 255 cm/s, mean gradient of 13 mmHg, and aortic valve area of 1.2 cm2. The aortic valve is probable trileaflet. There is no aortic valve regurgitation. There is moderate aortic valve calcification. Pulmonic Valve The pulmonic valve is not well visualized. There is trace pulmonic regurgitation. Mitral Valve There is mild mitral valve regurgitation. The mitral valve annulus is moderately calcified. Tricuspid Valve There is mild tricuspid valve regurgitation. Pericardium/Pleural There is no pericardial effusion. Inferior Vena Cava Normal inferior vena cava with >50% collapse upon inspiration consistent with elevated right atrial pressure, 8 mmHg. Aorta The aortic root size at the sinus of Valsalva is normal. Left Ventricular Outflow Tract Name Value Normal LVOT 2D LVOT Diameter 2.0 cm LVOT Doppler LVOT Peak Gradient 3 mmHg LVOT Mean Gradient 2 mmHg LVOT VTI 13 cm LVOT VTI/AV VTI Ratio 0.2 LVOT Stroke Volume 39 ml LVOT CO 3.7 l/min LVOT CI 1.9 l/min/m2 Pulmonic Valve Name
--- NOTE | ~2023-10-07 | NM_ITS ---
EXAMINATION: NM melody stress w perfusion DATE: 10/09/2023 11:25 INDICATION: Dyspnea on exertion TECHNIQUE: Rest images were obtained following intravenous administration of 11 mCi Tc99m tetrofosmin (Myoview). The patient was infused intravenously with Lexiscan (Regadenoson). Then, 33.8 mCi Tc99m t etrofosmin (Myoview) was administered intravenously, and stress images were obtained. Data was recons tructed into short axis and horizontal and vertical long axis SPECT images. Gated SPECT images were a lso obtained. COMPARISON: None. FINDINGS: On the stress images there is a moderate-sized mild perfusion defect involving primarily th e right coronary artery vascular distribution. This is nonreversible in the apical septal segment ext ending into the mid inferoseptal, partially into the apical inferior segment, partially reversible at the mid inferior segment and nonreversible in the mid inferolateral and basilar inferior and inferol ateral segments. There is normal left ventricular chamber size, wall motion and ejection fraction. Left ventricular ejection fraction measures 70%. IMPRESSION: 1. Moderate-sized mild partially reversible perfusion defect involving primarily the right coronary a rtery vascular distribution consistent with combination of infarct nonreversible on the inferoseptal side and transitioning to reversible ischemia at the infra lateral side as detailed above. 2. Left ventricular ejection fraction measuring 70%. Reviewed, dictated and finalized at location A. IMPRESSION: 1. Moderate-sized mild partially reversible perfusion defect involving primaril y the right coronary artery vascular distribution consistent with combination o f infarct nonreversible on the inferoseptal side and transitioning to reversibl e ischemia at the infra lateral side as detailed above. 2. Left ventricular ejection fraction measuring 70%.
--- NOTE | 2023-10-07 15:47 | ADMGEN ---
This patient, Nohelia Laurent, was admitted to IMU Room 201-01. Patient/family oriented to hospital policies and general routines including ID bracelet, bed and alarms, visiting hours, pain management, procedures, bathroom and other care routines, personal items, smoking policy, room service/diet, and visiting hours. Information on how to activate the Rapid Response Team has been discussed. Patient/Family are encouraged to report perceived risks to care and to ask questions if they do not understand what they are told or what they should do.
[2023-10-07 16:00] VITALS: BP 137/78; PULSE 104; PULSE 98; RESP 24; TEMP 37.6; O2SAT 94
[2023-10-07 16:01] LABS: Glucose Point of Care 164 mg/dl (65-105)
--- NOTE | 2023-10-07 16:04 | PM.IMHP ---
H&P: HPI History of Present Illness Date/Time: 10/07/23 16:04 Chief Complaint: SOB, Dizziness, Cough Narrative: 83 y/o F presents here with shortness of breath, cough, nausea, and dizziness with PMH of breast cancer (L, s/p lumpectomy, chemo, radiation; 2012 and treated at [place]), HTN, DM, CKD S3, PUD, CAD (s/p cardiac stenting), pAFib (s/p cardioversion and pacemaker in place), and a left atrial thrombus on Eliquis. Patient presented to [place] ED via EMS for for further evaluation of shortness of breath, cough, nausea, and dizziness. Patient initially developed coughing, rhinorrhea, and fever that started on Tuesday 10/03. Then developed shortness of breath, dizziness and nausea over the last few days. Cough is currently productive yielding yellow sputum. No recent abx use or recent admissions. Patient did have episode of chest pain on 09/30/23 and was ultimately discharged home with script for Imdur and stress test planned for this week. +fatigue. Denies body aches, chills, abdominal pain, diarrhea, or swelling to her lower extremities/abdomen. Denies hx of smoking. After admission here, did have episode of diaphoresis with no associated chest pain or palpations. Did have increased shortness of breath with the diaphoresis and placed on 1L NC for comfort. Currently on Eliquis and Plavix secondary to AFib and a left atrial thrombus (Jun 2023?). Initial VS at presentation: 99.1? F, HR 105, RR 20, 148/86, and 96% on RA. ED workup showed: no leukocytosis, no anemia, creatinine 1.15 and GFR 45 (previously 1.0 and GFR 53 on 09/30/2023), lactic acid 1.6, BNP 1680, and viral PCR negative. CXR showed airspace opacities in the lower lung zones with right worse than left and cardiomegaly. Review of Systems Review of Systems: All systems reviewed & are unremarkable except as noted in HPI and below PMFSH Past Medical History Medical History Aortic stenosis Cervical radiculopathy Chronic anticoagulation : Warfarin for paroxysmal atrial fibrillation. Chronic kidney disease, stage 3 (moderate) : GFR ranging between 43 and > 60. Colon cancer screening (~06/2020) cologuard negative Coronary artery disease : With history of stent to LAD done at [facility]. Essential hypertension History of colon polyps History of left breast cancer : Status post lumpectomy, chemotherapy, and radiation. 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 : Hemoglobin A1c was 6.9% 08/09/2019. Iron deficiency anemia Mild persistent asthma without complication On amiodarone therapy Osteoarthritis Pacemaker (~04/07/23) Paroxysmal atrial fibrillation : History of cardioversions, with previously noted loosely organized thrombus in the left atrial appendage, for which she was subsequently switched from Xarelto to warfarin. : Last cardioversion attempt in May 2018 was unsuccessful and she was referred to an copper miner at [place]. On arrival to that appointment, she was found to be in a normal sinus rhythm, and to her knowledge has remained in such since. Right forearm cellulitis Severe obstructive sleep apnea : Noted on sleep study 08/10/2019. : CPAP titrated to 11 cm. Surgical History Surgical History History of appendectomy History of bilateral cataract extraction History of bladder suspension procedure History of cholecystectomy History of D&C History of heart artery stent : Stent to LAD, done at [facility]. History of hysterectomy History of lumpectomy of left breast History of permanent cardiac pacemaker placement (~04/07/23) History of right hip hemiarthroplasty (08/30/19) Family History Family History Father Family history of diabetes mellitus in first degree relative Hypertensio
[2023-10-07] MEDS: AZITHROMYCIN 500 MG/NS 250 ML 500 MG/250 ML BAG 250 MG IVPB (17:49)
[2023-10-07] MEDS: OPTI-GEN TAB 1 TABLET PO (17:51)
[2023-10-07] MEDS: APIXABAN 5 MG TABLET PO (17:51)
[2023-10-07] MEDS: RIVASTIGMINE TARTRATE 1.5 MG CAPSULE PO (17:52)
[2023-10-07 18:00] VITALS: PULSE 105
[2023-10-07] MEDS: ACETAMINOPHEN 325 MG TABLET 650 MG PO (18:53)
[2023-10-07 20:00] VITALS: BP 93/61; PULSE 97; PULSE 99; RESP 26; TEMP 36.6; O2SAT 97
[2023-10-07] MEDS: LACTATED RINGERS 1,000 ML 100 ML IV CONT (20:12)
[2023-10-07 20:13] VITALS: PULSE 96
[2023-10-07] MEDS: carvediloL 6.25 MG TABLET PO (20:13)
[2023-10-07 20:23] LABS: MRSA (PCR) NOT DETECTED (NOT DETECTE)
[2023-10-07 20:30] LABS: Glucose Point of Care 143 mg/dl (65-105)
[2023-10-07 21:57] VITALS: PULSE 82
[2023-10-07 22:08] LABS: Troponin I 0.013 ng/mL (0.000-0.034)
[2023-10-07 22:16] LABS: Procalcitonin 0.2 ng/mL
[2023-10-07 23:59] VITALS: BP 107/47; PULSE 85; RESP 26; TEMP 36.6; O2SAT 98
[2023-10-08] VITALS (22 sets, daily range): BP systolic 94–119; BP diastolic 49–58; PULSE 73–102; RESP 18–28; TEMP 36.6–37.4; O2SAT 96–98
[2023-10-08] MEDS: LEVALBUTEROL NEB 1.25 MG/3 ML INHALATION (02:35)
[2023-10-08 04:15] LABS: Basophils Absolute Auto 0.1 K/mm3 (0.0-0.1); Basophils Percent Auto 0.6 % (0.2-1.2); Eosinophils Absolute Auto 0.1 K/mm3 (0-0.3); Eosinophils Percent Auto 0.6 % (0-4.4); Hematocrit 39.5 % (37.0-47.0); Hemoglobin 12.8 g/dL (12.0-15.0); Immature Granulocyte Absolute 0.06 K/mm3 (0.00-0.031); Immature Granulocyte Percent A 0.8 % (0-0.5); Immature Platelet Fraction Pct 5.2 % (0.9-11.2); Lymphocytes Absolute Auto 1.53 K/mm3 (0.9-3.2); Lymphocytes Percent Auto 19.2 % (18.3-44.2); Mean Corpuscular HGB Conc 32.4 g/dl (32-36); Mean Corpuscular Hemoglobin 30.8 pg (26-34); Monocytes Absolute Auto 0.9 K/mm3 (0.1-0.6); Monocytes Percent Auto 10.8 % (2.6-8.5); Neutrophils Absolute Auto 5.4 K/mm3 (1.3-6.7); Platelet Count Result 141 k/mm3 (150-375); Red Blood Count 4.16 M/mm3 (4.2-5.4); Red Cell Distribution Width 14.8 % (11.5-14.5)
[2023-10-08 04:27] LABS: Alanine Aminotransferase 20 U/L (6-35); Albumin Level 4.1 g/dL (3.5-5.1); Alkaline Phosphatase 66 U/L (38-126); Anion Gap 8 mmol/L (4-12); Aspartate Amino Transferase 34 U/L (14-36); Blood Urea Nitrogen 16 mg/dL (7-17); Calcium 9.5 mg/dL (8.4-10.2); Carbon Dioxide 25 mmol/L (22-30); Chloride 104 mmol/L (98-107); Estimated Glomerular Filt Rate 53; Glucose 148 mg/dL (65-110); Potassium 4.4 mmol/L (3.4-5.0); Sodium 137 mmol/L (137-145)
[2023-10-08] MEDS: SODIUM CHLORIDE 0.9% IV 250 ML IV CONT (04:29)
[2023-10-08 04:53] LABS: Appearance Urine Clear (Clear); Bacteria Urine None Seen /hpf; Bilirubin Urine Negative (Negative); Blood Urine Negative (Negative); Color Urine Yellow (Yellow); Glucose Urine UA Negative (Negative); Ketones Urine Trace mg/dL (Negative); Leukocyte Esterase Ur Trace LEU/UL (Negative); Nitrate Urine Negative (Negative); Non Pathogenic Casts 0-2; Protein Urine Trace mg/dL (Negative); RBC Urine 0-2 /hpf (0-2); Specific Grav Ur 1.023 (1.001-1.035); Squamous Epithelial Cell Urine None Seen /hpf (Few); Urobilinogen Urine 0.2 mg/dL (<2.0); WBC Urine 0-5 /hpf (0-3); pH Urine 5.5 (5.0-9.0)
[2023-10-08 05:03] LABS: Add Urine Microscopic? YES
[2023-10-08 07:49] LABS: Glucose Point of Care 146 mg/dl (65-105)
--- NOTE | 2023-10-08 08:30 | PM.IMPN ---
Progress Note: A&P Assessment and Plan (1) Sepsis: Code(s): A41.9 - Sepsis, unspecified organism Status: Acute Assessment and Plan: - meets SIRS criteria: HR, RR - lactic acid: 1.6 - procalcitonin 0.2 - holding on starting 30 mL/kg bolus, initial concern there is a CHF component. echo ordered and started on LR at 100 mL/hr x1L. - suspected source: PNA - started on vanc and cefepime on 10/06, exchanging to ceftriaxone and azithromycin for CAP coverage. no risk factors for HAP. - blood cultures drawn on 10/06 - UA ordered - CXR: 1. Airspace opacities in the lower lung zones, right worse than left, consistent with atelectasis versus pneumonia. 2. Cardiomegaly. - admission to IMU due to recurrent AFib 10/07: -preliminary cultures with NGTD -leukocytosis resolved -urine clear (2) Bilateral pneumonia: Qualifiers: Lung location: lower lobe of lung Pneumonia type: due to unspecified organism Qualified Code(s): J18.9 - Pneumonia, unspecified organism Code(s): J18.9 - Pneumonia, unspecified organism Status: Inactive Assessment and Plan: - CXR: bilateral lower lobe PNA, R worse than L - risk factors: none - complicating factors: initial concern for CHF, no evidence of volume overload, BNP elevated but normal when adjusted for age - started on CAP tx: ceftriaxone and azithromycin on 10/06 - MRSA PCR negative - Viral PCR negative for flu/covid/rsv - no supplemental O2 requirement due to hypoxia, placed on 1L NC for comfort 10/07: -continue with CAP coverage IV -Added nebs scheduled q 4 hours for wheezing -steroids not indicated at this time -incentive spirometry, pep -wean o2 as tolerated (3) Paroxysmal atrial fibrillation: Code(s): I48.0 - Paroxysmal atrial fibrillation Status: Acute Assessment and Plan: - EKG, initial: AFib RVR with rate of 108, incomplete RBBB, septal OR of indeterminate age. when compared to previous, HR increased. - hx of paroxysmal AFib s/p cardioversion and pacemaker in place - currently on Eliquis 5 mg BID, carvedilol 6.25 mg b.i.d. Patient also on Plavix. - cardiology consulted, awaiting recs - troponin: 10.8 (high sensitivity) -> 0.013 - echo ordered, last done in 2021. showed EF of 59%, mild to moderate valvular disease, mild pulmonary HTN, and AFib. - interrogate pacemaker - HR now ranging between 80-90's 10/07: - txf med-tele -cards consulted, rec's appreciated. Patient wants to know if she should do the stress test while here. -ECHO ordered -pacer has been interrogated -a-fib with rate in the 90's on tele (4) Hyperglycemia due to type 2 diabetes mellitus: Qualifiers: Diabetes mellitus assisted insulin use: with termite control servicer use Qualified Code(s): E11.65 - Type 2 diabetes mellitus with hyperglycemia; Z79.4 - residential (current) use of insulin Code(s): E11.65 - Type 2 diabetes mellitus with hyperglycemia Status: Inactive Assessment and Plan: - hypoglycemia protocol - POC blood glucose ACHS - home medication resumed: Lantus 38 units HS - correct regimen ordered - low dose TID WM and HS - A1C ordered 10/07: -decreased Lantus home dose by 20% - (5) CKD (chronic kidney disease) stage 3, GFR 30-59 ml/min: Qualifiers: Chronic kidney disease stage 3 subtype: stage 3a (GFR 45-59) Qualified Code(s): N18.31 - Chronic kidney disease, stage 3a Code(s): N18.30 - Chronic kidney disease, stage 3 unspecified Status: Inactive Assessment and Plan: - creatinine 1.15 - GFR 45 - hx of CKD stage III - trend renal function - trend electrolytes, correct as needed (6) Essential hypertension: Code(s): I10 - Essential (primary) hypertension Status: Acute Assessment and Plan: - chronic, currently 137/78 - continue home medications: carvedilol 6.25 mg b.i.d., Imdur 10 mg daily - monitor Plan patient here with shortness of breath a
[2023-10-08] MEDS: guaiFENesin 12 HR 600 MG TABCR PO ×2 (08:41→20:34)
[2023-10-08] MEDS: BENZONATATE 100 MG CAPSULE PO ×3 (08:41→16:58)
[2023-10-08] MEDS: carvediloL 6.25 MG TABLET PO ×2 (08:41→20:34)
[2023-10-08] MEDS: APIXABAN 5 MG TABLET PO ×2 (08:41→16:58)
[2023-10-08] MEDS: CLOPIDOGREL BISULFATE 75 MG TABLET PO (08:41)
[2023-10-08] MEDS: ROSUVASTATIN 20 MG TABLET PO (08:42)
[2023-10-08] MEDS: RIVASTIGMINE TARTRATE 1.5 MG CAPSULE PO ×2 (08:42→17:21)
[2023-10-08] MEDS: THERAPEUTIC MULTIVITAMINS/MINERALS TAB (*BKC) 1 TABLET PO (08:42)
[2023-10-08] MEDS: OPTI-GEN TAB 1 TABLET PO ×2 (08:42→16:58)
[2023-10-08] MEDS: EZETIMIBE 10 MG TABLET PO (08:42)
[2023-10-08] MEDS: ISOSORBIDE MONONITRATE 10 MG TABLET PO (09:04)
[2023-10-08 11:44] LABS: Glucose Point of Care 264 mg/dl (65-105)
[2023-10-08] MEDS: INSULIN ASPART (*BKC) 100 UNITS/ML SUB-Q ×2 (11:47→21:31)
[2023-10-08] MEDS: AZITHROMYCIN 500 MG/NS 250 ML 500 MG/250 ML BAG 250 MG IVPB (12:24)
[2023-10-08] MEDS: IPRATROPIUM 0.5 MG/ALBUTEROL SULFATE 2.5 MG AMPUL.NEB 3 ML INHALATION ×2 (13:20→20:20)
--- NOTE | 2023-10-08 13:33 | PM.CNCAR ---
Assessment and Plan Assessment and plan (1) Pneumonia: Code(s): J18.9 - Pneumonia, unspecified organism Status: Acute Assessment and Plan: On antibiotics as per primary team. (2) Dyspnea on exertion: Code(s): R06.09 - Other forms of dyspnea Status: Acute Assessment and Plan: Does not appear to be in decompensated CHF. She appears euvolemic. Was scheduled for Lexiscan to be done today in our office. As patient is now admitted, will complete as inpatient. Patient to be NPO at midnight. Lexiscan tomorrow. Echo also ordered. (3) Coronary artery disease: Code(s): I25.10 - Atherosclerotic heart disease of [place] coronary artery without angina pectoris Status: Acute Assessment and Plan: Continue Plavix, statin. (4) Essential hypertension: Code(s): I10 - Essential (primary) hypertension Status: Acute Assessment and Plan: Stable. Continue home antihypertensive regimen. (5) Persistent atrial fibrillation: Code(s): I48.19 - Other persistent atrial fibrillation Status: Acute Assessment and Plan: Overall she is rate controlled. Continue Coreg, Eliquis. History of Present Illness History of Present Illness Consult date/time: 10/08/23 13:33 Requesting physician: Cheri Treadwell APRN Consult reason: atrial fibrillation Reason For Visit: pneumonia,afib with rvr Narrative: This is an 83 year old female who follows with us in the office (Dr. Bradley). She has: 1. Coronary artery disease s/p LAD stent and PTCA of [place] in 2008, s/p complex PCI of a high-grade LCX lesion at [facility] on 05/16/2022 2. Persistent vs longstanding persistent AF/SSS. Had ocular toxicity with Amiodarone. Had breakthrough AFIB with Sotalol. Metoprolol caused dizziness. On Eliquis for anticoagulation. 3. History of left atrial thrombus on Xarelto in the past, requiring switch to Coumadin. Now on Eliquis. 4. S/p Micra leadless pacemaker by Dr. Godwin 04/06/2023 due to pauses 5. Hypertension 6. Hyperlipidemia 7. Type 2 diabetes mellitus 8. [place] but unfortunately cannot tolerate CPAP Patient presented to [facility] 10/06 with shortness of breath, productive cough, subjective fever. Transferred to [place]. Being treated for pneumonia. Tropnins are negative. EKG with AFIB with heart rates in the 100s. Patient was scheduled to get stress test in our office today for progressive dyspnea on exertion. Review of Systems Review of Systems: All systems reviewed & are unremarkable except as noted in HPI and below (HPI) [facility] Past Medical History Medical History Aortic stenosis Cervical radiculopathy Chronic anticoagulation : Warfarin for paroxysmal atrial fibrillation. Chronic kidney disease, stage 3 (moderate) : GFR ranging between 43 and > 60. Colon cancer screening (~06/2020) cologuard negative Coronary artery disease : With history of stent to LAD done at [facility]. Essential hypertension History of colon polyps History of left breast cancer : Status post lumpectomy, chemotherapy, and radiation. 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 : Hemoglobin A1c was 6.9% 08/09/2019. Iron deficiency anemia Mild persistent asthma without complication On amiodarone therapy Osteoarthritis Pacemaker (~04/07/23) Paroxysmal atrial fibrillation : History of cardioversions, with previously noted loosely organized thrombus in the left atrial appendage, for which she was subsequently switched from Xarelto to warfarin. : Last cardioversion attempt in May 2018 was unsuccessful and she was referred to an script editor at [place]. On arrival to that appointment, she was found to be in a normal sinus rhythm, and to her knowledge has remained in such since. Right forearm cellulitis Severe obstructive sleep apnea
--- NOTE | 2023-10-08 14:25 | PC.NURSE ---
This patient, Nohelia Laurent, was transferred to [facility] on 10/08/23 at 1425. Personal belongings sent with patient. Report given to Diane. Appropriate documentation sent with patient.
--- NOTE | 2023-10-08 14:56 | PC.NURSE ---
This patient, Nohelia Laurent, was received from IMU on 10/08/23 at 1430. Patient/family oriented to unit policies and routines.
[2023-10-08 17:04] LABS: Glucose Point of Care 175 mg/dl (65-105)
[2023-10-08] MEDS: INSULIN GLARGINE (*BKC) 100 UNITS/ML 30 UNITS SUB-Q (21:30)
[2023-10-08] MEDS: ACETAMINOPHEN 325 MG TABLET 650 MG PO (21:32)
[2023-10-08 21:34] LABS: Glucose Point of Care 229 mg/dl (65-105)
[2023-10-09] VITALS (17 sets, daily range): BP systolic 109–126; BP diastolic 63–78; PULSE 73–101; RESP 16–20; TEMP 36.4–36.8; O2SAT 97–98
[2023-10-09 05:32] LABS: Basophils Percent Auto 0.6 % (0.2-1.2); Eosinophils Absolute Auto 0.3 K/mm3 (0-0.3); Eosinophils Percent Auto 4.2 % (0-4.4); Hematocrit 36.9 % (37.0-47.0); Hemoglobin 12.1 g/dL (12.0-15.0); Immature Granulocyte Absolute 0.02 K/mm3 (0.00-0.031); Immature Granulocyte Percent A 0.3 % (0-0.5); Lymphocytes Absolute Auto 2.45 K/mm3 (0.9-3.2); Lymphocytes Percent Auto 36.6 % (18.3-44.2); Mean Corpuscular HGB Conc 32.8 g/dl (32-36); Mean Corpuscular Hemoglobin 31.2 pg (26-34); Mean Corpuscular Volume 95.1 fl (80-100); Mean Platelet Volume 10.9 fl (7.4-10.4); Monocytes Absolute Auto 0.7 K/mm3 (0.1-0.6); Monocytes Percent Auto 10.2 % (2.6-8.5); Neutrophils Absolute Auto 3.2 K/mm3 (1.3-6.7); Neutrophils Percent Auto 48.1 % (45.5-73.1); Platelet Count Result 139 k/mm3 (150-375); Red Blood Count 3.88 M/mm3 (4.2-5.4); Red Cell Distribution Width 14.6 % (11.5-14.5); White Blood Count 6.7 K/mm3 (4.5-10.0)
[2023-10-09 05:43] LABS: Alanine Aminotransferase 22 U/L (6-35); Albumin Level 3.9 g/dL (3.5-5.1); Alkaline Phosphatase 61 U/L (38-126); Anion Gap 7 mmol/L (4-12); Aspartate Amino Transferase 37 U/L (14-36); Bilirubin,Total 0.7 mg/dL (0.2-1.3); Blood Urea Nitrogen 20 mg/dL (7-17); Calcium 9.2 mg/dL (8.4-10.2); Carbon Dioxide 23 mmol/L (22-30); Chloride 105 mmol/L (98-107); Estimated Glomerular Filt Rate 53; Glucose 141 mg/dL (65-110); Magnesium 2.1 mg/dL (1.6-2.3); Sodium 135 mmol/L (137-145)
--- NOTE | 2023-10-09 08:00 | EST_ITS ---
Patient Info Name: Nohelia Laurent Age: 83 years : 1940 Gender: Female Ht: 64 in Wt: 180 lbs BSA: 1.95 m2 HR: 78 bpm BP: 106 / 60 mmHg Exam Date: 10/09/2023 10:17 AM Exam Location: Echo Lab Patient Status: Inpatient Admit Date: 10/08/2023 Staff Ordering Physician: Lester Banks MD Attending Provider: Abi Sweeney MD Exercise Technologist: Eleanor Gary RDCS Nurse: Earlene Ruff APN Exam Type: CA stress melody w NM Study Info A regadenoson stress test was performed. Summary 1. Atrial fibrillation with controlled ventricular response. 2. No ST or T-wave abnormalities seen following Lexiscan injection. 3. Clinically and electrocardiographically unremarkable Lexiscan nuclear stress test. 4. Myocardial perfusion imaging study to be reported by Radiology. Protocol: Lexiscan Stress ECG Details Stage: REST Duration (min): 0 min : 53 sec HR (bpm): 78 SBP (mmHg): 106 DBP (mmHg): 60 Stage: REST Duration (min): 5 min : 25 sec HR (bpm): 77 SBP (mmHg): 106 DBP (mmHg): 60 Stage: STAGE 1 Duration (min): 0 min : 59 sec HR (bpm): 86 SBP (mmHg): 103 DBP (mmHg): 65 Stage: RECOVERY Duration (min): 1 min : 0 sec HR (bpm): 93 SBP (mmHg): 103 DBP (mmHg): 65 Stage: RECOVERY Duration (min): 2 min : 0 sec HR (bpm): 89 SBP (mmHg): 103 DBP (mmHg): 65 Stage: RECOVERY Duration (min): 3 min : 0 sec HR (bpm): 85 SBP (mmHg): 88 DBP (mmHg): 57 Stage: RECOVERY Duration (min): 4 min : 0 sec HR (bpm): 88 SBP (mmHg): 88 DBP (mmHg): 57 Stage: RECOVERY Duration (min): 5 min : 0 sec HR (bpm): 98 SBP (mmHg): 93 DBP (mmHg): 56 Stage: RECOVERY Duration (min): 6 min : 0 sec HR (bpm): 91 SBP (mmHg): 93 DBP (mmHg): 56 Stage: RECOVERY Duration (min): 7 min : 0 sec HR (bpm): 88 SBP (mmHg): 90 DBP (mmHg): 43 Stage: RECOVERY Duration (min): 8 min : 0 sec HR (bpm): 91 SBP (mmHg): 90 DBP (mmHg): 43 Stage: RECOVERY Duration (min): 9 min : 0 sec HR (bpm): 85 SBP (mmHg): 90 DBP (mmHg): 47 Stage: RECOVERY Duration (min): 10 min : 0 sec HR (bpm): 98 SBP (mmHg): 90 DBP (mmHg): 47 Stage: RECOVERY Duration (min): 11 min : 0 sec HR (bpm): 83 SBP (mmHg): 90 DBP (mmHg): 47 Stage: RECOVERY Duration (min): 11 min : 33 sec HR (bpm): 87 SBP (mmHg): 90 DBP (mmHg): 47 Rest HR: 77 bpm Peak HR: 98 bpm Rest Sys BP: 106 mmHg Peak Sys BP: 103 mmHg Max Pred HR: 135 bpm % Max Pred HR: 73 % Target HR: 115 bpm Max RPP: 10,094 bpm*mmHg Termination Reason: Completed protocol Cardiac Symptoms: None Total Time: 1 min : 0 sec Rest Nicole BP: 60 mmHg Peak Nicole BP: 65 mmHg Total Dose: 0.4 mg Resting ECG Atrial fibrillation with controlled ventricular response. Stress ECG No ST or T-wave abnormalities seen following Lexiscan injection. Report Signatures Electronically s
[2023-10-09 08:17] LABS: Glucose Point of Care 160 mg/dl (65-105)
[2023-10-09] MEDS: CLOPIDOGREL BISULFATE 75 MG TABLET PO (08:37)
[2023-10-09] MEDS: guaiFENesin 12 HR 600 MG TABCR PO ×2 (08:37→20:49)
[2023-10-09] MEDS: BENZONATATE 100 MG CAPSULE PO ×3 (08:37→17:33)
[2023-10-09] MEDS: OPTI-GEN TAB 1 TABLET PO ×2 (08:37→17:32)
[2023-10-09] MEDS: ROSUVASTATIN 20 MG TABLET PO (08:38)
[2023-10-09] MEDS: ISOSORBIDE MONONITRATE 10 MG TABLET PO (08:38)
[2023-10-09] MEDS: EZETIMIBE 10 MG TABLET PO (08:38)
[2023-10-09] MEDS: THERAPEUTIC MULTIVITAMINS/MINERALS TAB (*BKC) 1 TABLET PO (08:38)
[2023-10-09] MEDS: carvediloL 6.25 MG TABLET PO ×2 (08:38→20:49)
[2023-10-09] MEDS: RIVASTIGMINE TARTRATE 1.5 MG CAPSULE PO ×2 (08:39→17:33)
[2023-10-09] MEDS: APIXABAN 5 MG TABLET PO ×2 (08:39→17:32)
[2023-10-09] MEDS: IPRATROPIUM 0.5 MG/ALBUTEROL SULFATE 2.5 MG AMPUL.NEB 3 ML INHALATION ×3 (08:59→20:33)
--- NOTE | 2023-10-09 09:26 | PC.NURSE ---
Patient to Nuclear medicine per wheelchair.
--- NOTE | 2023-10-09 10:37 | PM.PNCARD ---
Progress Note: A&P Assessment and Plan (1) Pneumonia: Code(s): J18.9 - Pneumonia, unspecified organism Status: Acute Assessment and Plan: Improving. On antibiotics as per primary team. (2) Dyspnea on exertion: Code(s): R06.09 - Other forms of dyspnea Status: Acute Assessment and Plan: Does not appear to be in decompensated CHF. She appears euvolemic. Lexiscan performed this morning. Results are pending. Echo showed normal LV systolic function, EF 50 55%. Severe YAMILETH. Mild to moderate , mild MR, mild TR. (3) Coronary artery disease: Code(s): I25.10 - Atherosclerotic heart disease of [place] coronary artery without angina pectoris Status: Acute Assessment and Plan: Continue Plavix, statin. (4) Essential hypertension: Code(s): I10 - Essential (primary) hypertension Status: Acute Assessment and Plan: Stable. Continue home antihypertensive regimen. (5) Persistent atrial fibrillation: Code(s): I48.19 - Other persistent atrial fibrillation Status: Acute Assessment and Plan: Overall she is rate controlled. Continue Coreg, Eliquis. Plan 1325 spoke to patient regarding stress test results: 1. Moderate-sized mild partially reversible perfusion defect involving primarily the right coronary artery vascular distribution consistent with combination of infarct nonreversible on the inferoseptal side and transitioning to reversible ischemia at the infra lateral side as detailed above. 2. Left ventricular ejection fraction measuring 70%. She did have an episode of central chest pressure/heaviness that occurred at rest and resolved spontaneously. She reports having this pain intermittently in the past, most recently prior to her pacemaker implantation. Does not sound like typical angina in my opinion. Plan to see patient in the office following treatment of pneumonia and discuss further evaluation with coronary angiogram. Of course if patient develops angina could perform angiogram as an inpatient (on apixaban which would need to be held for 48 hours). Will remain hospitalized overnight and if she is feeling better tomorrow plan for d/c with close outpatient follow up. Patient comfortable and agreeable with this plan. Subjective Date/time seen: 10/09/23 10:37 Interval history: Cardiology follow up for atrial fibrillation, CAD, chest pain Date of service 10/09/2023: Feeling better today. Less coughing. Shortness of breath is better. No chest pain. Review of Systems Review of Systems: All systems reviewed & are unremarkable except as noted in HPI and below (HPI) Exam Const: General: comfortable and no acute distress HENMT: Mouth: Yes moist mucous membranes Eyes: General: appearance normal, both eyes and all related structures Sclera: sclerae normal Resp: Effort & Inspection: normal respiratory effort Auscultation: clear to auscultation bilaterally and diminished lung sounds Cardio: Rhythm: abnormal rhythm irregularly irregular Heart sounds: no murmurs Skin: General skin exam: normal color Neuro: Speech: normal speech Extrem: General: no edema Psych: Mental Status: mental status grossly normal Affect: normal affect Objective Data Vital Signs Vital Signs: Vital Signs - 24 hr 10/08/23 11:47 10/08/23 12:00 10/08/23 13:20 Temperature 36.9 C Pulse Rate 79 89 77 Respiratory Rate 28 H 18 Blood Pressure 96/53 L Pulse Oximetry 96 Oxygen Delivery 10/08/23 13:27 10/08/23 14:45 10/08/23 16:04 Temperature Pulse Rate 75 85 Respiratory Rate 18 Blood Pressure Pulse Oximetry Oxygen Delivery Room Air 10/08/23 16:00 10/08/23 20:21 10/08/23 20:32 Temperature Pulse Rate 89 73 75 Respiratory Rate 18 18 Blood Pressure Pulse Oximetry Oxygen Delivery 10/08/23 20:34 10/08/23 20:00 10/08/23 20:00 Temperature Pulse Rate 102 H 99 Respiratory Rate Blood
--- NOTE | 2023-10-09 11:19 | PC.NURSE ---
Patient returned from Nuclear Medicine per wheelchair.
[2023-10-09 12:07] LABS: Glucose Point of Care 187 mg/dl (65-105)
[2023-10-09] MEDS: ACETAMINOPHEN 325 MG TABLET 650 MG PO (12:24)
--- NOTE | 2023-10-09 12:29 | ECG_ITS ---
SEE SCANNED COPY FOR CONFIRMED REPORT MTDD
--- NOTE | 2023-10-09 13:14 | PM.IMPN ---
Progress Note: A&P Assessment and Plan (1) Sepsis: Code(s): A41.9 - Sepsis, unspecified organism Status: Acute Assessment and Plan: - meets SIRS criteria: HR, RR - lactic acid: 1.6 - procalcitonin 0.2 - holding on starting 30 mL/kg bolus, initial concern there is a CHF component. echo ordered and started on LR at 100 mL/hr x1L. - suspected source: PNA - started on vanc and cefepime on 10/06, exchanging to ceftriaxone and azithromycin for CAP coverage. no risk factors for HAP. - blood cultures drawn on 10/06 - UA ordered - CXR: 1. Airspace opacities in the lower lung zones, right worse than left, consistent with atelectasis versus pneumonia. 2. Cardiomegaly. - admission to IMU due to recurrent AFib 10/07: -preliminary cultures with NGTD -leukocytosis resolved -urine clear 10/08: - WBC normal -no growth on cultures -off oxygen -still feeling poorly (2) Bilateral pneumonia: Qualifiers: Lung location: lower lobe of lung Pneumonia type: due to unspecified organism Qualified Code(s): J18.9 - Pneumonia, unspecified organism Code(s): J18.9 - Pneumonia, unspecified organism Status: Inactive Assessment and Plan: - CXR: bilateral lower lobe PNA, R worse than L - risk factors: none - complicating factors: initial concern for CHF, no evidence of volume overload, BNP elevated but normal when adjusted for age - started on CAP tx: ceftriaxone and azithromycin on 10/06 - MRSA PCR negative - Viral PCR negative for flu/covid/rsv - no supplemental O2 requirement due to hypoxia, placed on 1L NC for comfort 10/07: -continue with CAP coverage IV -Added nebs scheduled q 4 hours for wheezing -steroids not indicated at this time -incentive spirometry, pep -wean o2 as tolerated 10/08: - wheezing resolved -off of oxygen (3) Paroxysmal atrial fibrillation: Code(s): I48.0 - Paroxysmal atrial fibrillation Status: Acute Assessment and Plan: - EKG, initial: AFib RVR with rate of 108, incomplete RBBB, septal OK of indeterminate age. when compared to previous, HR increased. - hx of paroxysmal AFib s/p cardioversion and pacemaker in place - currently on Eliquis 5 mg BID, carvedilol 6.25 mg b.i.d. Patient also on Plavix. - cardiology consulted, awaiting recs - troponin: 10.8 (high sensitivity) -> 0.013 - echo ordered, last done in 2021. showed EF of 59%, mild to moderate valvular disease, mild pulmonary HTN, and AFib. - interrogate pacemaker - HR now ranging between 80-90's 10/07: - txf med-tele -cards consulted, rec's appreciated. Patient wants to know if she should do the stress test while here. -ECHO ordered -pacer has been interrogated -a-fib with rate in the 90's on tele 10/08: - a-fib rate controlled on tele - pacer interrogation completed - ECHO as follows, Summary ? 1. Left ventricular chamber dimension is normal. ? 2. Left ventricular systolic function is normal, estimated at 50-55%. ? 3. Right ventricular systolic function is normal. ? 4. Left atrial chamber dimension is severely enlarged. ? 5. Right atrial chamber dimension is severely enlarged. ? 6. There is moderate aortic valve calcification. ? 7. There is mild-moderate aortic valve stenosis with a peak velocity of 255 cm/s, mean gradient of 13 mmHg, and aortic valve area of 1.2 cm2. ? 8. There is mild mitral valve regurgitation. ? 9. There is mild tricuspid valve regurgitation. (4) Hyperglycemia due to type 2 diabetes mellitus: Qualifiers: Diabetes mellitus adjunct faculty for medical terminology insulin use: with adjunct faculty for medical terminology use Qualified Code(s): E11.65 - Type 2 diabetes mellitus with hyperglycemia; Z79.4 - [facility] (current) use of insulin Code(s): E11.65 - Type 2 diabetes mellitus with hyperglycemia Status: Inactive Assessment and Plan: - hypoglycemia protocol - POC blood glucose ACHS - home medication resumed: Lantus 38 units HS - correct regimen ordered - low dose TID WM
[2023-10-09] MEDS: AZITHROMYCIN 500 MG/NS 250 ML 500 MG/250 ML BAG 250 MG IVPB (13:28)
[2023-10-09 17:13] LABS: Glucose Point of Care 214 mg/dl (65-105)
[2023-10-09] MEDS: INSULIN ASPART (*BKC) 100 UNITS/ML SUB-Q ×2 (17:34→20:49)
[2023-10-09] MEDS: INSULIN GLARGINE (*BKC) 100 UNITS/ML 30 UNITS SUB-Q (20:49)
[2023-10-09 21:08] LABS: Glucose Point of Care 284 mg/dl (65-105)
[2023-10-10] VITALS (18 sets, daily range): BP systolic 104–134; BP diastolic 52–75; PULSE 74–89; RESP 18; TEMP 36.1–36.8; O2SAT 96–100
[2023-10-10] MEDS: IPRATROPIUM 0.5 MG/ALBUTEROL SULFATE 2.5 MG AMPUL.NEB 3 ML INHALATION ×4 (02:24→20:33)
[2023-10-10 05:53] LABS: Basophils Percent Auto 0.6 % (0.2-1.2); Eosinophils Absolute Auto 0.4 K/mm3 (0-0.3); Eosinophils Percent Auto 6.4 % (0-4.4); Hematocrit 34.5 % (37.0-47.0); Hemoglobin 11.1 g/dL (12.0-15.0); Immature Granulocyte Absolute 0.01 K/mm3 (0.00-0.031); Immature Granulocyte Percent A 0.1 % (0-0.5); Lymphocytes Percent Auto 29.8 % (18.3-44.2); Mean Corpuscular HGB Conc 32.2 g/dl (32-36); Mean Corpuscular Hemoglobin 30.5 pg (26-34); Mean Corpuscular Volume 94.8 fl (80-100); Mean Platelet Volume 10.8 fl (7.4-10.4); Monocytes Absolute Auto 0.6 K/mm3 (0.1-0.6); Monocytes Percent Auto 8.6 % (2.6-8.5); Neutrophils Absolute Auto 3.7 K/mm3 (1.3-6.7); Neutrophils Percent Auto 54.5 % (45.5-73.1); Platelet Count Result 137 k/mm3 (150-375); Red Blood Count 3.64 M/mm3 (4.2-5.4); Red Cell Distribution Width 14.3 % (11.5-14.5); White Blood Count 6.7 K/mm3 (4.5-10.0)
[2023-10-10 06:03] LABS: Alanine Aminotransferase 33 U/L (6-35); Albumin Level 3.6 g/dL (3.5-5.1); Alkaline Phosphatase 68 U/L (38-126); Anion Gap 6 mmol/L (4-12); Aspartate Amino Transferase 50 U/L (14-36); Bilirubin,Total 0.4 mg/dL (0.2-1.3); Blood Urea Nitrogen 17 mg/dL (7-17); Calcium 8.9 mg/dL (8.4-10.2); Carbon Dioxide 22 mmol/L (22-30); Chloride 107 mmol/L (98-107); Estimated Glomerular Filt Rate 60; Glucose 168 mg/dL (65-110); Magnesium 1.9 mg/dL (1.6-2.3); Potassium 4.2 mmol/L (3.4-5.0); Sodium 135 mmol/L (137-145)
[2023-10-10 07:51] LABS: Glucose Point of Care 176 mg/dl (65-105)
--- NOTE | 2023-10-10 08:30 | PM.PNCARD ---
Progress Note: A&P Assessment and Plan (1) Pneumonia: Code(s): J18.9 - Pneumonia, unspecified organism Status: Acute Assessment and Plan: Improving. On antibiotics as per primary team. (2) Dyspnea on exertion: Code(s): R06.09 - Other forms of dyspnea Status: Acute Assessment and Plan: Does not appear to be in decompensated CHF. She appears euvolemic. Mixed inferior defect consistent with ischemia and infarction. Dyspnea may be an anginal equivalent. Recommend a cardiac catheterization as an outpatient. Echo showed normal LV systolic function, EF 50 55%. Severe YAMILETH. Mild to moderate , mild MR, mild TR. (3) Coronary artery disease: Code(s): I25.10 - Atherosclerotic heart disease of [place] coronary artery without angina pectoris Status: Acute Assessment and Plan: Continue Plavix, statin. (4) Essential hypertension: Code(s): I10 - Essential (primary) hypertension Status: Acute Assessment and Plan: Stable. Continue home antihypertensive regimen. (5) Persistent atrial fibrillation: Code(s): I48.19 - Other persistent atrial fibrillation Status: Acute Assessment and Plan: Overall she is rate controlled. Continue Coreg, Eliquis. Subjective Date/time seen: 10/10/23 08:30 Interval history: Cardiology follow up for atrial fibrillation, CAD, chest pain Date of service 10/09/2023: Feeling better today. Less coughing. Shortness of breath is better. No chest pain. Date of service 10/10/2023: She still short of breath. Still coughing significantly. No chest pain. Review of Systems Constitutional: Constitutional: Denies body ache(s) Respiratory: Respiratory: Reports cough and Reports dyspnea Genitourinary: Genitourinary: Denies hematuria Exam Const: General: comfortable and no acute distress HENMT: Mouth: Yes moist mucous membranes Eyes: General: appearance normal, both eyes and all related structures Sclera: sclerae normal Neck: Neck: supple Resp: Effort & Inspection: normal respiratory effort Auscultation: diminished lung sounds Cardio: Rhythm: abnormal rhythm irregularly irregular Heart sounds: no murmurs Skin: General skin exam: normal color Neuro: Speech: normal speech Extrem: General: no edema Psych: Mental Status: mental status grossly normal Affect: normal affect Objective Data Vital Signs Vital Signs: Vital Signs - 24 hr 10/09/23 08:38 10/09/23 08:59 10/09/23 09:08 Temperature Pulse Rate 82 86 80 Respiratory Rate 20 Blood Pressure Pulse Oximetry Oxygen Delivery 10/09/23 12:05 10/09/23 14:00 10/09/23 14:34 Temperature 36.8 C Pulse Rate 79 90 87 Respiratory Rate 16 20 Blood Pressure 112/64 Pulse Oximetry 98 Oxygen Delivery 10/09/23 14:45 10/09/23 16:04 10/09/23 20:36 Temperature Pulse Rate 88 87 88 Respiratory Rate 18 18 Blood Pressure Pulse Oximetry Oxygen Delivery 10/09/23 20:41 10/09/23 20:47 10/09/23 20:49 Temperature 36.6 C Pulse Rate 93 95 95 Respiratory Rate 18 18 Blood Pressure 126/78 Pulse Oximetry 97 Oxygen Delivery 10/09/23 20:00 10/09/23 20:00 10/10/23 00:00 Temperature Pulse Rate 101 H 95 83 Respiratory Rate 18 Blood Pressure Pulse Oximetry 97 Oxygen Delivery Room Air 10/10/23 02:25 10/10/23 02:34 10/10/23 04:00 Temperature Pulse Rate 84 83 77 Respiratory Rate 18 18 Blood Pressure Pulse Oximetry Oxygen Delivery 10/10/23 04:39 10/10/23 07:50 10/10/23 08:00 Temperature 36.1 C L Pulse Rate 80 78 80 Respiratory Rate 18 18 18 Blood Pressure 132/52 L Pulse Oximetry 96 Oxygen Delivery Intake/Output Intake/Output: Intake & Output 10/07/23 10/08/23 10/09/23 10/10/23 23:59 23:59 23:59 23:59 Intake Total 660 1960 540 350 Output Total 0 440 500 450 Balance 660 1520 40 -100 Meds/Results Medications: Active Medications
[2023-10-10] MEDS: RIVASTIGMINE TARTRATE 1.5 MG CAPSULE PO ×2 (08:32→17:25)
[2023-10-10] MEDS: guaiFENesin 12 HR 600 MG TABCR PO ×2 (08:32→20:24)
[2023-10-10] MEDS: AZELASTINE HCL NASAL 0.1% 137 MCG/SPR 30 ML BTL 1 SPRAY NASAL (08:32)
[2023-10-10] MEDS: ROSUVASTATIN 20 MG TABLET PO (08:32)
[2023-10-10] MEDS: APIXABAN 5 MG TABLET PO ×2 (08:32→17:25)
[2023-10-10] MEDS: OPTI-GEN TAB 1 TABLET PO ×2 (08:32→17:25)
[2023-10-10] MEDS: THERAPEUTIC MULTIVITAMINS/MINERALS TAB (*BKC) 1 TABLET PO (08:33)
[2023-10-10] MEDS: carvediloL 6.25 MG TABLET PO ×2 (08:33→20:24)
[2023-10-10] MEDS: EZETIMIBE 10 MG TABLET PO (08:33)
[2023-10-10] MEDS: ISOSORBIDE MONONITRATE 10 MG TABLET PO (08:33)
[2023-10-10] MEDS: BENZONATATE 100 MG CAPSULE PO ×3 (08:33→17:25)
[2023-10-10] MEDS: CLOPIDOGREL BISULFATE 75 MG TABLET PO (08:33)
--- NOTE | 2023-10-10 09:28 | PM.IMPN ---
Progress Note: A&P Assessment and Plan (1) Sepsis: Code(s): A41.9 - Sepsis, unspecified organism Status: Acute Assessment and Plan: - meets SIRS criteria: HR, RR - lactic acid: 1.6 - procalcitonin 0.2 - holding on starting 30 mL/kg bolus, initial concern there is a CHF component. echo ordered and started on LR at 100 mL/hr x1L. - suspected source: PNA - started on vanc and cefepime on 10/06, exchanging to ceftriaxone and azithromycin for CAP coverage. no risk factors for HAP. - blood cultures drawn on 10/06 - UA ordered - CXR: 1. Airspace opacities in the lower lung zones, right worse than left, consistent with atelectasis versus pneumonia. 2. Cardiomegaly. - admission to IMU due to recurrent AFib 10/07: -preliminary cultures with NGTD -leukocytosis resolved -urine clear 10/08: - WBC normal -no growth on cultures -off oxygen -still feeling poorly 10/09: -dyspnea with exertion (2) Bilateral pneumonia: Qualifiers: Lung location: lower lobe of lung Pneumonia type: due to unspecified organism Qualified Code(s): J18.9 - Pneumonia, unspecified organism Code(s): J18.9 - Pneumonia, unspecified organism Status: Inactive Assessment and Plan: - CXR: bilateral lower lobe PNA, R worse than L - risk factors: none - complicating factors: initial concern for CHF, no evidence of volume overload, BNP elevated but normal when adjusted for age - started on CAP tx: ceftriaxone and azithromycin on 10/06 - MRSA PCR negative - Viral PCR negative for flu/covid/rsv - no supplemental O2 requirement due to hypoxia, placed on 1L NC for comfort 10/07: -continue with CAP coverage IV -Added nebs scheduled q 4 hours for wheezing -steroids not indicated at this time -incentive spirometry, pep -wean o2 as tolerated 10/08: - wheezing resolved -off of oxygen 10/09: -continues to have dyspnea with exertion -continue IV antibiotics -hope to transition to oral antibiotics tomorrow and discharge -encourage patient to be up and moving around as tolerated (3) Paroxysmal atrial fibrillation: Code(s): I48.0 - Paroxysmal atrial fibrillation Status: Acute Assessment and Plan: - EKG, initial: AFib RVR with rate of 108, incomplete RBBB, septal PR of indeterminate age. when compared to previous, HR increased. - hx of paroxysmal AFib s/p cardioversion and pacemaker in place - currently on Eliquis 5 mg BID, carvedilol 6.25 mg b.i.d. Patient also on Plavix. - cardiology consulted, awaiting recs - troponin: 10.8 (high sensitivity) -> 0.013 - echo ordered, last done in 2021. showed EF of 59%, mild to moderate valvular disease, mild pulmonary HTN, and AFib. - interrogate pacemaker - HR now ranging between 80-90's 10/07: - [facility] med-tele -cards consulted, rec's appreciated. Patient wants to know if she should do the stress test while here. -ECHO ordered -pacer has been interrogated -a-fib with rate in the 90's on tele 10/08: - a-fib rate controlled on tele - pacer interrogation completed - ECHO as follows, Summary ? 1. Left ventricular chamber dimension is normal. ? 2. Left ventricular systolic function is normal, estimated at 50-55%. ? 3. Right ventricular systolic function is normal. ? 4. Left atrial chamber dimension is severely enlarged. ? 5. Right atrial chamber dimension is severely enlarged. ? 6. There is moderate aortic valve calcification. ? 7. There is mild-moderate aortic valve stenosis with a peak velocity of 255 cm/s, mean gradient of 13 mmHg, and aortic valve area of 1.2 cm2. ? 8. There is mild mitral valve regurgitation. ? 9. There is mild tricuspid valve regurgitation. (4) Hyperglycemia due to type 2 diabetes mellitus: Qualifiers: Diabetes mellitus director outpatient services insulin use: with long-term use Qualified Code(s): E11.65 - Type 2 diabetes mellitus with hyperglycemia; Z79.4 - [facility] (current) use of insulin Code(s): E11.65 - Type 2 di
--- NOTE | 2023-10-10 11:11 | PC.NURSE ---
Pt reports SOB after showering with chest discomfort that comes and goes . Pt in bed resting comfortable at this time. See VS
[2023-10-10 12:09] LABS: Glucose Point of Care 228 mg/dl (65-105)
[2023-10-10] MEDS: AZITHROMYCIN 500 MG/NS 250 ML 500 MG/250 ML BAG 250 MG IVPB (12:56)
[2023-10-10 17:17] LABS: Glucose Point of Care 167 mg/dl (65-105)
[2023-10-10] MEDS: INSULIN GLARGINE (*BKC) 100 UNITS/ML 30 UNITS SUB-Q (20:24)
[2023-10-11] VITALS (9 sets, daily range): BP systolic 128; BP diastolic 71; PULSE 70–86; RESP 16–18; TEMP 36.5; O2SAT 98
[2023-10-11 00:18] LABS: Glucose Point of Care 202 mg/dl (65-105)
[2023-10-11] MEDS: IPRATROPIUM 0.5 MG/ALBUTEROL SULFATE 2.5 MG AMPUL.NEB 3 ML INHALATION ×3 (02:19→13:04)
[2023-10-11 04:42] LABS: Basophils Absolute Auto 0.1 K/mm3 (0.0-0.1); Basophils Percent Auto 0.8 % (0.2-1.2); Eosinophils Absolute Auto 0.4 K/mm3 (0-0.3); Eosinophils Percent Auto 6.3 % (0-4.4); Hematocrit 32.8 % (37.0-47.0); Hemoglobin 10.7 g/dL (12.0-15.0); Immature Granulocyte Absolute 0.01 K/mm3 (0.00-0.031); Immature Granulocyte Percent A 0.2 % (0-0.5); Lymphocytes Percent Auto 38.6 % (18.3-44.2); Mean Corpuscular HGB Conc 32.6 g/dl (32-36); Mean Corpuscular Hemoglobin 30.5 pg (26-34); Mean Corpuscular Volume 93.4 fl (80-100); Monocytes Absolute Auto 0.5 K/mm3 (0.1-0.6); Monocytes Percent Auto 7.9 % (2.6-8.5); Neutrophils Absolute Auto 2.9 K/mm3 (1.3-6.7); Neutrophils Percent Auto 46.2 % (45.5-73.1); Platelet Count Result 146 k/mm3 (150-375); Red Blood Count 3.51 M/mm3 (4.2-5.4); Red Cell Distribution Width 14.5 % (11.5-14.5); White Blood Count 6.2 K/mm3 (4.5-10.0)
[2023-10-11 04:57] LABS: Alanine Aminotransferase 37 U/L (6-35); Albumin Level 3.5 g/dL (3.5-5.1); Alkaline Phosphatase 66 U/L (38-126); Anion Gap 4 mmol/L (4-12); Aspartate Amino Transferase 52 U/L (14-36); Bilirubin,Total 0.5 mg/dL (0.2-1.3); Blood Urea Nitrogen 14 mg/dL (7-17); Calcium 9.2 mg/dL (8.4-10.2); Carbon Dioxide 24 mmol/L (22-30); Chloride 107 mmol/L (98-107); Estimated Glomerular Filt Rate > 60; Glucose 105 mg/dL (65-110); Magnesium 1.8 mg/dL (1.6-2.3); Potassium 3.9 mmol/L (3.4-5.0); Sodium 135 mmol/L (137-145)
[2023-10-11 07:31] LABS: Glucose Point of Care 122 mg/dl (65-105)
--- NOTE | 2023-10-11 08:39 | PM.PNCARD ---
Progress Note: A&P Assessment and Plan (1) Pneumonia: Code(s): J18.9 - Pneumonia, unspecified organism Status: Acute Assessment and Plan: Improving. On antibiotics as per primary team. (2) Dyspnea on exertion: Code(s): R06.09 - Other forms of dyspnea Status: Acute Assessment and Plan: Does not appear to be in decompensated CHF. She appears euvolemic. Mixed inferior defect consistent with ischemia and infarction. Dyspnea may be an anginal equivalent. Cardiac catheterization as an outpatient. Will need to hold Eliquis for 48 hours prior Echo showed normal LV systolic function, EF 50 55%. Severe YAMILETH. Mild to moderate , mild MR, mild TR. (3) Coronary artery disease: Code(s): I25.10 - Atherosclerotic heart disease of [place] coronary artery without angina pectoris Status: Acute Assessment and Plan: Continue Plavix, statin. Creatinine 0.8 today. Continue current med (4) Essential hypertension: Code(s): I10 - Essential (primary) hypertension Status: Acute Assessment and Plan: Stable. Continue home antihypertensive regimen. (5) Persistent atrial fibrillation: Code(s): I48.19 - Other persistent atrial fibrillation Status: Acute Assessment and Plan: Overall she is rate controlled. Continue Coreg, Eliquis. Subjective Date/time seen: 10/11/23 08:39 Interval history: Cardiology follow up for atrial fibrillation, CAD, chest pain Date of service 10/09/2023: Feeling better today. Less coughing. Shortness of breath is better. No chest pain. Date of service 10/10/2023: She still short of breath. Still coughing significantly. No chest pain. Date of service 10/11/2023: Dyspnea with walking persist. Yellow phlegm produced. No chest Review of Systems Review of Systems: All systems reviewed & are unremarkable except as noted in HPI and below (HPI) Constitutional: Constitutional: Denies body ache(s) Cardiovascular: Cardiovascular: Reports dyspnea Respiratory: Respiratory: Reports cough and Reports dyspnea Genitourinary: Genitourinary: Denies hematuria Exam Const: General: comfortable and no acute distress HENMT: Mouth: Yes moist mucous membranes Eyes: General: appearance normal, both eyes and all related structures Sclera: sclerae normal Neck: Neck: supple Resp: Effort & Inspection: normal respiratory effort Auscultation: clear to auscultation bilaterally and diminished lung sounds Cardio: Rhythm: abnormal rhythm irregularly irregular Heart sounds: no murmurs Skin: General skin exam: normal color Neuro: Speech: normal speech Extrem: General: no edema Psych: Mental Status: mental status grossly normal Affect: normal affect Objective Data Vital Signs Vital Signs: Vital Signs - 24 hr 10/10/23 11:10 10/10/23 14:05 10/10/23 14:00 Temperature 36.4 C Pulse Rate 74 77 85 Respiratory Rate 18 18 18 Blood Pressure 104/59 L 118/70 Pulse Oximetry 100 99 Oxygen Delivery 10/10/23 12:00 10/10/23 16:00 10/10/23 20:15 Temperature 36.8 C Pulse Rate 84 83 89 Respiratory Rate 18 Blood Pressure 134/75 Pulse Oximetry 96 Oxygen Delivery 10/10/23 20:24 10/10/23 20:33 10/10/23 20:44 Temperature Pulse Rate 88 75 77 Respiratory Rate 18 18 Blood Pressure Pulse Oximetry Oxygen Delivery 10/10/23 20:00 10/10/23 20:00 10/11/23 00:00 Temperature Pulse Rate 87 77 80 Respiratory Rate 18 Blood Pressure Pulse Oximetry 96 Oxygen Delivery Room Air 10/11/23 02:20 10/11/23 02:29 10/11/23 04:07 Temperature 36.5 C Pulse Rate 72 73 76 Respiratory Rate 18 18 16 Blood Pressure 128/71 Pulse Oximetry 98 Oxygen Delivery 10/11/23 04:00 Temperature Pulse Rate 71 Respiratory Rate Blood Pressure Pulse Oximetry Oxygen Delivery Intake/Output Intake/Output: Intake & Output 10/08/23 10/09/23 10/10/23 10/11/23 23:59 23:59 23:
[2023-10-11] MEDS: guaiFENesin 12 HR 600 MG TABCR PO (08:42)
[2023-10-11] MEDS: OPTI-GEN TAB 1 TABLET PO (08:42)
[2023-10-11] MEDS: carvediloL 6.25 MG TABLET PO (08:42)
[2023-10-11] MEDS: THERAPEUTIC MULTIVITAMINS/MINERALS TAB (*BKC) 1 TABLET PO (08:42)
[2023-10-11] MEDS: ROSUVASTATIN 20 MG TABLET PO (08:42)
[2023-10-11] MEDS: RIVASTIGMINE TARTRATE 1.5 MG CAPSULE PO (08:42)
[2023-10-11] MEDS: ISOSORBIDE MONONITRATE 10 MG TABLET PO (08:42)
[2023-10-11] MEDS: EZETIMIBE 10 MG TABLET PO (08:42)
[2023-10-11] MEDS: CLOPIDOGREL BISULFATE 75 MG TABLET PO (08:42)
[2023-10-11] MEDS: APIXABAN 5 MG TABLET PO (08:42)
[2023-10-11] MEDS: BENZONATATE 100 MG CAPSULE PO (08:44)
[2023-10-11 11:42] LABS: Glucose Point of Care 134 mg/dl (65-105)
--- NOTE | 2023-10-11 12:42 | PM.DS ---
DS: Admitting Diagnosis Discharge Date 10/11/2023 Admitting Diagnosis Bilateral Pneumonia DS: Discharge Diagnosis Discharge Diagnosis (1) Sepsis: Code(s): A41.9 - Sepsis, unspecified organism Status: Acute Assessment and Plan: - meets SIRS criteria: HR, RR - lactic acid: 1.6 - procalcitonin 0.2 - holding on starting 30 mL/kg bolus, initial concern there is a CHF component. echo ordered and started on LR at 100 mL/hr x1L. - suspected source: PNA - started on vanc and cefepime on 10/06, exchanging to ceftriaxone and azithromycin for CAP coverage. no risk factors for HAP. - blood cultures drawn on 10/06 - UA ordered - CXR: 1. Airspace opacities in the lower lung zones, right worse than left, consistent with atelectasis versus pneumonia. 2. Cardiomegaly. - admission to IMU due to recurrent AFib 10/07: -preliminary cultures with NGTD -leukocytosis resolved -urine clear 10/08: - WBC normal -no growth on cultures -off oxygen -still feeling poorly 10/09: -dyspnea with exertion (2) Bilateral pneumonia: Qualifiers: Lung location: lower lobe of lung Pneumonia type: due to unspecified organism Qualified Code(s): J18.9 - Pneumonia, unspecified organism Code(s): J18.9 - Pneumonia, unspecified organism Status: Inactive Assessment and Plan: - CXR: bilateral lower lobe PNA, R worse than L - risk factors: none - complicating factors: initial concern for CHF, no evidence of volume overload, BNP elevated but normal when adjusted for age - started on CAP tx: ceftriaxone and azithromycin on 10/06 - MRSA PCR negative - Viral PCR negative for flu/covid/rsv - no supplemental O2 requirement due to hypoxia, placed on 1L NC for comfort 10/07: -continue with CAP coverage IV -Added nebs scheduled q 4 hours for wheezing -steroids not indicated at this time -incentive spirometry, pep -wean o2 as tolerated 10/08: - wheezing resolved -off of oxygen 10/09: -continues to have dyspnea with exertion -continue IV antibiotics -hope to transition to oral antibiotics tomorrow and discharge -encourage patient to be up and moving around as tolerated (3) Paroxysmal atrial fibrillation: Code(s): I48.0 - Paroxysmal atrial fibrillation Status: Acute Assessment and Plan: - EKG, initial: AFib RVR with rate of 108, incomplete RBBB, septal [place] of indeterminate age. when compared to previous, HR increased. - hx of paroxysmal AFib s/p cardioversion and pacemaker in place - currently on Eliquis 5 mg BID, carvedilol 6.25 mg b.i.d. Patient also on Plavix. - cardiology consulted, awaiting recs - troponin: 10.8 (high sensitivity) -> 0.013 - echo ordered, last done in 2021. showed EF of 59%, mild to moderate valvular disease, mild pulmonary HTN, and AFib. - interrogate pacemaker - HR now ranging between 80-90's 10/07: - txf med-tele -cards consulted, rec's appreciated. Patient wants to know if she should do the stress test while here. -ECHO ordered -pacer has been interrogated -a-fib with rate in the 90's on tele 10/08: - a-fib rate controlled on tele - pacer interrogation completed - ECHO as follows, Summary ? 1. Left ventricular chamber dimension is normal. ? 2. Left ventricular systolic function is normal, estimated at 50-55%. ? 3. Right ventricular systolic function is normal. ? 4. Left atrial chamber dimension is severely enlarged. ? 5. Right atrial chamber dimension is severely enlarged. ? 6. There is moderate aortic valve calcification. ? 7. There is mild-moderate aortic valve stenosis with a peak velocity of 255 cm/s, mean gradient of 13 mmHg, and aortic valve area of 1.2 cm2. ? 8. There is mild mitral valve regurgitation. ? 9. There is mild tricuspid valve regurgitation. (4) Hyperglycemia due to type 2 diabetes mellitus: Qualifiers: Diabetes mellitus tank terminal gauger insulin use: with senior care use Qualified Code(s): E11.65 - Type 2 diabetes me
== END 2023-10-11 13:41 | disposition home or self-care (01) | DRG 871 ==
LOC: ANHIMU 10-08 13:40 → ANH3MED 10-11 12:32 → ANH2MED 10-12 13:11 → ANH3MED 10-12 13:11 → ANHIMU 10-12 13:11
PROVIDERS: Nurse Practitioner Acute Care; Student in an Organized Health Care Education/Training Program; Admitting Provider General Practice; PCP Family Medicine; Visit Provider Internal Medicine
DX: A41.9 Sepsis, unspecified organism (principal); J18.9 Pneumonia, unspecified organism; I48.19 Other persistent atrial fibrillation; E11.22 Type 2 diabetes mellitus with diabetic chronic kidney disease; E11.65 Type 2 diabetes mellitus with hyperglycemia; E11.43 Type 2 diabetes mellitus with diabetic autonomic (poly)neuropathy; E11.42 Type 2 diabetes mellitus with diabetic polyneuropathy; G47.33 Obstructive sleep apnea (adult) (pediatric); I12.9 Hypertensive chronic kidney disease with stage 1 through stage 4 chronic kidney disease, or unspecified chronic kidney disease; I25.10 Atherosclerotic heart disease of native coronary artery without angina pectoris; K31.84 Gastroparesis; N18.31 Chronic kidney disease, stage 3a; Z95.5 Presence of coronary angioplasty implant and graft; Z95.0 Presence of cardiac pacemaker; Z79.01 Long term (current) use of anticoagulants; Z79.02 Long term (current) use of antithrombotics/antiplatelets; Z79.4 Long term (current) use of insulin; Z85.3 Personal history of malignant neoplasm of breast; Z92.21 Personal history of antineoplastic chemotherapy; Z92.3 Personal history of irradiation; Z90.49 Acquired absence of other specified parts of digestive tract; Z98.41 Cataract extraction status, right eye; Z98.42 Cataract extraction status, left eye; Z96.641 Presence of right artificial hip joint; Z86.718 Personal history of other venous thrombosis and embolism
CPT/HCPCS: 36415; 78452; 80053; 81001; 82948; 83036; 83735; 84145; 84484; 85025; 85055; 87641; 93005; 93017; 93306; 94640; 94667; 96361; 96365; 96366; 96368; 97161; 97165; A9270; A9502; G0378; J0456; J0696; J1815; J2785; J7050; J7120

== ENCOUNTER 2023-10-12 23:52 | Emergency (ER) | payer MEDICARE, BC, SELFPAY ==
--- NOTE | ~2023-10-12 | CT_ITS ---
CT of the Abdomen and Pelvis: Indication: Abdominal pain Technique: 2.5 mm axial scans were obtained through the abdomen and pelvis following intravenous adm inistration of 100 cc of Omnipaque 350. Dose reduction technique was used on this scan by utilizing a utomated exposure control and iterative reconstruction technique. The dose-length product (DLP) was 7 78.25 mGy-cm. Findings: Scans through the lung bases there is a probable right lower lobe scarring or atelectatic change. The liver, spleen, pancreas, adrenals and kidneys are within normal limits. Status post cholecystecto my. There are atherosclerotic calcifications of the aorta. No lymphadenopathy. No bowel obstruction or bowel wall thickening. Duodenal diverticulum noted. There is no evidence to s uggest acute appendicitis. Images through the pelvis are degraded by streak artifact from right hip arthroplasty. Urinary bladde r unremarkable. No pelvic mass seen. No ascites. There is a low, ventral, small fat-containing hernia . Status post hysterectomy. Impression: No acute abnormalities. Small low ventral fat-containing hernia. Reviewed, dictated and finalized at location . Impression: No acute abnormalities. Small low ventral fat-containing hernia.
[2023-10-12 23:53] VITALS: BP 110/73; PULSE 101; RESP 16; TEMP 36.4; O2SAT 98
[2023-10-13] VITALS (7 sets, daily range): BP systolic 117–155; BP diastolic 72–86; PULSE 87–118; RESP 20–30; O2SAT 92–97
[2023-10-13 00:39] LABS: Basophils Absolute Auto 0.1 K/mm3 (0.0-0.1); Basophils Percent Auto 0.5 % (0.2-1.2); Eosinophils Percent Auto 0.4 % (0-4.4); Hematocrit 39.4 % (37.0-47.0); Hemoglobin 12.8 g/dL (12.0-15.0); Immature Granulocyte Absolute 0.06 K/mm3 (0.00-0.031); Immature Granulocyte Percent A 0.6 % (0-0.5); Lymphocytes Absolute Auto 1.38 K/mm3 (0.9-3.2); Lymphocytes Percent Auto 14.1 % (18.3-44.2); Mean Corpuscular HGB Conc 32.5 g/dl (32-36); Mean Corpuscular Hemoglobin 30.1 pg (26-34); Mean Corpuscular Volume 92.7 fl (80-100); Mean Platelet Volume 10.1 fl (7.4-10.4); Monocytes Absolute Auto 0.5 K/mm3 (0.1-0.6); Monocytes Percent Auto 4.7 % (2.6-8.5); Neutrophils Absolute Auto 7.8 K/mm3 (1.3-6.7); Neutrophils Percent Auto 79.7 % (45.5-73.1); Platelet Count Result 247 k/mm3 (150-375); Red Blood Count 4.25 M/mm3 (4.2-5.4); Red Cell Distribution Width 13.8 % (11.5-14.5); White Blood Count 9.8 K/mm3 (4.5-10.0)
[2023-10-13 00:49] LABS: Alanine Aminotransferase 33 U/L (6-35); Albumin Level 4.6 g/dL (3.5-5.1); Alkaline Phosphatase 76 U/L (38-126); Anion Gap 11 mmol/L (4-12); Aspartate Amino Transferase 39 U/L (14-36); Bilirubin,Total 0.9 mg/dL (0.2-1.3); Blood Urea Nitrogen 12 mg/dL (7-17); Calcium 9.9 mg/dL (8.4-10.2); Carbon Dioxide 20 mmol/L (22-30); Chloride 100 mmol/L (98-107); Estimated CRCL calculation 47 ml/min; Estimated Glomerular Filt Rate > 60; Glucose 211 mg/dL (65-110); Lipase 142 U/L (23-300); Potassium 4.3 mmol/L (3.4-5.0); Sodium 131 mmol/L (137-145)
[2023-10-13 01:25] LABS: Appearance Urine Clear (Clear); Bacteria Urine None Seen /hpf; Bilirubin Urine Negative (Negative); Blood Urine Negative (Negative); Color Urine Yellow (Yellow); Glucose Urine UA Negative (Negative); Ketones Urine Trace mg/dL (Negative); Leukocyte Esterase Ur Negative LEU/UL (Negative); Nitrate Urine Negative (Negative); Non Pathogenic Casts 0-2; Protein Urine Trace mg/dL (Negative); RBC Urine 0-2 /hpf (0-2); Specific Grav Ur 1.016 (1.001-1.035); Squamous Epithelial Cell Urine None Seen /hpf (Few); Urobilinogen Urine 0.2 mg/dL (<2.0); WBC Urine 0-5 /hpf (0-3)
[2023-10-13 01:27] LABS: Add Urine Microscopic? YES
[2023-10-13] MEDS: SODIUM CHLORIDE 0.9% IV 1,000 ML 999 ML IV CONT (01:36)
[2023-10-13] MEDS: PROCHLORPERAZINE EDISYLATE 10 MG/2 ML VIAL IV PUSH (01:36)
[2023-10-13 01:40] LABS: Magnesium 1.7 mg/dL (1.6-2.3)
[2023-10-13 01:51] LABS: Lactic Acid Reflex 1.1 mmol/L (0.7-2.0)
[2023-10-13 01:52] LABS: Troponin I < 0.012 ng/mL (0.000-0.034)
[2023-10-13 01:58] LABS: Procalcitonin 0.1 ng/mL
--- NOTE | 2023-10-13 03:05 | ED.GENADULT ---
HPI - General Adult General Chief complaint: Nausea/Vomiting/Diarrhea Stated complaint: n/v Time Seen by Provider: 10/13/23 00:59 History of Present Illness HPI narrative: Patient is a 83-year-old female who presents emergency department with chief complaint of nausea vomiting and dizziness. The patient reports he was recently in the hospital for pneumonia as treated with antibiotics and the patient reports that she had multiple bouts of nausea and vomiting reports she did have acute fluids down. The patient denies chest pain denies shortness of breath Related Data Home Medications Medication Instructions Recorded Confirmed [id number] 8 mg-folic 400 1 tablet PO DAILY 06/22/19 10/07/23 mcg-K 50 mcg-lutein 300 mcg tablet (Centrum Silver Women) carvedilol 25 mg tablet (Coreg) 6.25 mg PO Q12HR 08/29/20 10/07/23 nitroglycerin 0.4 mg sublingual 0.4 mg sublingual PRN PRN Chest 01/12/21 10/07/23 tablet Pain vqqV-Q6-P-S-kjcywx-jwgkpwf-min 1 tablet PO BID 01/12/21 10/07/23 3,300 unit-5 mg-200mg-75 unit tablet ER (ICaps) azelastine 137 mcg (0.1 %) nasal 1 spray intranasal Q12H PRN 05/13/22 10/07/23 spray aerosol Congestion ezetimibe 10 mg tablet (Zetia) 10 mg PO DAILY 05/13/22 10/07/23 isosorbide mononitrate 30 mg 10 mg PO DAILY 05/13/22 10/07/23 tablet,extended release 24 hr insulin glargine 100 unit/mL (3 38 unit subcut DAILY 10/07/23 10/07/23 mL) subcutaneous pen (Lantus Solostar U-100 Insulin) rivastigmine tartrate 1.5 mg 1.5 mg PO BID 10/07/23 10/07/23 capsule rosuvastatin 20 mg tablet 20 mg PO DAILY 10/07/23 10/07/23 Allergies Allergy/AdvReac Type Severity Reaction Status Date / Time oxycodone AdvReac Mild Vomiting Verified 10/10/23 16:28 codeine AdvReac Vomiting Verified 10/07/23 11:02 morphine AdvReac Vomiting Verified 05/01/24 11:02 Review of Systems Review of Systems: A 10 system review of systems was completed on the patient and is negative except for what is stated in the HPI. Nursing and ancillary documentation was reviewed. [facility] Past Medical History Medical History Aortic stenosis Cervical radiculopathy Chronic anticoagulation : Warfarin for paroxysmal atrial fibrillation. Chronic kidney disease, stage 3 (moderate) : GFR ranging between 43 and > 60. Colon cancer screening (~06/2020) cologuard negative Coronary artery disease : With history of stent to LAD done at [facility]. Essential hypertension History of colon polyps History of left breast cancer : Status post lumpectomy, chemotherapy, and radiation. 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 : Hemoglobin A1c was 6.9% 08/09/2019. Iron deficiency anemia Mild persistent asthma without complication On amiodarone therapy Osteoarthritis Pacemaker (~04/07/23) Paroxysmal atrial fibrillation : History of cardioversions, with previously noted loosely organized thrombus in the left atrial appendage, for which she was subsequently switched from Xarelto to warfarin. : Last cardioversion attempt in May 2018 was unsuccessful and she was referred to an sports apparel internship at [place]. On arrival to that appointment, she was found to be in a normal sinus rhythm, and to her knowledge has remained in such since. Right forearm cellulitis Severe obstructive sleep apnea : Noted on sleep study 08/10/2019. : CPAP titrated to 11 cm. Surgical History Surgical History History of appendectomy History of bilateral cataract extraction History of bladder suspension procedure History of cholecystectomy History of D&C History of heart artery stent : Stent to LAD, done at [facility]. History of hysterectomy History of lumpectomy of left breast History of permanent cardiac pacemaker placement (~04/07/23) Hi
== END 2023-10-13 06:57 | disposition home or self-care (01) ==
PROVIDERS: Emergency Provider Emergency Medicine; PCP Family Medicine
DX: R11.2 Nausea with vomiting, unspecified (principal); I12.9 Hypertensive chronic kidney disease with stage 1 through stage 4 chronic kidney disease, or unspecified chronic kidney disease; N18.30 Chronic kidney disease, stage 3 unspecified; I25.10 Atherosclerotic heart disease of native coronary artery without angina pectoris; E11.22 Type 2 diabetes mellitus with diabetic chronic kidney disease; Z79.4 Long term (current) use of insulin; Z85.3 Personal history of malignant neoplasm of breast; J45.909 Unspecified asthma, uncomplicated; G47.30 Sleep apnea, unspecified; M19.90 Unspecified osteoarthritis, unspecified site
CPT/HCPCS: 36415; 74177; 80053; 81001; 83605; 83690; 83735; 84145; 84484; 85025; 96361; 96374; 99284; J0780; J7030; Q9967

== ENCOUNTER 2023-10-15 11:46 | Outpatient (CLI) | payer MEDICARE, BC, SELFPAY ==
--- NOTE | ~2023-10-15 | XR_ITS ---
Clinical Indication: Pneumonia PA and lateral views of the chest: Comparison: 10/07/2023 Findings: The lungs are clear, without evidence of focal consolidation or pleural effusion. Cardiome diastinal silhouette is stable, with loop recorder. Bones and soft tissues are unremarkable. Impression: Clear lungs. Reviewed, dictated and finalized at location . Impression: Clear lungs.
== END 2023-10-15 11:47 ==
PROVIDERS: PCP Physician Assistant Medical; Visit Provider Physician Assistant Medical
DX: J18.9 Pneumonia, unspecified organism (principal)
CPT/HCPCS: 71046

== ENCOUNTER 2023-10-16 10:36 | Outpatient (CLI) | payer MEDICARE, SELFPAY ==
[2023-10-16 10:56] LABS: Basophils Absolute Auto 0.09 K/mm3 (0.00-0.10); Basophils Percent Auto 0.9 % (0.0-1.0); Eosinophils Absolute Auto 0.16 K/mm3 (0.02-0.50); Eosinophils Percent Auto 1.7 % (1.0-6.0); Hematocrit 40.3 % (35.0-42.0); Hemoglobin 13.5 g/dL (11.7-13.8); Immature Granulocyte Absolute 0.07 K/mm3 (0.00-0.00); Immature Granulocyte Percent A 0.7 % (0.0-0.0); Lymphocytes Absolute Auto 3.36 K/mm3 (1.10-4.50); Mean Corpuscular HGB Conc 33.5 g/dL (32-36); Mean Corpuscular Hemoglobin 30.9 pg (27.0-31.0); Mean Corpuscular Volume 92.2 fL (78.0-102.0); Mean Platelet Volume 9.5 fl (9.2-11.8); Monocytes Absolute Auto 0.81 K/mm3 (0.10-0.90); Monocytes Percent Auto 8.4 % (2.0-11.0); Neutrophils Percent Auto 53.3 % (50.0-70.0); Platelet Count Result 328 K/mm3 (150-420); Red Blood Count 4.37 M/mm3 (4.20-5.40); White Blood Count 9.6 K/mm3 (4.8-10.8)
[2023-10-16 11:42] LABS: Alanine Aminotransferase 33 U/L (14-59); Albumin Level 3.6 g/dL (3.4-5.0); Alkaline Phosphatase 60 U/L (46-116); Anion Gap 11 mmol/L (4-12); Aspartate Amino Transferase 31 U/L (15-37); Bilirubin,Total 0.9 mg/dL (0.00-1.00); Blood Urea Nitrogen 19 mg/dL (7-18); Carbon Dioxide 27 mmol/L (21-32); Chloride 98 mmol/L (98-108); Estimated Glomerular Filt Rate 40; Glucose 120 mg/dL (70-99); Osmolality Calculated 285 mOsm/kg (285-295); Potassium 4.9 mmol/L (3.5-5.1); Sodium 136 mmol/L (136-145); Total Protein 6.7 g/dL (6.4-8.2)
== END 2023-10-16 10:37 | disposition home or self-care (01) ==
LOC: CHSLAB 10:39
PROVIDERS: PCP Physician Assistant Medical; Visit Provider Physician Assistant Medical
DX: R06.00 Dyspnea, unspecified (principal); R53.83 Other fatigue; R11.0 Nausea; E78.2 Mixed hyperlipidemia
CPT/HCPCS: 36415; 80053; 85025

== ENCOUNTER 2023-10-19 10:41 | Outpatient (CLI) | payer MEDICARE, SELFPAY ==
[2023-10-19 11:16] LABS: Basophils Absolute Auto 0.08 K/mm3 (0.00-0.10); Basophils Percent Auto 0.9 % (0.0-1.0); Eosinophils Absolute Auto 0.11 K/mm3 (0.02-0.50); Eosinophils Percent Auto 1.2 % (1.0-6.0); Hematocrit 40.6 % (35.0-42.0); Hemoglobin 13.5 g/dL (11.7-13.8); Immature Granulocyte Absolute 0.05 K/mm3 (0.00-0.00); Immature Granulocyte Percent A 0.5 % (0.0-0.0); Lymphocytes Absolute Auto 2.81 K/mm3 (1.10-4.50); Lymphocytes Percent Auto 30.3 % (18.0-42.0); Mean Corpuscular HGB Conc 33.3 g/dL (32-36); Mean Corpuscular Hemoglobin 30.8 pg (27.0-31.0); Mean Corpuscular Volume 92.7 fL (78.0-102.0); Mean Platelet Volume 9.6 fl (9.2-11.8); Monocytes Absolute Auto 0.64 K/mm3 (0.10-0.90); Monocytes Percent Auto 6.9 % (2.0-11.0); Neutrophils Absolute Auto 5.57 K/mm3 (1.70-7.20); Neutrophils Percent Auto 60.2 % (50.0-70.0); Platelet Count Result 366 K/mm3 (150-420); Red Blood Count 4.38 M/mm3 (4.20-5.40); Red Cell Distribution Width 14.3 % (11.6-14.4); White Blood Count 9.3 K/mm3 (4.8-10.8)
[2023-10-19 11:44] LABS: Hemoglobin A1C 7.4 % (<5.7)
[2023-10-19 11:55] LABS: Alanine Aminotransferase 31 U/L (14-59); Albumin Level 3.5 g/dL (3.4-5.0); Alkaline Phosphatase 62 U/L (46-116); Anion Gap 13 mmol/L (4-12); Aspartate Amino Transferase 29 U/L (15-37); Bilirubin,Total 0.6 mg/dL (0.00-1.00); Blood Urea Nitrogen 20 mg/dL (7-18); Calcium 9.5 mg/dL (8.5-10.1); Carbon Dioxide 23 mmol/L (21-32); Chloride 100 mmol/L (98-108); Cholesterol 135 mg/dL (0-200); Estimated Glomerular Filt Rate 36; Glucose 172 mg/dL (70-99); HDL Direct 43 mg/dL (40-60); LDL Cholesterol Calculated 70 mg/dL (<130); Osmolality Calculated 288 mOsm/kg (285-295); Potassium 4.9 mmol/L (3.5-5.1); Sodium 136 mmol/L (136-145); Total Protein 6.7 g/dL (6.4-8.2); Triglycerides 112 mg/dL (0-150)
== END 2023-10-19 10:42 | disposition home or self-care (01) ==
LOC: CHSLAB 10:43
PROVIDERS: PCP Family Medicine; Visit Provider Family Medicine
DX: E11.9 Type 2 diabetes mellitus without complications (principal); R53.83 Other fatigue; E78.2 Mixed hyperlipidemia
CPT/HCPCS: 36415; 80053; 80061; 83036; 85025

== ENCOUNTER 2023-10-20 10:51 | Outpatient (CLI) | payer MEDICARE, SELFPAY ==
[2023-10-20 11:10] LABS: Appearance Urine Clear (Clear); Bilirubin Urine Negative (Negative); Blood Urine Negative (Negative); Color Urine Light Yellow (Yellow); Glucose Urine UA Negative (Negative); Ketones Urine Negative (Negative); Leukocyte Esterase Ur 2+ LEU/UL (Negative); Nitrate Urine Negative (Negative); Protein Urine Negative (Negative); Specific Grav Ur 1.025 (1.010-1.020); Urobilinogen Urine 0.2 mg/dL (0.2-1.0)
[2023-10-20 11:20] LABS: Add Urine Microscopic? YES
[2023-10-20 11:21] LABS: Bacteria Urine 1+ /hpf; Budding Yeast Urine Present /hpf; RBC Urine None seen /hpf (0-2); Squamous Epithelial Cell Urine Moderate /hpf (Few)
== END 2023-10-20 10:52 | disposition home or self-care (01) ==
LOC: CHSLAB 10:53
PROVIDERS: PCP Family Medicine; Visit Provider Physician Assistant Medical
DX: N17.9 Acute kidney failure, unspecified (principal); R82.90 Unspecified abnormal findings in urine
CPT/HCPCS: 81001; 87077; 87086; 87088; 87181

== ENCOUNTER 2023-10-25 19:31 | Emergency (ER) | payer MEDICARE, BC, SELFPAY ==
[2023-10-25 19:31] VITALS: BP 119/85; PULSE 126; RESP 20; TEMP 35.9
--- NOTE | 2023-10-25 20:40 | ED.GENADULT ---
HPI - General Adult General Chief complaint: Abdominal Pain Stated complaint: constipation Time Seen by Provider: 10/25/23 20:40 Source: patient Mode of arrival: ambulatory Limitations: no limitations History of Present Illness HPI narrative: 83-year-old white female brought in by her son recently discharged 2 weeks ago with viral pneumonia has not had a bowel movement last 2 weeks since also complains of distal focal T urinating. Thinks she might have a bladder infection. She has had some low back pain and rectal pain. He The sontried to give her a Dulcolax suppository and was unsuccessful today. denies any chest pain abdominal pain shortness of breath difficulty breathing blood in her stools melanotic stools rash or itching, dizziness or lightheadedness problems eating or drinking, or any other complaints. Related Data Home Medications Medication Instructions Recorded Confirmed [id number]-[id number] 8 mg-folic 400 1 tablet PO DAILY 06/22/19 10/20/23 mcg-K 50 mcg-lutein 300 mcg tablet (Centrum Silver Women) carvedilol 25 mg tablet (Coreg) 6.25 mg PO Q12HR 08/29/20 10/20/23 nitroglycerin 0.4 mg sublingual 0.4 mg sublingual PRN PRN Chest 01/12/21 10/20/23 tablet Pain [id number]-[id number]-[id number]-R-htmxhv-yxjbmbz-min 1 tablet PO BID 01/12/21 10/20/23 3,300 unit-5 mg-200mg-75 unit tablet ER (ICaps) azelastine 137 mcg (0.1 %) nasal 1 spray intranasal Q12H PRN 05/13/22 10/20/23 spray aerosol Congestion ezetimibe 10 mg tablet (Zetia) 10 mg PO DAILY 05/13/22 10/20/23 isosorbide mononitrate 30 mg 10 mg PO DAILY 05/13/22 10/20/23 tablet,extended release 24 hr insulin glargine 100 unit/mL (3 38 unit subcut DAILY 10/07/23 10/20/23 mL) subcutaneous pen (Lantus Solostar U-100 Insulin) rivastigmine tartrate 1.5 mg 1.5 mg PO BID 10/07/23 10/20/23 capsule rosuvastatin 20 mg tablet 20 mg PO DAILY 10/07/23 10/20/23 Allergies Allergy/AdvReac Type Severity Reaction Status Date / Time oxycodone AdvReac Mild Vomiting Verified 10/20/23 11:48 codeine AdvReac Vomiting Verified 10/20/23 11:48 morphine AdvReac Vomiting Verified 10/20/23 11:48 Review of Systems Review of Systems: All systems reviewed & are unremarkable except as noted in HPI and below PMFSH Past Medical History Medical History Aortic stenosis Cervical radiculopathy Chronic anticoagulation : Warfarin for paroxysmal atrial fibrillation. Chronic kidney disease, stage 3 (moderate) : GFR ranging between 43 and > 60. Colon cancer screening (~06/2020) cologuard negative Coronary artery disease : With history of stent to LAD done at [facility]. Essential hypertension History of colon polyps History of left breast cancer : Status post lumpectomy, chemotherapy, and radiation. 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 : Hemoglobin A1c was 6.9% 08/09/2019. Iron deficiency anemia Mild persistent asthma without complication On amiodarone therapy Osteoarthritis Pacemaker (~04/07/23) Paroxysmal atrial fibrillation : History of cardioversions, with previously noted loosely organized thrombus in the left atrial appendage, for which she was subsequently switched from Xarelto to warfarin. : Last cardioversion attempt in May 2018 was unsuccessful and she was referred to an tracer bullet section supervisor at [place]. On arrival to that appointment, she was found to be in a normal sinus rhythm, and to her knowledge has remained in such since. Right forearm cellulitis Severe obstructive sleep apnea : Noted on sleep study 08/10/2019. : CPAP titrated to 11 cm. Surgical History Surgical History History of appendectomy History of bilateral cataract extraction History of bladder suspension procedure History of cholecystectomy History of D&C History of heart artery stent : Stent to LAD
--- NOTE | 2023-10-25 20:43 | PC.NURSE ---
Pt disimpacted of large amt of stool by Dr Rucker, removed manually, used viscous lidocaine to numb area of hemorrhoids. Pt tolerated well.
[2023-10-25] MEDS: LIDOCAINE HCL 2% VISC SOLN 15 ML UDC PO (20:48)
[2023-10-25 21:11] LABS: Bilirubin Urine Negative (Negative); Blood Urine Negative (Negative); Color Urine Dark Yellow (Yellow); Glucose Urine UA Negative (Negative); Ketones Urine Trace (Negative); Leukocyte Esterase Ur Trace (Negative); Nitrate Urine Negative (Negative); Protein Urine Trace (Negative); Specific Grav Ur 1.025 (1.010-1.020); Urobilinogen Urine 0.2 mg/dL (0.2-1.0); pH Urine 5.5 (5.0-8.0)
[2023-10-25 21:14] LABS: Occult Blood Negative (Negative)
[2023-10-25 21:25] LABS: Add Urine Microscopic? YES; Appearance Urine Sl Cloudy (Clear); WBC Urine 0-3 /hpf (0-3)
[2023-10-25 21:26] LABS: Amorphous Sediment Urine Heavy; Bacteria Urine 2+ /hpf; Budding Yeast Urine Present /hpf; Hyaline Casts Urine 50+ /lpf
[2023-10-25 21:41] VITALS: BP 128/79; PULSE 78; RESP 20; TEMP 36.6; O2SAT 95
== END 2023-10-25 21:41 | disposition home or self-care (01) ==
PROVIDERS: Emergency Provider Emergency Medicine; PCP Family Medicine
DX: K56.41 Fecal impaction (principal); K64.4 Residual hemorrhoidal skin tags; I12.9 Hypertensive chronic kidney disease with stage 1 through stage 4 chronic kidney disease, or unspecified chronic kidney disease; E11.22 Type 2 diabetes mellitus with diabetic chronic kidney disease; N18.30 Chronic kidney disease, stage 3 unspecified; I25.10 Atherosclerotic heart disease of native coronary artery without angina pectoris; D50.9 Iron deficiency anemia, unspecified; J45.30 Mild persistent asthma, uncomplicated; I48.0 Paroxysmal atrial fibrillation; G47.33 Obstructive sleep apnea (adult) (pediatric); Z95.0 Presence of cardiac pacemaker; Z79.01 Long term (current) use of anticoagulants; Z79.4 Long term (current) use of insulin; Z85.3 Personal history of malignant neoplasm of breast; Z92.21 Personal history of antineoplastic chemotherapy; Z92.3 Personal history of irradiation; Z95.5 Presence of coronary angioplasty implant and graft; Z79.891 Long term (current) use of opiate analgesic; Z79.02 Long term (current) use of antithrombotics/antiplatelets; Z79.51 Long term (current) use of inhaled steroids
CPT/HCPCS: 81001; 82272; 99283

== ENCOUNTER 2023-10-27 12:11 | Outpatient (CLI) | payer MEDICARE, SELFPAY ==
[2023-10-27 12:28] LABS: Basophils Absolute Auto 0.05 K/mm3 (0.00-0.10); Basophils Percent Auto 0.5 % (0.0-1.0); Eosinophils Absolute Auto 0.11 K/mm3 (0.02-0.50); Hematocrit 42.6 % (35.0-42.0); Hemoglobin 14.1 g/dL (11.7-13.8); Immature Granulocyte Absolute 0.05 K/mm3 (0.00-0.00); Immature Granulocyte Percent A 0.5 % (0.0-0.0); Lymphocytes Absolute Auto 5.13 K/mm3 (1.10-4.50); Lymphocytes Percent Auto 47.9 % (18.0-42.0); Mean Corpuscular HGB Conc 33.1 g/dL (32-36); Mean Corpuscular Hemoglobin 30.6 pg (27.0-31.0); Mean Corpuscular Volume 92.4 fL (78.0-102.0); Mean Platelet Volume 10.7 fl (9.2-11.8); Monocytes Percent Auto 6.5 % (2.0-11.0); Neutrophils Absolute Auto 4.66 K/mm3 (1.70-7.20); Neutrophils Percent Auto 43.6 % (50.0-70.0); Platelet Count Result 261 K/mm3 (150-420); Red Blood Count 4.61 M/mm3 (4.20-5.40); Red Cell Distribution Width 14.5 % (11.6-14.4); White Blood Count 10.7 K/mm3 (4.8-10.8)
[2023-10-27 13:06] LABS: Anion Gap 19 mmol/L (4-12); Blood Urea Nitrogen 23 mg/dL (7-18); Calcium 9.4 mg/dL (8.5-10.1); Carbon Dioxide 17 mmol/L (21-32); Chloride 98 mmol/L (98-108); Estimated Glomerular Filt Rate 33; Glucose 334 mg/dL (70-99); Osmolality Calculated 294 mOsm/kg (285-295); Potassium 4.8 mmol/L (3.5-5.1); Sodium 134 mmol/L (136-145)
== END 2023-10-27 12:12 | disposition home or self-care (01) ==
LOC: CHSLAB 12:12
PROVIDERS: PCP Family Medicine; Visit Provider Physician Assistant Medical
DX: N17.9 Acute kidney failure, unspecified (principal); A41.9 Sepsis, unspecified organism; R53.83 Other fatigue
CPT/HCPCS: 36415; 80048; 85025

== ENCOUNTER 2023-11-03 10:01 | Outpatient (CLI) | payer MEDICARE, SELFPAY ==
[2023-11-03 10:26] LABS: Appearance Urine Sl Cloudy (Clear); Bilirubin Urine Negative (Negative); Blood Urine Negative (Negative); Color Urine Light Yellow (Yellow); Glucose Urine UA Negative (Negative); Ketones Urine Negative (Negative); Leukocyte Esterase Ur 2+ LEU/UL (Negative); Nitrate Urine Negative (Negative); Protein Urine Negative (Negative); Specific Grav Ur 1.025 (1.010-1.020); Urobilinogen Urine 0.2 mg/dL (0.2-1.0); pH Urine 5.5 (5.0-8.0)
[2023-11-03 11:08] LABS: Add Urine Microscopic? YES; RBC Urine None seen /hpf (0-2)
[2023-11-03 11:09] LABS: Bacteria Urine None seen /hpf; Renal Epithelial Cells Urine Few /hpf; Squamous Epithelial Cell Urine Many /hpf (Few); WBC Urine 16-20 /hpf (0-3)
== END 2023-11-03 10:02 | disposition home or self-care (01) ==
PROVIDERS: PCP Family Medicine; Visit Provider Physician Assistant Medical
DX: R30.0 Dysuria (principal); R82.90 Unspecified abnormal findings in urine
CPT/HCPCS: 81001; 87086; 87088

== ENCOUNTER 2023-11-06 11:14 | Outpatient (CLI) | payer MEDICARE, SELFPAY ==
[2023-11-06 12:26] LABS: Anion Gap 13 mmol/L (4-12); Blood Urea Nitrogen 13 mg/dL (7-18); Calcium 9.5 mg/dL (8.5-10.1); Carbon Dioxide 25 mmol/L (21-32); Chloride 106 mmol/L (98-108); Estimated Glomerular Filt Rate 53; Glucose 211 mg/dL (70-99); Osmolality Calculated 304 mOsm/kg (285-295); Potassium 4.3 mmol/L (3.5-5.1); Sodium 144 mmol/L (136-145)
== END 2023-11-06 11:15 | disposition home or self-care (01) ==
LOC: CHSLAB 11:15
PROVIDERS: PCP Family Medicine; Visit Provider Physician Assistant Medical
DX: N18.9 Chronic kidney disease, unspecified (principal)
CPT/HCPCS: 36415; 80048

== ENCOUNTER 2023-12-18 09:52 | Outpatient (CLI) | payer MEDICARE, SELFPAY ==
[2023-12-18 10:15] LABS: Basophils Absolute Auto 0.05 K/mm3 (0.00-0.10); Basophils Percent Auto 0.6 % (0.0-1.0); Eosinophils Absolute Auto 0.24 K/mm3 (0.02-0.50); Eosinophils Percent Auto 2.9 % (1.0-6.0); Hematocrit 37.4 % (35.0-42.0); Hemoglobin 12.2 g/dL (11.7-13.8); Immature Granulocyte Absolute 0.03 K/mm3 (0.00-0.00); Immature Granulocyte Percent A 0.4 % (0.0-0.0); Lymphocytes Absolute Auto 2.54 K/mm3 (1.10-4.50); Lymphocytes Percent Auto 30.5 % (18.0-42.0); Mean Corpuscular HGB Conc 32.6 g/dL (32-36); Mean Corpuscular Hemoglobin 29.5 pg (27.0-31.0); Mean Corpuscular Volume 90.3 fL (78.0-102.0); Mean Platelet Volume 11.2 fl (9.2-11.8); Monocytes Absolute Auto 0.61 K/mm3 (0.10-0.90); Monocytes Percent Auto 7.3 % (2.0-11.0); Neutrophils Absolute Auto 4.86 K/mm3 (1.70-7.20); Neutrophils Percent Auto 58.3 % (50.0-70.0); Platelet Count Result 202 K/mm3 (150-420); Red Blood Count 4.14 M/mm3 (4.20-5.40); Red Cell Distribution Width 14.8 % (11.6-14.4); White Blood Count 8.3 K/mm3 (4.8-10.8)
[2023-12-18 17:53] LABS: Alanine Aminotransferase 16 U/L (14-59); Albumin Level 3.5 g/dL (3.4-5.0); Alkaline Phosphatase 95 U/L (46-116); Anion Gap 11 mmol/L (4-12); Aspartate Amino Transferase 18 U/L (15-37); Bilirubin,Total 0.4 mg/dL (0.00-1.00); Blood Urea Nitrogen 14 mg/dL (7-18); Calcium 9.1 mg/dL (8.5-10.1); Carbon Dioxide 26 mmol/L (21-32); Chloride 104 mmol/L (98-108); Estimated Glomerular Filt Rate 60; Glucose 224 mg/dL (70-99); Osmolality Calculated 299 mOsm/kg (285-295); Potassium 4.3 mmol/L (3.5-5.1); Sodium 141 mmol/L (136-145); Total Protein 6.3 g/dL (6.4-8.2)
== END 2023-12-18 09:53 | disposition home or self-care (01) ==
LOC: CHSLAB 09:55
PROVIDERS: PCP Family Medicine; Visit Provider Nurse Practitioner Adult Health
DX: Z01.812 Encounter for preprocedural laboratory examination (principal); I25.10 Atherosclerotic heart disease of native coronary artery without angina pectoris
CPT/HCPCS: 36415; 80053; 85025

== ENCOUNTER 2024-01-20 09:44 | Outpatient (CLI) | payer MEDICARE, SELFPAY ==
[2024-01-20 09:59] LABS: Basophils Absolute Auto 0.06 K/mm3 (0.00-0.10); Basophils Percent Auto 0.6 % (0.0-1.0); Eosinophils Absolute Auto 0.24 K/mm3 (0.02-0.50); Eosinophils Percent Auto 2.6 % (1.0-6.0); Hematocrit 39.6 % (35.0-42.0); Hemoglobin 12.9 g/dL (11.7-13.8); Immature Granulocyte Absolute 0.03 K/mm3 (0.00-0.00); Immature Granulocyte Percent A 0.3 % (0.0-0.0); Lymphocytes Absolute Auto 2.85 K/mm3 (1.10-4.50); Lymphocytes Percent Auto 30.3 % (18.0-42.0); Mean Corpuscular HGB Conc 32.6 g/dL (32-36); Mean Corpuscular Hemoglobin 29.4 pg (27.0-31.0); Mean Corpuscular Volume 90.2 fL (78.0-102.0); Mean Platelet Volume 10.8 fl (9.2-11.8); Monocytes Absolute Auto 0.74 K/mm3 (0.10-0.90); Monocytes Percent Auto 7.9 % (2.0-11.0); Neutrophils Absolute Auto 5.48 K/mm3 (1.70-7.20); Neutrophils Percent Auto 58.3 % (50.0-70.0); Platelet Count Result 193 K/mm3 (150-420); Red Blood Count 4.39 M/mm3 (4.20-5.40); Red Cell Distribution Width 15.4 % (11.6-14.4); White Blood Count 9.4 K/mm3 (4.8-10.8)
[2024-01-20 10:44] LABS: Alanine Aminotransferase 21 U/L (14-59); Albumin Level 3.7 g/dL (3.4-5.0); Alkaline Phosphatase 89 U/L (46-116); Aspartate Amino Transferase 23 U/L (15-37); Bilirubin,Total 0.5 mg/dL (0.00-1.00); Blood Urea Nitrogen 26 mg/dL (7-18); Calcium 9.3 mg/dL (8.5-10.1); Chloride 104 mmol/L (98-108); Estimated Glomerular Filt Rate 56; Ferritin 39 ng/mL (8-252); Glucose 93 mg/dL (70-99); Iron 118 ug/dL (50-170); Osmolality Calculated 296 mOsm/kg (285-295); Percent Iron Saturation 37 % (12-57); Potassium 4.2 mmol/L (3.5-5.1); Sodium 141 mmol/L (136-145); Total Protein 6.6 g/dL (6.4-8.2)
[2024-01-20 10:49] LABS: Anion Gap 12 mmol/L (4-12); Carbon Dioxide 25 mmol/L (21-32)
[2024-01-20 12:51] LABS: Thyroid Stimulating Hormone Reflex 1.78 u/IU/mL (0.36-3.74)
== END 2024-01-20 09:45 | disposition home or self-care (01) ==
LOC: CHSLAB 09:46
PROVIDERS: PCP Family Medicine; Visit Provider Family Medicine
DX: E11.9 Type 2 diabetes mellitus without complications (principal); D64.9 Anemia, unspecified; R53.83 Other fatigue
CPT/HCPCS: 36415; 80053; 82728; 83540; 83550; 84443; 85025

== ENCOUNTER 2024-04-08 07:49 | Outpatient (CLI) | payer MEDICARE, BC, SELFPAY ==
--- NOTE | ~2024-04-08 | US_ITS ---
EXAMINATION: US soft tissue abdomen DATE: 04/08/2024 08:08 INDICATION: Left upper quadrant abdominal mass. TECHNIQUE: Multiple grayscale and Doppler ultrasound images of the abdomen were obtained. COMPARISON: CT abdomen and pelvis 10/13/2023 FINDINGS: In the left upper quadrant abdominal wall, there is an ill-defined 2.6 x 1.4 x 1.4 cm hyper echoic subcutaneous mass with internal 4 mm cyst. IMPRESSION: 1. 2.6 cm ill-defined subcutaneous mass in left upper quadrant of the abdomen, likely inflammation. Reviewed, dictated and finalized at location B.
[2024-04-08 08:27] LABS: Hemoglobin A1C 6.9 % (<5.7)
[2024-04-08 09:39] LABS: Alanine Aminotransferase 25 U/L (14-59); Albumin Level 3.6 g/dL (3.4-5.0); Alkaline Phosphatase 87 U/L (46-116); Anion Gap 9 mmol/L (4-12); Aspartate Amino Transferase 21 U/L (15-37); Bilirubin,Total 0.5 mg/dL (0.00-1.00); Blood Urea Nitrogen 20 mg/dL (7-18); Calcium 9.4 mg/dL (8.5-10.1); Carbon Dioxide 28 mmol/L (21-32); Chloride 106 mmol/L (98-108); Cholesterol 143 mg/dL (0-200); Estimated Glomerular Filt Rate 56; Glucose 133 mg/dL (70-99); HDL Direct 47 mg/dL (40-60); LDL Cholesterol Calculated 72 mg/dL (<130); Osmolality Calculated 300 mOsm/kg (285-295); Potassium 4.6 mmol/L (3.5-5.1); Sodium 143 mmol/L (136-145); Total Protein 6.8 g/dL (6.4-8.2); Triglycerides 122 mg/dL (0-150)
[2024-04-08 09:46] LABS: Thyroid Stimulating Hormone Reflex 2.45 u/IU/mL (0.36-3.74)
[2024-04-09 10:29] LABS: Vitamin D 25 Hydroxy 36 ng/mL (30-100)
== END 2024-04-08 07:50 | disposition home or self-care (01) ==
PROVIDERS: PCP Family Medicine; Visit Provider Family Medicine
DX: E78.2 Mixed hyperlipidemia (principal); E55.9 Vitamin D deficiency, unspecified; R53.83 Other fatigue; E11.9 Type 2 diabetes mellitus without complications; R19.02 Left upper quadrant abdominal swelling, mass and lump
CPT/HCPCS: 36415; 76705; 80053; 80061; 82306; 83036; 84443

== ENCOUNTER 2024-04-27 10:17 | Emergency (ER) | payer MEDICARE, BC, SELFPAY ==
[2024-04-27] VITALS (14 sets, daily range): BP systolic 116–167; BP diastolic 62–95; PULSE 61–97; RESP 14–18; TEMP 36.3–37.2; O2SAT 94–98
--- NOTE | ~2024-04-27 | XR_ITS ---
XR chest 1V portable Ordering provider: Alberto Hernandes MD History: 83 years Female with . cardiomyopathy concerns of bruising with unknown causes . Comparison: None. FINDINGS: MEDIASTINUM: The cardiac silhouette is slightly enlarged. Device projected over the left hemithorax. LUNGS: No effusions or pneumothorax. Opacification in the right lung base seen with prominent broncho vascular markings suggestive of early pneumonia. Follow-up advised. OTHER: No free air under the diaphragm. IMPRESSION: Right basilar atelectasis versus pneumonia. Reviewed, dictated and finalized at location A. [facility] C[facility]TER
--- NOTE | 2024-04-27 10:33 | ED_ITS ---
HPI - General Adult General Chief complaint: Skin/Abscess/Foreign Body Stated complaint: BRUISING Time Seen by Provider: 04/27/24 10:32 Source: patient Mode of arrival: ambulatory Limitations: no limitations History of Present Illness HPI narrative: 83-year-old female with a history of breast CA status post lumpectomy/ RT/ chemo,hypertension, dyslipidemia, diabetes mellitus, peptic ulcer disease, [place] on CPAP, CAD status post multiple stents status post last stent on 12/25/2023, normal EF, aortic stenosis, persistent atrial fibrillation on Plavix and Eliquis was sent from rehab to the ED for -- left breast hematoma along with bruising of anterior abdominal wall back and lower extremities. No hematemesis or melena. No epistaxis. No trauma patient is unsure as to how long she has had this. It was noticed at cardiac rehab. Onset (ago): unknown Location: chest, abdomen and lower extremity Associated symptoms: denies other symptoms and other ( Multiple bruises) Treatments prior to arrival: none Related Data Home Medications Medication Instructions Recorded Confirmed bltzdxqj-kdto-eoju 8 mg-folic 400 1 tablet PO DAILY 06/22/19 04/05/24 mcg-K 50 mcg-lutein 300 mcg tablet (Centrum Silver Women) carvedilol 25 mg tablet (Coreg) 6.25 mg PO Q12HR 08/29/20 04/05/24 nitroglycerin 0.4 mg sublingual 0.4 mg sublingual PRN PRN Chest 01/12/21 04/05/24 tablet Pain vnnV-D0-A-H-xmjspy-yhoouhf-min 1 tablet PO BID 01/12/21 04/05/24 3,300 unit-5 mg-200mg-75 unit tablet ER (ICaps) insulin glargine 100 unit/mL (3 38 unit subcut DAILY 10/07/23 04/05/24 mL) subcutaneous pen (Lantus Solostar U-100 Insulin) Allergies Allergy/AdvReac Type Severity Reaction Status Date / Time oxycodone AdvReac Mild Vomiting Verified 04/05/24 11:39 codeine AdvReac Vomiting Verified 04/05/24 11:39 morphine AdvReac Vomiting Verified 04/05/24 11:39 Review of Systems Constitutional: Constitutional: Reports as per HPI and Reports no additional constitutional complaints Eyes: Eyes: Reports as per HPI and Reports no additional eye complaints ENT: Reports system reviewed and no additional complaints, except as documented and Reports as per HPI Cardiovascular: Cardiovascular: Reports as per HPI and Reports no additional cardiovascular complaints Respiratory: Respiratory: Reports as per HPI and Reports no additional respiratory complaints Gastrointestinal: Gastrointestinal: Reports as per HPI and Reports no additional gastrointestinal complaints Genitourinary: Genitourinary: Reports no additional female genitourinary complaints and Reports as per HPI Musculoskeletal: Musculoskeletal: Reports no additional musculoskeletal complaints and Reports as per HPI Integumentary/Breasts: Skin/Breast: Reports system reviewed and no additional complaints, except as docu and Reports as per HPI Comments: multiple bruises on the anterior chest, anterior abdominal wall, back and bilateral lower extremities 2 cm hematoma on the left breast Neurologic: Reports system reviewed and no additional complaints, except as documented and Reports as per HPI Psychiatric: Psychiatric: Reports no additional psychiatric complaints and Reports as per HPI Endocrine: Endocrine: Reports no additional endocrine complaints and Reports as per HPI Hematologic/Lymphatic: Hematologic/Lymphatic: Reports no additional hematologic/lymphatic complaints and Reports as per HPI Allergic/Immunologic: Allergic/Immunologic: Reports no additional allergic/immunologic complaints and Reports as per HPI [facility], [facility] Past Medical History Medical History Aortic stenosis Cervical radiculopathy Chronic anticoagulation : Warfarin for paroxysmal atrial fibrillation. Chronic kidney disease, stage 3 (moderate) : GFR ranging between 43 and > 60. Colon cancer screening (~06/2020) cologuard negative Coronary artery disease : With history of stent to LAD done at [facility]. Essential hypertension History of colon polyps History of left breast cancer : Status post lumpectomy, chemotherapy, and radiation. 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 : Hemoglobin A1c was 6.9% 08/09/2019. Iron deficiency anemia Mild persistent asthma without complication On amiodarone therapy Osteoarthritis Pacemaker (~04/07/23) Paroxysmal atrial fibrillation : History of cardioversions, with previously noted loosely organized thrombus in the left atrial appendage, for which she was subsequently switched from Xarelto to warfarin. : Last cardioversion attempt in May 2018 was unsuccessful and she was referred to an middle school science teacher at [place]. On arrival to that appointment, she was found to be in a normal sinus rhythm, and to her knowledge has remained in such since. Right forearm cellulitis Severe obstructive sleep apnea : Noted on sleep study 08/10/2019. : CPAP titrated to 11 cm. Surgical History Surgical History History of appendectomy History of bilateral cataract extraction History of bladder suspension procedure History of cholecystectomy History of D&C History of heart artery stent : Stent to LAD, done at [facility]. History of hysterectomy History of lumpectomy of left breast History of permanent cardiac pacemaker placement (~04/07/23) History of right hip hemiarthroplasty (08/30/19) Family History Family History Father Family history of diabetes mellitus in first degree relative Hypertension Cerebrovascular accident Mother Family history of heart disease in male family member before age 55 Patient's mother is , Onset Age: 68 Family history of coronary artery disease, Onset Age: 68 Hypertension, Onset Age: 68 Sibling Cerebrovascular accident Other Diabetes mellitus Social History Social History Social History: The patient is and lives in [place]. She has 7 children. 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 Her son, Jn, is her s urrogate decision maker and she wishes to be a full code. She is a lifelong nonsmoker and denies alcohol and drug abuse. Smoking status: Never smoker Second hand tobacco smoke exposure: Yes Alcohol intake: never Substance use: never Substance use type: does not use Do You Feel Safe in your Home?: Yes Lack of Transportation: No Lack of Food: Never True Current Housing: I Have Housing Concerned About Future Housing: No Difficulty Paying Gas/Electric Bills: No Difficulty Paying for Meds: No Currently Unemployed: No Education: High School Diploma/GED Difficulty w/ Childcare or Family Care: No Living arrangements: with family Gender identity (if verbalized by the patient): Female Spiritual care concerns: No Agree to blood products: Yes Exam Const: General: no acute distress Nutritional Appearance: well nourished Orientation/consciousness: patient oriented x3 Limitations: no limitations HENMT: Head: normal to inspection Ears: external ears normal Face/Nose/Sinus: Normal external nose present Face and sinus: normal facial exam Mouth: Yes Normal oral and palatal mucosa present Throat: posterior oropharynx normal Eyes: Conjunctivae: conjunctivae normal Pupils: Equal, round and reactive pupils present EOM: EOMs intact bilaterally Direct Ophthalmoscopy: no photophobia Neck: Neck: normal visual inspection and no lymphadenopathy Chest: Chest palpation & inspection: normal inspection of the chest and abnormal inspection of the chest Resp: Effort & Inspection: normal respiratory effort and labored Auscultation: clear to auscultation bilaterally Cardio: Rate: tachycardic Rhythm: abnormal rhythm GI: GI Palp: Yes Soft to palpation Auscultation: normal bowel sounds Other: no tenderness/rigidity / rebound. : General: Yes no CVA tenderness Back/Spine/Pelvis: Back: no CVA tenderness Skin: General skin exam: normal color Other: Multiple bruises over the back, anterior abdominal wall, bilateral lower extremity. 2 cm hematoma over the left breast Neuro: General: patient oriented x3, moves all extremities, no meningeal sig ns, no focal motor deficits and CN's II-XI intact bilaterally Cranial nerves: Yes Nystagmus not present Speech: normal speech Gait exam (Neuro): Normal gait present Extrem: General: normal to inspection and no clubbing, cyanosis or edema Psych: Mental Status: mental status grossly normal Affect: normal affect Attitude: cooperative Course Course Emergency Course: easy bruising secondary to Plavix/ Eliquis paged Dr. Lester Banks patient does not want to wait anymore at this time. Will inform her as to what her business english instructor Dr. Banks recommends. Vital Signs Vital signs: Vital Signs Temperature 36.3 C L 04/27/24 10:18 Pulse Rate 97 04/27/24 10:18 Respiratory Rate 18 04/27/24 10:18 Blood Pressure 167/85 H 04/27/24 10:18 Pulse Oximetry 96 04/27/24 10:18 Oxygen Delivery Room Air 04/27/24 10:18 Temperature 37.2 C 04/27/24 12:47 Pulse Rate 62 04/27/24 12:47 Respiratory Rate 16 04/27/24 12:47 Blood Pressure 149/95 H 04/27/24 12:46 Pulse Oximetry 97 04/27/24 12:47 Oxygen Delivery Room Air 04/27/24 11:30 Medical Decision Making MDM Narrative Medical decision making narrative: Easy bruising secondary to Eliquis and Plavix Differential Diagnosis Differential Diagnosis: coagulopathy secondary to liver disease Medical Records Medical records reviewed: Yes I reviewed the external patient's medical records. Vital Signs Vital Signs: Vital Signs Temperature 36.3 C L 04/27/24 10:18 Pulse Rate 97 04/27/24 10:18 Respiratory Rate 18 04/27/24 10:18 Blood Pressure 167/85 H 04/27/24 10:18 Pulse Oximetry 96 04/27/24 10:18 Oxygen Delivery Room Air 04/27/24 10:18 Temperature 37.2 C 04/27/24 12:47 Pulse Rate 62 04/27/24 12:47 Respiratory Rate 16 04/27/24 12:47 Blood Pressure 149/95 H 04/27/24 12:46 Pulse Oximetry 97 04/27/24 12:47 Oxygen Delivery Room Air 04/27/24 11:30 Lab Data Lab results reviewed: Yes I reviewed the patient's lab results. 04/27/24 11:14 04/27/24 11:14 Labs: Lab Results 04/27/24 Range/Units 11:14 WBC 8.6 (4.8-10.8) K/mm3 RBC 4.50 (4.20-5.40) M/mm3 Hgb 13.5 (11.7-13.8) g/dL Hct 40.5 (35.0-42.0) % MCV 90.0 (78.0-102.0) fL MCH 30.0 (27.0-31.0) pg MCHC 33.3 (32-36) g/dL RDW 14.5 H (11.6-14.4) % Plt Count 196 (150-420) K/mm3 MPV 10.8 (9.2-11.8) fl Immature Gran % (Auto) 0.4 H (0.0-0.0) % Neut % (Auto) 63.0 (50.0-70.0) % Lymph % (Auto) 27.0 (18.0-42.0) % Sac % (Auto) 7.3 (2.0-11.0) % Eos % (Auto) 1.9 (1.0-6.0) % Baso % (Auto) 0.4 (0.0-1.0) % Lymph # (Auto) 2.31 (1.10-4.50) K/mm3 Sac # (Auto) 0.62 (0.10-0.90) K/mm3 Eos # (Auto) 0.16 (0.02-0.50) K/mm3 Baso # (Auto) 0.03 (0.00-0.10) K/mm3 Abs Immat Gran (auto) 0.03 H (0.00-0.00) K/mm3 Absolute Neuts (auto) 5.40 (1.70-7.20) K/mm3 Absolute Nucleated RBC 0.00 (0.00-0.00) K/mm3 Nucleated RBC % 0.0 (0-0.0) % PT 11.0 (9.50-12.1) Seconds INR 1.0 APTT 28.0 (23.9-30.70) Sec Heparin Anti-Xa Level Pending Sodium 139 (136-145) mmol/L Potassium 4.2 (3.5-5.1) mmol/L Chloride 102 (98-108) mmol/L Carbon Dioxide 26 (21-32) mmol/L Anion Gap 11 (4-12) mmol/L BUN 23 H (7-18) mg/dL Creatinine 1.07 H (0.55-1.02) mg/dL Estim Creat Clear Calc 34 ml/min Estimated GFR 49 L (59 - ) Glucose 221 H (70-99) mg/dL Calculated Osmolality 298 H (285-295) mOsm/kg Calcium 9.5 (8.5-10.1) mg/dL Total Bilirubin 0.5 (0.00-1.00) mg/dL AST 25 (15-37) U/L ALT 28 (14-59) U/L Alkaline Phosphatase 100 (46-116) U/L Troponin I 10.1 (0.00-60.4) ng/L NT-Pro-B Natriuret Pep 852 H (0-450) pg/mL Total Protein 7.1 (6.4-8.2) g/dL Albumin 3.5 (3.4-5.0) g/dL Discharge Plan Discharge Clinical Impression: Easy bruisability Patient Disposition: Home, Self-Care Condition: Stable Instructions: Antibiotic Form, Hypercoagulation (ED) Patient Language: Hebrew Prescriptions: No Action nitroglycerin 0.4 mg tablet, sublingual 0.4 mg sublingual PRN PRN (Reason: Chest Pain) Patient Comments: has not taken ICaps 3,781-2-867-75 kgps-ft-zl-unit Tablet Extended Release 1 tablet PO BID acetaminophen [Tylenol] 325 mg capsule 650 mg PO Q8H PRN (Reason: pain) Qty: 20 0RF insulin glargine [Lantus Solostar U-100 Insulin] 100 unit/mL (3 mL) insulin pen 38 unit subcut DAILY Rx Instructions: INJECT 38 UNITS SUBCUTANEOUSLY EVERY DAY Centrum Silver Women 8 mg iron-400 mcg-300 mcg tablet 1 tablet PO DAILY (DME) FreeStyle Stephania 3 Sensor Device See Rx Instructions .Route Qty: 2 6RF Rx Instructions: As directed daily for 14 days albuterol sulfate 2.5 mg /3 mL (0.083 %) solution for nebulization 2.5 mg inhalation Q6H PRN (Reason: shortness of breath or wheezing) Qty: 180 0RF apixaban 5 mg tablet 5 mg PO BID Qty: 180 2RF (DME) RSV vaccine See Rx Instructions .Route .MEDSUPPLY Qty: 1 0RF Rx Instructions: As directed for injection carvedilol [Coreg] 25 mg tablet 6.25 mg PO Q12HR clopidogrel [Plavix] 75 mg tablet 75 mg PO DAILY Qty: 30 3RF (DME) pen needle, diabetic [BD Ultra-Fine Micro Pen Needle] 32 gauge x 1/4 needle See Rx Instructions .Route Qty: 50 4RF Rx Instructions: As directed weekly (DME) spirometers and accessories Device See Rx Instructions .Route Qty: 1 0RF Rx Instructions: Use 10 times per hour rosuvastatin 20 mg tablet 20 mg PO DAILY Qty: 90 1RF Follow-up/Referrals: Kortney Aguirre MD [Primary Care Provider] - Time of Disposition: 13:23
--- NOTE | 2024-04-27 10:55 | ECG_ITS ---
Test Date: 2024-04-27 11:08:30 Measurements Intervals [place] Rate: 75 P: 0 MS: 0 QRS: 97 QRSD: 95 T: 66 QT: 414 QTc: 464 Interpretive Statements ATRIAL FIBRILLATION RIGHT AXIS DEVIATION INCOMPLETE RIGHT BUNDLE BRANCH BLOCK CONSIDER ANTERIOR INFARCT, AGE INDETERMINATE BASELINE ARTIFACT- I, II, III, AVL, AVF ABNORMAL ECG No previous ECG available for comparison Electronically Signed On 04-27-2024 11:36:07 TECHNICAL WRITING LEAD/MGR by Yuniel Wynn D.O.
[2024-04-27 11:19] LABS: Basophils Absolute Auto 0.03 K/mm3 (0.00-0.10); Basophils Percent Auto 0.4 % (0.0-1.0); Eosinophils Absolute Auto 0.16 K/mm3 (0.02-0.50); Eosinophils Percent Auto 1.9 % (1.0-6.0); Hematocrit 40.5 % (35.0-42.0); Hemoglobin 13.5 g/dL (11.7-13.8); Immature Granulocyte Absolute 0.03 K/mm3 (0.00-0.00); Immature Granulocyte Percent A 0.4 % (0.0-0.0); Lymphocytes Absolute Auto 2.31 K/mm3 (1.10-4.50); Mean Corpuscular HGB Conc 33.3 g/dL (32-36); Mean Platelet Volume 10.8 fl (9.2-11.8); Monocytes Absolute Auto 0.62 K/mm3 (0.10-0.90); Monocytes Percent Auto 7.3 % (2.0-11.0); Platelet Count Result 196 K/mm3 (150-420); Red Cell Distribution Width 14.5 % (11.6-14.4); White Blood Count 8.6 K/mm3 (4.8-10.8)
[2024-04-27 11:41] LABS: Alanine Aminotransferase 28 U/L (14-59); Albumin Level 3.5 g/dL (3.4-5.0); Alkaline Phosphatase 100 U/L (46-116); Anion Gap 11 mmol/L (4-12); Aspartate Amino Transferase 25 U/L (15-37); Bilirubin,Total 0.5 mg/dL (0.00-1.00); Blood Urea Nitrogen 23 mg/dL (7-18); Calcium 9.5 mg/dL (8.5-10.1); Carbon Dioxide 26 mmol/L (21-32); Chloride 102 mmol/L (98-108); Estimated CRCL calculation 34 ml/min; Estimated Glomerular Filt Rate 49; Glucose 221 mg/dL (70-99); NT Pro B Type Natriuretic Pept 852 pg/mL (0-450); Osmolality Calculated 298 mOsm/kg (285-295); Potassium 4.2 mmol/L (3.5-5.1); Sodium 139 mmol/L (136-145); Total Protein 7.1 g/dL (6.4-8.2); Troponin I 10.1 ng/L (0.00-60.4)
[2024-05-01 12:14] LABS: Heparin, Anti-XA 0.31 IU/mL
== END 2024-04-27 13:27 | disposition home or self-care (01) ==
PROVIDERS: Emergency Provider Internal Medicine Critical Care Medicine; PCP Family Medicine
DX: S20.02XA Contusion of left breast, initial encounter (principal); I12.9 Hypertensive chronic kidney disease with stage 1 through stage 4 chronic kidney disease, or unspecified chronic kidney disease; E11.22 Type 2 diabetes mellitus with diabetic chronic kidney disease; N18.30 Chronic kidney disease, stage 3 unspecified; I48.0 Paroxysmal atrial fibrillation; Z85.3 Personal history of malignant neoplasm of breast; Z79.01 Long term (current) use of anticoagulants; X58.XXXA Exposure to other specified factors, initial encounter
CPT/HCPCS: 36415; 71045; 80053; 83880; 84484; 85025; 85520; 85610; 85730; 93005; 99284

== ENCOUNTER 2024-05-17 10:20 | Outpatient (CLI) | payer MEDICARE, BC, SELFPAY ==
--- NOTE | ~2024-05-17 | MM_ITS ---
EXAMINATION: MM diagnostic jame LT w cass HISTORY: Personal history of malignancy. Bruising of the left breast. Patient on blood thinners. TECHNIQUE: Additional 3-D tomosynthesis images of the left breast were performed and synthetic 2-D im ages were generated. CAD analysis was submitted and interpreted. COMPARISON: Comparison to multiple prior studies sequentially, with oldest reviewed study dated 02/16. BREAST PARENCHYMAL COMPOSITION: Dense: The breasts are heterogeneously dense, which may obscure small masses FINDINGS: The left breast is stable. There are scattered benign-appearing left breast calcifications. No new masses, calcifications or architectural distortion. IMPRESSION: 1. No evidence for malignancy in the left breast. Stable breast. 2. Routine yearly screening mammogram and regular clinical breast examination are recommended. BI-RADS Category 2: Benign finding(s). Reviewed, dictated and finalized at location B. [facility] [employer]IFEST[employer] OFFICER IMPRESSION: 1. No evidence for malignancy in the left breast. Stable breast. 2. Routine yearly screening mammogram and regular clinical breast examination a re recommended. BI-RADS Category 2: Benign finding(s).
== END 2024-05-17 10:21 | disposition home or self-care (01) ==
LOC: CHSIMG 10:23
PROVIDERS: PCP Family Medicine; Visit Provider Family Medicine
DX: Z85.3 Personal history of malignant neoplasm of breast (principal)
CPT/HCPCS: 77061; 77065; G0279

== ENCOUNTER 2024-05-19 10:31 | Emergency (ER) | payer MEDICARE, BC, SELFPAY ==
--- NOTE | ~2024-05-19 | US_ITS ---
EXAMINATION:US venous doppler LE RT INDICATION:Calf and knee pain TECHNIQUE: Multiple grayscale, color flow and Doppler images of the right lower extremity deep venous systems were obtained and reviewed. COMPARISON:No prior studies for comparison. FINDINGS: The common femoral, superficial femoral and popliteal veins demonstrate normal respiratory variation, augmentation and compressibility. Color flow is also seen within the posterior tibial, pe roneal, greater saphenous and profunda veins. IMPRESSION: 1: No lower extremity deep venous thrombosis. Reviewed, dictated and finalized at location B. TER HELP
--- NOTE | ~2024-05-19 | XR_ITS ---
XR knee RT min 4V 05/19/2024 11:37 Indication: Right knee pain Procedure: 3 views right knee Comparison: 04/22/2023 Findings: There has been progression of severe tricompartment osteoarthritis. Small joint effusion. N o acute fracture or traumatic malalignment. Sclerotic lesion proximal tibia metaphysis is unchanged, consistent with benign enchondroma. Old healed patellar fracture not identified on the current study. Impression: 1: No acute fracture. Reviewed, dictated and finalized at location B. ESTATE SALES SUPERVISOR Impression: 1: No acute fracture.
[2024-05-19 10:37] VITALS: BP 158/77; PULSE 88; RESP 14; TEMP 36.8; O2SAT 95
[2024-05-19] MEDS: ACETAMINOPHEN 325 MG TABLET 650 MG PO (11:33)
--- NOTE | 2024-05-19 12:01 | ED.LOWEXIN ---
HPI - Extremity Injury (Lower) General Chief Complaint: Extremity Injury, Lower Stated Complaint: R Knee Pain Time Seen by Provider: 05/19/24 11:01 Source: patient, family and EMS History of Present Illness HPI Narrative: is an 83-year-old female with history of CAD atrial fibrillation currently on blood thinners presents with some right knee pain with no known injury no swelling or bruising has good pulses in the right lower extremity does have some mild calf tenderness with palpation with no warmth or swelling. No recent falls does have a history of osteoarthritis of her knee. Injury: Right: knee ( Tenderness with palpation) Related Data Home Medications ?Medication ?Instructions ?Recorded ?Confirmed ?Last Taken ?Type vaoqflhv-vxlk-eqxc 8 mg-folic 400 1 tablet PO DAILY 06/22/19 04/05/24 05/13/22 History mcg-K 50 mcg-lutein 300 mcg tablet (Centrum Silver Women) carvedilol 25 mg tablet (Coreg) 6.25 mg PO Q12HR 08/29/20 04/05/24 05/13/22 History nitroglycerin 0.4 mg sublingual 0.4 mg sublingual PRN PRN Chest 01/12/21 04/05/24 Unknown History tablet Pain kfuV-L1-B-B-zbogbp-xlyyrsw-min 1 tablet PO BID 01/12/21 04/05/24 05/13/22 History 3,300 unit-5 mg-200mg-75 unit tablet ER (ICaps) insulin glargine 100 unit/mL (3 32 unit subcut DAILY 10/07/23 04/05/24 Unknown History mL) subcutaneous pen (Lantus Solostar U-100 Insulin) apixaban 5 mg tablet 5 mg PO BID 04/27/24 04/27/24 Unknown History rosuvastatin 20 mg tablet 10 mg PO DAILY 05/19/24 Unknown History vit tablet PO 05/19/24 Unknown History X-egdbtwo-knokrskhg-rutin-jqsa122 500 mg-50 mg-25 mg-40 mg tablet (Bioflex) Allergies Allergy/AdvReac Type Severity Reaction Status Date / Time Penicillins Allergy Mild Rash Verified 05/19/24 11:13 oxycodone AdvReac Mild Vomiting Verified 05/19/24 11:13 codeine AdvReac Vomiting Verified 05/19/24 11:13 morphine AdvReac Vomiting Verified 05/19/24 11:13 Review of Systems Review of Systems: All systems reviewed & are unremarkable except as noted in HPI and below PMFSH Past Medical History Medical History Pacemaker (~04/07/23) Aortic stenosis Right forearm cellulitis Cervical radiculopathy Colon cancer screening (~06/2020) cologuard negative On amiodarone therapy Paroxysmal atrial fibrillation : History of cardioversions, with previously noted loosely organized thrombus in the left atrial appendage, for which she was subsequently switched from Xarelto to warfarin. : Last cardioversion attempt in May 2018 was unsuccessful and she was referred to an composition worker at [place]. On arrival to that appointment, she was found to be in a normal sinus rhythm, and to her knowledge has remained in such since. History of colon polyps Osteoarthritis History of peptic ulcer Severe obstructive sleep apnea : Noted on sleep study 08/10/2019. : CPAP titrated to 11 cm. 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 : Hemoglobin A1c was 6.9% 08/09/2019. History of left breast cancer : Status post lumpectomy, chemotherapy, and radiation. Coronary artery disease : With history of stent to LAD done at [facility]. Chronic anticoagulation : Warfarin for paroxysmal atrial fibrillation. Chronic kidney disease, stage 3 (moderate) : GFR ranging between 43 and > 60. Essential hypertension Iron deficiency anemia Mild persistent asthma without complication Surgical History Surgical History History of permanent cardiac pacemaker placement (~04/07/23) History of right hip hemiarthroplasty (08/30/19) History of bladder suspension procedure History of hysterectomy History of D&C History of lumpectomy of left breast History of cholecystectomy History of appendectomy History of heart artery stent : Stent to LAD, done at [facility]. History of bilateral cataract extraction Family History Family History Father Family history of diabetes mellitus in first degree relative Hypertension Cerebrovascular accident Mother Family history of heart disease in male family member before age 55 Patient's mother is , Onset Age: 68 Family history of coronary artery disease, Onset Age: 68 Hypertension, Onset Age: 68 Sibling Cerebrovascular accident Other Diabetes mellitus Social History Social History Social History: The patient is and lives in [place]. She has 7 children. 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 Her son, Jn, is her surrogate decision maker and she wishes to be a full code. She is a lifelong nonsmoker and denies alcohol and drug abuse. Smoking status: Never smoker Second hand tobacco smoke exposure: Yes Alcohol intake: never Substance use: never Substance use type: does not use Do You Feel Safe in your Home?: Yes Lack of Transportation: No Lack of Food: Never True Current Housing: I Have Housing Concerned About Future Housing: No Difficulty Paying Gas/Electric Bills: No Difficulty Paying for Meds: No Currently Unemployed: No Education: High School Diploma/GED Difficulty w/ Childcare or Family Care: No Living arrangements: with family Gender identity (if verbalized by the patient): Female Spiritual care concerns: No Agree to blood products: Yes Exam Const: General: healthy appearing and no acute distress Nutritional Appearance: well nourished Orientation/consciousness: patient oriented x3 Limitations: no limitations HENMT: Head: normal to inspection Eyes: Conjunctivae: conjunctivae normal Pupils: Equal, round and reactive pupils present Chest: Chest palpation & inspection: normal inspection of the chest Resp: Effort & Inspection: normal respiratory effort Auscultation: clear to auscultation bilaterally Cardio: Rate: regular rate Rhythm: regular rhythm GI: GI Palp: Yes Soft to palpation Auscultation: normal bowel sounds : General: Yes bladder normal to palpation Skin: General skin exam: normal color Rashes: no rashes Neuro: General: patient oriented x3, moves all extremities, no meningeal signs and no focal motor deficits Course Course Emergency Course: patient with right knee pain with no known injury, had a ultrasound Doppler performed shows no acute DVT, x-ray performed shows no acute fractures, patient did receive a dose of Tylenol. Vital Signs Vital signs: Vital Signs Temperature 36.8 C 05/19/24 10:37 Pulse Rate 88 05/19/24 10:37 Respiratory Rate 14 05/19/24 10:37 Blood Pressure 158/77 H 05/19/24 10:37 Pulse Oximetry 95 05/19/24 10:37 Oxygen Delivery Room Air 05/19/24 10:37 Temperature 36.8 C 05/19/24 10:37 Pulse Rate 88 05/19/24 10:37 Respiratory Rate 14 05/19/24 10:37 Blood Pressure 158/77 H 05/19/24 10:37 Pulse Oximetry 95 05/19/24 10:37 Oxygen Delivery Room Air 05/19/24 10:37 Critical Care Time Critical Care Time Critical Care Time: No Discharge Plan Discharge Patient Language: Lao Prescriptions: No Action nitroglycerin 0.4 mg tablet, sublingual 0.4 mg sublingual PRN PRN (Reason: Chest Pain) Patient Comments: has not taken ICaps 3,220-4-638-75 biga-qu-io-unit Tablet Extended Release 1 tablet PO BID acetaminophen [Tylenol] 325 mg capsule 650 mg PO Q8H PRN (Reason: pain) Qty: 20 0RF insulin glargine [Lantus Solostar U-100 Insulin] 100 unit/mL (3 mL) insulin pen 32 unit subcut DAILY Rx Instructions: INJECT 38 UNITS SUBCUTANEOUSLY EVERY DAY apixaban 5 mg tablet 5 mg PO BID Bioflex 547-61-84-40 mg tablet PO Rx Instructions: 1 tab daily rosuvastatin 20 mg tablet 10 mg PO DAILY Centrum Silver Women 8 mg iron-400 mcg-300 mcg tablet 1 tablet PO DAILY (DME) FreeStyle Stephania 3 Sensor Device See Rx Instructions .Route Qty: 2 6RF Rx Instructions: As directed daily for 14 days albuterol sulfate 2.5 mg /3 mL (0.083 %) solution for nebulization 2.5 mg inhalation Q6H PRN (Reason: shortness of breath or wheezing) Qty: 180 0RF (DME) RSV vaccine See Rx Instructions .Route .MEDSUPPLY Qty: 1 0RF Rx Instructions: As directed for injection carvedilol [Coreg] 25 mg tablet 6.25 mg PO Q12HR clopidogrel [Plavix] 75 mg tablet 75 mg PO DAILY Qty: 30 3RF (DME) pen needle, diabetic [BD Ultra-Fine Micro Pen Needle] 32 gauge x 1/4 needle See Rx Instructions .Route Qty: 50 4RF Rx Instructions: As directed weekly (DME) spirometers and accessories Device See Rx Instructions .Route Qty: 1 0RF Rx Instructions: Use 10 times per hour Follow-up/Referrals: Kortney Aguirre MD [Primary Care Provider] -
[2024-05-19 12:16] VITALS: BP 136/49; PULSE 74; RESP 18; TEMP 36.6; O2SAT 98
== END 2024-05-19 12:34 | disposition home or self-care (01) ==
PROVIDERS: Emergency Provider Emergency Medicine; PCP Family Medicine
DX: M25.561 Pain in right knee (principal); I25.10 Atherosclerotic heart disease of native coronary artery without angina pectoris; I48.0 Paroxysmal atrial fibrillation; I12.9 Hypertensive chronic kidney disease with stage 1 through stage 4 chronic kidney disease, or unspecified chronic kidney disease; E11.22 Type 2 diabetes mellitus with diabetic chronic kidney disease; N18.30 Chronic kidney disease, stage 3 unspecified; Z79.01 Long term (current) use of anticoagulants; Z79.4 Long term (current) use of insulin
CPT/HCPCS: 73564; 93971; 99284; A9270

== ENCOUNTER 2024-05-25 09:30 | Outpatient (RCR) | payer MEDICARE, BC, SELFPAY ==
--- NOTE | 2024-04-27 10:10 | PCCPR ---
Pt arrived today after short vacation to [place]. Pt states she is feeling very fatigued today. Pt did fly to/from [place] and was active while on vacation. Pt reports having a lump on her breast that she found while on vacation, she has mammogram/US scheduled for Thursday. She then asked me to look at all of these bruises that popped up while on vacation. Multiple scattered bruises to BLE with some small hard hematomas, assessed overall skin and noted bilateral flank bruising, abdominal bruising as well. Pt is taking Plavix and Eliquis concurrently. Resting BP 105/63 HR 80-90bpm (SBP typically 130-140's, and resting HR 60 (paced). No exercise today. Call placed to Dr. Banks's office, notified of findings, requested patient be seen in ER to r/o potential acute bleed.
== END 2024-05-26 23:59 | disposition home or self-care (01) ==
PROVIDERS: PCP Family Medicine; Visit Provider Internal Medicine
DX: Z98.61 Coronary angioplasty status (principal)
CPT/HCPCS: 93798

== ENCOUNTER 2024-07-08 09:30 | Outpatient (RCR) | payer MEDICARE, BC, SELFPAY | END 2024-07-08 13:31 | disposition home or self-care (01) | PROVIDERS: PCP Family Medicine; Visit Provider Internal Medicine | DX: Z98.61 Coronary angioplasty status (principal) | CPT/HCPCS: 93798 ==

== ENCOUNTER 2024-07-22 13:37 | Outpatient (CLI) | payer MEDICARE, SELFPAY ==
--- OUTSIDE RECORDS SUMMARY | 2024-07-22 13:47 | XMS_ITS | Encounter Summary ---
Author Organization [facility] Medical Group Address [address] [facility] [address] [place] [address] Care Team Providers Care Tower Erector Name Role Phone Kortney Aguirre MD Primary Care Provider [phone] Kortney Aguirre MD Primary Care Provider [phone] Encounter Details Date Type Department Care Team (Late st Contact Info) Description 07/08/2016 Orders Only [facility] ProviderDelmy MD [address] [place], [place] [id number] Social History Tobacco Use Types Packs/Day Years Used Date Smoking Tobacco: Never Alcohol Use Standard Drinks/Week Comments No 0 (1 standard drink = 0.6 oz pur e alcohol) Comments Unknown Sex and Gender Information Value Date Recorded Sex Assigned at Not on file Legal Sex Female 12:14 AM DRAW END HAND Gender Identity Female 04/19/2019 9:38 AM DRAW END HAND Sexual Orientation Straight 04/19/2019 9: 38 AM DRAW END HAND documented as of this encounter Plan of Treatment Not on file documented as of this encounter Procedures Procedure Name Priority Date/Time Associated Diagnosis Comments CARDIOLOGY REPORT 07/08/2016 documented in this encounter Results * CARDIOLOGY REPORT (07/08/2016) Anatomical Region Laterality Modality Other Narrative 07/08/2016 Ordered by an unspecified provider. Historical Provider [facility] LONNIE PORTILLO Final Result documented in this encounter Visit Diagnoses Not on filedocumented in this encounter Care Teams Tower Erector Relationship Specialty Start Date End Date Kortney Aguirre MD PCP - General 09/05/16 Kortney Aguirre MD PCP - General 05/16/10 09/04/16 documented as of this encounter
--- OUTSIDE RECORDS SUMMARY | 2024-07-22 13:47 | XMS_ITS | Encounter Summary ---
Author Organization [facility] Medical Group Address [address] [facility] [address] [place] [address] Care Team Providers Care Powder Coat Painter Name Role Phone Kortney Aguirre MD Primary Care Provider [phone] Kortney Aguirre MD Primary Care Provider Encounter Details Date Type Department Care Team (Late st Contact Info) Description 07/16/2016 Orders Only [facility] ProviderDelmy MD [address] [place], [place] [id number] Social History Tobacco Use Types Packs/Day Years Used Date Smoking Tobacco: Never Alcohol Use Standard Drinks/Week Comments No 0 (1 standard drink = 0.6 oz pur e alcohol) Comments Unknown Sex and Gender Information Value Date Recorded Sex Assigned at Not on file Legal Sex Female 12:14 AM FELT PULLER Gender Identity Female 04/19/2019 9:38 AM FELT PULLER Sexual Orientation Straight 04/19/2019 9: 38 AM FELT PULLER documented as of this encounter Plan of Treatment Not on file documented as of this encounter Procedures Procedure Name Priority Date/Time Associated Diagnosis Comments CARDIOLOGY REPORT 07/16/2016 documented in this encounter Results * CARDIOLOGY REPORT (07/16/2016) Anatomical Region Laterality Modality Other Narrative 07/16/2016 Ordered by an unspecified provider. Historical Provider [facility] LONNIE PORTILLO Final Result documented in this encounter Visit Diagnoses Not on filedocumented in this encounter Care Teams Powder Coat Painter Relationship Specialty Start Date End Date Kortney Aguirre MD PCP - General 09/05/16 Kortney Aguirre MD PCP - General 05/16/10 09/04/16 documented as of this encounter
--- OUTSIDE RECORDS SUMMARY | 2024-07-22 13:47 | XMS_ITS | Encounter Summary ---
Author Organization [facility] Healthcare Address [address] [place] [address] Care Team Providers Care Automotive Glass Specialist Name Role Phone Kortney Aguirre MD Primary Care Provider Encounter Details Date Type Department Care Team (Late st Contact Info) Description 10/07/2023 Orders Only [facility] Management [address] [place] [address] Scanning, Provider Social History Tobacco Use Types Packs/Day Years Used Date Smoking Tobacco: Never Passive Smoke Exposure: Past Smokeless Tobacco: Never Alcohol Use Standard Drinks/Week Comments No 0 (1 standard drink = 0.6 oz pur e alcohol) AUDIT-C Answer Date Recorded Q1: How often do you have a drink containing alc ohol? Never 05/15/2022 Average Number of Drinks Not on file 022 Frequency of Binge Drinking Not on file 01/2022 PHQ-2 Answer Date Recorded PHQ-2 Total Score (If total score is 3 or more points, staff should administer the PHQ-9) 0 05/15/2022 Personal Safety Answer Date Recorded Have you ever been in or are you currently in a harmful physical or emotional relationship or is someone making you feel afraid or unsafe? Denies 04/06/2023 Comments No Sex and Gender Information Value Date Recorded Sex Assigned at Not on file Legal Sex Female 12:14 AM ADMITTED ATTORNEYS Gender Identity Female 04/19/2019 9:38 AM ADMITTED ATTORNEYS Sexual Orientation Straight 04/19/2019 9: 38 AM ADMITTED ATTORNEYS documented as of this encounter Plan of Treatment Not on file documented as of this encounter Procedures Procedure Name Priority Date/Time Associated Diagnosis Comments SCAN - RADIOLOGY/IMAGING 10/07/2023 CARDIOLOGY DOCUMENT SCAN 10/07/2023 documented in this encounter Results * SCAN - RADIOLOGY/IMAGING (10/07/2023) Anatomical Region Laterality Modality Other us Provider Scanning Final Result * Cardiology Document Scan (10/07/2023) Anatomical Region Laterality Modality Other us Provider Scanning [facility] Final Result documented in this encounter Visit Diagnoses Not on filedocumented in this encounter Care Teams Automotive Glass Specialist Relationship Specialty Start Date End Date Kortney Aguirre MD PCP - General 09/05/16 documented as of this encounter
--- OUTSIDE RECORDS SUMMARY | 2024-07-22 13:47 | XMS_ITS | Encounter Summary ---
Author Organization [facility] Medical Group Address [address] [facility] [address] [place] [address] Care Team Providers Care Still Cleaner Tube Name Role Phone Kortney Aguirre MD Primary Care Provider [phone] Kortney Aguirre MD Primary Care Provider [phone] Encounter Details Date Type Department Care Team (Late st Contact Info) Description 07/24/2016 Orders Only [facility] ProviderDelmy MD [address] [place], [place] [id number] Social History Tobacco Use Types Packs/Day Years Used Date Smoking Tobacco: Never Alcohol Use Standard Drinks/Week Comments No 0 (1 standard drink = 0.6 oz pur e alcohol) Comments Unknown Sex and Gender Information Value Date Recorded Sex Assigned at Not on file Legal Sex Female 12:14 AM HAT IRONER Gender Identity Female 04/19/2019 9:38 AM HAT IRONER Sexual Orientation Straight 04/19/2019 9: 38 AM HAT IRONER documented as of this encounter Plan of Treatment Not on file documented as of this encounter Procedures Procedure Name Priority Date/Time Associated Diagnosis Comments CARDIOLOGY REPORT 07/24/2016 CARDIOLOGY REPORT 07/24/2016 documented in this encounter Results * CARDIOLOGY REPORT (07/24/2016) Anatomical Region Laterality Modality Other Narrative 07/24/2016 Ordered by an unspecified provider. Historical Provider [facility] LONNIE PORTILLO Final Result * CARDIOLOGY REPORT (07/24/2016) Anatomical Region Laterality Modality Other Narrative 07/24/2016 Ordered by an unspecified provider. us Historical Provider [facility] LONNIE PORTILLO Final Result documented in this encounter Visit Diagnoses Not on filedocumented in this encounter Care Teams Still Cleaner Tube Relationship Specialty Start Date End Date Kortney Aguirre MD PCP - General 09/05/16 Kortney Aguirre MD PCP - General 05/16/10 09/04/16 documented as of this encounter
--- OUTSIDE RECORDS SUMMARY | 2024-07-22 13:47 | XMS_ITS | Clinical Summary ---
Author Organization [facility] [address] Address [address] [place] [address] Care Team Providers Care Computer Operations Supervisor Name Role Phone Kortney Aguirre MD Primary Care Provider [phone] Allergies Active Allergy Reactions Criticality Noted Date Comments Codeine Nausea only Low Metoprolol Dizziness Low Penicillins Nausea & Vomiting Low 12/17/2023 Sulfa (Sulfonamide Antibiotics) Itching,Rash,Dizziness Medium Medications insulin admin supplies (AUTOJECT 2) insulin pen take as directed 0 0 1 Active Additional Information Patient not taking.Informant: Self, Reported on 05/16/2024 rosuvastatin (CRESTOR) 20 mg tablet Take 1 tablet (20 mg total) by mouth nightly Active vitamins A,C,G-kyjh-qneor r (ICAPS) [phone] trka-bb-eloo capsule Take 1 capsule by mouth 2 (two) times a day Active insulin glargine 100 unit/mL vial for injection Inject 32 Units under the skin nightly Active apixaban (ELIQUIS) 5 mg tabletIndication s:atrial fibrillation Take 1 tablet (5 mg total) by mouth every 12 (twelve) hours 60 tablet 11 2 Active Additional Information Patient not taking.Informant: Self, Reported on 05/16/2024 clopidogreL (PLAVIX) 75 mg tabletIndication s:Coronary artery disease involving [place] coronary artery of [place] heart without angina pectoris,Presenc e of stent in coronary artery TAKE 1 TABLET BY MOUTH EVERY DAY 90 tablet 3 4 Active carvediloL (COREG) 6.25 mg tabletIndication s:Coronary artery disease involving [place] coronary artery of [place] heart without angina pectoris,Persist ent atrial fibrillation (HCC) Take 1 tablet (6.25 mg total) by mouth 2 (two) times a day with meals 180 tablet 3 4 Active Additional Information Patient taking differently: 3.125 mgoral 2 times daily with meals (bkfst, dinner), Informant: Self, Reported on 05/16/2024 rutin/hesp/biofl av/C/uccphi639 (BIOFLEX ORAL) Take 1 tablet by mouth daily Active folic acid/multivit-mi n/lutein (CENTRUM SILVER ORAL) Take 1 tablet by mouth nightly Active acidophilus-pect in, citrus 100 million cell-10 mg capsule Take by mouth Activ e nitroglycerin (NITROSTAT) 0.[address] 1 tablet (0.4 mg total) under the tongue every 5 (five) minutes as needed for chest pain Max 3 doses. 90 tablet 3 4 04/11/20 25 Active Active Problems Problem Noted Date Diagnosed Date A-fib ([facility]) 04/06/2023 Pacemaker 04/06/2023 Cardiac pacemaker in situ 03/30/2023 Overview (04/10/2023): Medtronic Micra VR. Dx; Persistent Afib, Pauses. DOI 04/06/2023-Citlali. Johny. Carelink remote. Elevated troponin 05/15/2022 Overview (05/15/2022): Added automatically from request for surgery [id number] Right arm pain 05/15/2022 Pulmonary HTN 01/30/2021 Bradycardia 08/15/2020 Greater trochanteric bursitis of right hip 08/10 Aortic stenosis 06/15/2020 History of DVT (deep vein thrombosis) 01/18/2020 Obstructive sleep apnea 10/06/2019 QT prolongation 06/23/2019 Obesity (BMI 30-39.9) 03/28/2019 At risk for amiodarone toxicity with alf u se 08/13/2018 Atrial fibrillation ([facility]) [I48.91] 8 Chronic anticoagulation 01/12/2018 S/P coronary artery stent placement 2017 THOMPSON (dyspnea on exertion) 11/18/2016 Chronic fatigue 11/18/2016 Mixed diabetic hyperlipidemi a associated with type 2 diabetes mellitus ([facility]) 11/18/2016 Asthma 10/22/2015 Overview (09/11/2016): Uncomplicated asthma, unspecified asthma severity High risk drug monitoring status 01/30/2015 Overview (09/11/2016): Encounter for long-term current use of medication Post percutaneous transluminal coronary angiopla sty 05/03/2012 Overview (09/11/2016): STATUS-POST PTCA Coronary artery disease invo lving hydaburg coronary artery of [place] heart without angina pectoris 05/03/2012 Overview (09/11/2016): CRNRY ATHRSCL NATVE VSSL Longstanding persistent atrial fibrillation ([facility]) 05/03/2012 Overview (09/11/2016): ATRIAL FIBRILLATION Hypertension associated with diabetes 05/03/2012 Overview (09/12/2016): BENIGN HYPERTENSION Cervicalgia 09/26/2011 Resolved Problems Problem Noted Date Diagnosed Date Resolved Date Encounter for monitoring sotalol therapy 2017 04/22/2019 Hypercholesterolemia 07/24/2016 08// 022 Overview (09/11/2016): Hypercholesteremia Pure hypercholesterolemia 05/03/2012 Overview (09/12/2016): PURE HYPERCHOLESTEROLEM Encounters Date Type Department Care Team Description 07/07/2024 7:45 AM HEALTH PROMOTER Ancillary Procedure [facility] Medical [facility] Cardiology [address] [place] [address] Suite [facility] MIROSLAVA Glass [phone] Atrial fibrillation, unspecified type (HCC); Sinus pause 07/07/2024 Telephone [facility] Cardiology [address] [place] [address] M[place]OS[place]VA Glass [phone] Lester Banks MD 06/29/2024 Orders Only [facility] Cardiology [address] [facility] [address] [place] [phone] Lester Banks MD NICM (nonischemic cardiomyopathy) (CMS/HCC) (HCC) (Primary Dx); 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; Ventricular fibrillation (CMS/HCC) (HCC); NSVT (nonsustained ventricular tachycardia) (HCC) 05/19/2024 Telephone [facility] Cardiology [address] [place] [address] [place] [phone] Zulay Henderson NP 05/16/2024 9:00 AM HEALTH PROMOTER Office Visit [facility] Cardiology [address] [place] [address] [place] [phone] Zulay Henderson NP Multiple bruises (Primary Dx); Coronary artery disease involving hydaburg coronary artery of hydaburg heart without angina pectoris; Presence of stent in coronary artery; Persistent atrial fibrillation (HCC); Chronic anticoagulation; Nonrheumatic aortic valve stenosis; Pacemaker; Sick sinus syndrome (CMS/HCC) (HCC) 04/28/2024 Telephone [facility] Cardiology [address] [place] [address] [place] [phone] Lester Banks MD 04/27/2024 Telephone [facility] Cardiology [address] [place] [address] [place] [phone] Lester Banks MD from Last 3 Months Surgical History Surgery Date Site/Laterality Comments CHOLECYSTECTOMY Cholecystectomy APPENDECTOMY Appendectomy OTHER SURGICAL HISTORY 06/08/2009 - 06/07/2010 Surgery for Left Breast Cancer (Chemo & Rad Tx) HIP SURGERY HYSTERECTOMY BREAST SURGERY PATELLA FRACTURE SURGERY Right INSERT / REPLACE / REMOVE PACEMAKER Medical History Medical History Date Comments Osteoporosis Osteoporosis Polyp of colon colon polyps Hypertension Clotting disorder (CMS/HCC) (HCC) Hypercholesteremia Peripheral neuropathy Cancer (CMS/HCC) (HCC) Diabetes mellitus (HCC) A-fib (CMS/HCC) (HCC) Arthritis COPD (chronic obstructive pulmonary disease) (HC C) Longstanding persistent atrial fibrillation (CMS /HCC) (HCC) PONV (postoperative nausea and vomiting) Sleep apnea Type 2 diabetes mellitus (HCC) THOMPSON (dyspnea on exertion) Family History Medical History Relation Name Comments Diabetes Father Stroke Father Stroke; Cause o f : Stroke Sudden Mother Sudden ; C ause of : Sudden Heart disease Other Hypertension Other Relation Name Status Comments Father (Age 87) Mother (Age 68) Other Social History Tobacco Use Types Packs/Day Years Used Date Smoking Tobacco: Never Passive Smoke Exposure: Past Smokeless Tobacco: Never Tobacco Cessation:Counseling Given: Not Answered Alcohol Use Standard Drinks/Week Comments No 0 [...] making you feel afraid or unsafe? Denies 12/25/2023 Comments No Sex and Gender Information Value Date Recorded Sex Assigned at Not on file Legal Sex Female 12:14 AM HEALTH PROMOTER Gender Identity Female 04/19/2019 9:38 AM HEALTH PROMOTER Sexual Orientation Straight 04/19/2019 9: 38 AM HEALTH PROMOTER Obstetrics History Last Filed Vital Signs Vital Sign Reading Time Taken Comments Blood Pressure 110/42 05/16/2024 9:01 AM HEALTH PROMOTER Pulse 64 05/16/2024 9:01 AM HEALTH PROMOTER Temperature 36.5 C (97.7 F) 12/25/2023 7:49 AM CDT Respiratory Rate 18 12/25/2023 4:45 PM CDT Oxygen Saturation 95% 05/16/2024 9:01 AM HEALTH PROMOTER Inhaled Oxygen Concentration - - Weight 78 kg (172 lb) 05/16/2024 9:01 AM HEALTH PROMOTER Height 162.6 cm (5' 4 ) 05/16/2024 9:01 AM HEALTH PROMOTER Body Mass Index 29.52 05/16/2024 9:01 AM HEALTH PROMOTER Plan of Treatment Health Maintenance Due Date Last Done Comments Albumin Creatinine Ratio, Urine 1938 Osteoporosis Screening-Bone Density Scan 1940 Dilated Eye Exam 1938 Foot Exam 1940 DTaP/Tdap/Td Vaccine (1 - Tdap) 1949 Hepatitis B Screening 1956 Well Visit 65+ 08/21/2003 Zoster Vaccine (2 of 3) 01/31/2016 12/06/2015, 12/14 Hemoglobin A1C 11/14/2022 05/16/2022 Depression Screening 05/15/2023 05/15/2022, 05/15/20 22 Influenza Vaccine (#1) 2024 6, 12/14/2014, 06/07/2014, Additional history exists eGFR 04/06/2024 04/06/2023, 05/08, 05/16/2022, Additional history exists Lipid Panel 04/14/2024 04/14/2023, 1202/2022, 11/08/2021, Additional history exists Fall Risk Assessment 12/24/2024 12/25/2023 Pneumococcal vaccine 65+ Completed 02/05/2018, 03/08 Medical Devices Implanted Type Area Biophysics Scientist Device Identifier Shelf Expiration Date Model / Serial / Lot Bone-07/09/2020 Implanted:07/09 (Quantity not on file) Bone Hip Medtronic Inc [id number] Micra Transcatheter System Pacing Micratcpsystem - [id number] - [id number] Implanted:Qty: 1 on 04/06/2023 by Oh Godwin MD at [facility] Pacemaker Right: Ventricle Medtronic Inc 03/05/2024 [id number] / [id number] / Medtronic Card Vasc Surgery 3.5 X 12mm Elroy Gila Rx Coronary Stent [id number] - [id number] Implanted:Qty: 1 on 05/16/2022 by Nikko Crowe MD at [facility] Medtronic Card Vasc Surgery 02/25/2025 [id number] / / [id number] Closure Inc Mynx Control 6-7fr 2 Mode Balloon Catheter Sealant Lock Syringe [id number] - [id number] Implanted:Qty: 1 on 05/16/2022 by Nikko Crowe MD at [facility] Access Closure Inc 05/07/2024 [id number] / / [id number] Alejandro Vascular Device Clsr Perclose Prostyle Sut-Mediatd Closure-Repair Sys [id number] - [id number] Implanted:Qty: 1 on 04/06/2023 by Oh Godwin MD at [facility] Right: Femoral Vein Alejandro Vascular 01/05/2025 [id number] / / [id number] Alejandro Vascular Device Clsr Perclose Prostyle Sut-Mediatd Closure-Repair Sys 48586-23 - [id number] Implanted:Qty: 1 on 04/06/2023 by Oh Godwin MD at [facility] Right: Femoral Vein Alej[employer] Vascular 01/05/2025 [id number] / / [id number] Medtronic Card Vasc Surgery 2.25 X 12mm Elroy Gila Rx Coronary Stent [id number] - [id number] Implanted:Qty: 1 on 12/25/2023 by Nikko Crowe MD at [facility] Medtronic Card Vasc Surgery 03/29/2026 [id number] / / [id number] Procedures Procedure Name Priority Date/Time Associated Diagnosis Comments POCT LIPID PANEL Routine 04/14/2023 10:2 5 AM HEALTH PROMOTER Mixed diabetic hyperlipidemia associated with type 2 diabetes mellitus (CMS/HCC) (HCC) EGFR STAT 04/06/2023 8:01 AM CDT HEMOGLOBIN A1C Routine 05/16/2022 4:23 AM HEALTH PROMOTER from Last 3 Months or Most Recently Relevant to Health Maintenance Results * POCT lipid panel (04/14/2023 10:25 AM HEALTH PROMOTER) Cholesterol, POC 167 mg/dL Comment:GLU = 113 HDL, POC 45 mg/dL Triglycerides, POC 282 mg/dL LDL Cholesterol POC 66 mg/dL Chol/HDL Ratio, POC 3.8 Non-HDL Cholesterol, POC 123 mg/dL Cholesterol Total, POC 167 mg/dL Capillary blood 04/14/2023 1 0:25 AM HEALTH PROMOTER us Bart Bradley MD POINT OF CARE TEST ORDER [id number] Final Result * eGFR (04/06/2023 8:01 AM CDT) eGFR 52 mL/min/1. 73 m2 [facility] SORENSON Comment: Interpretive Data Reference Interval Normal >/= 90 mL/min/1.73m2 Mildly decreased* 60 - 89 mL/min/1.73m2 Mildly to moderately decreased 45 - 59 mL/min/1.73m2 Moderately to severely decreased 30 - 44 mL/min/1.73m2 Severely decreased 15 - 29 mL/min/1.73m2 Kidney Failure < 15 mL/min/1.73m2 *Relative to young adult level Estimated glomerular filtration rate is determined by the 2020 CKD-EPI equation recommended by the National Kidney Foundation (A Unifying Approach to GFR Estimation: Recommendations of the NKF-ASK Task Force on Reassessing the Inclusion of Race in Diagnosing Kidney Disease, JASN 2020). The CKD-EPI equation should not be used for patients with unstable renal function and has not been validated in children and those over 70. Current interpretive data was last reviewed 2021. Blood 04/06/2023 8:01 AM CDT 04/06/2023 8:13 AM CDT us Andre Gonzalez MD LAB BLOOD ORDERABLES Final Result EFRA [id number] Sammy Department [place] [address] * (ABNORMAL) Hemoglobin A1c (05/16/2022 4:23 AM HEALTH PROMOTER) Hgb A1C 6.0(H) 4.0 - 5.6 % [facility] SORENSON Estimated Average Glucose 126 mg/dL [facility] SORENSON Comment: The ADA recommends reporting an estimated Average Glucose (eAG) with all Hemoglobin A1c results using the equation derived from a study of 507 normal and diabetic adults. Minority populations were underrepresented and children were not included. (Diabetes Care 31:4798-6977, 2008). The eAG is not equivalent to a fasting glucose. Blood 05/16/2022 4:23 AM HEALTH PROMOTER 05/16/2022 5:04 AM HEALTH PROMOTER us Kate Camp NP LAB BLOOD [place] [id number] Sammy Rich Department of Laboratories [place] [phone] from Last 3 Months or Most Recently Relevant to Health Maintenance Insurance MEDIC[facility] MEDICARE [facility] Address: [address] [place] [address] MEDICARE [facility] Advance Directives For more information, please contact: [phone] * Full Code (Latest Code Status on File) Date Activated Date Inactivated Comments 04/06/2023 10:05 AM 04/07/2023 6:26 PM * Full Code Date Activated Date Inactivated Comments 05/15/2022 2:37 PM 05/17/2022 7:41 PM Care Teams Computer Operations Supervisor Relationship Specialty Start Date End Date Kortney Aguirre MD PCP - General 09/05/16
--- OUTSIDE RECORDS SUMMARY | 2024-07-22 13:47 | XMS_ITS | Encounter Summary ---
Author Organization [facility] Healthcare Address [address] [place] [address] Care Team Providers Care Armhole Presser Name Role Phone Kortney Aguirre MD Primary Care Provider [phone] Encounter Details Date Type Department Care Team (Late st Contact Info) Description 11/06/2023 Orders Only [facility] Health Information Management [address] [place] [id number] Scanning, Provider Social History Tobacco Use [...] on file Legal Sex Female 12:14 AM NURSING HOME ASSISTANT ADMINISTRATOR Gender Identity Female 04/19/2019 9:38 AM NURSING HOME ASSISTANT ADMINISTRATOR Sexual Orientation Straight 04/19/2019 9: 38 AM NURSING HOME ASSISTANT ADMINISTRATOR documented as of this encounter Plan of Treatment Not on file documented as of this encounter Procedures Procedure Name Priority Date/Time Associated Diagnosis Comments SCAN - LABS 11/06/2023 documented in this encounter Results * SCAN - LABS (11/06/2023) us Provider Scanning Final Result documented in this encounter Visit Diagnoses Not on filedocumented in this encounter Care Teams Armhole Presser Relationship Specialty Start Date End Date Kortney Aguirre MD PCP - General 09/05/16 documented as of this encounter
--- OUTSIDE RECORDS SUMMARY | 2024-07-22 13:47 | XMS_ITS | Referral Summary ---
Author Organization [place] [address] Address [address] [place] [address] Care Team Providers Care Public Speaking Professor Name Role Phone Kortney Aguirre MD Primary Care Provider [phone] Encounters Date Type Department Care Team Description 07/07/2024 7:45 AM BETTING AGENCY COUNTER CLERK Ancillary Procedure [facility] [address] [place] [address] [place] [phone] Atrial fibrillation, unspecified type (HCC); Sinus pause 07/07/2024 Telephone [facility] [address] [place] [address] [place] [phone] Lester Banks MD 06/29/2024 Orders Only [facility] [address] [place] [address] [place] [phone] Lester Banks MD NICM (nonischemic cardiomyopathy) (CMS/HCC) (HCC) (Primary Dx); 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; Ventricular fibrillation (CMS/HCC) (HCC); NSVT (nonsustained ventricular tachycardia) (HCC) 05/19/2024 Telephone [facility] [address] [place] [address] [address] [place] [address] Zulay Henderson NP 05/16/2024 9:00 AM BETTING AGENCY COUNTER CLERK Office Visit [address] [place] [address] Zulay Henderson NP Multiple bruises (Primary Dx); 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; Presence of stent in coronary artery; Persistent atrial fibrillation (HCC); Chronic anticoagulation; Nonrheumatic aortic valve stenosis; Pacemaker; Sick sinus syndrome (CMS/HCC) (HCC) 04/28/2024 Telephone [facility] [address] [place] [phone] Lester Banks MD 04/27/2024 Telephone [facility] [address] [place] [phone] Lester Banks MD from Last 3 Months Allergies Active Allergy Reactions Criticality Noted Date [...] mg total) by mouth nightly Active vitamins A,C,N-iiig-hovio r (ICAPS) 14,320-226-200 myrq-lf-qiqn capsule Take 1 capsule by mouth 2 [...] 75 mg tabletIndication s: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,Presenc e of stent in coronary artery TAKE 1 TABLET BY MOUTH EVERY DAY 90 tablet 3 4 Active carvediloL (COREG) 6.25 mg tabletIndication s: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 Dx; Persistent Afib, Pauses. DOI 04/06/2023-Citlali. Johny. Carelink remote. Elevated troponin 05/15/2022 Overview (05/15/2022): Added automatically from request for surgery [id number] Right arm pain 05/15/2022 Pulmonary HTN 01/30/2021 Bradycardia 08/15/2020 Greater trochanteric bursitis of right hip 08/10 Aortic stenosis 06/15/2020 History of DVT (deep vein thrombosis) 01/18/2020 Obstructive sleep apnea 10/06/2019 QT prolongation 06/23/2019 Obesity (BMI 30-39.9) 03/28/2019 At risk for amiodarone toxicity with long term acute care registered nurse u se 08/13/2018 Atrial fibrillation ([facility]) [I48.91] 8 Chronic anticoagulation 01/12/2018 S/P coronary artery stent placement 2017 THOMPSON (dyspnea on exertion) 11/18/2016 Chronic fatigue 11/18/2016 Mixed diabetic hyperlipidemi a associated with type 2 diabetes mellitus ([facility]) 11/18/2016 Asthma 10/22/2015 Overview (09/11/2016): Uncomplicated asthma, unspecified asthma severity High risk drug monitoring status 01/30/2015 Overview (09/11/2016): Encounter for long-term current use of medication Post percutaneous transluminal coronary angiopla sty 05/03/2012 Overview (09/11/2016): STATUS-POST PTCA Coronary artery disease invo lving spokane coronary artery of spokane heart without angina pectoris 05/03/2012 Overview (09/11/2016): CRNRY ATHRSCL NATVE VSSL Longstanding persistent atrial fibrillation ([facility]) 05/03/2012 Overview (09/11/2016): ATRIAL FIBRILLATION Hypertension associated with diabetes 05/03/2012 Overview (09/12/2016): BENIGN HYPERTENSION Cervicalgia 09/26/2011 Resolved Problems Problem Noted Date Diagnosed Date Resolved Date Encounter for monitoring sotalol therapy 2017 04/22/2019 Hypercholesterolemia 07/24/2016 022 Overview (09/11/2016): Hypercholesteremia Pure hypercholesterolemia 05/03/2012 Overview (09/12/2016): PURE HYPERCHOLESTEROLEM Social History Tobacco Use Types Packs/Day Years [...] on file Legal Sex Female 12:14 AM BETTING AGENCY COUNTER CLERK Gender Identity Female 04/19/2019 9:38 AM BETTING AGENCY COUNTER CLERK Sexual Orientation Straight 04/19/2019 9: 38 AM BETTING AGENCY COUNTER CLERK Last Filed Vital Signs Vital Sign Reading Time Taken Comments Blood Pressure 110/42 05/16/2024 9:01 AM BETTING AGENCY COUNTER CLERK Pulse 64 05/16/2024 9:01 AM BETTING AGENCY COUNTER CLERK Temperature 36.5 C (97.7 F) 12/25/2023 7:49 AM CDT Respiratory Rate 18 12/25/2023 4:45 PM CDT Oxygen Saturation 95% 05/16/2024 9:01 AM BETTING AGENCY COUNTER CLERK Inhaled Oxygen Concentration - - Weight 78 kg (172 lb) 05/16/2024 9:01 AM BETTING AGENCY COUNTER CLERK Height 162.6 cm (5' 4 ) 05/16/2024 9:01 AM BETTING AGENCY COUNTER CLERK Body Mass Index 29.52 05/16/2024 9:01 AM BETTING AGENCY COUNTER CLERK Plan of Treatment Not on file Medical Devices Implanted Type Area Board Of [employer] Secretary Device Identifier Shelf Expiration Date Model / Serial / Lot Bone-07/09/2020 Implanted:07/09 (Quantity not on file) Bone Hip Medtronic Inc [id number] Micra Transcatheter System Pacing Micratcpsystem - [id number] - [id number] Implanted:Qty: 1 on 04/06/2023 by Oh Godwin MD at [facility] Pacemaker Right: Ventricle Medtronic Inc 03/05/2024 [id number] / [id number] / Medtronic Card Vasc Surgery 3.5 X 12mm Elroy [place] Rx Coronary Stent [id number] - [id number] Implanted:Qty: 1 on 05/16/2022 by Nikko Crowe MD at [facility] Medtronic Card Vasc Surgery 02/25/2025 [id number] / / [id number] Closure Inc Mynx Control 6-7fr 2 Mode Balloon Catheter Sealant Lock Syringe [id number] - [id number] Implanted:Qty: 1 on 05/16/2022 by Nikko Crowe MD at [facility] Access Closure Inc 05/07/2024 [id number] / / [id number] Alejandro Vascular Device Clsr Perclose Prostyle Sut-Mediatd Closure-Repair Sys 25591-30 - [id number] Implanted:Qty: 1 on 04/06/2023 by Oh Godwin MD at [facility] Right: Femoral Vein Alejandro Vascular 01/05/2025 [id number] / / [id number] Alejandro Vascular Device Clsr Perclose Prostyle Sut-Mediatd Closure-Repair Sys 80356-09 - [id number] Implanted:Qty: 1 on 04/06/2023 by Oh Godwin MD at [facility] Right: Femoral Vein Alejandro Vascular 01/05/2025 [id number] / / [id number] Medtronic Card Vasc Surgery 2.25 X 12mm Elroy [place] Rx Coronary Stent [id number] - [id number] Implanted:Qty: 1 on 12/25/2023 by Nikko Crowe MD at [facility] Medtronic Card Vasc Surgery 03/29/2026 [id number] / / [id number] Procedures Procedure Name Priority Date/Time Associated Diagnosis Comments POCT LIPID PANEL Routine 04/14/2023 10:2 5 AM BETTING AGENCY COUNTER CLERK Mixed diabetic hyperlipidemia associated with type 2 diabetes mellitus (CMS/HCC) (HCC) EGFR STAT 04/06/2023 8:01 AM CDT HEMOGLOBIN A1C Routine 05/16/2022 4:23 AM BETTING AGENCY COUNTER CLERK from Last 3 Months or Most Recently Relevant to Health Maintenance Results * POCT lipid panel (04/14/2023 10:25 AM BETTING AGENCY COUNTER CLERK) Cholesterol, POC 167 mg/dL Comment:GLU = 113 HDL, POC 45 mg/dL Triglycerides, POC 282 mg/dL LDL Cholesterol POC 66 mg/dL Chol/HDL Ratio, POC 3.8 Non-HDL Cholesterol, POC 123 mg/dL Cholesterol Total, POC 167 mg/dL Capillary blood 04/14/2023 1 0:25 AM BETTING AGENCY COUNTER CLERK Bart Bradley MD POINT OF CARE TEST ORDER KSENIA Final Result * eGFR (04/06/2023 8:01 AM CDT) eGFR 52 mL/min/1. 73 m2 [facility] Comment: Interpretive Data Reference Interval Normal >/= [...] 8:01 AM CDT 04/06/2023 8:13 AM CDT Andre Gonzalez MD LAB BLOOD ORDERABLES Final Result [facility] [id number] [address] Department [place] [address] * (ABNORMAL) Hemoglobin A1c (05/16/2022 4:23 AM BETTING AGENCY COUNTER CLERK) Hgb A1C 6.0(H) 4.0 - 5.6 % [facility] SORENSON Estimated Average Glucose 126 mg/dL [facility] SORENSON Comment: The ADA recommends reporting an estimated Average Glucose (eAG) with all Hemoglobin A1c results using the equation derived from a study of 507 normal and diabetic adults. Minority populations were underrepresented and children were not included. (Diabetes Care 31:8925-3449, 2008). The eAG is not equivalent to a fasting glucose. Blood 05/16/2022 4:23 AM BETTING AGENCY COUNTER CLERK 05/16/2022 5:04 AM BETTING AGENCY COUNTER CLERK Kate Camp NP LAB BLOOD ORDERABLES Final R esult Performing Organization Address City/State/ZIP Co al Phone Number [facility] [phone] [address] Department [place] [address] from Last 3 Months or Most Recently Relevant to Health Maintenance Insurance MEDICARE [place] [employer] [facility] Address: [address] [place] [address] MEDICARE [facility] MEDICARE [facility] Member Subscriber Plan / Payer (Ef fective 2019-Present) Name:Nohelia Laurent Relation to Subscriber:Self Name:Nohelia Laurent Payer ID:[id number] (NAIC) Group ID:[id number] Type: ALLIANCE Address: [address] [place] [id number] Advance Directives For more information, please contact: [phone] * Full Code (Latest Code Status on File) Date Activated Date Inactivated Comments 04/06/2023 10:05 AM 04/07/2023 6:26 PM * Full Code Date Activated Date Inactivated Comments 05/15/2022 2:37 PM 05/17/2022 7:41 PM Care Teams Public Speaking Professor Relationship Specialty Start Date End Date Kortney Aguirre MD PCP - General 09/05/16
[2024-07-22 13:57] LABS: Basophils Absolute Auto 0.05 K/mm3 (0.00-0.10); Basophils Percent Auto 0.5 % (0.0-1.0); Eosinophils Absolute Auto 0.17 K/mm3 (0.02-0.50); Eosinophils Percent Auto 1.8 % (1.0-6.0); Hematocrit 38.3 % (35.0-42.0); Hemoglobin 12.4 g/dL (11.7-13.8); Immature Granulocyte Absolute 0.04 K/mm3 (0.00-0.00); Immature Granulocyte Percent A 0.4 % (0.0-0.0); Lymphocytes Absolute Auto 2.97 K/mm3 (1.10-4.50); Lymphocytes Percent Auto 31.3 % (18.0-42.0); Mean Corpuscular HGB Conc 32.4 g/dL (32-36); Mean Corpuscular Hemoglobin 30.2 pg (27.0-31.0); Mean Corpuscular Volume 93.4 fL (78.0-102.0); Mean Platelet Volume 10.6 fl (9.2-11.8); Monocytes Absolute Auto 0.76 K/mm3 (0.10-0.90); Neutrophils Absolute Auto 5.51 K/mm3 (1.70-7.20); Platelet Count Result 219 K/mm3 (150-420); Red Cell Distribution Width 14.5 % (11.6-14.4); White Blood Count 9.5 K/mm3 (4.8-10.8)
[2024-07-22 14:34] LABS: Thyroid Stimulating Hormone Reflex 2.01 u/IU/mL (0.36-3.74)
[2024-07-22 14:50] LABS: Alanine Aminotransferase 34 U/L (14-59); Albumin Level 3.9 g/dL (3.4-5.0); Alkaline Phosphatase 109 U/L (46-116); Anion Gap 10 mmol/L (4-12); Aspartate Amino Transferase 29 U/L (15-37); Bilirubin,Total 0.5 mg/dL (0.00-1.00); Blood Urea Nitrogen 22 mg/dL (7-18); Calcium 9.4 mg/dL (8.5-10.1); Carbon Dioxide 28 mmol/L (21-32); Chloride 104 mmol/L (98-108); Estimated Glomerular Filt Rate 52; Glucose 82 mg/dL (70-99); Osmolality Calculated 296 mOsm/kg (285-295); Potassium 4.5 mmol/L (3.5-5.1); Sodium 142 mmol/L (136-145); Total Protein 6.8 g/dL (6.4-8.2); Vitamin B12 581 pg/mL (193-986)
[2024-07-22 15:01] LABS: Folic Acid > 20.0 ng/mL (8.6->20)
[2024-07-24 02:18] LABS: Vitamin D 25 Hydroxy 47 ng/mL (30-100)
== END 2024-07-22 13:38 | disposition home or self-care (01) ==
LOC: CHSLAB 13:39
PROVIDERS: PCP Family Medicine; Visit Provider Family Medicine
DX: R53.83 Other fatigue (principal); D64.9 Anemia, unspecified; E11.9 Type 2 diabetes mellitus without complications; E55.9 Vitamin D deficiency, unspecified
CPT/HCPCS: 36415; 80053; 82306; 82607; 82746; 84443; 85025

== ENCOUNTER 2024-07-25 07:54 | Outpatient (CLI) | payer MEDICARE, BC, SELFPAY ==
--- NOTE | ~2024-07-25 | US_ITS ---
EXAMINATION: US carotid duplex BI DATE: 07/25/2024 08:26 INDICATION: Carotid bruit TECHNIQUE: Grayscale, color Doppler, and pulsed Doppler images of the cervical carotid arteries were obtained. The degree of vessel stenosis is placed in one of the following categories: normal, <50%, 5 0-69%, >=70% but less than near-occlusion, near-occlusion, or total occlusion. Note that percent sten osis relative to normal distal artery lumen diameter is indirectly measured from velocity measurement s as described by Anish, et al. Radiology 2003; 229:340-346. COMPARISON: None. FINDINGS: RIGHT: The right common carotid artery (CCA) peak systolic velocity (PSV) is 52 cm/s. The right internal car otid artery (ICA) PSV is 86 cm/s. The right ICA end-diastolic velocity (EDV) is 24 cm/s. The right IC A/CCA PSV ratio is 1.7. Grayscale and color Doppler images yield an estimate of <50% diameter reducti on from plaque in the ICA. The external carotid artery (ECA) PSV is 649 cm/s. There is antegrade flow in the right vertebral artery. LEFT: The left CCA PSV is 53 cm/s. The left ICA PSV is 77 cm/s. The left ICA EDV is 23 cm/s. The left ICA/C CA PSV ratio is 1.5. Grayscale and color Doppler images yield an estimate of <50% diameter reduction from plaque in the ICA. The ECA PSV is 656 cm/s. There is antegrade flow in the left vertebral artery . IMPRESSION: 1. <50% stenosis in the right internal carotid artery. 2. <50% stenosis in the left internal carotid artery. Reviewed, dictated and finalized at location A. OMS DIRECTOR
--- OUTSIDE RECORDS SUMMARY | 2024-07-25 11:04 | XMS_ITS | Encounter Summary ---
Author Organization [facility] Medical Group Address [address] [facility] [address] [place] [address] Care Team Providers Care Merchandising Stock Associate Name Role Phone Kortney Aguirre MD Primary Care Provider [phone] Kortney Aguirre MD Primary Care Provider [phone] Encounter Details Date Type Department Care Team (Late st Contact Info) Description 07/24/2016 Orders Only [facility] ProviderDelmy MD [address] [place], [place] [id number] Social History Tobacco Use Types Packs/Day Years Used Date Smoking Tobacco: Never Alcohol Use Standard Drinks/Week Comments No 0 (1 standard drink = 0.6 oz pur e alcohol) Comments Unknown Sex and Gender Information Value Date Recorded Sex Assigned at Not on file Legal Sex Female 12:14 AM WAGON DRIVER SALESPERSON Gender Identity Female 04/19/2019 9:38 AM WAGON DRIVER SALESPERSON Sexual Orientation Straight 04/19/2019 9: 38 AM WAGON DRIVER SALESPERSON documented as of this encounter Plan of [...] on filedocumented in this encounter Care Teams Merchandising Stock Associate Relationship Specialty Start Date End Date Kortney Aguirre MD PCP - General 09/05/16 Kortney Aguirre MD PCP - General 05/16/10 09/04/16 documented as of this encounter
--- OUTSIDE RECORDS SUMMARY | 2024-07-25 11:04 | XMS_ITS | Clinical Summary ---
Author Organization [facility] [address] Address [address] [place] [address] Care Team Providers Care Dictating Machine Typist Name Role Phone Kortney Aguirre MD Primary Care Provider [phone] Allergies Active Allergy Reactions Criticality Noted Date [...] mg total) by mouth nightly Active vitamins A,C,J-hqyz-akzwu r (ICAPS) 14,320-226-200 woty-pw-cpzh capsule Take 1 capsule by mouth 2 [...] 75 mg tabletIndication s:Coronary artery disease involving nez perce coronary artery of nez perce heart without angina pectoris,Presenc e of stent in coronary artery TAKE 1 TABLET BY MOUTH EVERY DAY 90 tablet 3 4 Active carvediloL (COREG) 6.25 mg tabletIndication s:Coronary artery disease involving nez perce coronary artery of nez perce heart without angina pectoris,Persist ent atrial fibrillation (HCC) Take 1 tablet (6.25 mg total) by mouth 2 (two) times a day with meals 180 tablet 3 4 Active Additional Information Patient taking differently: 3.125 mgoral 2 times daily with meals (bkfst, dinner), Informant: Self, Reported on 05/16/2024 rutin/hesp/biofl av/C/cbtmep355 (BIOFLEX ORAL) Take 1 tablet by mouth [...] Problems Problem Noted Date Diagnosed Date A-fib ([facility]) 04/06/2023 Pacemaker 04/06/2023 Cardiac pacemaker in situ 03/30/2023 Overview (04/10/2023): Medtronic Micra VR. Dx; Persistent Afib, Pauses. DOI 04/06/2023-Citlali. Johny. Carelink remote. Elevated troponin 05/15/2022 Overview (05/15/2022): Added automatically from request for surgery [id number] Right arm pain 05/15/2022 Pulmonary HTN 01/30/2021 Bradycardia 08/15/2020 Greater trochanteric bursitis of right hip 08/10 Aortic stenosis 06/15/2020 History of DVT (deep vein thrombosis) 01/18/2020 Obstructive sleep apnea 10/06/2019 QT prolongation 06/23/2019 Obesity (BMI 30-39.9) 03/28/2019 At risk for amiodarone toxicity with [facility] u se 08/13/2018 Atrial fibrillation ([facility]) [I48.91] 8 Chronic anticoagulation 01/12/2018 S/P coronary artery stent placement 2017 THOMPSON (dyspnea on exertion) 11/18/2016 Chronic fatigue 11/18/2016 Mixed diabetic hyperlipidemi a associated with type 2 diabetes mellitus ([facility]) 11/18/2016 Asthma 10/22/2015 Overview (09/11/2016): Uncomplicated asthma, unspecified asthma severity High risk drug monitoring status 01/30/2015 Overview (09/11/2016): Encounter for long-term current use of medication Post percutaneous transluminal coronary angiopla sty 05/03/2012 Overview (09/11/2016): STATUS-POST PTCA Coronary artery disease invo lving nez perce coronary artery of nez perce heart without angina pectoris 05/03/2012 Overview (09/11/2016): CRNRY ATHRSCL NATVE VSSL Longstanding persistent atrial fibrillation ([facility]) 05/03/2012 Overview (09/11/2016): ATRIAL FIBRILLATION Hypertension associated with diabetes 05/03/2012 Overview (09/12/2016): BENIGN HYPERTENSION Cervicalgia 09/26/2011 Resolved Problems Problem Noted Date Diagnosed Date Resolved Date Encounter for monitoring sotalol therapy 2017 04/22/2019 Hypercholesterolemia 07/24/2016 08// 022 Overview (09/11/2016): Hypercholesteremia Pure hypercholesterolemia 05/03/2012 Overview (09/12/2016): PURE HYPERCHOLESTEROLEM Encounters Date Type Department Care Team Description 07/07/2024 7:45 AM HUMAN DEVELOPMENT PROFESSOR Ancillary Procedure [facility] Medical [facility] [address] [place] [address] [address] [facility] [place] [address] Atrial fibrillation, unspecified type (HCC); Sinus pause 07/07/2024 Telephone [facility] [address] [place] [address] [place] [address] Lester Banks MD 06/29/2024 Orders Only [facility] [address] [facility] [address] [place] [phone] Lester Banks MD NICM (nonischemic cardiomyopathy) (CMS/HCC) (HCC) (Primary Dx); 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; Ventricular fibrillation (CMS/HCC) (HCC); NSVT (nonsustained ventricular tachycardia) (HCC) 05/19/2024 Telephone [facility] [address] [place] [address] [place] [phone] Zulay Henderson NP 05/16/2024 9:00 AM HUMAN DEVELOPMENT PROFESSOR Office Visit [facility] [address] [place] [address] [place] [address] Zualy Henderson NP Multiple bruises (Primary Dx); Coronary artery disease involving nez perce coronary artery of nez perce heart without angina pectoris; Presence of stent in coronary artery; Persistent atrial fibrillation (HCC); Chronic anticoagulation; Nonrheumatic aortic valve stenosis; Pacemaker; Sick sinus syndrome (CMS/HCC) (HCC) 04/28/2024 Telephone [facility] [address] [place] [address] [place] [phone] Lester Banks MD 04/27/2024 Telephone [facility] [address] [place] [address] [place] [phone] Lester Banks MD from Last 3 [...] on file Legal Sex Female 12:14 AM HUMAN DEVELOPMENT PROFESSOR Gender Identity Female 04/19/2019 9:38 AM HUMAN DEVELOPMENT PROFESSOR Sexual Orientation Straight 04/19/2019 9: 38 AM HUMAN DEVELOPMENT PROFESSOR Obstetrics History Last Filed Vital Signs Vital Sign Reading Time Taken Comments Blood Pressure 110/42 05/16/2024 9:01 AM HUMAN DEVELOPMENT PROFESSOR Pulse 64 05/16/2024 9:01 AM HUMAN DEVELOPMENT PROFESSOR Temperature 36.5 C (97.7 F) 12/25/2023 7:49 AM CDT Respiratory Rate 18 12/25/2023 4:45 PM CDT Oxygen Saturation 95% 05/16/2024 9:01 AM HUMAN DEVELOPMENT PROFESSOR Inhaled Oxygen Concentration - - Weight 78 kg (172 lb) 05/16/2024 9:01 AM HUMAN DEVELOPMENT PROFESSOR Height 162.6 cm (5' 4 ) 05/16/2024 9:01 AM HUMAN DEVELOPMENT PROFESSOR Body Mass Index 29.52 05/16/2024 9:01 AM HUMAN DEVELOPMENT PROFESSOR Plan of Treatment Health Maintenance Due Date [...] 02/05/2018, 03/08 Medical Devices Implanted Type Area Creping Machine Operator Helper Device Identifier Shelf Expiration Date Model / Serial / Lot Bone-07/09/2020 Implanted:07/09 (Quantity not on file) Bone Hip Medtronic Inc [id number] Micra Transcatheter System Pacing Micratcpsystem - [id number] - [id number] Implanted:Qty: 1 on 04/06/2023 by Oh Godwin MD at [facility] Pacemaker Right: Ventricle Medtronic Inc 03/05/2024 MICRATCPSYSTEM / [id number] / Medtronic Card Vasc Surgery 3.5 X 12mm [facility] [place] Rx Coronary Stent [id number] - [id number] Implanted:Qty: 1 on 05/16/2022 by Nikko Crowe MD at [facility] Medtronic Card Vasc Surgery 02/25/2025 [id number] / / [id number] Closure Inc Mynx Control 6-7fr 2 Mode Balloon Catheter Sealant Lock Syringe [id number] - [id number] Implanted:Qty: 1 on 05/16/2022 by Nikko Crowe MD at [facility] Access Closure Inc 05/07/2024 [id number] / / [id number] Alejandro Vascular Device Clsr Perclose Prostyle Sut-Mediatd Closure-Repair Sys 04840-91 - [id number] Implanted:Qty: 1 on 04/06/2023 by Oh Godwin MD at [facility] Right: Femoral Vein Alejandro V[employer] 01/05/2025 [id number] / / [id number] Alejandro Vascular Device Clsr Perclose Prostyle Sut-Mediatd Closure-Repair Sys 02366-70 - [id number] Implanted:Qty: 1 on 04/06/2023 by Oh Godwin MD at [facility] Right: Femoral Vein Alejandro V[employer] 01/05/2025 [id number] / / [id number] Medtronic Card Vasc Surgery 2.25 X 12mm [facility]roy [facility] Rx Coronary Stent [id number] - [id number] Implanted:Qty: 1 on 12/25/2023 by Nikko Crowe MD at [facility] Medtronic Card Vasc Surgery 03/29/2026 [id number] / / [id number] Procedures Procedure Name Priority Date/Time Associated Diagnosis Comments POCT LIPID PANEL Routine 04/14/2023 10:2 5 AM HUMAN DEVELOPMENT PROFESSOR Mixed diabetic hyperlipidemia associated with type 2 diabetes mellitus (CMS/HCC) (HCC) EGFR STAT 04/06/2023 8:01 AM CDT HEMOGLOBIN A1C Routine 05/16/2022 4:23 AM HUMAN DEVELOPMENT PROFESSOR from Last 3 Months or Most Recently Relevant to Health Maintenance Results * POCT lipid panel (04/14/2023 10:25 AM HUMAN DEVELOPMENT PROFESSOR) Cholesterol, POC 167 mg/dL Comment:GLU = 113 HDL, POC 45 mg/dL Triglycerides, POC 282 mg/dL LDL Cholesterol POC 66 mg/dL Chol/HDL Ratio, POC 3.8 Non-HDL Cholesterol, POC 123 mg/dL Cholesterol Total, POC 167 mg/dL Capillary blood 04/14/2023 1 0:25 AM HUMAN DEVELOPMENT PROFESSOR us Bart Bradley MD POINT OF CARE [...] MD LAB BLOOD ORDERABLES Final Result [facility] [id number] [address] Department [place] [address] * (ABNORMAL) Hemoglobin A1c (05/16/2022 4:23 AM HUMAN DEVELOPMENT PROFESSOR) Hgb A1C 6.0(H) 4.0 - 5.6 % [facility] SORENSON Estimated Average Glucose 126 mg/dL [facility] SORENSON Comment: The ADA recommends reporting an estimated Average Glucose (eAG) with all Hemoglobin A1c results using the equation derived from a study of 507 normal and diabetic adults. Minority populations were underrepresented and children were not included. (Diabetes Care 31:2098-3199, 2008). The eAG is not equivalent to a fasting glucose. Blood 05/16/2022 4:23 AM HUMAN DEVELOPMENT PROFESSOR 05/16/2022 5:04 AM HUMAN DEVELOPMENT PROFESSOR us Kate Camp NP LAB BLOOD [place] [address] [address] Department of Laboratories [place] [id number] from Last 3 Months or Most Recently Relevant to Health Maintenance Insurance MEDICARE Tip or Skip [facility] MEDICARE [facility] MEDICARE [facility] Advance Directives For more information, please contact: [phone] * Full Code (Latest Code Status on File) Date Activated Date Inactivated Comments 04/06/2023 10:05 AM 04/07/2023 6:26 PM * Full Code Date Activated Date Inactivated Comments 05/15/2022 2:37 PM 05/17/2022 7:41 PM Care Teams Dictating Machine Typist Relationship Specialty Start Date End Date Kortney Aguirre MD PCP - General 09/05/16
--- OUTSIDE RECORDS SUMMARY | 2024-07-25 11:04 | XMS_ITS | Encounter Summary ---
Author Organization [facility] Medical Group Address [address] [facility] [address] [place] [address] Care Team Providers Care Inclusion Manager Name Role Phone Kortney Aguirre MD Primary Care Provider [phone] Kortney Aguirre MD Primary Care Provider [phone] Encounter Details Date Type Department Care Team (Late st Contact Info) Description 07/08/2016 Orders Only [facility] ProviderDelmy MD [address] [place], [place] [id number] Social History Tobacco Use Types Packs/Day Years Used Date Smoking Tobacco: Never Alcohol Use Standard Drinks/Week Comments No 0 (1 standard drink = 0.6 oz pur e alcohol) Comments Unknown Sex and Gender Information Value Date Recorded Sex Assigned at Not on file Legal Sex Female 12:14 AM REPEAT CHIEF Gender Identity Female 04/19/2019 9:38 AM REPEAT CHIEF Sexual Orientation Straight 04/19/2019 9: 38 AM REPEAT CHIEF documented as of this encounter Plan of [...] on filedocumented in this encounter Care Teams Inclusion Manager Relationship Specialty Start Date End Date Kortney Aguirre MD PCP - General 09/05/16 Kortney Aguirre MD PCP - General 05/16/10 09/04/16 documented as of this encounter
--- OUTSIDE RECORDS SUMMARY | 2024-07-25 11:04 | XMS_ITS | Encounter Summary ---
Author Organization [facility] Medical Group Address [address] [facility] [address] [place] [address] Care Team Providers Care Software Support Analyst Name Role Phone Kortney Aguirre MD Primary Care Provider [phone] Kortney Aguirre MD Primary Care Provider [phone] Encounter Details Date Type Department Care Team (Late st Contact Info) Description 07/16/2016 Orders Only [facility] ProviderDelmy MD [address] [place], [place] [id number] Social History Tobacco Use Types Packs/Day Years Used Date Smoking Tobacco: Never Alcohol Use Standard Drinks/Week Comments No 0 (1 standard drink = 0.6 oz pur e alcohol) Comments Unknown Sex and Gender Information Value Date Recorded Sex Assigned at Not on file Legal Sex Female 12:14 AM BUSINESS AGENT Gender Identity Female 04/19/2019 9:38 AM BUSINESS AGENT Sexual Orientation Straight 04/19/2019 9: 38 AM BUSINESS AGENT documented as of this encounter Plan of [...] on filedocumented in this encounter Care Teams Software Support Analyst Relationship Specialty Start Date End Date Kortney Aguirre MD PCP - General 09/05/16 Kortney Aguirre MD PCP - General 05/16/10 09/04/16 documented as of this encounter
--- OUTSIDE RECORDS SUMMARY | 2024-07-25 11:04 | XMS_ITS | Encounter Summary ---
Author Organization [facility] Healthcare Address [address] [place] [address] Care Team Providers Care Electro Mechanical Technician Name Role Phone Kortney Aguirre MD Primary Care Provider [phone] Encounter Details Date Type Department Care Team (Late st Contact Info) Description 11/06/2023 Orders Only [facility] [place] Health Information Management [address] [place] [address] Scanning, Provider Social History Tobacco Use [...] on file Legal Sex Female 12:14 AM SUPPORT SERVICES REP Gender Identity Female 04/19/2019 9:38 AM SUPPORT SERVICES REP Sexual Orientation Straight 04/19/2019 9: 38 AM SUPPORT SERVICES REP documented as of this encounter Plan of Treatment Not on file documented as of this encounter Procedures Procedure Name Priority Date/Time Associated Diagnosis Comments SCAN - LABS 11/06/2023 documented in this encounter Results * SCAN - LABS (11/06/2023) us Provider Scanning Final Result documented in this encounter Visit Diagnoses Not on filedocumented in this encounter Care Teams Electro Mechanical Technician Relationship Specialty Start Date End Date Kortney Aguirre MD PCP - General 09/05/16 documented as of this encounter
--- OUTSIDE RECORDS SUMMARY | 2024-07-25 11:04 | XMS_ITS | Referral Summary ---
Author Organization [place] [address] [address] [place] [address] Care Team Providers Care Investigative Research Specialist Name Role Phone Kortney Aguirre MD Primary Care Provider Encounters Date Type Department Care Team Description 07/07/2024 7:45 AM BOBBIN STRIPPER Ancillary Procedure [facility] Cardiology [address] [place] [address] [place] [phone] Atrial fibrillation, unspecified type (HCC); Sinus pause 07/07/2024 Telephone [facility] Cardiology [address] [place] [address] [place] [phone] Lester Banks MD 06/29/2024 Orders Only [facility] Cardiology [address] [place] [address] [place] [phone] Lester Banks MD NICM (nonischemic cardiomyopathy) (CMS/HCC) (HCC) (Primary Dx); 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; Ventricular fibrillation (CMS/HCC) (HCC); NSVT (nonsustained ventricular tachycardia) (HCC) 05/19/2024 Telephone [facility] Cardiology [address] [place] [address] [address] [place] [address] Zulay Henderson NP 05/16/2024 9:00 AM BOBBIN STRIPPER Office Visit [address] [place] [address] Zulay Henderson NP Multiple bruises (Primary Dx); Coronary artery disease involving [place] coronary artery of [place] heart without angina pectoris; Presence of stent in coronary artery; Persistent atrial fibrillation (HCC); Chronic anticoagulation; Nonrheumatic aortic valve stenosis; Pacemaker; Sick sinus syndrome (CMS/HCC) (HCC) 04/28/2024 Telephone [facility] Cardiology [address] [place] [phone] Lester Banks MD 04/27/2024 Telephone [facility] Cardiology [address] [place] [phone] Lester Banks MD from Last 3 [...] mg total) by mouth nightly Active vitamins A,C,K-yjth-uszps r (ICAPS) 14,[id number] dcpv-jz-kpcd capsule Take 1 capsule by mouth 2 [...] 75 mg tabletIndication s:Coronary artery disease involving [place] coronary artery of [place] heart without angina pectoris,Presenc e of stent in coronary artery TAKE 1 TABLET BY MOUTH EVERY DAY 90 tablet 3 4 Active carvediloL (COREG) 6.25 mg tabletIndication s:Coronary artery disease involving [place] coronary artery of [place] heart without angina pectoris,Persist ent atrial fibrillation (HCC) Take 1 tablet (6.25 mg total) by mouth 2 (two) times a day with meals 180 tablet 3 4 Active Additional Information Patient taking differently: 3.125 mgoral 2 times daily with meals (bkfst, dinner), Informant: Self, Reported on 05/16/2024 rutin/hesp/biofl av/C/yeqgps621 (BIOFLEX ORAL) Take 1 tablet by mouth [...] Problems Problem Noted Date Diagnosed Date A-fib ([facility]) 04/06/2023 Pacemaker 04/06/2023 Cardiac pacemaker in situ 03/30/2023 Overview (04/10/2023): Medtronic Micra VR. Dx; Persistent Afib, Pauses. DOI 04/06/2023-Citlali. Johny. Carelink remote. Elevated troponin 05/15/2022 Overview (05/15/2022): Added automatically from request for surgery [id number] Right arm pain 05/15/2022 Pulmonary HTN 01/30/2021 Bradycardia 08/15/2020 Greater trochanteric bursitis of right hip 08/10 Aortic stenosis 06/15/2020 History of DVT (deep vein thrombosis) 01/18/2020 Obstructive sleep apnea 10/06/2019 QT prolongation 06/23/2019 Obesity (BMI 30-39.9) 03/28/2019 At risk for amiodarone toxicity with technician terminal and repeater u se 08/13/2018 Atrial fibrillation ([facility]) [I48.91] 8 Chronic anticoagulation 01/12/2018 S/P coronary artery stent placement 2017 [place] (dyspnea on exertion) 11/18/2016 Chronic fatigue 11/18/2016 Mixed diabetic hyperlipidemi a associated with type 2 diabetes mellitus ([facility]) 11/18/2016 Asthma 10/22/2015 Overview (09/11/2016): Uncomplicated asthma, unspecified asthma severity High risk drug monitoring status 01/30/2015 Overview (09/11/2016): Encounter for long-term current use of medication Post percutaneous transluminal coronary angiopla sty 05/03/2012 Overview (09/11/2016): STATUS-POST PTCA Coronary artery disease invo lving [place] coronary artery of [place] heart without angina pectoris 05/03/2012 Overview (09/11/2016): CRNRY ATHRSCL NATVE VSSL Longstanding persistent atrial fibrillation ([facility]) 05/03/2012 Overview (09/11/2016): ATRIAL FIBRILLATION Hypertension [...] on file Legal Sex Female 12:14 AM BOBBIN STRIPPER Gender Identity Female 04/19/2019 9:38 AM BOBBIN STRIPPER Sexual Orientation Straight 04/19/2019 9: 38 AM BOBBIN STRIPPER Last Filed Vital Signs Vital Sign Reading Time Taken Comments Blood Pressure 110/42 05/16/2024 9:01 AM BOBBIN STRIPPER Pulse 64 05/16/2024 9:01 AM BOBBIN STRIPPER Temperature 36.5 C (97.7 F) 12/25/2023 7:49 AM CDT Respiratory Rate 18 12/25/2023 4:45 PM CDT Oxygen Saturation 95% 05/16/2024 9:01 AM BOBBIN STRIPPER Inhaled Oxygen Concentration - - Weight 78 kg (172 lb) 05/16/2024 9:01 AM BOBBIN STRIPPER Height 162.6 cm (5' 4 ) 05/16/2024 9:01 AM BOBBIN STRIPPER Body Mass Index 29.52 05/16/2024 9:01 AM BOBBIN STRIPPER Plan of Treatment Not on file Medical Devices Implanted Type Area Admin Assistant Device Identifier Shelf Expiration Date Model / Serial / Lot Bone-07/09/2020 Implanted:07/09 (Quantity not on file) Bone Hip Medtronic Inc [id number] Micra Transcatheter System Pacing Micratcpsystem - [id number] - [id number] Implanted:Qty: 1 on 04/06/2023 by Oh Godwin MD at [facility] Pacemaker Right: Ventricle Medtronic Inc 03/05/2024 [id number] / [id number] / Medtronic Card Vasc Surgery 3.5 X 12mm Elroy Belton Rx Coronary Stent [id number] - [id number] Implanted:Qty: 1 on 05/16/2022 by Nikko Crowe MD at [facility] Medtronic Card Vasc Surgery 02/25/2025 [id number] / / [id number] Closure Inc Mynx Control 6-7fr 2 Mode Balloon Catheter Sealant Lock Syringe [id number] - [id number] Implanted:Qty: 1 on 05/16/2022 by Nikko Crowe MD at [facility] Access [employer]osure Inc 05/07/2024 [id number] / / [id number] Alejandro V[employer] Device Clsr Perclose Prostyle Sut-Mediatd Closure-Repair Sys 99557-30 - [id number] Implanted:Qty: 1 on 04/06/2023 by Oh Godwin MD at [facility] Right: Femoral Vein [employer] 01/05/2025 [id number] / / [id number] Ale[employer]andro V[employer] Device Clsr Perclose Prostyle Sut-Mediatd Closure-Repair Sys 00190-62 - [id number] Implanted:Qty: 1 on 04/06/2023 by Oh Godwin MD at [facility] Right: Femoral Vein [employer] 01/05/2025 [id number] / / [id number] Medtronic Card Vasc Surgery 2.25 X 12mm Elroy Belton Rx Coronary Stent [id number] - [id number] Implanted:Qty: 1 on 12/25/2023 by Nikko Crowe MD at [facility] Medtronic Card Vasc Surgery 03/29/2026 [id number] / / [id number] Procedures Procedure Name Priority Date/Time Associated Diagnosis Comments POCT LIPID PANEL Routine 04/14/2023 10:2 5 AM BOBBIN STRIPPER Mixed diabetic hyperlipidemia associated with type 2 diabetes mellitus (CMS/HCC) (HCC) EGFR STAT 04/06/2023 8:01 AM CDT HEMOGLOBIN A1C Routine 05/16/2022 4:23 AM BOBBIN STRIPPER from Last 3 Months or Most Recently Relevant to Health Maintenance Results * POCT lipid panel (04/14/2023 10:25 AM BOBBIN STRIPPER) Cholesterol, POC 167 mg/dL Comment:GLU = 113 HDL, POC 45 mg/dL Triglycerides, POC 282 mg/dL LDL Cholesterol POC 66 mg/dL Chol/HDL Ratio, POC 3.8 Non-HDL Cholesterol, POC 123 mg/dL Cholesterol Total, POC 167 mg/dL Capillary blood 04/14/2023 1 0:25 AM BOBBIN STRIPPER Bart Bradley MD POINT OF CARE TEST [...] MD LAB BLOOD ORDERABLES Final Result [facility] [address] [address] Department [place] [address] * (ABNORMAL) Hemoglobin A1c (05/16/2022 4:23 AM BOBBIN STRIPPER) Hgb A1C 6.0(H) 4.0 - 5.6 % [facility] Estimated Average Glucose 126 mg/dL [facility] Comment: The ADA recommends reporting an estimated Average Glucose (eAG) with all Hemoglobin A1c results using the equation derived from a study of 507 normal and diabetic adults. Minority populations were underrepresented and children were not included. (Diabetes Care 31:4886-5970, 2008). The eAG is not equivalent to a fasting glucose. Blood 05/16/2022 4:23 AM BOBBIN STRIPPER 05/16/2022 5:04 AM BOBBIN STRIPPER Kate Camp NP LAB BLOOD ORDERABLES Final R esult Performing Organization Address City/State/[place]IP [place] Phone Number [facility] [id number] [address] Department [place] [address] from Last 3 Months or Most Recently Relevant to Health Maintenance Insurance MEDICARE [place] [employer] [facility] MEDICARE [facility] MEDICARE [facility] Member Subscriber Plan / Payer (Ef fective 2019-Present) Name:Nohelia Laurent Relation to Subscriber:Self Name:Nohelia Laurent Payer ID:[id number] (NAIC) Group ID:[id number] Type: [employer] Address: [address] [place] [id number] Advance Directives For more information, please contact: [phone] * Full Code (Latest Code Status on File) Date Activated Date Inactivated Comments 04/06/2023 10:05 AM 04/07/2023 6:26 PM * Full Code Date Activated Date Inactivated Comments 05/15/2022 2:37 PM 05/17/2022 7:41 PM Care Teams Investigative Research Specialist Relationship Specialty Start Date End Date Kortney Aguirre MD PCP - General 09/05/16
--- OUTSIDE RECORDS SUMMARY | 2024-07-25 11:04 | XMS_ITS | Encounter Summary ---
Author Organization [facility] Healthcare Address [address] [place] [address] Care Team Providers Care Die Maintenance Technician Name Role Phone Kortney Aguirre MD Primary Care Provider [phone] Encounter Details Date Type Department Care Team (Late st Contact Info) Description 10/07/2023 Orders Only [facility] Health Information Management [address] [place] [address] Scanning, Provider Social History Tobacco [...] on file Legal Sex Female 12:14 AM PARTITION NOTCHER Gender Identity Female 04/19/2019 9:38 AM PARTITION NOTCHER Sexual Orientation Straight 04/19/2019 9: 38 AM PARTITION NOTCHER documented as of this encounter Plan of [...] on filedocumented in this encounter Care Teams Die Maintenance Technician Relationship Specialty Start Date End Date Kortney Aguirre MD PCP - General 09/05/16 documented as of this encounter
== END 2024-07-25 07:55 | disposition home or self-care (01) ==
LOC: CHSIMG 07:55
PROVIDERS: PCP Family Medicine; Visit Provider Family Medicine
DX: R09.89 Other specified symptoms and signs involving the circulatory and respiratory systems (principal); I65.23 Occlusion and stenosis of bilateral carotid arteries
CPT/HCPCS: 93880

== ENCOUNTER 2024-08-05 13:18 | Outpatient (CLI) | payer MEDICARE, BC, SELFPAY | END 2024-08-05 13:19 | disposition home or self-care (01) | PROVIDERS: PCP Family Medicine; Visit Provider Family Medicine | DX: M79.89 Other specified soft tissue disorders (principal) | CPT/HCPCS: 93971 ==

== ENCOUNTER 2024-08-08 12:06 | Outpatient (CLI) | payer MEDICARE, BC, SELFPAY | END 2024-08-08 12:07 | disposition home or self-care (01) | LOC: CHSIMG 12:07 | PROVIDERS: PCP Family Medicine; Visit Provider Family Medicine | DX: R09.89 Other specified symptoms and signs involving the circulatory and respiratory systems (principal) | CPT/HCPCS: 93922 ==

== ENCOUNTER 2024-08-12 10:24 | Inpatient (IN) | payer MEDICARE, BC, SELFPAY ==
--- NOTE | ~2024-08-12 | XR_ITS ---
EXAMINATION: XR knee RT 3V DATE: 08/12/2024 13:31 INDICATION: Right knee pain and swelling. TECHNIQUE: 3 views of right knee were obtained. COMPARISON: Right knee radiographs 05/19/2024, 07/30/2022 FINDINGS: Alignment is normal. No fracture. 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 There is moderate tricompartmental osteoarthritis. There is a large knee joint effusion. There is a loose body in the knee joint posteriorly. IMPRESSION: 1. Moderate right knee osteoarthritis. 2. Large right knee joint effusion with loose body. Reviewed, dictated and finalized at location A. R
--- NOTE | ~2024-08-12 | CT_ITS ---
EXAMINATION: CT knee RT wo con DATE: 08/12/2024 15:00 INDICATION: Right knee pain and swelling TECHNIQUE: High resolution computed tomography (CT) of the right knee was performed without intraveno us contrast. Additional sagittal and coronal reconstructions were performed. The dose-length product was 444.02 mGy-cm. COMPARISON: Radiographs dated 08/12/2024 and 04/22/2023 FINDINGS: Bone alignment is normal. Oblique lucency extending across the patella with bridging spiculated trabe cula consistent with relatively advanced healing of a nondisplaced intra-articular fracture. No acute fractures identified. Tricompartmental osteoarthritis with chondrocalcinosis and small to moderate size marginal osteophyte s in all 3 compartments, mild joint space narrowing in the medial compartment of the right knee which is underestimated on nonweightbearing imaging with moderate medial compartment joint space narrowing evident on prior weightbearing radiographs dated 04/22/2023. Similarly there is severe joint space n arrowing at the medial side of the patellofemoral compartment on the prior radiographs. Distention of the suprapatellar pouch with intraluminal soft tissue density which could represent eit her a moderate-sized complex joint effusion which could be either hemarthrosis or septic arthritis an d/or severe synovitis. There are a couple loose osteochondral bodies, one at the suprapatellar pouch and the second in the recess posterior to the intercondylar notch. 2.1 x 1.8 x 2.4 cm lucent lesion i n the proximal metaphyseal region of the right tibia with a central central 1.6 x 1.5 x 1.3 cm region of chondroid matrix with ring and arc-like configuration consistent with a benign enchondroma. IMPRESSION: 1. Large complex joint effusion and/or synovitis at the right suprapatellar pouch with differential i ncluding hemarthrosis or septic arthritis in the appropriate clinical setting. 2. Relatively advanced healing of a nondisplaced intra-articular patellar fracture. 3. Chondrocalcinosis and tricompartmental osteoarthritis at the right knee with moderate joint space or in the medial compartment and severe interspace joint the medial aspect of the patellofemoral comp artment on prior radiographs. Reviewed, dictated and finalized at location B. UP ARTIST IMPRESSION: 1. Large complex joint effusion and/or synovitis at the right suprapatellar andrew ch with differential including hemarthrosis or septic arthritis in the appropri ate clinical setting. 2. Relatively advanced healing of a nondisplaced intra-articular patellar fract ure. 3. Chondrocalcinosis and tricompartmental osteoarthritis at the right knee with moderate joint space or in the medial compartment and severe interspace joint the medial aspect of the patellofemoral compartment on prior radiographs.
[2024-08-12 11:02] VITALS: BP 158/84; PULSE 87; RESP 16; TEMP 36.6; O2SAT 100
--- OUTSIDE RECORDS SUMMARY | 2024-08-12 11:17 | XMS_ITS | Clinical Summary ---
Author Organization [facility] [address] Address [address] [place] [address] Care Team Providers Care Jordan Worker Name Role Phone Kortney Aguirre MD Primary Care Provider [phone] Allergies Active Allergy Reactions Criticality Noted Date [...] mg total) by mouth nightly Active vitamins A,C,X-qyru-cdsvb r (ICAPS) 14,[id number] kpxd-uv-kapj capsule Take 1 capsule by mouth 2 [...] 75 mg tabletIndication s:Coronary artery disease involving [place] coronary artery of [place] heart without angina pectoris,Presenc e of stent in coronary artery TAKE 1 TABLET BY MOUTH EVERY DAY 90 tablet 3 4 Active carvediloL (COREG) 6.25 mg tabletIndication s:Coronary artery disease involving [place] coronary artery of [place] heart without angina pectoris,Persist ent atrial fibrillation (HCC) Take 1 tablet (6.25 mg total) by mouth 2 (two) times a day with meals 180 tablet 3 4 Active Additional Information Patient taking differently: 3.125 mgoral 2 times daily with meals (bkfst, dinner), Informant: Self, Reported on 05/16/2024 rutin/hesp/biofl av/C/pcqodx950 (BIOFLEX ORAL) Take 1 tablet by mouth [...] Problems Problem Noted Date Diagnosed Date A-fib 04/06/2023 Pacemaker 04/06/2023 Cardiac pacemaker in situ 03/30/2023 Overview (04/10/2023): Medtronic Micra VR. Dx; Persistent Afib, Pauses. DOI 04/06/2023-Citlali. [place]. Carelink remote. Elevated troponin 05/15/2022 Overview (05/15/2022): Added automatically from request for surgery [id number] Right arm pain 05/15/2022 Pulmonary HTN 01/30/2021 Bradycardia 08/15/2020 Greater trochanteric bursitis of right hip 08/10 Aortic stenosis 06/15/2020 History of DVT (deep vein thrombosis) 01/18/2020 Obstructive sleep apnea 10/06/2019 QT prolongation 06/23/2019 Obesity (BMI 30-39.9) 03/28/2019 At risk for amiodarone toxicity with cytogenetic technician u se 08/13/2018 Atrial fibrillation (CMS/HCC) [I48.91] 8 Chronic anticoagulation 01/12/2018 S/P coronary artery stent placement 2017 THOMPSON (dyspnea on exertion) 11/18/2016 Chronic fatigue 11/18/2016 Mixed diabetic hyperlipidemi a associated with type 2 diabetes mellitus (CMS/HCC) 11/18/2016 Asthma 10/22/2015 Overview (09/11/2016): Uncomplicated asthma, unspecified asthma severity High risk drug monitoring status 01/30/2015 Overview (09/11/2016): Encounter for long-term current use of medication Post percutaneous transluminal coronary angiopla sty 05/03/2012 Overview (09/11/2016): STATUS-POST PTCA Coronary artery disease invo lving yakutat coronary artery of [place] heart without angina pectoris 05/03/2012 Overview (09/11/2016): CRNRY ATHRSCL NATVE VSSL Longstanding persistent atrial fibrillation 04/09 Overview (09/11/2016): ATRIAL FIBRILLATION Hypertension associated with diabetes 05/03/2012 Overview (09/12/2016): BENIGN HYPERTENSION Cervicalgia 09/26/2011 Resolved Problems Problem Noted Date Diagnosed Date Resolved Date Encounter for monitoring sotalol therapy 2017 04/22/2019 Hypercholesterolemia 07/24/2016 022 Overview (09/11/2016): Hypercholesteremia Pure hypercholesterolemia 05/03/2012 Overview (09/12/2016): PURE HYPERCHOLESTEROLEM Encounters Date Type Department Care Team Description 08/03/2024 10:30 AM NEW BUSINESS CLERK Ancillary Procedure [facility] Cardiology [address] [facility] [address] [place] [phone] Chronic atrial fibrillation (HCC) (Primary Dx); Persistent atrial fibrillation (HCC); Cardiac pacemaker in situ; Bradycardia 07/07/2024 7:45 AM NEW BUSINESS CLERK Ancillary Procedure [facility] Card[facility] [address] [facility] [address] [facility] [address] [place] [address] Cardiac pacemaker in situ [Z95.0] (Primary Dx); Atrial fibrillation, unspecified type (HCC); Sinus pause 07/07/2024 Telephone [facility] Cardiology [address] [place] [address] [place], [place] [address] [address] Lester Banks MD 06/29/2024 Orders Only [facility] Cardiology [address] [place] [address] [place] [address] [place] [address] Lester Banks MD NICM (nonischemic cardiomyopathy) (HCC) (Primary Dx); 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; Ventricular fibrillation (HCC); NSVT (nonsustained ventricular tachycardia) (HCC) 05/19/2024 Telephone [facility] Cardiology [address] [place] [phone] Zulay Henderson NP 05/16/2024 9:00 AM NEW BUSINESS CLERK Office Visit [facility] Cardiology [address] [place] [address] [place] [phone] Zulay Henderson NP Multiple bruises (Primary Dx); Coronary artery disease involving yakutat coronary artery of yakutat heart without angina pectoris; Presence of stent in coronary artery; Persistent atrial fibrillation (HCC); Chronic anticoagulation; Nonrheumatic aortic valve stenosis; Pacemaker; Sick sinus syndrome (HCC) from Last 3 Months Surgical History Surgery Date Site/Laterality Comments CHOLECYSTECTOMY Cholecystectomy APPENDECTOMY Appendectomy OTHER SURGICAL HISTORY 06/08/2009 - 06/07/2010 Surgery for Left Breast Cancer (Chemo & Rad Tx) HIP SURGERY HYSTERECTOMY BREAST SURGERY PATELLA FRACTURE SURGERY Right INSERT / REPLACE / REMOVE PACEMAKER Medical History Medical History Date Comments Osteoporosis Osteoporosis Polyp of colon colon polyps Hypertension Clotting disorder Hypercholesteremia Peripheral neuropathy Cancer (HCC) Diabetes mellitus (HCC) A-fib (HCC) Arthritis COPD (chronic obstructive pulmonary disease) (HC C) Longstanding persistent atrial fibrillation (HCC ) PONV (postoperative nausea and vomiting) Sleep apnea [...] on file Legal Sex Female 12:14 AM NEW BUSINESS CLERK Gender Identity Female 04/19/2019 9:38 AM NEW BUSINESS CLERK Sexual Orientation Straight 04/19/2019 9: 38 AM NEW BUSINESS CLERK Obstetrics History Last Filed Vital Signs Vital Sign Reading Time Taken Comments Blood Pressure 110/42 05/16/2024 9:01 AM NEW BUSINESS CLERK Pulse 64 05/16/2024 9:01 AM NEW BUSINESS CLERK Temperature 36.5 C (97.7 F) 12/25/2023 7:49 AM CDT Respiratory Rate 18 12/25/2023 4:45 PM CDT Oxygen Saturation 95% 05/16/2024 9:01 AM NEW BUSINESS CLERK Inhaled Oxygen Concentration - - Weight 78 kg (172 lb) 05/16/2024 9:01 AM NEW BUSINESS CLERK Height 162.6 cm (5' 4 ) 05/16/2024 9:01 AM NEW BUSINESS CLERK Body Mass Index 29.52 05/16/2024 9:01 AM NEW BUSINESS CLERK Plan of Treatment Health Maintenance Due Date Last Done Comments Albumin Creatinine Ratio, Urine 1938 Osteoporosis Screening-Bone Density Scan 1938 Dilated Eye Exam 1938 Foot Exam 1938 DTaP/Tdap/Td Vaccine (1 - Tdap) 1949 Hepatitis B Screening 1956 Well Visit 65+ 08/21/2003 Zoster Vaccine (2 of 3) 01/31/2016 12/06/2015, 12/14 Hemoglobin A1C 11/14/2022 05/16/2022 Depression Screening 05/15/2023 05/15/2022, 05/15/20 Influenza Vaccine (#1) 2024 6, 12/14/2014, 06/07/2014, Additional history exists eGFR 04/06/2024 04/06/2023, 05/08, 05/16/2022, Additional history exists Lipid Panel 04/14/2024 04/14/2023, 1202/2022, 11/08/2021, Additional history exists Fall Risk Assessment 12/24/2024 12/25/2023 Pneumococcal vaccine 65+ Completed 02/05/2018, 03/08 Medical Devices Implanted Type Area Mine Boss Device Identifier Shelf Expiration Date Model / Serial / Lot Bone-07/09/2020 Implanted:07/09 (Quantity not on file) Bone Hip Medtronic Inc [id number] Micra Transcatheter System Pacing Micratcpsystem - [id number] - [id number] Implanted:Qty: 1 on 04/06/2023 by Oh Godwin MD at [facility] Pacemaker Right: Ventricle Medtronic Inc 03/05/2024 [id number] / [id number] / Medtronic Card Vas Surgery 3.5 X 12mm Elroy Manati Rx Coronary Stent [id number] - [id number] Implanted:Qty: 1 on 05/16/2022 by Nikko Crowe MD at [facility] Medtronic Card Vasc Surgery 02/25/2025 [id number] / / [id number] Closure Inc Mynx Control 6-7fr 2 Mode Balloon Catheter Sealant Lock Syringe [id number] - [id number] Implanted:Qty: 1 on 05/16/2022 by Nikko Crowe MD at [facility] Access Closure Inc 05/07/2024 [id number] / / [id number] Alejandro Vascular Device Clsr Perclose Prostyle Sut-Mediatd Closure-Repair Sys 89693-76 - [id number] Implanted:Qty: 1 on 04/06/2023 by Oh Godwin MD at [facility] Right: Femoral Vein Alejandro Vascular 01/05/2025 [id number] / / [id number] Alejandro Vascular Device Clsr Perclose Prostyle Sut-Mediatd Closure-Repair Sys 98488-10 - [id number] Implanted:Qty: 1 on 04/06/2023 by Oh Godwin MD at [facility] Right: Femoral Vein Alejandro Vascular 01/05/2025 [id number] / / [id number] Medtronic Card Vas Surgery 2.25 X 12mm Elroy Manati Rx Coronary Stent [id number] - [id number] Implanted:Qty: 1 on 12/25/2023 by Nikko Crowe MD at [facility] Medtronic Card Vasc Surgery 03/29/2026 [id number] / / [id number] Procedures Procedure Name Priority Date/Time Associated Diagnosis Comments DEVICE CHECK - IN OFFICE Routine 08/03/2024 10:15 AM NEW BUSINESS CLERK Persistent atrial fibrillation (HCC) Cardiac pacemaker in situ Bradycardia DEVICE CHECK - REMOTE Routine 07/07/2024 1:11 PM NEW BUSINESS CLERK Atrial fibrillation, unspecified type (HCC) Sinus pause POCT LIPID PANEL Routine 04/14/2023 10:2 5 AM NEW BUSINESS CLERK Mixed diabetic hyperlipidemia associated with type 2 diabetes mellitus (CMS/HCC) (HCC) EGFR STAT 04/06/2023 8:01 AM CDT HEMOGLOBIN A1C Routine 05/16/2022 4:23 AM NEW BUSINESS CLERK from Last 3 Months or Most Recently Relevant to Health Maintenance Results * DEVICE CHECK - IN OFFICE (08/03/2024 10:15 AM NEW BUSINESS CLERK) Anatomical Region Laterality Modality Other Narrative 08/03/2024 4:05 PM NEW BUSINESS CLERK Medtronic Micra VR. Dx; Persistent Afib, Pauses. DOI 04/06/2023-Citlali. [place]. Carelink remote. Supervising MD: Dr Crowe. Interrogation of VVI Leadless Pacemaker demonstrated appropriate device function. Battery function-3.04V, >8.0 years remaining to AUDRA. Electrode impedance, capture threshold, and measured r-wave are stable and appropriate. Presenting rhythm-VS, irregular--Afib. Vpaced-12.2%. Medications; Eliquis, Plavix, Coreg. No programming changes made to device settings. See scanned report. Office pacemaker f/u due in 1 year. Carelink remote f/u 11/02/2024. Of Note: Patient is moving to [place], [place] @ the end of the month. We will continue to monitor her pacemaker until she establishes with a new general manager road production. Tierney Christian RN us Oh Godwin MD [facility] [place] OCEDURES Final Result * DEVICE CHECK - REMOTE (07/07/2024 1:11 PM NEW BUSINESS CLERK) Anatomical Region Laterality Modality Other Narrative 07/28/2024 10:39 AM NEW BUSINESS CLERK Medtronic Micra VR. Dx; Persistent Afib, Pauses. DOI 04/06/2023-Citlali. [place]onica. Carelink remote. Routine VVI Pacemaker Remote. Transmission attached. Battery status: 3.04 V, >8.0 years remaining battery life to AUDRA. Stable electrode impedance, pacing and sensing thresholds. Presenting rhythm: VS, irregular. HOUSE WRECKER- 11.8 %. Medications: Eliquis, Plavix, Coreg. See scanned report. Office pacemaker follow up: 08/03/2024. Carelink remote f/u due in 3-6 months. Tierney Christian RN us Lester Banks MD [facility] PRO CEDURES Final Result * POCT lipid panel (04/14/2023 10:25 AM NEW BUSINESS CLERK) Cholesterol, POC 167 mg/dL Comment:GLU = 113 HDL, POC 45 mg/dL Triglycerides, POC 282 mg/dL LDL Cholesterol POC 66 mg/dL Chol/HDL Ratio, POC 3.8 Non-HDL Cholesterol, POC 123 mg/dL Cholesterol Total, POC 167 mg/dL Capillary blood 04/14/2023 1 0:25 AM NEW BUSINESS CLERK Bart Bradley MD POINT OF CARE [...] Gonzalez MD LAB BLOOD ORDERABLES Final Result [facility] [address] Department of Laboratories [place], [place] [id number] * (ABNORMAL) Hemoglobin A1c (05/16/2022 4:23 AM NEW BUSINESS CLERK) Hgb A1C 6.0(H) 4.0 - 5.6 % EFRA Estimated Average Glucose 126 mg/dL EFRA [place] Comment: The ADA recommends reporting an estimated Average Glucose (eAG) with all Hemoglobin A1c results using the equation derived from a study of 507 normal and diabetic adults. Minority populations were underrepresented and children were not included. (Diabetes Care 31:9910-5880, 2008). The eAG is not equivalent to a fasting glucose. Blood 05/16/2022 4:23 AM NEW BUSINESS CLERK 05/16/2022 5:04 AM NEW BUSINESS CLERK us Kate Camp NP LAB BLOOD ORDERABLES Final R esult EFRA [address] Department [place] [address] from Last 3 Months or Most Recently Relevant to Health Maintenance Insurance MEDICARE [employer] OOS MEDICARE [facility] MEDICARE [facility] Advance Directives For more information, please contact: [phone] * Full Code (Latest Code Status on File) Date Activated Date Inactivated Comments 04/06/2023 10:05 AM 04/07/2023 6:26 PM * Full Code Date Activated Date Inactivated Comments 05/15/2022 2:37 PM 05/17/2022 7:41 PM Care Teams Jordan Worker Relationship Specialty Start Date End Date Kortney Aguirre MD PCP - General 09/05/16
--- OUTSIDE RECORDS SUMMARY | 2024-08-12 11:17 | XMS_ITS | Encounter Summary ---
Author Organization [facility] Address [address] [facility] [address] [place] [address] Care Team Providers Care Construction Management Assistant Name Role Phone Kortney Aguirre MD Primary Care Provider [phone] Kortney Aguirre MD Primary Care Provider [phone] Encounter Details Date Type Department Care Team (Late st Contact Info) Description 07/08/2016 Orders Only [facility] ProviderDelmy MD [address] [place], [place] [id number] Social History Tobacco Use Types Packs/Day Years Used Date Smoking Tobacco: Never Alcohol Use Standard Drinks/Week Comments No 0 (1 standard drink = 0.6 oz pur e alcohol) Comments Unknown Sex and Gender Information Value Date Recorded Sex Assigned at Not on file Legal Sex Female 12:14 AM TECHNICAL MARKETING CONSULTANT Gender Identity Female 04/19/2019 9:38 AM TECHNICAL MARKETING CONSULTANT Sexual Orientation Straight 04/19/2019 9: 38 AM TECHNICAL MARKETING CONSULTANT documented as of this encounter Plan of [...] on filedocumented in this encounter Care Teams Construction Management Assistant Relationship Specialty Start Date End Date Kortney Aguirre MD PCP - General 09/05/16 Kortney Aguirre MD PCP - General 05/16/10 09/04/16 documented as of this encounter
--- OUTSIDE RECORDS SUMMARY | 2024-08-12 11:17 | XMS_ITS | Encounter Summary ---
Author Organization [facility] Address [address] [place] [address] Care Team Providers Care Lineman Name Role Phone Kortney Aguirre MD Primary Care Provider [phone] Encounter Details Date Type Department Care Team (Late st Contact Info) Description 10/07/2023 Orders Only [facility] [address] [place] [address] Scanning, Provider Social History Tobacco [...] on file Legal Sex Female 12:14 AM PRESSURIZATION MECHANIC Gender Identity Female 04/19/2019 9:38 AM PRESSURIZATION MECHANIC Sexual Orientation Straight 04/19/2019 9: 38 AM PRESSURIZATION MECHANIC documented as of this encounter Plan of [...] on filedocumented in this encounter Care Teams Lineman Relationship Specialty Start Date End Date Kortney Aguirre MD PCP - General 09/05/16 documented as of this encounter
--- OUTSIDE RECORDS SUMMARY | 2024-08-12 11:17 | XMS_ITS | Encounter Summary ---
Author Organization [facility] Address [address] [facility] [address] [place] [address] Care Team Providers Care Radar Tester Name Role Phone Kortney Aguirre MD Primary Care Provider [phone] Kortney Aguirre MD Primary Care Provider [phone] Encounter Details Date Type Department Care Team (Late st Contact Info) Description 07/24/2016 Orders Only [facility] ProviderDelmy MD [address] [place], [place] [id number] Social History Tobacco Use Types Packs/Day Years Used Date Smoking Tobacco: Never Alcohol Use Standard Drinks/Week Comments No 0 (1 standard drink = 0.6 oz pur e alcohol) Comments Unknown Sex and Gender Information Value Date Recorded Sex Assigned at Not on file Legal Sex Female 12:14 AM PUMPER HAND Gender Identity Female 04/19/2019 9:38 AM PUMPER HAND Sexual Orientation Straight 04/19/2019 9: 38 AM PUMPER HAND documented as of this encounter Plan [...] on filedocumented in this encounter Care Teams Radar Tester Relationship Specialty Start Date End Date Kortney Aguirre MD PCP - General 09/05/16 Kortney Aguirre MD PCP - General 05/16/10 09/04/16 documented as of this encounter
--- OUTSIDE RECORDS SUMMARY | 2024-08-12 11:17 | XMS_ITS | Referral Summary ---
Author Organization [place] [address] [address] [place] [phone] Care Team Providers Care Tower Control Operator Name Role Phone Kortney Aguirre MD Primary Care Provider Encounters Date Type Department Care Team Description 08/03/2024 10:30 AM LITHOGRAPHIC PLATE MAKER APPRENTICE Ancillary Procedure [facility] Cardiology [address] [place] [address] [address] [place] [phone] Chronic atrial fibrillation (HCC) (Primary Dx); Persistent atrial fibrillation (HCC); Cardiac pacemaker in situ; Bradycardia 07/07/2024 7:45 AM LITHOGRAPHIC PLATE MAKER APPRENTICE Ancillary Procedure [facility] Cardiology [address] [place] [address] [place] [phone] Cardiac pacemaker in situ [Z95.0] (Primary Dx); Atrial fibrillation, unspecified type (HCC); Sinus pause 07/07/2024 Telephone [facility] Cardiology [address] [place] [address] [place] [phone] Lester Banks MD 06/29/2024 Orders Only [facility] Cardiology [address] [place] [address] [place] [phone] Lester Banks MD NICM (nonischemic cardiomyopathy) (HCC) (Primary Dx); 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; Ventricular fibrillation (HCC); NSVT (nonsustained ventricular tachycardia) (HCC) 05/19/2024 Telephone [facility] Cardiology [address] [place] [address] [address] [place] [phone] Zulay Henderson NP 05/16/2024 9:00 AM LITHOGRAPHIC PLATE MAKER APPRENTICE Office Visit [facility] Cardiology [address] [place] [phone] Zulay Henderson NP Multiple bruises (Primary Dx); 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; Presence of stent in coronary artery; Persistent atrial fibrillation (HCC); Chronic anticoagulation; Nonrheumatic aortic valve stenosis; Pacemaker; Sick sinus syndrome (HCC) from Last 3 Months Allergies Active Allergy [...] mg total) by mouth nightly Active vitamins A,C,O-nrfj-kxloo r (ICAPS) [id number] sisu-pi-trwn capsule Take 1 capsule by mouth 2 [...] 75 mg tabletIndication s: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 90 tablet 3 4 04/11/20 Active Active Problems Problem Noted Date Diagnosed Date A-fib 04/06/2023 Pacemaker 04/06/2023 Cardiac pacemaker in situ 03/30/2023 Overview (04/10/2023): Medtronic Micra VR. Dx; Persistent Afib, Pauses. DOI 04/06/2023-Kahanda. Mcclain. [facility]link remote. Elevated troponin 05/15/2022 Overview (05/15/2022): Added automatically from request for surgery [id number] Right arm pain 05/15/2022 Pulmonary HTN 01/30/2021 Bradycardia 08/15/2020 Greater trochanteric bursitis of right hip 08/10 Aortic stenosis 06/15/2020 History of DVT (deep vein thrombosis) 01/18/2020 Obstructive sleep apnea 10/06/2019 QT prolongation 06/23/2019 Obesity (BMI 30-39.9) 03/28/2019 At risk for amiodarone toxicity with fdc u se 08/13/2018 Atrial fibrillation (CMS/HCC) [I48.91] [...] STATUS-POST PTCA Coronary artery disease invo lving cherokee coronary artery of cherokee heart without angina pectoris 05/03/2012 Overview (09/11/2016): [...] on file Legal Sex Female 12:14 AM LITHOGRAPHIC PLATE MAKER APPRENTICE Gender Identity Female 04/19/2019 9:38 AM LITHOGRAPHIC PLATE MAKER APPRENTICE Sexual Orientation Straight 04/19/2019 9: 38 AM LITHOGRAPHIC PLATE MAKER APPRENTICE Last Filed Vital Signs Vital Sign Reading Time Taken Comments Blood Pressure 110/42 05/16/2024 9:01 AM LITHOGRAPHIC PLATE MAKER APPRENTICE Pulse 64 05/16/2024 9:01 AM LITHOGRAPHIC PLATE MAKER APPRENTICE Temperature 36.5 C (97.7 F) 12/25/2023 7:49 AM CDT Respiratory Rate 18 12/25/2023 4:45 PM CDT Oxygen Saturation 95% 05/16/2024 9:01 AM LITHOGRAPHIC PLATE MAKER APPRENTICE Inhaled Oxygen Concentration - - Weight 78 kg (172 lb) 05/16/2024 9:01 AM LITHOGRAPHIC PLATE MAKER APPRENTICE Height 162.6 cm (5' 4 ) 05/16/2024 9:01 AM LITHOGRAPHIC PLATE MAKER APPRENTICE Body Mass Index 29.52 05/16/2024 9:01 AM LITHOGRAPHIC PLATE MAKER APPRENTICE Plan of Treatment Not on file Medical Devices Implanted Type Area Director Of Community Education Device Identifier Shelf Expiration Date Model / Serial / Lot Bone-07/09/2020 Implanted:07/09 (Quantity not on file) Bone Hip Medtronic Inc [id number] Micra Transcatheter System Pacing Micratcpsystem - [id number] - [id number] Implanted:Qty: 1 on 04/06/2023 by Oh Godwin MD at [facility] Pacemaker Right: Ventricle Medtronic Inc 03/05/2024 [id number] / [id number] / Medtronic Card Vasc Surgery 3.5 X 12mm Britt Hobbs Rx Coronary Stent [id number] - [id number] Implanted:Qty: 1 on 05/16/2022 by Nikko Crowe MD at [facility] Medtronic Card Vasc Surgery 02/25/2025 [id number] / / [id number] Closure Inc Mynx Control 6-7fr 2 Mode Balloon Catheter Sealant Lock Syringe [id number] - [id number] Implanted:Qty: 1 on 05/16/2022 by Nikko Crowe MD at [facility] Access Closure Inc 05/07/2024 [id number] / / [id number] Ale[employer] V[employer] Device Clsr Perclose Prostyle Sut-Mediatd Closure-Repair Sys 40125-59 - [id number] Implanted:Qty: 1 on 04/06/2023 by Oh Godwin MD at [facility] Right: Femoral Vein [employer] 01/05/2025 [id number] / / [id number] [employer] Device Clsr Perclose Prostyle Sut-Mediatd Closure-Repair Sys 24897-50 - [id number] Implanted:Qty: 1 on 04/06/2023 by Oh Godwin MD at [facility] Right: Femoral Vein [employer] 01/05/2025 [id number] / / [id number] Medtronic Card Vasc Surgery 2.25 X 12mm Britt Hobbs Rx Coronary Stent [id number] - [id number] Implanted:Qty: 1 on 12/25/2023 by Nikko Crowe MD at [facility] Medtronic Card Vasc Surgery 03/29/2026 [id number] / / [id number] Procedures Procedure Name Priority Date/Time Associated Diagnosis Comments DEVICE CHECK - IN OFFICE Routine 08/03/2024 10:15 AM LITHOGRAPHIC PLATE MAKER APPRENTICE Persistent atrial fibrillation (HCC) Cardiac pacemaker in situ Bradycardia DEVICE CHECK - REMOTE Routine 07/07/2024 1:11 PM LITHOGRAPHIC PLATE MAKER APPRENTICE Atrial fibrillation, unspecified type (HCC) Sinus pause POCT LIPID PANEL Routine 04/14/2023 10:2 5 AM LITHOGRAPHIC PLATE MAKER APPRENTICE 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 Dx; Persistent Afib, Pauses. DOI 04/06/2023-Citlali. Johny. [facility]link remote. Supervising MD: Dr Crowe. Interrogation [...] 11/02/2024. Of Note: Patient is moving to [place], [place] @ the end of the month. We will continue to monitor her pacemaker until she establishes with a new specialized language instructor. Tierney Christian RN us Oh Godwin MD [facility] [place] OCEDURES Final Result * DEVICE CHECK - REMOTE (07/07/2024 1:11 PM LITHOGRAPHIC PLATE MAKER APPRENTICE) Anatomical Region Laterality Modality Other Narrative 07/28/2024 10:39 AM LITHOGRAPHIC PLATE MAKER APPRENTICE Medtronic Micra VR. Dx; Persistent Afib, Pauses. DOI 04/06/2023-Ciltali. Veronica. [facility]link remote. Routine VVI Pacemaker Remote. Transmission attached. Battery status: 3.04 V, >8.0 years remaining battery life to AUDRA. Stable electrode impedance, pacing and sensing thresholds. Presenting rhythm: VS, irregular. CODING SPECIALIST- 11.8 %. Medications: Eliquis, Plavix, Coreg. See scanned report. Office pacemaker follow up: 08/03/2024. [facility]link remote f/u due in 3-6 months. Tierney Christian RN us Lester Banks MD [facility] PRO CEDURES Final Result * POCT lipid panel (04/14/2023 10:25 AM LITHOGRAPHIC PLATE MAKER APPRENTICE) Cholesterol, POC 167 mg/dL Comment:GLU = 113 HDL, POC 45 mg/dL Triglycerides, POC 282 mg/dL LDL Cholesterol POC 66 mg/dL Chol/HDL Ratio, POC 3.8 Non-HDL Cholesterol, POC 123 mg/dL Cholesterol Total, POC 167 mg/dL Capillary blood 04/14/2023 1 0:25 AM LITHOGRAPHIC PLATE MAKER APPRENTICE Bart Bradley MD POINT OF CARE TEST [...] MD LAB BLOOD ORDERABLES Final Result [facility] [id number] Department [place] [address] * (ABNORMAL) Hemoglobin A1c (05/16/2022 4:23 AM LITHOGRAPHIC PLATE MAKER APPRENTICE) Hgb A1C 6.0(H) 4.0 - 5.6 % [facility] Estimated Average Glucose 126 mg/dL [facility] Comment: The ADA recommends reporting an estimated Average Glucose (eAG) with all Hemoglobin A1c results using the equation derived from a study of 507 normal and diabetic adults. Minority populations were underrepresented and children were not included. (Diabetes Care 31:7831-7026, 2008). The eAG is not equivalent to a fasting glucose. Blood 05/16/2022 4:23 AM LITHOGRAPHIC PLATE MAKER APPRENTICE 05/16/2022 5:04 AM LITHOGRAPHIC PLATE MAKER APPRENTICE us Kate Camp NP LAB BLOOD [place] [id number] [address] Department [place] [address] from Last 3 Months or Most Recently Relevant to Health Maintenance Insurance MEDICARE [employer] [facility]IC[facility] MEDICARE [facility] Advance Directives For more information, please contact: [phone] * Full Code (Latest Code Status on File) Date Activated Date Inactivated Comments 04/06/2023 10:05 AM 04/07/2023 6:26 PM * Full Code Date Activated Date Inactivated Comments 05/15/2022 2:37 PM 05/17/2022 7:41 PM Care Teams Tower Control Operator Relationship Specialty Start Date End Date Kortney Aguirre MD PCP - General 09/05/16
--- OUTSIDE RECORDS SUMMARY | 2024-08-12 11:17 | XMS_ITS | Encounter Summary ---
Author Organization [facility] Address [address] [facility] [address] [facility] [address] [place] [address] Care Team Providers Care Safety Leader Name Role Phone Kortnye Aguirre MD Primary Care Provider [phone] Kortney Aguirre MD Primary Care Provider [phone] Encounter Details Date Type Department Care Team (Late st Contact Info) Description 07/16/2016 Orders Only [facility] ProviderDelmy MD [address] [place], [place] [id number] Social History Tobacco Use Types Packs/Day Years Used Date Smoking Tobacco: Never Alcohol Use Standard Drinks/Week Comments No 0 (1 standard drink = 0.6 oz pur e alcohol) Comments Unknown Sex and Gender Information Value Date Recorded Sex Assigned at Not on file Legal Sex Female 12:14 AM ROLLER TURNER Gender Identity Female 04/19/2019 9:38 AM ROLLER TURNER Sexual Orientation Straight 04/19/2019 9: 38 AM ROLLER TURNER documented as of this encounter Plan of [...] on filedocumented in this encounter Care Teams Safety Leader Relationship Specialty Start Date End Date Kortney Aguirre MD PCP - General 09/05/16 Kortney Aguirre MD PCP - General 05/16/10 09/04/16 documented as of this encounter
--- OUTSIDE RECORDS SUMMARY | 2024-08-12 11:17 | XMS_ITS | Encounter Summary ---
Author Organization [facility] Healthcare Address [address] [place] [address] Care Team Providers Care Groover Operator Name Role Phone Kortney Aguirre MD Primary Care Provider [phone] Encounter Details Date Type Department Care Team (Late st Contact Info) Description 11/06/2023 Orders Only [facility] Health Information Management [address] [place] [id number] Scanning, Provider Social History Tobacco Use [...] on file Legal Sex Female 12:14 AM POKER DEALER Gender Identity Female 04/19/2019 9:38 AM POKER DEALER Sexual Orientation Straight 04/19/2019 9: 38 AM POKER DEALER documented as of this encounter Plan of Treatment Not on file documented as of this encounter Procedures Procedure Name Priority Date/Time Associated Diagnosis Comments SCAN - LABS 11/06/2023 documented in this encounter Results * SCAN - LABS (11/06/2023) us Provider Scanning Final Result documented in this encounter Visit Diagnoses Not on filedocumented in this encounter Care Teams Groover Operator Relationship Specialty Start Date End Date Kortney Aguirre MD PCP - General 09/05/16 documented as of this encounter
--- OUTSIDE RECORDS SUMMARY | 2024-08-12 11:18 | XMS_ITS | CONTINUITY OF CARE DOCUMENT ---
Author Name bernie, bernie Address Unknown Organization [facility] Address [address] [place] [address] Phone [phone] Care Team Providers Care Terrazzo Worker Apprentice Name Role Phone Cristiano Cunha MD Unavailable MADELAINE LEWIS MD Unavailable [phone] MADELAINE LEWIS MD Unavailable [phone] PROBLEMS Condition Status Date Provider Notes CHEST PAIN active Cristiano Cunha MD ARM PAIN, LEFT active Cristiano Cunha MD JAW PAIN active Cristiano Cunha MD HYPERTENSIVE HEART DISEASE W/O CHF active R bogdan Cunha MD PVD active Cristiano Cunha MD CAD active Cristiano Cunha MD ENCOUNTERS Date Type Provider Location Encounter Diag nosis - In-person encounter Office Visit Cristiano Cunha MD [facility] - In-person encounter Office Visit Cristiano Cunha MD [facility] CAD - In-person encounter Office Visit Cristiano Cunha MD [facility] CHEST PAINARM PAIN, LEFTJAW PAINHYPERTENSIVE HEART DISEASE W/O CHFPVD VITAL SIGNS Date Observation Value Provider blood pressure, diastolic 85 mm[Hg] Fe fatou Dorcas blood pressure, systolic 156 mm[Hg] Fel icia Onyx pulse rate 80 /min Jasmina Dorcas oxygen saturation, oximetry 98 % Jasmina Onyx respiratory rate E&M 16 /min Jasmina Dorcas weight E&M 203 [lb_av] Jasmina Onyx blood pressure, diastolic 76 mm[Hg] Zamzam Guerrier LAM blood pressure, systolic 171 mm[Hg] Lisa Guerrier LAM pulse rate 74 /min Mey Guerrier LAM oxygen saturation, oximetry 97 % Mey Guerrier LAM respiratory rate E&M 18 /min Mey Guerrier LAM weight E&M 197 [lb_av] Mey Guerrier LAM pulse rate 71 /min Mey Guerrier MA oxygen saturation, oximetry 97 % Mey Guerrier LAM respiratory rate E&M 18 /min Mey Guerrier LAM weight E&M 204 [lb_av] Mey Guerrier LAM blood pressure, diastolic 99 mm[Hg] Zamzam Guerrier LAM blood pressure, systolic 235 mm[Hg] Lisa Guerrier MA ALLERGIES Allergy Name Onset Date Reaction Criticality Status SIMCOR High Criticality active CODEINE High Criticality active ASA High Criticality active SULFA High Criticality active RESULTS Date Observation Value Provider Reference Range Interpretation Location hemoglobin A1C, blood, as % of total hemoglobin 5.8 % [facility] thyroid stimulating hormone, serum 1.6817 u[IU]/mL Ernie Sorenson cholesterol/HDL ratio, serum 3.8 [facility] triglyceride, serum, fasting 196 mg/dL [facility] HDL cholesterol, serum 57 mg/dL Ernie Sorenson LDL cholesterol, serum 122 mg/dL Ernie Sorenson cholesterol, serum 218 mg/dL Ernie Sorenson globulins, serum, total 2.8 g/dL Ernie Sorenson Estimated Glomerular Filtration Rate (calc) >60 Ernie Sorenson albumin/globulin ratio, serum 1.6 Ernie Sorenson protein, total, serum 7.4 g/dL [facility] albumin, serum 4.6 g/dL [facility] bilirubin, serum, total 0.5 mg/dL [facility] alkaline phosphatase, serum 84 1/L [facility] alanine aminotransferase (SGPT), serum 26 1/L [facility] aspartate aminotransferase (SGOT), serum 26 1/L [facility] calcium, serum 10.1 mg/dL [facility] blood glucose, fasting 112 mg/dL [facility] creatinine, serum 0.7 mg/dL [facility] urea nitrogen, blood 14 mg/dL [facility] carbon dioxide, serum, total 27 mmol/L [facility] chloride, serum 104 mmol/L [facility] potassium, serum 3.8 mmol/L [facility] sodium, serum 142 mmol/L [facility] platelet count 221 10*3/uL [facility] red blood cell distribution width 15.2 % [facility] mean corpuscular hemoglobin concentration, RBC 35.1 g/dL [facility] mean corpuscular hemoglobin, RBC 31.6 pg [facility] mean corpuscular volume, RBC 89.9 fL [facility] hematocrit, blood 36.0 % [facility] hemoglobin, blood 12.6 g/dL [facility] erythrocyte (RBC) count 4.01 10*6/mm3 [facility] monocyte count, blood 0.5 10*3/mm3 [facility] lymphocyte count, blood 3.8 10*3/mm3 [facility] monocytes as percent of blood leukocytes 5.2 % [facility] lymphocytes as percent of blood leukocytes 41.2 % [facility] leukocyte count, blood 9.1 10*3/mm3 [facility] prothrombin time (patient) 9.5 s [facility] 9.0-11.5 Normal international normalized ratio (INR) 0.9 LinkLog Normal platelet count 222 THOUSAND/UL [employer] 140-400 Normal red blood cell distribution width 14.0 % [facility] 11.0-15.0 Normal mean corpuscular hemoglobin concentration, RBC 34.5 G/DL [facility] 32.0-36.0 Normal mean corpuscular hemoglobin, RBC 31.6 pg [employer] 27.0-33.0 Normal mean corpuscular volume, RBC 91.7 fL [facility] 80.0-100.0 Normal hematocrit, blood 39.0 % [facility] 35.0-45.0 Normal hemoglobin electrophoresis, blood 13.4 [facility] 11.7-15.5 Normal erythrocyte (RBC) count 4.25 MILLION/UL [facility] 3.80-5.10 Normal leukocyte (white blood cells) count, blood 9.9 THOUSAND/UL [facility] 3.8-10.8 Normal calcium, serum 9.6 mg/dL [facility] 8.6-10.2 Normal carbon dioxide, venous blood 23 mmol/L [facility] 21-33 Normal chloride, serum 104 mmol/L [facility] 98-110 Normal potassium, serum 4.2 mmol/L [facility] 3.5-5.3 Normal sodium, serum 139 mmol/L [facility] 135-146 Normal urea nitrogen/creatinine ratio, serum NOT APPLICABLE (calc) [facility] 6-22 Estimated Glomerular Filtration Rate (calc) >60 mL/min/1.73m2 [facility] > OR = 60 Normal creatinine, serum 0.68 mg/dL [facility] 0.50-1.20 Normal urea nitrogen, blood 15 mg/dL [facility] 7-25 Normal blood glucose, random 159 mg/dL [facility] 65-99 High cholesterol/HDL ratio, serum, percent 4.2 (calc) [facility] < OR = 5.0 Normal LDL cholesterol, serum 118 MG/DL (CALC) [facility] <130 Normal HDL cholesterol, serum 48 mg/dL [facility] > OR = 46 Normal cholesterol, serum 201 mg/dL [facility] 125-200 High triglyceride, serum, fasting 177 mg/dL [facility] <150 High HISTORY OF MEDICATION USE Medication Status Instructions Dates Provider Indications Com ments BONIVA 150 MG ORAL TABLET active once montly Jasmina Onyx ACTOS 15 MG ORAL TABLET active once daily Jasmina Onyx SIMCOR 500-20 MG ORAL TABLET EXTENDED RELEASE 24 HOUR active ONE TAB. DAILY Mey Guerrier MA PLAVIX 75 MG ORAL TABLET active ONE TAB. DAILY Mey Guerrier MA NAOMIE 10-40 MG ORAL TABLET active ONE TAB. DAILY 2 Cristiano Cunha MD GLUCOSAMINE-CHOND ROITIN-MSM CAPSULE active TAKE ONE TABLET DAILY Jasmina Dorcas MULTIVITAMINS ORAL CAPSULE active ONE TAB. DAILY Jasmina Onyx QUINAPRIL HCL 20 MG ORAL TABLET completed ONE TAB. DAILY - 1 Mey Guerrier MA CRESTOR 5 MG ORAL TABLET completed TAKE ONE TAB. DAILY - 1 Mey Guerrier MA TOPROL XL 200 MG ORAL TABLET EXTENDED RELEASE 24 HOUR active TAKE ONE TAB DAILY Jasmina Onyx GUMEPIRIDE 2MG completed TAKE ONE TABLET DAILY - 1 Mey Guerrier MA EDECRIN 25 MG ORAL TABLET active TAKE ONE TABLET DAILY Jasmina Onyx METFORMIN HCL 500 MG ORAL TABLET active TAKE 2 TABLETS TWICE DAILY Jasmina Dorcas SOCIAL HISTORY Date Observation Value Provider social history reviewed E&M reviewed Cristiano Cunha MD social history reviewed E&M reviewed Cristiano Cunha MD social history E&M Marital Statu s: L alphonso with family/friends E thnicity: Cristiano Cunha MD drug use none Cristiano Mejia social history reviewed E&M reviewed Cristiano Cunha MD physical exercise, f requency, days per week no [facility] caffeine use, averag e drinks per day no [facility] alcohol use, average drinks per day none [facility] smoking status Non-smoker [facility] MENTAL STATUS Date Observation Value Provider assessment of judgme nt and insight E&M Alert and oriented to time, place and person. Mood and affect are normal. Cristiano Cunha MD assessment of judgme nt and insight E&M Alert and oriented to time, place and person. Mood and affect are normal. Cristiano Cunha MD assessment of judgme nt and insight E&M Alert and oriented to time, place and person. Mood and affect are normal. Cristiano Cunha MD INSURANCE PROVIDERS Payer name Policy type / Coverage type [place] red libertarian ID [facility] [id number] [place] MEDICARE PART B Medicare [id number] TREATMENT PLAN Date Name Performer Pt requesting to be seen: H er updated medication list for this problem includes: Toprol Xl 200 Mg Tb24 (Metoprolol succinate) ..... Take one tab daily Plavix 75 Mg Tabs (Clopidogrel bisulfate) ..... One tab. daily Orders: S tress Test - Adenosine (91771) Cristiano Cunha MD Pt requesting to be seen: H er updated medication list for this problem includes: Edecrin 25 Mg Tabs (Ethacrynic acid) ..... Take one tablet daily Toprol Xl 200 Mg Tb24 (Metoprolol succinate) ..... Take one tab daily Naomie 10-40 Mg Tabs (Amlodipine-olmesartan) ..... One tab. daily BP today: 156/85 P rior BP: 171/76 (09/06/2008) Labs Reviewed: C reat: 0.68 (07/21/2008) C hol: 201 (07/21/2008) HDL: 48 (07/21/2008) LDL: 118 MG/DL (CALC) (07/21/2008) T (07/21/2008) Cristiano Cunha MD Pt requesting to be seen: H er updated medication list for this problem includes: Toprol Xl 200 Mg Tb24 (Metoprolol succinate) ..... Take one tab daily Plavix 75 Mg Tabs (Clopidogrel bisulfate) ..... One tab. daily Simcor 500-20 Mg Tb24 (Niacin-simvastatin) ..... One tab. daily BP today: 156/85 Prior BP: 171/76 (09/06/2008) N uclear Stress Findings: 1. Maximal Santy protocol exercise tolerance test. Moderately decreased exercvise capacity. 2 . Normal left ventricular size and function with a calculated ejection fraction of 70%. 3 . Myocardial scintigraphy is normal without evidence for previous myocardial infarction or reversible ischemia. CNE (04/03/2009) C ardiac Cath: High-grade CAD involving the LAD and first diagonal. L eft dominant system. N ormal LV function and wall motion. CNE (07/27/2008) C ardiac Cath Comments: Successful stenting of the LAD. S uccessful angioplasty of the first diagonal. CNE (07/27/2008) C arotid Doppler/Duplex: LESS THAN 50% STENOSIS OF THE INTERNAL CAROTID A RTERIES. VERTEBRAL FLOW IS ANTEGRADE BILATERALLY. [facility] (07/25/2008) C HOL: 201 (07/21/2008) LDL: 118 MG/DL (CALC) (07/21/2008) HDL: 48 (07/21/2008) T (07/21/2008) H CT: 39.0 (07/21/2008) Platelets: 222 THOUSAND/UL (07/21/2008) R BC: 4.25 MILLION/UL (07/21/2008) BUN: 15 (07/21/2008) Creat: 0.68 (07/21/2008) Glucose: 159 (07/21/2008) N a+: 139 (07/21/2008) K+: 4.2 (07/21/2008) Cl: 104 (07/21/2008) PT: 9.5 (07/21/2008) INR: 0.9 (07/21/2008) Orders: S tress Test - Adenosine (76485) Cristiano Cunha MD Hosp FU: H er updated medication list for this problem includes: Toprol Xl 200 Mg Tb24 (Metoprolol succinate) ..... Take one tab daily Plavix 75 Mg Tabs (Clopidogrel bisulfate) ..... One tab. daily Cristiano Cunha MD Hosp FU: H er updated medication list for this problem includes: Edecrin 25 Mg Tabs (Ethacrynic acid) ..... Take one tablet daily Toprol Xl 200 Mg Tb24 (Metoprolol succinate) ..... Take one tab daily Naomie 10-40 Mg Tabs (Amlodipine-olmesartan) ..... One tab. daily Orders: C omplete Echo (CPT-25807) BP today: 171/76 P rior BP: 235/99 (07/20/2008) Labs Reviewed: C reat: 0.68 (07/21/2008) C hol: 201 (07/21/2008) HDL: 48 (07/21/2008) LDL: 118 MG/DL (CALC) (07/21/2008) T (07/21/2008) Cristiano Cunha MD Hosp FU: H er updated medication list for this problem includes: Toprol Xl 200 Mg Tb24 (Metoprolol succinate) ..... Take one tab daily Plavix 75 Mg Tabs (Clopidogrel bisulfate) ..... One tab. daily Simcor 500-20 Mg Tb24 (Niacin-simvastatin) ..... One tab. daily Orders: S tress Test - Nuclear (16890) BP today: 171/76 Prior BP: 235/99 (07/20/2008) C ardiac Cath: High-grade CAD involving the LAD and first diagonal. L eft dominant system. N ormal LV function and wall motion. CNE (07/27/2008) C ardiac Cath Comments: Successful stenting of the LAD. S uccessful angioplasty of the first diagonal. CNE (07/27/2008) C arotid Doppler/Duplex: LESS THAN 50% STENOSIS OF THE INTERNAL CAROTID A RTERIES. VERTEBRAL FLOW IS ANTEGRADE BILATERALLY. [facility] (07/25/2008) C HOL: 201 (07/21/2008) LDL: 118 MG/DL (CALC) (07/21/2008) HDL: 48 (07/21/2008) T (07/21/2008) H CT: 39.0 (07/21/2008) Platelets: 222 THOUSAND/UL (07/21/2008) R BC: 4.25 MILLION/UL (07/21/2008) BUN: 15 (07/21/2008) Creat: 0.68 (07/21/2008) Glucose: 159 (07/21/2008) N a+: 139 (07/21/2008) K+: 4.2 (07/21/2008) Cl: 104 (07/21/2008) PT: 9.5 (07/21/2008) INR: 0.9 (07/21/2008) Cristiano Cunha MD New Patient: L & R a rm pain, Jaw pain: O rders: C arotid Duplex Bilateral (CPT-32494) Cristiano Cunha MD New Patient: L & R a rm pain, Jaw pain: H er updated medication list for this problem includes: Edecrin 25 Mg Tabs (Ethacrynic acid) ..... Take one tablet daily Toprol Xl 200 Mg Tb24 (Metoprolol succinate) ..... Take one tab daily Quinapril Hcl 20 Mg Tabs (Quinapril hcl) ..... One tab. daily Naomie 10-40 Mg Tabs (Amlodipine-olmesartan) ..... One tab. daily Orders: C omplete Echo (CPT-29850) BP today: Cristiano Cunha MD New Patient: L & R a rm pain, Jaw pain: O rders: E KG (CPT-[id number]) Cristiano Cunha MD New Patient: L & R a rm pain, Jaw pain: O rders: E KG (CPT-46297) Cristiano Cunha MD New Patient: L & R a rm pain, Jaw pain: H er updated medication list for this problem includes: Toprol Xl 200 Mg Tb24 (Metoprolol succinate) ..... Take one tab daily Quinapril Hcl 20 Mg Tabs (Quinapril hcl) ..... One tab. daily Orders: E KG (CPT-03669) C ardiac Cath - CNE (*) BP today: Prior BP: / () Cristiano Cunha MD Date Name Stress Test - Adenos ine Complete Echo Stress Test - Nuclea r PROTHROMBIN TIME WIT H INR CBC (H/H, RBC, INDIC ES, WBC, PLT) BASIC METABOLIC PANE L W/EGFR LIPID PANEL Complete Echo Carotid Duplex Bilat eral Cardiac Cath - CNE HISTORY OF PROCEDURES Procedure Date Procedure Name Provider Procedure Notes S tatus EKG Cristiano Cnuha MD complete d
--- NOTE | 2024-08-12 13:04 | ED_ITS ---
HPI - Extremity Problem General Chief complaint: Extremity Problem,Nontraumatic Stated complaint: knee pain Time Seen by Provider: 08/12/24 12:28 History of Present Illness HPI Narrative: Patient is a 3-year-old female who presents ER with right-sided knee pain. Three days ago she was at Dr. Ruiz's office and had a cyst drained from behind her hamstring and then also had a cortisone injection of her knee joint. She had been able to walk without issue last 2 days but will up this morning and tried to stand and had sudden onset pain in her knee and fell back into her bed. No loss of consciousness. Mild decreased sensation in the foot since developing the pain. No fevers or chills or sweats. Related Data Home Medications ?Medication ?Instructions ?Recorded ?Confirmed ?Last Taken ?Type elrfncfx-tkty-zhnp 8 mg-folic 400 1 tablet PO DAILY 06/22/19 08/12/24 08/11/24 History mcg-K 50 mcg-lutein 300 mcg tablet (Centrum Silver Women) carvedilol 25 mg tablet (Coreg) 2.5 mg PO Q12HR 08/29/20 08/12/24 08/11/24 History nitroglycerin 0.4 mg sublingual 0.4 mg sublingual PRN PRN Chest 01/12/21 08/12/24 Unknown History tablet Pain qneD-Q8-I-O-kkpzhz-yzcuagx-min 1 tablet PO BID 01/12/21 08/12/24 08/11/24 History 3,300 unit-5 mg-200mg-75 unit tablet ER (ICaps) apixaban 5 mg tablet 5 mg PO BID 04/27/24 08/12/24 08/12/24 History rosuvastatin 20 mg tablet 10 mg PO DAILY 05/19/24 08/12/24 08/11/24 History vit 1 tablet PO DAILY 05/19/24 08/12/24 08/11/24 History X-bstbfvb-kajbppxoy-rutin-geyf881 500 mg-50 mg-25 mg-40 mg tablet (Bioflex) insulin glargine 100 unit/mL (3 32 unit subcut DAILY 08/12/24 08/12/24 08/11/24 History mL) subcutaneous pen (Lantus Solostar U-100 Insulin) Allergies Allergy/AdvReac Type Severity Reaction Status Date / Time Penicillins Allergy Mild Rash Verified 08/12/24 15:11 oxycodone AdvReac Mild Vomiting Verified 08/12/24 15:11 codeine AdvReac Vomiting Verified 08/12/24 15:11 morphine AdvReac Vomiting Verified 08/12/24 15:11 Review of Systems 2 Review of Systems: All systems reviewed & are unremarkable except as noted in HPI and below Constitutional: Constitutional: Reports no additional constitutional complaints Musculoskeletal: Musculoskeletal: Reports no additional musculoskeletal complaints Integumentary/Breasts: Skin/Breast: Reports system reviewed and no additional complaints, except as docu Neurologic: Reports system reviewed and no additional complaints, except as documented [facility] Past Medical History Medical History Pacemaker (~04/07/23) Aortic stenosis Right forearm cellulitis Cervical radiculopathy Colon cancer screening (~06/2020) cologuard negative On amiodarone therapy Paroxysmal atrial fibrillation : History of cardioversions, with previously noted loosely organized thrombus in the left atrial appendage, for which she was subsequently switched from Xarelto to warfarin. : Last cardioversion attempt in May 2018 was unsuccessful and she was referred to an dining host at [place]. On arrival to that appointment, she was found to be in a normal sinus rhythm, and to her knowledge has remained in such since. History of colon polyps Osteoarthritis History of peptic ulcer Severe obstructive sleep apnea : Noted on sleep study 08/10/2019. : CPAP titrated to 11 cm. 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 : Hemoglobin A1c was 6.9% 08/09/2019. History of left breast cancer : Status post lumpectomy, chemotherapy, and radiation. Coronary artery disease : With history of stent to LAD done at [facility]. Chronic anticoagulation : Warfarin for paroxysmal atrial fibrillation. Chronic kidney disease, stage 3 (moderate) : GFR ranging between 43 and > 60. Essential hypertension Iron deficiency anemia Mild persistent asthma without complication Surgical History Surgical History History of permanent cardiac pacemaker placement (~04/07/23) History of right hip hemiarthroplasty (08/30/19) History of bladder suspension procedure History of hysterectomy History of D&C History of lumpectomy of left breast History of cholecystectomy History of appendectomy History of heart artery stent : Stent to LAD, done at [facility]. History of bilateral cataract extraction Family History Family History Father Family history of diabetes mellitus in first degree relative Hypertension Cerebrovascular accident Mother Family history of heart disease in male family member before age 55 Patient's mother is , Onset Age: 68 Family history of coronary artery disease, Onset Age: 68 Hypertension, Onset Age: 68 Sibling Cerebrovascular accident Other Diabetes mellitus Social History Social History Social History: The patient is and lives in [place]. She has 7 children. 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 Her son, Jn, is her surrogate decision maker and she wishes to be a full code. She is a lifelong nonsmoker and denies alcohol and drug abuse. Smoking status: Never smoker Second hand tobacco smoke exposure: Yes Alcohol intake: never Substance use: never Substance use type: does not use Do You Feel Safe in your Home?: Yes Lack of Transportation: No Lack of Food: Never True Current Housing: I Have Housing Concerned About Future Housing: No Difficulty Paying Gas/Electric Bills: No Difficulty Paying for Meds: No Currently Unemployed: No Education: High School Diploma/GED Difficulty w/ Childcare or Family Care: No Living arrangements: with family Gender identity (if verbalized by the patient): Female Spiritual care concerns: No Agree to blood products: Yes Exam 2 Narrative: GENERAL: Well-appearing, well-nourished, and in no acute distress. HEAD: Normocephalic, atraumatic. ENT: Mucous membranes moist. NECK: Supple. CHEST: Clear to auscultation. No respiratory distress. HEART: Regular rate and rhythm. Normal peripheral pulses. EXTREMITIES: Right knee swollen and diffusely tender to touch. Unable to perform range of motion due to severe pain. Normal distal pulses and sensation intact. SKIN: Warm, dry, no rash. NEURO: Alert and oriented x3. PSYCH: Normal mood and affect. Course Course Emergency Course: Patient was started have some pain control after 6 mg of morphine but still has a lot of discomfort with any sort of manipulation or palpation. Discussed with Dr. Meza PA but he is of [facility]. Dr. Chavarria consulted, recommends aspiration, if just blood no labs. IV decadron 4mg, medrol dosepak po, scheduled tylenol and oxycodone. Needs PT Dr. Ruiz back in [facility], has gone to the patients bedside to see her. Admit to hospitalist. Vital Signs Vital signs: Vital Signs Temperature 97.9 F 08/12/24 11:02 Pulse Rate 87 08/12/24 11:02 Respiratory Rate 16 08/12/24 11:02 Blood Pressure 158/84 H 08/12/24 11:02 Pulse Oximetry 100 08/12/24 11:02 Oxygen Delivery Room Air 08/12/24 11:02 Temperature 97.4 F L 08/12/24 20:30 Pulse Rate 91 08/12/24 20:30 Respiratory Rate 17 08/12/24 20:30 Blood Pressure 121/92 H 08/12/24 20:30 Pulse Oximetry 94 08/12/24 20:30 Oxygen Delivery Room Air 08/12/24 20:42 Procedures Joint Aspiration/Injection Joint Asp./Inject. 1: Joint Aspiration Date: 08/12/24 Joint Aspiration Time: 15:58 Side of body: right Joint Aspirated: knee Ultrasound Guidance: No Skin Prep: Chlorhexidine Local Anesthetic: lidocaine 1% and with epi Amount of anesthesia used (mL): 4 Needle Size Used: 18G Fluid Obtained: bloody Total fluid obtained (mL): 10 Patient Tolerated Procedure: well Complications: local bleeding MDM - Extremity (Nontraumatic) Lab Data 08/12/24 13:12 08/12/24 13:12 Labs: Lab Results 08/12/24 Range/Units 13:12 WBC 13.0 H (4.5-10.0) K/mm3 RBC 4.42 (4.2-5.4) M/mm3 Hgb 13.5 (12.0-15.0) g/dL Hct 40.5 (37.0-47.0) % MCV 91.6 (80-100) fl MCH 30.5 (26-34) pg MCHC 33.3 (32-36) g/dl RDW 14.4 (11.5-14.5) % Plt Count 236 (150-375) k/mm3 MPV 10.7 H (7.4-10.4) fl Immature Gran % (Auto) 0.5 (0-0.5) % Neut % (Auto) 72.1 (45.5-73.1) % Lymph % (Auto) 17.5 L (18.3-44.2) % [place] % (Auto) 8.6 H (2.6-8.5) % Eos % (Auto) 0.8 (0-4.4) % Baso % (Auto) 0.5 (0.2-1.2) % Lymph # (Auto) 2.28 (0.9-3.2) K/mm3 [place] # (Auto) 1.1 H (0.1-0.6) K/mm3 Eos # (Auto) 0.1 (0-0.3) K/mm3 Baso # (Auto) 0.1 (0.0-0.1) K/mm3 Abs Immat Gran (auto) 0.06 H (0.00-0.031) K/mm3 Absolute Neuts (auto) 9.4 H (1.3-6.7) K/mm3 Absolute Nucleated RBC 0.000 (0.0-0.012) K/mm3 Nucleated RBC % 0.0 (0.0-0.2) % ESR 23 H (0-20) mm/hr PT 20.4 H (11.1-14.7) Seconds INR 1.7 APTT 32.6 (22.3-36.8) Seconds Sodium 138 (137-145) mmol/L Potassium 4.1 (3.4-5.0) mmol/L Chloride 103 (98-107) mmol/L Carbon Dioxide 19 L (22-30) mmol/L Anion Gap 16 H (4-12) mmol/L BUN 19 H (7-17) mg/dL Creatinine 0.71 (0.7-1.0) mg/dL Estim Creat Clear Calc 49 ml/min Estimated GFR > 60 (59 - ) Glucose 169 H (65-110) mg/dL Calcium 10.1 (8.4-10.2) mg/dL Total Bilirubin 1.1 (0.2-1.3) mg/dL AST 33 (14-36) U/L ALT 30 (6-35) U/L Alkaline Phosphatase 122 (38-126) U/L C-Reactive Protein < 0.5 (<1.0) mg/dL Total Protein 8.0 (6.3-8.2) g/dL Albumin 4.8 (3.5-5.1) g/dL Discharge Plan Discharge Clinical Impression: Hemarthrosis, Knee pain Patient Disposition: Still a Patient Condition: Improved
[2024-08-12] MEDS: ONDANSETRON INJ 4 MG/2 ML VIAL IV PUSH (13:13)
[2024-08-12] MEDS: MORPHINE SULFATE (*CRX) 2 MG/ML INJ IV PUSH (13:14)
--- OUTSIDE RECORDS SUMMARY | 2024-08-12 13:21 | XMS_ITS | Encounter Summary ---
Author Organization [facility] Healthcare Address [address] [place] [address] Care Team Providers Care Regional Account Director Name Role Phone Kortney Aguirre MD Primary Care Provider [phone] Encounter Details Date Type Department Care Team (Late st Contact Info) Description 10/07/2023 Orders Only [facility] Health Information Management [address] [place] [address] Scanning, Provider Social History Tobacco [...] on file Legal Sex Female 12:14 AM FLARE MAKER Gender Identity Female 04/19/2019 9:38 AM FLARE MAKER Sexual Orientation Straight 04/19/2019 9: 38 AM FLARE MAKER documented as of this encounter Plan of [...] on filedocumented in this encounter Care Teams Regional Account Director Relationship Specialty Start Date End Date Kortney Aguirre MD PCP - General 09/05/16 documented as of this encounter
--- OUTSIDE RECORDS SUMMARY | 2024-08-12 13:21 | XMS_ITS | Referral Summary ---
Author Organization [facility] [place] [address] Address [address] [place] [phone] Care Team Providers Care Cargo Supervisor Name Role Phone Kortney Aguirre MD Primary Care Provider Encounters Date Type Department Care Team Description 08/03/2024 10:30 AM ENTRY WRITER Ancillary Procedure [facility] Cardiology [address] [place] [address] [address] [place] [phone] Chronic atrial fibrillation (HCC) (Primary Dx); Persistent atrial fibrillation (HCC); Cardiac pacemaker in situ; Bradycardia 07/07/2024 7:45 AM ENTRY WRITER Ancillary Procedure [facility] Cardiology [address] [place] [address] [place] [phone] Cardiac pacemaker in situ [Z95.0] (Primary Dx); Atrial fibrillation, unspecified type (HCC); Sinus pause 07/07/2024 Telephone [facility] Cardiology [address] [place] [address] [place] [phone] Lester Banks MD 06/29/2024 Orders Only [facility] Cardiology [address] [place] [address] [place] [phone] Lester Banks MD NICM (nonischemic cardiomyopathy) (HCC) (Primary Dx); 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; Ventricular fibrillation (HCC); NSVT (nonsustained ventricular tachycardia) (HCC) 05/19/2024 Telephone [facility] Cardiology [address] [place] [address] [address] [place] [phone] Zulay Henderson NP 05/16/2024 9:00 AM ENTRY WRITER Office Visit [facility] Cardiology [address] [place] [address] Zulay Henderson NP Multiple bruises (Primary Dx); 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; Presence of stent [...] mg total) by mouth nightly Active vitamins A,C,G-ancu-adczb r (ICAPS) 14,320-226-200 pyhv-qb-hrmm capsule Take 1 capsule by mouth 2 [...] 75 mg tabletIndication s: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,Presenc e of stent in coronary artery TAKE 1 TABLET BY MOUTH EVERY DAY 90 tablet 3 4 Active carvediloL (COREG) 6.25 mg tabletIndication s: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,Persist ent atrial fibrillation [...] (05/15/2022): Added automatically from request for surgery [id number] Right arm pain 05/15/2022 Pulmonary HTN 01/30/2021 Bradycardia 08/15/2020 Greater trochanteric bursitis of right hip 08/10 Aortic stenosis 06/15/2020 History of DVT (deep vein thrombosis) 01/18/2020 Obstructive sleep apnea 10/06/2019 QT prolongation 06/23/2019 Obesity (BMI 30-39.9) 03/28/2019 At risk for amiodarone toxicity with skilled nursing u se 08/13/2018 Atrial fibrillation (CMS/HCC) [I48.91] [...] STATUS-POST PTCA Coronary artery disease invo lving delaware tribe coronary artery of del[place] tribe heart without angina pectoris 05/03/2012 Overview (09/11/2016): [...] on file Legal Sex Female 12:14 AM ENTRY WRITER Gender Identity Female 04/19/2019 9:38 AM ENTRY WRITER Sexual Orientation Straight 04/19/2019 9: 38 AM ENTRY WRITER Last Filed Vital Signs Vital Sign Reading Time Taken Comments Blood Pressure 110/42 05/16/2024 9:01 AM ENTRY WRITER Pulse 64 05/16/2024 9:01 AM ENTRY WRITER Temperature 36.5 C (97.7 F) 12/25/2023 7:49 AM CDT Respiratory Rate 18 12/25/2023 4:45 PM CDT Oxygen Saturation 95% 05/16/2024 9:01 AM ENTRY WRITER Inhaled Oxygen Concentration - - Weight 78 kg (172 lb) 05/16/2024 9:01 AM ENTRY WRITER Height 162.6 cm (5' 4 ) 05/16/2024 9:01 AM ENTRY WRITER Body Mass Index 29.52 05/16/2024 9:01 AM ENTRY WRITER Plan of Treatment Not on file Medical Devices Implanted Type Area Night Shift Manager Device Identifier Shelf Expiration Date Model / Serial / Lot Bone-07/09/2020 Implanted:07/09 (Quantity not on file) Bone Hip Medtronic Inc [id number] Micra Transcatheter System Pacing Micratcpsystem - [id number] - [id number] Implanted:Qty: 1 on 04/06/2023 by Oh Godwin MD at [facility] Pacemaker Right: Ventricle Medtronic Inc 03/05/2024 MICRATCPSYSTEM / [id number] / Medtronic Card Vasc Surgery 3.5 X 12mm [place] Rx Coronary Stent [id number] - [id number] Implanted:Qty: 1 on 05/16/2022 by Nikko Crowe MD at [facility] Medtronic Card Vasc Surgery 02/25/2025 [id number] / / [id number] Closure Inc Mynx Control 6-7fr 2 Mode Balloon Catheter Sealant Lock Syringe [id number] - [id number] Implanted:Qty: 1 on 05/16/2022 by Nikko Crowe MD at [facility] Access Closure Inc 05/07/2024 [id number] / / [id number] Alejandro Vascular Device Clsr Perclose Prostyle Sut-Mediatd Closure-Repair Sys 83220-93 - [id number] Implanted:Qty: 1 on 04/06/2023 by Oh Godwin MD at [facility] Right: Femoral Vein Alejandro Vascular 01/05/2025 [id number] / / [id number] Alejandro Vascular Device Clsr Perclose Prostyle Sut-Mediatd Closure-Repair Sys 33955-90 - [id number] Implanted:Qty: 1 on 04/06/2023 by Oh Godwin MD at [facility] Right: Femoral Vein Alejandro Vascular 01/05/2025 [id number] / / [id number] Medtronic Card Vasc Surgery 2.25 X 12mm [place] Rx Coronary Stent [id number] - [id number] Implanted:Qty: 1 on 12/25/2023 by Nikko Crowe MD at [facility] Medtronic Card Vasc Surgery 03/29/2026 [id number] / / [id number] Procedures Procedure Name Priority Date/Time Associated Diagnosis Comments DEVICE CHECK - IN OFFICE Routine 08/03/2024 10:15 AM ENTRY WRITER Persistent atrial fibrillation (HCC) Cardiac pacemaker in situ Bradycardia DEVICE CHECK - REMOTE Routine 07/07/2024 1:11 PM ENTRY WRITER Atrial fibrillation, unspecified type (HCC) Sinus pause POCT LIPID PANEL Routine 04/14/2023 10:2 5 AM ENTRY WRITER 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 Dx; Persistent Afib, Pauses. [...] 11/02/2024. Of Note: Patient is moving to [place], [place] @ the end of the month. We will continue to monitor her pacemaker until she establishes with a new ornamental iron worker. Tierney Christian RN us Oh Godwin MD [facility] [place] OCEDURES Final Result * DEVICE CHECK - REMOTE (07/07/2024 1:11 PM ENTRY WRITER) Anatomical Region Laterality Modality Other Narrative 07/28/2024 10:39 AM ENTRY WRITER Medtronic Micra VR. Dx; Persistent Afib, Pauses. DOI 04/06/2023-Citlali. Veronica. Carelink remote. Routine VVI Pacemaker Remote. Transmission attached. Battery status: 3.04 V, >8.0 years remaining battery life to AUDRA. Stable electrode impedance, pacing and sensing thresholds. Presenting rhythm: VS, irregular. ROLL THREADER OPERATOR- 11.8 %. Medications: Eliquis, Plavix, Coreg. See scanned report. Office pacemaker follow up: 08/03/2024. Carelink remote f/u due in 3-6 months. Tierney Christian RN us Lester Banks MD [facility] PRO CEDURES Final Result * POCT lipid panel (04/14/2023 10:25 AM ENTRY WRITER) Cholesterol, POC 167 mg/dL Comment:GLU = 113 HDL, POC 45 mg/dL Triglycerides, POC 282 mg/dL LDL Cholesterol POC 66 mg/dL Chol/HDL Ratio, POC 3.8 Non-HDL Cholesterol, POC 123 mg/dL Cholesterol Total, POC 167 mg/dL Capillary blood 04/14/2023 1 0:25 AM ENTRY WRITER Bart Bradley MD POINT OF CARE TEST [...] LAB BLOOD ORDERABLES Final Result [facility] [address] [place] [address] * (ABNORMAL) Hemoglobin A1c (05/16/2022 4:23 AM ENTRY WRITER) Hgb A1C 6.0(H) 4.0 - 5.6 % [facility] Estimated Average Glucose 126 mg/dL [facility] Comment: The ADA recommends reporting an estimated Average Glucose (eAG) with all Hemoglobin A1c results using the equation derived from a study of 507 normal and diabetic adults. Minority populations were underrepresented and children were not included. (Diabetes Care 31:7678-1064, 2008). The eAG is not equivalent to a fasting glucose. Blood 05/16/2022 4:23 AM ENTRY WRITER 05/16/2022 5:04 AM ENTRY WRITER us Kate Camp NP LAB [place]LOOD [place] [address] [address] Department [place] [address] from Last 3 Months or Most Recently Relevant to Health Maintenance Insurance MEDICARE [employer] OOS MEDICARE [facility] MEDICARE [facility] Advance Directives For more information, please contact: [phone] * Full Code (Latest Code Status on File) Date Activated Date Inactivated Comments 04/06/2023 10:05 AM 04/07/2023 6:26 PM * Full Code Date Activated Date Inactivated Comments 05/15/2022 2:37 PM 05/17/2022 7:41 PM Care Teams Cargo Supervisor Relationship Specialty Start Date End Date Kortney Aguirre MD PCP - General 09/05/16
--- OUTSIDE RECORDS SUMMARY | 2024-08-12 13:21 | XMS_ITS | Encounter Summary ---
Author Organization [facility] Healthcare Address [address] [place] [address] Care Team Providers Care Software Developer Consultant Name Role Phone Kortney Aguirre MD Primary Care Provider [phone] Encounter Details Date Type Department Care Team (Late st Contact Info) Description 11/06/2023 Orders Only [facility] [place] Health Information Management [address] [place] [address] Scanning, Provider Social History Tobacco Use [...] on file Legal Sex Female 12:14 AM CLAIMS SPECIALIST Gender Identity Female 04/19/2019 9:38 AM CLAIMS SPECIALIST Sexual Orientation Straight 04/19/2019 9: 38 AM CLAIMS SPECIALIST documented as of this encounter Plan of Treatment Not on file documented as of this encounter Procedures Procedure Name Priority Date/Time Associated Diagnosis Comments SCAN - LABS 11/06/2023 documented in this encounter Results * SCAN - LABS (11/06/2023) us Provider Scanning Final Result documented in this encounter Visit Diagnoses Not on filedocumented in this encounter Care Teams Software Developer Consultant Relationship Specialty Start Date End Date Kortney Aguirre MD PCP - General 09/05/16 documented as of this encounter
--- OUTSIDE RECORDS SUMMARY | 2024-08-12 13:21 | XMS_ITS | Clinical Summary ---
Author Organization [facility] [address] Address [address] [place] [address] Care Team Providers Care Director Of Global Sales Name Role Phone Kortney Aguirre MD Primary Care Provider [phone] Allergies Active Allergy Reactions Criticality Noted Date [...] mg total) by mouth nightly Active vitamins A,C,T-wtkc-poqkx r (ICAPS) 14,320-226-200 cner-jg-naoa capsule Take 1 capsule by mouth 2 [...] 75 mg tabletIndication s:Coronary artery disease involving modoc coronary artery of [place]oc heart without angina pectoris,Presenc e of stent in coronary artery TAKE 1 TABLET BY MOUTH EVERY DAY 90 tablet 3 4 Active carvediloL (COREG) 6.25 mg tabletIndication s:Coronary artery disease involving modoc coronary artery of modoc heart without angina pectoris,Persist ent atrial fibrillation (HCC) Take 1 tablet (6.25 mg total) by mouth 2 (two) times a day with meals 180 tablet 3 4 Active Additional Information Patient taking differently: 3.125 mgoral 2 times daily with meals (bkfst, dinner), Informant: Self, Reported on 05/16/2024 rutin/hesp/biofl av/C/zaxodg689 (BIOFLEX ORAL) Take 1 tablet by mouth [...] (05/15/2022): Added automatically from request for surgery [id number] Right arm pain 05/15/2022 Pulmonary HTN 01/30/2021 Bradycardia 08/15/2020 Greater trochanteric bursitis of right hip 08/10 Aortic stenosis 06/15/2020 History of DVT (deep vein thrombosis) 01/18/2020 Obstructive sleep apnea 10/06/2019 QT prolongation 06/23/2019 Obesity (BMI 30-39.9) 03/28/2019 At risk for amiodarone toxicity with medical terminologist u se 08/13/2018 Atrial fibrillation (CMS/HCC) [I48.91] [...] STATUS-POST PTCA Coronary artery disease invo lving modoc coronary artery of modoc heart without angina pectoris 05/03/2012 Overview (09/11/2016): [...] Department Care Team Description 08/03/2024 10:30 AM MINING SUPPORT WORKER Ancillary Procedure [facility] Medical [facility] Cardiology [address] [facility] [address] [place] [phone] Chronic atrial fibrillation (HCC) (Primary Dx); Persistent atrial fibrillation (HCC); Cardiac pacemaker in situ; Bradycardia 07/07/2024 7:45 AM MINING SUPPORT WORKER Ancillary Procedure [facility] Cardiology [address] [facility] [address] [place] [address] Cardiac pacemaker in situ [Z95.0] (Primary Dx); Atrial fibrillation, unspecified type (HCC); Sinus pause 07/07/2024 Telephone [facility] Cardiology [address] [place] [address] [place], [place] [address] [address] Lester Banks MD 06/29/2024 Orders Only [facility] Cardiology [address] [place] [address] [place] [address] [place] [address] Lester Banks MD NICM (nonischemic cardiomyopathy) (HCC) (Primary Dx); 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; Ventricular fibrillation (HCC); NSVT (nonsustained ventricular tachycardia) (HCC) 05/19/2024 Telephone [facility] Cardiology [address] [place] [phone] Zulay Henderson NP 05/16/2024 9:00 AM MINING SUPPORT WORKER Office Visit [facility] Cardiology [address] [place] [address] [place] [phone] Zulay Henderson NP Multiple bruises (Primary Dx); Coronary artery disease involving [place] coronary artery of modoc heart without angina pectoris; Presence of stent [...] on file Legal Sex Female 12:14 AM MINING SUPPORT WORKER Gender Identity Female 04/19/2019 9:38 AM MINING SUPPORT WORKER Sexual Orientation Straight 04/19/2019 9: 38 AM MINING SUPPORT WORKER Obstetrics History Last Filed Vital Signs Vital Sign Reading Time Taken Comments Blood Pressure 110/42 05/16/2024 9:01 AM MINING SUPPORT WORKER Pulse 64 05/16/2024 9:01 AM MINING SUPPORT WORKER Temperature 36.5 C (97.7 F) 12/25/2023 7:49 AM CDT Respiratory Rate 18 12/25/2023 4:45 PM CDT Oxygen Saturation 95% 05/16/2024 9:01 AM MINING SUPPORT WORKER Inhaled Oxygen Concentration - - Weight 78 kg (172 lb) 05/16/2024 9:01 AM MINING SUPPORT WORKER Height 162.6 cm (5' 4 ) 05/16/2024 9:01 AM MINING SUPPORT WORKER Body Mass Index 29.52 05/16/2024 9:01 AM MINING SUPPORT WORKER Plan of Treatment Health Maintenance Due Date [...] 02/05/2018, 03/08 Medical Devices Implanted Type Area Bird Keeper Device Identifier Shelf Expiration Date Model / Serial / Lot Bone-07/09/2020 Implanted:07/09 (Quantity not on file) Bone Hip Medtronic Inc [id number] Micra Transcatheter System Pacing Micratcpsystem - [id number] - [id number] Implanted:Qty: 1 on 04/06/2023 by Oh Godwin MD at [facility] Pacemaker Right: Ventricle Medtronic Inc 03/05/2024 MICRATCPSYSTEM / [id number] / Medtronic Card Vas Surgery 3.5 X 12mm [place] Rx Coronary Stent [id number] - [id number] Implanted:Qty: 1 on 05/16/2022 by Nikko Crowe MD at [facility] Medtronic Card Vasc Surgery 02/25/2025 [id number] / / [id number] Closure Inc Mynx Control 6-7fr 2 Mode Balloon Catheter Sealant Lock Syringe [id number] - [id number] Implanted:Qty: 1 on 05/16/2022 by Nikko Crowe MD at [facility] Access Closure Inc 05/07/2024 [id number] / / [id number] Alejandro Vascular Device Clsr Perclose Prostyle Sut-Mediatd Closure-Repair Sys 53907-48 - [id number] Implanted:Qty: 1 on 04/06/2023 by Oh Godwin MD at [facility] Right: Femoral Vein Alejandro Vascular 01/05/2025 [id number] / / [id number] Alejandro Vascular Device Clsr Perclose Prostyle Sut-Mediatd Closure-Repair Sys 75270-23 - [id number] Implanted:Qty: 1 on 04/06/2023 by Oh Godwin MD at [facility] Right: Femoral Vein Alejandro Vascular 01/05/2025 [id number] / / [id number] Medtronic Card Vas Surgery 2.25 X 12mm [place] Rx Coronary Stent [id number] - [id number] Implanted:Qty: 1 on 12/25/2023 by Nikko Crowe MD at [facility] Medtronic Card Vasc Surgery 03/29/2026 [id number] / / [id number] Procedures Procedure Name Priority Date/Time Associated Diagnosis Comments DEVICE CHECK - IN OFFICE Routine 08/03/2024 10:15 AM MINING SUPPORT WORKER Persistent atrial fibrillation (HCC) Cardiac pacemaker in situ Bradycardia DEVICE CHECK - REMOTE Routine 07/07/2024 1:11 PM MINING SUPPORT WORKER Atrial fibrillation, unspecified type (HCC) Sinus pause POCT LIPID PANEL Routine 04/14/2023 10:2 5 AM MINING SUPPORT WORKER Mixed diabetic hyperlipidemia associated with type 2 diabetes mellitus (CMS/HCC) (HCC) EGFR STAT 04/06/2023 8:01 AM CDT HEMOGLOBIN A1C Routine 05/16/2022 4:23 AM MINING SUPPORT WORKER from Last 3 Months or Most Recently Relevant to Health Maintenance Results * DEVICE CHECK - IN OFFICE (08/03/2024 10:15 AM MINING SUPPORT WORKER) Anatomical Region Laterality Modality Other Narrative 08/03/2024 4:05 PM MINING SUPPORT WORKER Medtronic Micra VR. Dx; Persistent Afib, Pauses. DOI 04/06/2023-Citlali. Letty-Walling. Carelink remote. Supervising MD: Dr Crowe. Interrogation [...] 11/02/2024. Of Note: Patient is moving to [place], [place] @ the end of the month. We will continue to monitor her pacemaker until she establishes with a new motion picture projectionist. Tierney Christian RN us Oh Godwin MD [facility] GA OCEDURES Final Result * DEVICE CHECK - REMOTE (07/07/2024 1:11 PM MINING SUPPORT WORKER) Anatomical Region Laterality Modality Other Narrative 07/28/2024 10:39 AM MINING SUPPORT WORKER Medtronic Micra VR. Dx; Persistent Afib, Pauses. DOI 04/06/2023-Citlali. Veronica. Carelink remote. Routine VVI Pacemaker Remote. Transmission attached. Battery status: 3.04 V, >8.0 years remaining battery life to AUDAR. Stable electrode impedance, pacing and sensing thresholds. Presenting rhythm: VS, irregular. MANAGER STYLE- 11.8 %. Medications: Eliquis, Plavix, Coreg. See scanned report. Office pacemaker follow up: 08/03/2024. Carelink remote f/u due in 3-6 months. Tierney Christian RN us Lester Banks MD [facility] PRO CEDURES Final Result * POCT lipid panel (04/14/2023 10:25 AM MINING SUPPORT WORKER) Cholesterol, POC 167 mg/dL Comment:GLU = 113 HDL, POC 45 mg/dL Triglycerides, POC 282 mg/dL LDL Cholesterol POC 66 mg/dL Chol/HDL Ratio, POC 3.8 Non-HDL Cholesterol, POC 123 mg/dL Cholesterol Total, POC 167 mg/dL Capillary blood 04/14/2023 1 0:25 AM MINING SUPPORT WORKER Bart Bradley MD POINT OF CARE TEST [...] Gonzalez MD LAB BLOOD ORDERABLES Final Result [facility] [address] Department of Laboratories [place], [place] [id number] * (ABNORMAL) Hemoglobin A1c (05/16/2022 4:23 AM MINING SUPPORT WORKER) Hgb A1C 6.0(H) 4.0 - 5.6 % [facility] Estimated Average Glucose 126 mg/dL [facility] Comment: The ADA recommends reporting an estimated Average Glucose (eAG) with all Hemoglobin A1c results using the equation derived from a study of 507 normal and diabetic adults. Minority populations were underrepresented and children were not included. (Diabetes Care 31:2980-1592, 2008). The eAG is not equivalent to a fasting glucose. Blood 05/16/2022 4:23 AM MINING SUPPORT WORKER 05/16/2022 5:04 AM MINING SUPPORT WORKER us Kate Camp NP LAB BLOOD ORDERABLES Final R esult [facility] [id number] Department [place] [address] from Last 3 Months or Most Recently Relevant to Health Maintenance Insurance MEDICARE [employer] OOS MEDICARE [facility] MEDICARE [facility] Advance Directives For more information, please contact: [phone] * Full Code (Latest Code Status on File) Date Activated Date Inactivated Comments 04/06/2023 10:05 AM 04/07/2023 6:26 PM * Full Code Date Activated Date Inactivated Comments 05/15/2022 2:37 PM 05/17/2022 7:41 PM Care Teams Director Of Global Sales Relationship Specialty Start Date End Date Kortney Aguirre MD PCP - General 09/05/16
--- OUTSIDE RECORDS SUMMARY | 2024-08-12 13:21 | XMS_ITS | Encounter Summary ---
Author Organization [facility] Address [address] [facility] [address] [place] [address] Care Team Providers Care Saddle Stitch Operator Name Role Phone Kortney Aguirre MD Primary Care Provider [phone] Kortney Aguirre MD Primary Care Provider [phone] Encounter Details Date Type Department Care Team (Late st Contact Info) Description 07/24/2016 Orders Only [facility] ProviderDelmy MD [address] [place], [place] [id number] Social History Tobacco Use Types Packs/Day Years Used Date Smoking Tobacco: Never Alcohol Use Standard Drinks/Week Comments No 0 (1 standard drink = 0.6 oz pur e alcohol) Comments Unknown Sex and Gender Information Value Date Recorded Sex Assigned at Not on file Legal Sex Female 12:14 AM SITE SURVEYOR Gender Identity Female 04/19/2019 9:38 AM SITE SURVEYOR Sexual Orientation Straight 04/19/2019 9: 38 AM SITE SURVEYOR documented as of this encounter Plan of [...] on filedocumented in this encounter Care Teams Saddle Stitch Operator Relationship Specialty Start Date End Date Kortney Aguirre MD PCP - General 09/05/16 oKrtney Aguirre MD PCP - General 05/16/10 09/04/16 documented as of this encounter
--- OUTSIDE RECORDS SUMMARY | 2024-08-12 13:21 | XMS_ITS | CONTINUITY OF CARE DOCUMENT ---
Author Name bernie, bernie Address Unknown Organization [facility] Address [address] [address] [place] [address] Phone [phone] Care Team Providers Care Funeral Home General Manager Name Role Phone Cristiano Cunha MD Unavailable MADELAINE LEWIS MD Unavailable MADELAINE LEWIS MD Unavailable PROBLEMS Condition Status Date Provider Notes CHEST PAIN active Cristiano Cunha MD ARM PAIN, LEFT active Cristiano Cunha MD JAW PAIN active Cristiano Cunha MD HYPERTENSIVE HEART DISEASE W/O CHF active R bogdan Cunha MD PVD active Cristiano Cunha MD CAD active Cristiano Cunha MD ENCOUNTERS Date Type Provider Location Encounter Diag nosis - In-person encounter Office Visit Cristiano Cunha MD [facility] - In-person encounter Office Visit Cristiano Cunha MD [facility] CAD - In-person encounter Office Visit Cristiano Cunha MD [facility] CHEST PAINARM PAIN, LEFTJAW PAINHYPERTENSIVE HEART DISEASE W/O CHFPVD VITAL SIGNS Date Observation Value Provider blood pressure, diastolic 85 mm[Hg] Fe fatou Dorcas blood pressure, systolic 156 mm[Hg] Fel icia Canton pulse rate 80 /min Jasmina Dorcas oxygen saturation, oximetry 98 % Jasmina Canton respiratory rate E&M 16 /min Jasmina Dorcas weight E&M 203 [lb_av] Jasmina Canton blood pressure, diastolic 76 mm[Hg] Zamzam Guerrier [...] Ernie Sorenson protein, total, serum 7.4 g/dL [facility] albumin, serum 4.6 g/dL [facility] bilirubin, serum, total 0.5 mg/dL [facility] alkaline phosphatase, serum 84 1/L [facility] alanine aminotransferase (SGPT), serum 26 1/L [facility] aspartate aminotransferase (SGOT), serum 26 1/L [facility] calcium, serum 10.1 mg/dL [facility] blood glucose, fasting 112 mg/dL [facility] creatinine, serum 0.7 mg/dL [facility] urea nitrogen, blood 14 mg/dL [facility] carbon dioxide, serum, total 27 mmol/L [facility] chloride, serum 104 mmol/L [facility] potassium, serum 3.8 mmol/L [facility] sodium, serum 142 mmol/L [facility] platelet count 221 10*3/uL [facility] red blood cell distribution width 15.2 % [facility] mean corpuscular hemoglobin concentration, RBC 35.1 g/dL [facility] mean corpuscular hemoglobin, RBC 31.6 pg [facility] mean corpuscular volume, RBC 89.9 fL [facility] hematocrit, blood 36.0 % [facility] hemoglobin, blood 12.6 g/dL [facility] erythrocyte (RBC) count 4.01 10*6/mm3 [facility] monocyte count, blood 0.5 10*3/mm3 [facility] lymphocyte count, blood 3.8 10*3/mm3 [facility] monocytes as percent of blood leukocytes 5.2 % [facility] lymphocytes as percent of blood leukocytes 41.2 % [facility] leukocyte count, blood 9.1 10*3/mm3 [facility] prothrombin time (patient) 9.5 s [employer] 9.0-11.5 [...] MG ORAL TABLET active once montly Jasmina Canton ACTOS 15 MG ORAL TABLET active once daily Jsamina Canton SIMCOR 500-20 MG ORAL TABLET EXTENDED RELEASE 24 HOUR active ONE TAB. DAILY Mey Guerrier MA PLAVIX 75 MG ORAL TABLET active ONE TAB. DAILY Mey Guerrier MA NAOMIE 10-40 MG ORAL TABLET active ONE TAB. DAILY 2 Cristiano Cunha MD GLUCOSAMINE-CHOND ROITIN-MSM CAPSULE active TAKE ONE TABLET DAILY Jasmina Dorcas MULTIVITAMINS ORAL CAPSULE active ONE TAB. DAILY Jasmina Canton QUINAPRIL HCL 20 MG ORAL TABLET completed ONE TAB. DAILY - 1 Mey Guerrier MA CRESTOR 5 MG ORAL TABLET completed TAKE ONE TAB. DAILY - 1 Mey Guerrier MA TOPROL XL 200 MG ORAL TABLET EXTENDED RELEASE 24 HOUR active TAKE ONE TAB DAILY Jasmina Canton GUMEPIRIDE 2MG completed TAKE ONE TABLET DAILY - 1 Mey Guerrier MA EDECRIN 25 MG ORAL TABLET active TAKE ONE TABLET DAILY Jasmina Canton METFORMIN HCL 500 MG ORAL TABLET active [...] exercise, f requency, days per week no [facility] caffeine use, averag e drinks per day no [facility] alcohol use, average drinks per day none [facility] smoking status Non-smoker [facility] MENTAL STATUS Date Observation Value Provider assessment [...] and person. Mood and affect are normal. Cristiaon Cunha MD INSURANCE PROVIDERS Payer name Policy type / Coverage type [employer] party ID [facility] [id number] [place] B Medicare [id number] TREATMENT PLAN Date Name Performer Pt requesting to be seen: H er updated medication list for this problem includes: Toprol Xl 200 Mg Tb24 (Metoprolol succinate) ..... Take one tab daily Plavix 75 Mg Tabs (Clopidogrel bisulfate) ..... One tab. daily Orders: S tress Test - Adenosine (81686) Cirstiano Cunha MD Pt requesting to be seen: [...] (07/21/2008) Orders: S tress Test - Adenosine ([id number]) Cristiano Cunha MD Hosp FU: H er [...] One tab. daily Orders: C omplete Echo ([id number]) BP today: 171/76 P rior BP: 235/99 [...] daily Orders: S tress Test - Nuclear (82020) BP today: 171/76 Prior BP: 235/99 (07/20/2008) [...] pain: O rders: C arotid Duplex Bilateral ([id number]) Cristiano Cunha MD New Patient: L & [...] One tab. daily Orders: C omplete Echo ([id number]) BP today: Cristiano Cunha MD New Patient: L & R a rm pain, Jaw pain: O rders: E KG ([id number]) Cristiano Cunha MD New Patient: L & R a rm pain, Jaw pain: O rders: E KG ([id number]) Cristiano Cunha MD New Patient: L & R a rm pain, Jaw pain: H er updated medication list for this problem includes: Toprol Xl 200 Mg Tb24 (Metoprolol succinate) ..... Take one tab daily Quinapril Hcl 20 Mg Tabs (Quinapril hcl) ..... One tab. daily Orders: E KG (CPT-[id number]) C ardiac Cath - CNE (*) BP [...] Provider Procedure Notes S tatus EKG Cristiano Cunha MD complete d
--- OUTSIDE RECORDS SUMMARY | 2024-08-12 13:21 | XMS_ITS | Encounter Summary ---
Author Organization [facility] Address [address] [place] [id number] Care Team Providers Care Wood Cabinetmaker Name Role Phone Kortney Aguirre MD Primary Care Provider [phone] Kortney Aguirre MD Primary Care Provider [phone] Encounter Details Date Type Department Care Team (Late st Contact Info) Description 07/08/2016 Orders Only [facility] ProviderDelmy MD [address] [place], [place] [id number] Social History Tobacco Use Types Packs/Day Years Used Date Smoking Tobacco: Never Alcohol Use Standard Drinks/Week Comments No 0 (1 standard drink = 0.6 oz pur e alcohol) Comments Unknown Sex and Gender Information Value Date Recorded Sex Assigned at Not on file Legal Sex Female 12:14 AM ACCOUNTS PAYABLE CLERK Gender Identity Female 04/19/2019 9:38 AM ACCOUNTS PAYABLE CLERK Sexual Orientation Straight 04/19/2019 9: 38 AM ACCOUNTS PAYABLE CLERK documented as of this encounter Plan of [...] on filedocumented in this encounter Care Teams Wood Cabinetmaker Relationship Specialty Start Date End Date Kortney Aguirre MD PCP - General 09/05/16 Kortney Aguirre MD PCP - General 05/16/10 09/04/16 documented as of this encounter
--- OUTSIDE RECORDS SUMMARY | 2024-08-12 13:21 | XMS_ITS | Encounter Summary ---
Author Organization [facility] Address [address] [place] [address] Care Team Providers Care Furniture Polisher Name Role Phone Kortney Aguirre MD Primary Care Provider Kortney Aguirre MD Primary Care Provider [phone] Encounter Details Date Type Department Care Team (Late st Contact Info) Description 07/16/2016 Orders Only [facility] ProviderDelmy MD [address] [place], [place] [id number] Social History Tobacco Use Types Packs/Day Years Used Date Smoking Tobacco: Never Alcohol Use Standard Drinks/Week Comments No 0 (1 standard drink = 0.6 oz pur e alcohol) Comments Unknown Sex and Gender Information Value Date Recorded Sex Assigned at Not on file Legal Sex Female 12:14 AM PRESS DEPARTMENT MANAGER Gender Identity Female 04/19/2019 9:38 AM PRESS DEPARTMENT MANAGER Sexual Orientation Straight 04/19/2019 9: 38 AM PRESS DEPARTMENT MANAGER documented as of this encounter Plan of [...] on filedocumented in this encounter Care Teams Furniture Polisher Relationship Specialty Start Date End Date Kortney Aguirre MD PCP - General 09/05/16 Kortney Aguirre MD PCP - General 05/16/10 09/04/16 documented as of this encounter
[2024-08-12 13:24] LABS: Basophils Absolute Auto 0.1 K/mm3 (0.0-0.1); Basophils Percent Auto 0.5 % (0.2-1.2); Eosinophils Absolute Auto 0.1 K/mm3 (0-0.3); Eosinophils Percent Auto 0.8 % (0-4.4); Hematocrit 40.5 % (37.0-47.0); Hemoglobin 13.5 g/dL (12.0-15.0); Immature Granulocyte Absolute 0.06 K/mm3 (0.00-0.031); Immature Granulocyte Percent A 0.5 % (0-0.5); Lymphocytes Absolute Auto 2.28 K/mm3 (0.9-3.2); Lymphocytes Percent Auto 17.5 % (18.3-44.2); Mean Corpuscular HGB Conc 33.3 g/dl (32-36); Mean Corpuscular Hemoglobin 30.5 pg (26-34); Mean Corpuscular Volume 91.6 fl (80-100); Mean Platelet Volume 10.7 fl (7.4-10.4); Monocytes Absolute Auto 1.1 K/mm3 (0.1-0.6); Monocytes Percent Auto 8.6 % (2.6-8.5); Neutrophils Absolute Auto 9.4 K/mm3 (1.3-6.7); Neutrophils Percent Auto 72.1 % (45.5-73.1); Platelet Count Result 236 k/mm3 (150-375); Red Blood Count 4.42 M/mm3 (4.2-5.4); Red Cell Distribution Width 14.4 % (11.5-14.5)
[2024-08-12 13:38] LABS: Alanine Aminotransferase 30 U/L (6-35); Albumin Level 4.8 g/dL (3.5-5.1); Alkaline Phosphatase 122 U/L (38-126); Anion Gap 16 mmol/L (4-12); Aspartate Amino Transferase 33 U/L (14-36); Bilirubin,Total 1.1 mg/dL (0.2-1.3); Blood Urea Nitrogen 19 mg/dL (7-17); CRP < 0.5 mg/dL (<1.0); Calcium 10.1 mg/dL (8.4-10.2); Carbon Dioxide 19 mmol/L (22-30); Chloride 103 mmol/L (98-107); Estimated CRCL calculation 49 ml/min; Estimated Glomerular Filt Rate > 60; Glucose 169 mg/dL (65-110); Potassium 4.1 mmol/L (3.4-5.0); Sodium 138 mmol/L (137-145)
[2024-08-12] MEDS: MORPHINE SULFATE (*CRX) 4 MG/ML INJ IV PUSH (13:54)
[2024-08-12 13:55] LABS: INR 1.7; Prothrombin Time 20.4 Seconds (11.1-14.7)
[2024-08-12 13:57] LABS: Partial Thromboplastin Time 32.6 Seconds (22.3-36.8)
[2024-08-12 13:58] VITALS: BP 196/94; PULSE 66; RESP 24; O2SAT 100
--- NOTE | 2024-08-12 13:59 | PC.NURSE ---
This RN offered to take pt to [facility], pt refused going at this time. States will wait for the pain to decrease.
[2024-08-12 14:51] LABS: Erythrocyte Sedimentation Rate 23 mm/hr (0-20)
[2024-08-12 15:09] VITALS: BP 152/70; PULSE 85; RESP 20; TEMP 36.2; O2SAT 99
[2024-08-12] MEDS: LIDO 1%/EPINEPHRINE 1:100,000 20 ML VIAL 4 ML INFILTRATE (15:39)
[2024-08-12] MEDS: dexAMETHasone SOD PHOS INJ 4 MG/ML VIAL IV PUSH (15:39)
--- NOTE | 2024-08-12 18:21 | P.CONOP_ITS ---
Assessment and Plan Assessment and plan (1) Right knee DJD: Qualifiers: Osteoarthritis type: primary Qualified Code(s): M17.11 - Unilateral primary osteoarthritis, right knee Code(s): M17.11 - Unilateral primary osteoarthritis, right knee Status: Acute (2) Hemarthrosis of knee, right: Code(s): M25.061 - Hemarthrosis, right knee Status: Acute (3) Chronic anticoagulation: Code(s): Z79.01 - long term care phlebotomist (current) use of anticoagulants Status: Acute Plan Acute on chronic knee pain. Severe pain and inability to bear weight. CT shows fluid collection in the knee. Aspiration in the emergency department revealed blood. Clinically the knee does not show signs of infection. She has loose bodies and severe degenerative arthritis. The hemarthrosis may likely be secondary to the recent injection several days ago. She lives alone and is unable to bear weight at this time. Appropriate conservative treatment has been initiated and she is being admitted. She may benefit from short rehab stay. I had a discussion with her and her daughter about short and mid term solutions. Her daughter may be able to take her in once she is mobile and can weightbear safely. Long-term plans may need to be discussed. She would certainly benefit from total knee arthroplasty but due to her multiple medical comorbidities she has not been cleared for surgery at this time. She is on anticoagulation until January after a recent cardiac stent. She will be due to follow up in my clinic for a cortisone injection in a couple of months. History of Present Illness HPI Consult date: 08/12/24 Chief complaint: knee pain Narrative: Pleasant 83-year-old female well known to me presents to the emergency department with severe acute on chronic knee pain. She woke up this morning and had a sharp severe pain when she attempted the bear weight. She has been unable to bear weight. She noticed some swelling. Previously with severe chronic knee pain that has been worsening over recent months. The last cortisone injection about 2 months ago did not work very well. I saw her in my clinic August 09. She complained of pain and swelling along the hamstrings at the femur. Ultrasound revealed swelling around the bone spur but no popliteal cyst. I injected 15 mg of Kenalog which she tolerated well. She states that she felt very good for a couple of days and was quite active until this morning. Insulin-dependent type 2 diabetes. She denies fevers chills or other associated symptoms. She takes clopidogrel and apixaban. She lives alone but has a supportive daughter with her today. Review of Systems 2 Review of Systems: All systems reviewed & are unremarkable except as noted in HPI and below [facility] Past Medical History Medical History Pacemaker (~04/07/23) Aortic stenosis Right forearm cellulitis Cervical radiculopathy Colon cancer screening (~06/2020) cologuard negative On amiodarone therapy Paroxysmal atrial fibrillation : History of cardioversions, with previously noted loosely organized thrombus in the left atrial appendage, for which she was subsequently switched from Xarelto to warfarin. : Last cardioversion attempt in May 2018 was unsuccessful and she was referred to an printing screen assembler at [place]. On arrival to that appointment, she was found to be in a normal sinus rhythm, and to her knowledge has remained in such since. History of colon polyps Osteoarthritis History of peptic ulcer Severe obstructive sleep apnea : Noted on sleep study 08/10/2019. : CPAP titrated to 11 cm. 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 : Hemoglobin A1c was 6.9% 08/09/2019. History of left breast cancer : Status post lumpectomy, chemotherapy, and radiation. Coronary artery disease : With history of stent to LAD done at [facility]. Chronic anticoagulation : Warfarin for paroxysmal atrial fibrillation. Chronic kidney disease, stage 3 (moderate) : GFR ranging between 43 and > 60. Essential hypertension Iron deficiency anemia Mild persistent asthma without complication Surgical History Surgical History History of permanent cardiac pacemaker placement (~04/07/23) History of right hip hemiarthroplasty (08/30/19) History of bladder suspension procedure History of hysterectomy History of D&C History of lumpectomy of left breast History of cholecystectomy History of appendectomy History of heart artery stent : Stent to LAD, done at [facility]. History of bilateral cataract extraction Family History Family History Father Family history of diabetes mellitus in first degree relative Hypertension Cerebrovascular accident Mother Family history of heart disease in male family member before age 55 Patient's mother is , Onset Age: 68 Family history of coronary artery disease, Onset Age: 68 Hypertension, Onset Age: 68 Sibling Cerebrovascular accident Other Diabetes mellitus Social History Social History Social History: The patient is and lives in [place]. She has 7 children. 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 Her son, Jn, is her surrogate decision maker and she wishes to be a full code. She is a lifelong nonsmoker and denies alcohol and drug abuse. Smoking status: Never smoker Second hand tobacco smoke exposure: Yes Alcohol intake: never Substance use: never Substance use type: does not use Do You Feel Safe in your Home?: Yes Lack of Transportation: No Lack of Food: Never True Current Housing: I Have Housing Concerned About Future Housing: No Difficulty Paying Gas/Electric Bills: No Difficulty Paying for Meds: No Currently Unemployed: No Education: High School Diploma/GED Difficulty w/ Childcare or Family Care: No Living arrangements: with family Gender identity (if verbalized by the patient): Female Spiritual care concerns: No Agree to blood products: Yes Meds Home Medications and Allergies Home Medications ?Medication ?Instructions ?Recorded ?Confirmed ?Type awibdksm-rqpi-jzkx 8 mg-folic 400 1 tablet PO DAILY 06/22/19 08/12/24 History mcg-K 50 mcg-lutein 300 mcg tablet (Centrum Silver Women) carvedilol 25 mg tablet (Coreg) 2.5 mg PO Q12HR 08/29/20 08/12/24 History nitroglycerin 0.4 mg sublingual 0.4 mg sublingual PRN PRN Chest 01/12/21 08/12/24 History tablet Pain uunH-K2-G-S-jdadvg-bzbvcbr-min 1 tablet PO BID 01/12/21 08/12/24 History 3,300 unit-5 mg-200mg-75 unit tablet ER (ICaps) pen needle, diabetic 32 gauge x #50 ea 01/13/22 08/09/24 Rx 1/4 (BD Ultra-Fine Micro Pen Needle) acetaminophen 325 mg capsule 650 mg (2 x 325 mg) PO Q8H PRN 02/24/22 08/12/24 Rx (Tylenol) pain #20 caps spirometers and accessories #1 ea 03/07/22 08/09/24 Rx clopidogrel 75 mg tablet (Plavix) 75 mg PO DAILY #30 tabs 05/14/22 08/12/24 Rx blood-glucose sensor (FreeStyle #2 ea 07/29/22 08/09/24 Rx Stephania 3 Sensor device) albuterol sulfate 2.5 mg/3 mL 2.5 mg (3 mL) inhalation Q6H PRN 01/20/24 08/12/24 Rx (0.083 %) solution for nebulization shortness of breath or wheezing #180 mL RSV vaccine #1 ea 04/05/24 08/09/24 Rx apixaban 5 mg tablet 5 mg PO BID 04/27/24 08/12/24 History rosuvastatin 20 mg tablet 10 mg PO DAILY 05/19/24 08/12/24 History vit 1 tablet PO 05/19/24 08/09/24 History L-lqwqdqq-ytbnrzinz-rutin-epcd473 500 mg-50 mg-25 mg-40 mg tablet (Bioflex) insulin glargine 100 unit/mL (3 32 unit subcut DAILY 08/12/24 08/12/24 History mL) subcutaneous pen (Lantus Solostar U-100 Insulin) Allergies Allergy/AdvReac Type Severity Reaction Status Date / Time Penicillins Allergy Mild Rash Verified 08/12/24 15:11 oxycodone AdvReac Mild Vomiting Verified 08/12/24 15:11 codeine AdvReac Vomiting Verified 08/12/24 15:11 morphine AdvReac Vomiting Verified 08/12/24 15:11 Vital Signs Vital Signs - 24 hr 08/12/24 11:02 08/12/24 13:58 08/12/24 15:09 Temperature 36.6 C 36.2 C L Pulse Rate 87 66 85 Respiratory Rate 16 24 H 20 Blood Pressure 158/84 H 196/94 H 152/70 H Pulse Oximetry 100 100 99 Oxygen Delivery Room Air Exam 2 Narrative: Pleasant elderly female. Appears comfortable. In no distress. Afebrile. Vital signs stable. Right knee knee immobilizer is removed for examination. She has some bloody drainage from the aspiration at the superior lateral knee joint. She has mild tenderness. Minimal synovitis and mild effusion. The joint is quite soft and nontender around the soft tissues without any evidence of warmth or erythema. Motion however is very painful and again exam is limited. Her calf is nontender without distal edema. She wiggles her toes with good strength. Results Labs 08/12/24 13:12 08/12/24 13:12 Labs: Abnormal lab results 08/12/24 Range/Units 13:12 WBC 13.0 H (4.5-10.0) K/mm3 MPV 10.7 H (7.4-10.4) fl Lymph % (Auto) 17.5 L (18.3-44.2) % [place] % (Auto) 8.6 H (2.6-8.5) % [place] # (Auto) 1.1 H (0.1-0.6) K/mm3 Abs Immat Gran (auto) 0.06 H (0.00-0.031) K/mm3 Absolute Neuts (auto) 9.4 H (1.3-6.7) K/mm3 ESR 23 H (0-20) mm/hr PT 20.4 H (11.1-14.7) Seconds Carbon Dioxide 19 L (22-30) mmol/L Anion Gap 16 H (4-12) mmol/L BUN 19 H (7-17) mg/dL Glucose 169 H (65-110) mg/dL H & H 08/12/24 Range/Units 13:12 Hgb 13.5 (12.0-15.0) g/dL Hct 40.5 (37.0-47.0) % Coagulation 08/12/24 Range/Units 13:12 INR 1.7 All other labs normal.
--- NOTE | 2024-08-12 18:46 | P.HP_ITS ---
H&P: HPI History of Present Illness Date/Time: 08/12/24 18:46 Chief Complaint: Knee pain post-injection Narrative: A 3-year-old female history of CAD with stents recently placed, pacemaker, atrial fibrillation, diabetes, history of left breast cancer, presents the hospital with knee pain after an injection. Patient states that she did by numbers after injection however this morning when she woke up she tried to stand she cannot bear weight on her leg she fell backwards onto the bed. Patient denies hitting her head or any injuries from the fall. She only complains of right knee pain. Patient was in her orthopedic office on 08/09/2024 for re-evaluation for her knee pain and she received 15 mg of Kenalog which she tolerated well. CT shows fluid collection in the knee. Aspiration in the emergency department revealed blood. She is anticoagulation until January after a recent cardiac stent. Review of Systems Review of Systems: 12 systems were reviewed and are negativ e except for as per HPI. [facility] Past Medical History Medical History Pacemaker (~04/07/23) Aortic stenosis Right forearm cellulitis Cervical radiculopathy Colon cancer screening (~06/2020) cologuard negative On amiodarone therapy Paroxysmal atrial fibrillation : History of cardioversions, with previously noted loosely organized thrombus in the left atrial appendage, for which she was subsequently switched from Xarelto to warfarin. : Last cardioversion attempt in May 2018 was unsuccessful and she was referred to an director payment at [facility]. On arrival to that appointment, she was found to be in a normal sinus rhythm, and to her knowledge has remained in such since. History of colon polyps Osteoarthritis History of peptic ulcer Severe obstructive sleep apnea : Noted on sleep study 08/10/2019. : CPAP titrated to 11 cm. 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 : Hemoglobin A1c was 6.9% 08/09/2019. History of left breast cancer : Status post lumpectomy, chemotherapy, and radiation. Coronary artery disease : With history of stent to LAD done at [facility]. Chronic anticoagulation : Warfarin for paroxysmal atrial fibrillation. Chronic kidney disease, stage 3 (moderate) : GFR ranging between 43 and > 60. Essential hypertension Iron deficiency anemia Mild persistent asthma without complication Surgical History Surgical History History of permanent cardiac pacemaker placement (~04/07/23) History of right hip hemiarthroplasty (08/30/19) History of bladder suspension procedure History of hysterectomy History of D&C History of lumpectomy of left breast History of cholecystectomy History of appendectomy History of heart artery stent : Stent to LAD, done at [facility]. History of bilateral cataract extraction Family History Family History Father Family history of diabetes mellitus in first degree relative Hypertension Cerebrovascular accident Mother Family history of heart disease in male family member before age 55 Patient's mother is , Onset Age: 68 Family history of coronary artery disease, Onset Age: 68 Hypertension, Onset Age: 68 Sibling Cerebrovascular accident Other Diabetes mellitus Social History Social History Social History: The patient is and lives in [place]. She has 7 children. 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 Her son, Jn, is her surrogate decision maker and she wishes to be a full code. She is a lifelong nonsmoker and denies alcohol and drug abuse. Smoking status: Never smoker Second hand tobacco smoke exposure: Yes Alcohol intake: never Substance use: never Substance use type: does not use Do You Feel Safe in your Home?: Yes Lack of Transportation: No Lack of Food: Never True Current Housing: I Have Housing Concerned About Future Housing: No Difficulty Paying Gas/Electric Bills: No Difficulty Paying for Meds: No Currently Unemployed: No Education: High School Diploma/GED Difficulty w/ Childcare or Family Care: No Living arrangements: with family Gender identity (if verbalized by the patient): Female Spiritual care concerns: No Agree to blood products: Yes Meds Home Medications and Allergies Home Medications ?Medication ?Instructions ?Recorded ?Confirmed ?Type iwosdxox-wukf-rxna 8 mg-folic 400 1 tablet PO DAILY 06/22/19 08/12/24 History mcg-K 50 mcg-lutein 300 mcg tablet (Centrum Silver Women) carvedilol 25 mg tablet (Coreg) 2.5 mg PO Q12HR 08/29/20 08/12/24 History nitroglycerin 0.4 mg sublingual 0.4 mg sublingual PRN PRN Chest 01/12/21 08/12/24 History tablet Pain ziiW-A4-G-X-edbbnb-svrfyiz-min 1 tablet PO BID 01/12/21 08/12/24 History 3,300 unit-5 mg-200mg-75 unit tablet ER (ICaps) pen needle, diabetic 32 gauge x #50 ea 01/13/22 08/12/24 Rx 1/4 (BD Ultra-Fine Micro Pen Needle) acetaminophen 325 mg capsule 650 mg (2 x 325 mg) PO Q8H PRN 02/24/22 08/12/24 Rx (Tylenol) pain #20 caps clopidogrel 75 mg tablet (Plavix) 75 mg PO DAILY #30 tabs 05/14/22 08/12/24 Rx albuterol sulfate 2.5 mg/3 mL 2.5 mg (3 mL) inhalation Q6H PRN 01/20/24 08/12/24 Rx (0.083 %) solution for nebulization shortness of breath or wheezing #180 mL apixaban 5 mg tablet 5 mg PO BID 04/27/24 08/12/24 History rosuvastatin 20 mg tablet 10 mg PO DAILY 05/19/24 08/12/24 History vit 1 tablet PO DAILY 05/19/24 08/12/24 History [id number]-ttpfldt-rmargedro-[id number] 500 mg-50 mg-25 mg-40 mg tablet (Bioflex) insulin glargine 100 unit/mL (3 32 unit subcut DAILY 08/12/24 08/12/24 History mL) subcutaneous pen (Lantus Solostar U-100 Insulin) Allergies Allergy/AdvReac Type Severity Reaction Status Date / Time Penicillins Allergy Mild Rash Verified 08/12/24 15:11 oxycodone AdvReac Mild Vomiting Verified 08/12/24 15:11 codeine AdvReac Vomiting Verified 08/12/24 15:11 morphine AdvReac Vomiting Verified 08/12/24 15:11 Vital Signs Vital Signs - 24 hr 08/12/24 11:02 08/12/24 13:58 08/12/24 15:09 Temperature 97.9 F 97.1 F L Pulse Rate 87 66 85 Respiratory Rate 16 24 H 20 Blood Pressure 158/84 H 196/94 H 152/70 H Pulse Oximetry 100 100 99 Oxygen Delivery Room Air Exam Narrative: General: well appearing, appears stated age. HEENT: normocephalic, atraumatic. Mucous membranes moist. EOMI, PERRLA, bilateral sclera anicteric, no conjunctival injection. Neck supple without JVD, lymphadenopathy, or bruit. Respiratory: clear to ascultation bilaterally. No rales/rhonic/wheezes. Cardiovascular: Regular rate and rhythm, normal S1-S2 upon ascultation. No murmurs, rubs, or clicks. PMI is nondisplaced, capillary refill less than 3 second. Abdomen: Soft, round, no pulsatile masses, nondistended and nontender. No rebound, no guarding. No CVA tenderness, no hepatosplenomegaly. Bowel sounds present to all four quadrants. No high pitch or tinkling sounds, resonant to percussion. Extremities: No cyanosis, clubbing, or edema present. Pulses are palpable 2/2. Right lower extremity in knee immobilizer Neuro: Alert and orientated x 4. PERRLA. Cranial nerves 2-12 intact without focal deficit. Skin: Warm, dry, and intact, without rash, erythema, or lesion. Psych: pleasant, cooperative, normal speech, normal affect, no hallucinations, no dysarthia H&P: Results Labs Labs: Short CBC 08/12/24 Range/Units 13:12 WBC 13.0 H (4.5-10.0) K/mm3 Hgb 13.5 (12.0-15.0) g/dL Hct 40.5 (37.0-47.0) % Plt Count 236 (150-375) k/mm3 [facility] 08/12/24 13:12 Sodium 138 Potassium 4.1 Chloride 103 Carbon Dioxide 19 L BUN 19 H Creatinine 0.71 Glucose 169 H Calcium 10.1 Liver Function 08/12/24 Range/Units 13:12 Total Bilirubin 1.1 (0.2-1.3) mg/dL AST 33 (14-36) U/L ALT 30 (6-35) U/L Alkaline Phosphatase 122 (38-126) U/L Albumin 4.8 (3.5-5.1) g/dL Assessment and Plan Assessment and plan (1) Fall: Qualifiers: Encounter type: initial encounter Qualified Code(s): W19.XXXA - Unspecified fall, initial encounter Code(s): W19.XXXA - Unspecified fall, initial encounter Status: Inactive Assessment and Plan: No acute injury from fall PT and OT evaluate and treat (2) Hemarthrosis of knee, right: Code(s): M25.061 - Hemarthrosis, right knee Status: Acute Assessment and Plan: Drained in ED by ED physician Knee immobilizer (3) Paroxysmal atrial fibrillation: Code(s): I48.0 - Paroxysmal atrial fibrillation Status: Acute (4) Coronary artery disease: Code(s): I25.10 - Atherosclerotic heart disease of [place] coronary artery without angina pectoris Status: Acute Assessment and Plan: Continue Plavix, Coreg, Eliquis, Crestor (5) Essential hypertension: Code(s): I10 - Essential (primary) hypertension Status: Acute Quality VTE Prophylaxis VTE prophylaxis: mechanical ordered and pharmacologic ordered Hospitalist MIPS Advance Care Plan I have confirmed that the patient's Advanced Care Plan is present, code status is documented, or surrogate decision maker is listed in patient medical record.: Yes Medication Reconciliation I have utilized all available resources to obtain, update and review the patients current medications (includes all prescriptions, OTC, herbals, cannabis, and nutritional supplements).: Yes
[2024-08-12 19:22] VITALS: BP 147/91; PULSE 75; RESP 20; TEMP 36.7; O2SAT 97
[2024-08-12 19:28] LABS: Glucose Point of Care 181 mg/dl (65-105)
[2024-08-12] MEDS: HYDROmorphone HCL INJ (*CRX) 1 MG/ML SYR 0.5 MG IV PUSH (19:29)
[2024-08-12 20:30] VITALS: BP 121/92; PULSE 91; RESP 17; TEMP 36.3; O2SAT 94; BMI 28.1
[2024-08-12] MEDS: methylPREDNISolone (MEDROL) DOSEPACK 4 MG TABLETS PO ×4 (20:32→20:37)
--- NOTE | 2024-08-12 20:34 | ADMGEN ---
This patient, Nohelia Laurent, was admitted to 2 Medical Room 251-. Patient/family oriented to hospital policies and general routines including ID bracelet, bed and alarms, visiting hours, pain management, procedures, bathroom and other care routines, personal items, smoking policy, room service/diet, and visiting hours. Information on how to activate the Rapid Response Team has been discussed. Patient/Family are encouraged to report perceived risks to care and to ask questions if they do not understand what they are told or what they should do.
--- NOTE | 2024-08-12 20:38 | PC.NURSE ---
[facility] STATES TO GIVE ALL DOSES OF PREDNISONE TAPER FOR TODAY NOW.
[2024-08-12] MEDS: DOCUSATE SODIUM 100 MG CAPSULE PO (20:43)
[2024-08-12 23:18] VITALS: PULSE 70
[2024-08-12] MEDS: carvediloL 6.25 MG TABLET PO (23:18)
[2024-08-12] MEDS: APIXABAN 5 MG TABLET PO (23:19)
[2024-08-12] MEDS: traMADol HCL (*CRX) 50 MG TABLET PO (23:23)
[2024-08-13] MEDS: oxyCODONE HCL (*CRX) 2.5 MG TAB IR PO (02:39)
[2024-08-13 04:49] VITALS: BP 114/69; PULSE 73; RESP 17; TEMP 36.9; O2SAT 95
[2024-08-13] MEDS: methylPREDNISolone (MEDROL) DOSEPACK 4 MG TABLETS PO ×4 (06:19→22:00)
--- NOTE | 2024-08-13 08:01 | P.PNIM_ITS ---
Progress Note: A&P Assessment and Plan (1) Fall: Qualifiers: Encounter type: initial encounter Qualified Code(s): W19.XXXA - Unspecified fall, initial encounter Code(s): W19.XXXA - Unspecified fall, initial encounter Status: Inactive Assessment and Plan: No acute injury from fall PT and OT evaluate and treat (2) Hemarthrosis of knee, right: Code(s): M25.061 - Hemarthrosis, right knee Status: Acute Assessment and Plan: Drained in ED by ED physician, CT shows fluid collection in the knee - continue Knee immobilizer -ortho consulted -unable to bear weight at this time -continue pain management (3) Paroxysmal atrial fibrillation: Code(s): I48.0 - Paroxysmal atrial fibrillation Status: Acute Assessment and Plan: -continue telemetry monitoring (4) Coronary artery disease: Code(s): I25.10 - Atherosclerotic heart disease of [place] coronary artery without angina pectoris Status: Acute Assessment and Plan: Continue Plavix, Coreg, Crestor (5) Essential hypertension: Code(s): I10 - Essential (primary) hypertension Status: Acute Assessment and Plan: - continue monitor b/p Plan Continue home medications: Hold Eliquis until consult to cards per ortho request VTE Prophylaxis: DIET: Diabetic Anticipated hospital stay: > 2 days Code Status: speech and language tutor Spent With Patient Time with patient: less than 15 minutes Subjective Date/time seen: 08/13/24 08:30 Interval history: 53-year-old female with a PMHx: Of CAD with stents recently placed, pacemaker, atrial fibrillation, diabetes, history of left breast cancer Presented to the emergency room with severe acute on chronic right knee pain. Three days prior to arrival patient was seen and treated at Dr. Clark office for ongoing posterior hamstring tendinitis and knee arthritis, during office visit patient received 50 mg of Kenalog in which she tolerated well, CT scan shows fluid collection in the knees, aspiration in the emergency department revealed blood, patient is currently on Eliquis and Plavix s/p: stent placement, history of AFib. 08/13/2024: 0830 pt seen this am, she is awake in no distress able to recall all events, denies any overnight events. Reports her right knee pain is much better at this time due to current pain management. Discussed with patient orthopedic surgeon's request to consult Cardiology, concern for patient's current anticoagulation medication. This time Eliquis will be on hold, consult for Cardiology on Thursday. Patient denies any chest pain, nausea, vomiting fever chills at this time. Review of Systems Review of Systems: All systems reviewed & are unremarkable except as noted in HPI and below Exam Narrative: General: well appearing, appears stated age. HEENT: normocephalic, atraumatic. Mucous membranes moist. EOMI, PERRLA, bilateral sclera anicteric, no conjunctival injection. Neck supple without JVD, lymphadenopathy, or bruit. Respiratory: clear to ascultation bilaterally. No rales/rhonic/wheezes. Cardiovascular: Regular rate and rhythm, normal S1-S2 upon ascultation. No murmurs, rubs, or clicks. PMI is nondisplaced, capillary refill less than 3 second. Abdomen: Soft, round, no pulsatile masses, nondistended and nontender. No rebound, no guarding. No CVA tenderness, no hepatosplenomegaly. Bowel sounds present to all four quadrants. No high pitch or tinkling sounds, resonant to percussion. Extremities: No cyanosis, clubbing, or edema present. Pulses are palpable 2/2. Right lower extremity in knee immobilizer Neuro: Alert and orientated x 4. PERRLA. Cranial nerves 2-12 intact without focal deficit. Skin: Warm, dry, and intact, without rash, erythema, or lesion. Psych: pleasant, cooperative, normal speech, normal affect, no hallucinations, no dysarthia Const: General: cooperative, healthy appearing and comfortable Objective Data Vital Signs Vital Signs: Vital Signs - 24 hr 08/12/24 11:02 08/12/24 13:58 08/12/24 15:09 Temperature 97.9 F 97.1 F L Pulse Rate 87 66 85 Respiratory Rate 16 24 H 20 Blood Pressure 158/84 H 196/94 H 152/70 H Pulse Oximetry 100 100 99 Oxygen Delivery Room Air 08/12/24 19:22 08/12/24 20:30 08/12/24 20:42 Temperature 98.1 F 97.4 F L Pulse Rate 75 91 Respiratory Rate 20 17 Blood Pressure 147/91 H 121/92 H Pulse Oximetry 97 94 Oxygen Delivery Room Air 08/12/24 23:18 08/13/24 04:49 Temperature 98.4 F Pulse Rate 70 73 Respiratory Rate 17 Blood Pressure 114/69 Pulse Oximetry 95 Oxygen Delivery Intake/Output Intake/Output: Intake & Output 08/10/24 08/11/24 08/12/24 08/13/24 23:59 23:59 23:59 23:59 Intake Total 550 Output Total 500 Balance 50 Meds/Results Medications: Active Medications Generic Name Dose Route Start Last Admin Trade Name Freq PRN Reason Stop Dose Admin Acetaminophen 650 mg 08/12/24 18:03 Acetaminophen 325 Mg Tablet PO Q4H PRN Mild Pain (1-3) or Fever Apixaban 5 mg 08/12/24 22:50 08/12/24 23:19 Apixaban 5 Mg Tablet PO 5 mg BID DAYSI Administration Carvedilol 6.25 mg 08/12/24 23:10 08/12/24 23:18 Carvedilol 6.25 Mg Tablet PO 6.25 mg Q12HR DAYSI Administration Clopidogrel Bisulfate 75 mg 08/13/24 09:00 Clopidogrel Bisulfate 75 Mg Tablet PO DAILY DAYSI Dextrose 12.5 gm 08/12/24 22:51 Dextrose 50% 25 Gm/50 Ml Syringe IV PUSH PRN PRN Hypoglycemia Protocol Docusate Sodium 100 mg 08/12/24 21:00 08/12/24 20:43 Docusate Sodium 100 Mg Capsule PO 100 mg Q12HR DAYSI Administration Glucagon 1 mg 08/12/24 22:51 Glucagon For Inj 1 Mg Vial IM PRN PRN Hypoglycemia Protocol Glucose 15 gm 08/12/24 22:51 Glucose Oral Gel 15 Gm Of Glucse In 37.5 Gm Tube PO PRN PRN Hypoglycemia Protocol Dextrose 1,000 mls @ 100 mls/hr 08/12/24 22:51 Dextrose 5% 1,000 Ml IVPB PRN PRN Hypoglycemia Protocol Insulin Glargine 32 units 08/13/24 09:00 Insulin Glargine (*Bkc) 100 Units/Ml SUB-Q DAILY DAYSI Methylprednisolone 4 mg 08/12/24 06:30 08/13/24 06:19 Methylprednisolone (Medrol) Dosepack 4 Mg Tablets PO 08/17/24 07:29 4 mg 0630,1200,1700 DAYSI Administration Taper Nitroglycerin 0.4 mg 08/12/24 22:49 Nitroglycerin Sl 0.4 Mg Tablet SUBLINGUAL PRN PRN Chest Pain Ondansetron HCl 4 mg 08/12/24 18:03 Ondansetron Inj 4 Mg/2 Ml Vial IV PUSH Q4H PRN Nausea Oxycodone HCl 2.5 mg 08/12/24 18:08 08/13/24 02:39 Oxycodone Hcl (*Crx) 2.5 Mg Tab Ir PO 2.5 mg Q4H PRN Administration Pain Rated 7-10 Rosuvastatin Calcium 10 mg 08/13/24 09:00 Rosuvastatin 10 Mg Tablet PO DAILY DAYSI Tramadol HCl 50 mg 08/12/24 20:59 08/12/24 23:23 Tramadol Hcl (*Crx) 50 Mg Tablet PO 50 mg Q6H PRN Administration Pain Rated 4-6 Radiology Results: ITS Impressions Knee X-Ray 08/12/24 13:39 IMPRESSION: 1. Moderate right knee osteoarthritis. 2. Large right knee joint effusion with loose body. Knee CT 08/12/24 15:02 IMPRESSION: 1. Large complex joint effusion and/or synovitis at the right suprapatellar pouch with differential including hemarthrosis or septic arthritis in the appropriate clinical setting. 2. Relatively advanced healing of a nondisplaced intra-articular patellar fracture. 3. Chondrocalcinosis and tricompartmental osteoarthritis at the right knee with moderate joint space or in the medial compartment and severe interspace joint the medial aspect of the patellofemoral compartment on prior radiographs. Labs Labs: Laboratory Results - last 24 hr 08/12/24 08/12/24 13:12 19:26 WBC 13.0 H RBC 4.42 Hgb 13.5 Hct 40.5 MCV 91.6 MCH 30.5 MCHC 33.3 RDW 14.4 Plt Count 236 MPV 10.7 H Immature Gran % (Auto) 0.5 Neut % (Auto) 72.1 Lymph % (Auto) 17.5 L [place] % (Auto) 8.6 H Eos % (Auto) 0.8 Baso % (Auto) 0.5 Lymph # (Auto) 2.28 [place] # (Auto) 1.1 H Eos # (Auto) 0.1 Baso # (Auto) 0.1 Abs Immat Gran (auto) 0.06 H Absolute Neuts (auto) 9.4 H Absolute Nucleated RBC 0.000 Nucleated RBC % 0.0 ESR 23 H PT 20.4 H INR 1.7 APTT 32.6 Sodium 138 Potassium 4.1 Chloride 103 Carbon Dioxide 19 L Anion Gap 16 H BUN 19 H Creatinine 0.71 Estim Creat Clear Calc 49 Estimated GFR > 60 Glucose 169 H POC Capillary Glucose 181 H Calcium 10.1 Total Bilirubin 1.1 AST 33 ALT 30 Alkaline Phosphatase 122 C-Reactive Protein < 0.5 Total Protein 8.0 Albumin 4.8 Quality VTE Prophylaxis VTE prophylaxis: mechanical ordered and pharmacologic ordered Hospitalist MIPS Advance Care Plan I have confirmed that the patient's Advanced Care Plan is present, code status is documented, or surrogate decision maker is listed in patient medical record.: Yes Medication Reconciliation I have utilized all available resources to obtain, update and review the patients current medications (includes all prescriptions, OTC, herbals, cannabis, and nutritional supplements).: Yes
[2024-08-13 08:16] LABS: Glucose Point of Care 292 mg/dl (65-105)
[2024-08-13] MEDS: INSULIN GLARGINE (*BKC) 100 UNITS/ML 32 UNITS SUB-Q (08:25)
[2024-08-13] MEDS: CLOPIDOGREL BISULFATE 75 MG TABLET PO (08:27)
[2024-08-13] MEDS: DOCUSATE SODIUM 100 MG CAPSULE PO ×2 (08:27→22:01)
[2024-08-13 08:28] VITALS: PULSE 64
[2024-08-13] MEDS: ROSUVASTATIN 10 MG TABLET PO (08:28)
[2024-08-13] MEDS: carvediloL 6.25 MG TABLET PO ×2 (08:28→22:01)
[2024-08-13] MEDS: traMADol HCL (*CRX) 50 MG TABLET PO (09:27)
--- NOTE | 2024-08-13 11:01 | PM.PNORT ---
Progress Note: A&P Assessment and Plan (1) Hemarthrosis of knee, right: Code(s): M25.061 - Hemarthrosis, right knee Status: Acute Assessment and Plan: Patient is an 83-year-old female who was admitted yesterday afternoon with a severe hemarthrosis in the right knee. She could not bear weight or move the knee. It was tight swollen and quite painful. She has a history of moderately severe osteoarthritis the right knee. She had a cortisone shot several days prior and was fine until she woke up yesterday morning with a severe heme arthrosis. Since a few days had passed since her injection, it is probable that the heme arthrosis is not directly related to the injection but related to her osteoarthritis and being on Plavix and Eliquis. She is on Plavix because she had catheterization and coronary artery LAD stent placement in February of 2024. She is on the Eliquis because of chronic atrial fibrillation. She was in atrial fibrillation on the EKG. In talking to the patient I learned that she had her Eliquis dose reduced in May when she was suffering from excessive spontaneous bruising visible on her skin all over her body. Her dose was reduced at that time to the 2.5 mg twice daily dosing. The list of home medications therefore is incorrect in stating that she takes 5 mg twice daily and I have left a message for the pharmacist to correct her home medication list to 2.5 mg daily. She was scheduled to receive a 5 mg dose this morning at 9:00 a.m. and I spoke with the hospitalist here today covering at 7:45 a.m. discuss that it may cause further hematoma formation to resume the Eliquis and it was decided to hold the Eliquis and consult cardiology for additional advice on the optimal time for her to be off the Eliquis balancing the risk of further bleeding in her right knee against the risk of stroke from CVA due to her atrial fibrillation.. I have ordered SCDs while her Eliquis is on hold. On exam today she is quite alert and oriented. I removed her immobilizer and I am removed the Hawk wrap that she felt was uncomfortable and I would leave the leg out on 2 flat pillows which she felt was much more comfortable as opposed to the cylinder of rolled up pillow under the calf so we will ask the nurses to use that support for her leg instead of the rolled up pillow. She has fairly significant ecchymosis now in the proximal 1/2 of the calf. The knee is moderately painful with range of motion which is markedly limited she is most comfortable at about 20? of flexion. She notes however that today that she can move her ankle up and down without severe pain in her knees therefore her pain is improving. No swelling in the foot ankle or lower calf. She can feel me touch her foot but she does have history of neuropathy the since chemotherapy in the past. She had normal active range of motion dorsiflexion plantar flexion. I could not feel pedal pulses. The foot is however warm and has normal color. I have left orders for physical therapy to mobilize her weight-bearing as tolerated. She may discontinue the immobilizer if she is comfortable out of it. If she feels she needs support she may use the immobilizer during her therapy and ambulation. Will work on active assisted range of motion quad sets straight leg raises. Patient lives alone at home and feels she will require inpatient rehab and is hoping to go to the [facility] swing bed or similar. will ask home child care provider to see her. (2) Right knee DJD: Qualifiers: Osteoarthritis type: primary Qualified Code(s): M17.11 - Unilateral primary osteoarthritis, right knee Code(s): M17.11 - Unilateral primary osteoarthritis, right knee Status: Acute Subjective Subjective Date/Time Seen: 08/13/24 11:01 Objective Data Vital Signs Vital Signs: Vital Signs - 24 hr 08/12/24 11:02 08/12/24 13:58 08/12/24 15:09 Temperature 36.6 C 36.2 C L Pulse Rate 87 66 85 Respiratory Rate 16 24 H 20 Blood Pressure 158/84 H 196/94 H 152/70 H Pulse Oximetry 100 100 99 Oxygen Delivery Room Air 08/12/24 19:22 08/12/24 20:30 08/12/24 20:42 Temperature 36.7 C 36.3 C L Pulse Rate 75 91 Respiratory Rate 20 17 Blood Pressure 147/91 H 121/92 H Pulse Oximetry 97 94 Oxygen Delivery Room Air 08/12/24 23:18 08/13/24 04:49 08/13/24 08:28 Temperature 36.9 C Pulse Rate 70 73 64 Respiratory Rate 17 Blood Pressure 114/69 Pulse Oximetry 95 Oxygen Delivery Intake/Output Intake/Output: Intake & Output 08/10/24 08/11/24 08/12/24 08/13/24 23:59 23:59 23:59 23:59 Intake Total 790 Output Total 700 Balance 90 Meds/Results Medications: Active Medications Generic Name Dose Route Start Last Admin Trade Name Freq PRN Reason Stop Dose Admin Acetaminophen 650 mg 08/12/24 18:03 Acetaminophen 325 Mg Tablet PO Q4H PRN Mild Pain (1-3) or Fever Carvedilol 6.25 mg 08/12/24 23:10 08/13/24 08:28 Carvedilol 6.25 Mg Tablet PO 6.25 mg Q12HR DAYSI Administration Clopidogrel Bisulfate 75 mg 08/13/24 09:00 08/13/24 08:27 Clopidogrel Bisulfate 75 Mg Tablet PO 75 mg DAILY DAYSI Administration Dextrose 12.5 gm 08/12/24 22:51 Dextrose 50% 25 Gm/50 Ml Syringe IV PUSH PRN PRN Hypoglycemia Protocol Docusate Sodium 100 mg 08/12/24 21:00 08/13/24 08:27 Docusate Sodium 100 Mg Capsule PO 100 mg Q12HR DAYSI Administration Glucagon 1 mg 08/12/24 22:51 Glucagon For Inj 1 Mg Vial IM PRN PRN Hypoglycemia Protocol Glucose 15 gm 08/12/24 22:51 Glucose Oral Gel 15 Gm Of Glucse In 37.5 Gm Tube PO PRN PRN Hypoglycemia Protocol Dextrose 1,000 mls @ 100 mls/hr 08/12/24 22:51 Dextrose 5% 1,000 Ml IVPB PRN PRN Hypoglycemia Protocol Insulin Glargine 32 units 08/13/24 09:00 08/13/24 08:25 Insulin Glargine (*Bkc) 100 Units/Ml SUB-Q 32 units DAILY DAYSI Administration Methylprednisolone 4 mg 08/12/24 06:30 08/13/24 06:19 Methylprednisolone (Medrol) Dosepack 4 Mg Tablets PO 08/17/24 07:29 4 mg 0630,1200,1700 DAYSI Administration Taper Miscellaneous Information 1 each 08/13/24 11:00 Pharmacist Communication Order XX 08/13/24 11:01 ONCE ONE Nitroglycerin 0.4 mg 08/12/24 22:49 Nitroglycerin Sl 0.4 Mg Tablet SUBLINGUAL PRN PRN Chest Pain Ondansetron HCl 4 mg 08/12/24 18:03 Ondansetron Inj 4 Mg/2 Ml Vial IV PUSH Q4H PRN Nausea Oxycodone HCl 2.5 mg 08/12/24 18:08 08/13/24 02:39 Oxycodone Hcl (*Crx) 2.5 Mg Tab Ir PO 2.5 mg Q4H PRN Administration Pain Rated 7-10 Rosuvastatin Calcium 10 mg 08/13/24 09:00 08/13/24 08:28 Rosuvastatin 10 Mg Tablet PO 10 mg DAILY DAYSI Administration Tramadol HCl 50 mg 08/12/24 20:59 08/13/24 09:27 Tramadol Hcl (*Crx) 50 Mg Tablet PO 50 mg Q6H PRN Administration Pain Rated 4-6 Radiology Results: ITS Impressions Knee X-Ray 08/12/24 13:39 IMPRESSION: 1. Moderate right knee osteoarthritis. 2. Large right knee joint effusion with loose body. Knee CT 08/12/24 15:02 IMPRESSION: 1. Large complex joint effusion and/or synovitis at the right suprapatellar pouch with differential including hemarthrosis or septic arthritis in the appropriate clinical setting. 2. Relatively advanced healing of a nondisplaced intra-articular patellar fracture. 3. Chondrocalcinosis and tricompartmental osteoarthritis at the right knee with moderate joint space or in the medial compartment and severe interspace joint the medial aspect of the patellofemoral compartment on prior radiographs. Labs Labs: Laboratory Results - last 24 hr 08/12/24 08/12/24 08/13/24 13:12 19:26 08:14 WBC 13.0 H RBC 4.42 Hgb 13.5 Hct 40.5 MCV 91.6 MCH 30.5 MCHC 33.3 RDW 14.4 Plt Count 236 MPV 10.7 H Immature Gran % (Auto) 0.5 Neut % (Auto) 72.1 Lymph % (Auto) 17.5 L [place] % (Auto) 8.6 H Eos % (Auto) 0.8 Baso % (Auto) 0.5 Lymph # (Auto) 2.28 [place] # (Auto) 1.1 H Eos # (Auto) 0.1 Baso # (Auto) 0.1 Abs Immat Gran (auto) 0.06 H Absolute Neuts (auto) 9.4 H Absolute Nucleated RBC 0.000 Nucleated RBC % 0.0 ESR 23 H PT 20.4 H INR 1.7 APTT 32.6 Sodium 138 Potassium 4.1 Chloride 103 Carbon Dioxide 19 L Anion Gap 16 H BUN 19 H Creatinine 0.71 Estim Creat Clear Calc 49 Estimated GFR > 60 Glucose 169 H POC Capillary Glucose 181 H 292 H Calcium 10.1 Total Bilirubin 1.1 AST 33 ALT 30 Alkaline Phosphatase 122 C-Reactive Protein < 0.5 Total Protein 8.0 Albumin 4.8
[2024-08-13 11:47] LABS: Glucose Point of Care 238 mg/dl (65-105)
[2024-08-13 13:24] VITALS: BP 107/53; PULSE 67; RESP 18; TEMP 36.1; O2SAT 97
--- NOTE | 2024-08-13 15:01 | PM.CNCAR ---
Assessment and Plan Assessment and plan (1) Persistent atrial fibrillation: Code(s): I48.19 - Other persistent atrial fibrillation Status: Acute (2) Coronary artery disease: Code(s): I25.10 - Atherosclerotic heart disease of [place] coronary artery without angina pectoris Status: Acute Plan This is an 83-year-old lady with chronic atrial fib and coronary disease as described above. She is on anticoagulation therapy and clopidogrel as described above. Unfortunately she sustained a hemarthrosis after a knee injection that she was given in the office. I believe the optimal course of action is to discontinue apixaban until the hemarthrosis is resolved. She should stay on clopidogrel because her LAD stent was done less than 1 year ago. When her hemarthrosis resolve she can resume apixaban. The patient indicates her plans to relocate to [facility] to live with her son in the next couple of months. As a result we probably will not be anticipating seeing this lady in the office a for ongoing follow-up John Najera MD [facility] History of Present Illness History of Present Illness Consult date/time: 08/13/24 15:01 Reason For Visit: hemarthrosis, knee pain Narrative: This is a very pleasant 83-year-old lady who has a history of atrial fibrillation and coronary artery disease. I am seeing at the request of the hospitalist and Orthopedic accounting policy consultant to comment on anticoagulation management. She is known to Dr. Banks of our practice and has a history of chronic atrial fibrillation. There AFib dates back to 2018 she was treated for a while with both amiodarone and sotalol without success. She has been left in chronic atrial fib been managed with rate control since then. She did have the need for a [employer] leadless pacemaker system that was implanted in March of 2023 because of symptomatic bradycardia/pauses. For her anticoagulation she takes apixaban. She also has a history of coronary artery disease with previous shockwave angioplasty and stenting of the circumflex and recent PTCA and stenting of the proximal and mid RCA in December of 2023. This was done at [facility] by Dr. Crowe. She is taking clopidogrel for this reason along with her apixaban. The patient is hospitalized now with a painful right knee hemarthrosis which occurred following a steroid injection in her knee. Her apixaban has been discontinued which is clearly appropriate. Her clopidogrel has been continued which is also appropriate. She is not having any cardiovascular complaints at this time Review of Systems Constitutional: Constitutional: Reports no additional constitutional complaints Eyes: Eyes: Reports no additional eye complaints ENT: Reports system reviewed and no additional complaints, except as documented Cardiovascular: Cardiovascular: Reports no additional cardiovascular complaints Respiratory: Respiratory: Reports no additional respiratory complaints Gastrointestinal: Gastrointestinal: Reports no additional gastrointestinal complaints Musculoskeletal: Musculoskeletal: Reports as per HPI and Reports arthralgias Integumentary/Breasts: Skin/Breast: Reports system reviewed and no additional complaints, except as docu Neurologic: Reports system reviewed and no additional complaints, except as documented Psychiatric: Psychiatric: Reports no additional psychiatric complaints Endocrine: Endocrine: Reports no additional endocrine complaints Hematologic/Lymphatic: Hematologic/Lymphatic: Reports no additional hematologic/lymphatic complaints Allergic/Immunologic: Allergic/Immunologic: Reports no additional allergic/immunologic complaints [facility] Past Medical History Medical History Pacemaker (~04/07/23) Aortic stenosis Right forearm cellulitis Cervical radiculopathy Colon cancer screening (~06/2020) cologuard negative On amiodarone therapy Paroxysmal atrial fibrillation : History of cardioversions, with previously noted loosely organized thrombus in the left atrial appendage, for which she was subsequently switched from Xarelto to warfarin. : Last cardioversion attempt in May 2018 was unsuccessful and she was referred to an shearing machine tender at [place]. On arrival to that appointment, she was found to be in a normal sinus rhythm, and to her knowledge has remained in such since. History of colon polyps Osteoarthritis History of peptic ulcer Severe obstructive sleep apnea : Noted on sleep study 08/10/2019. : CPAP titrated to 11 cm. 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 : Hemoglobin A1c was 6.9% 08/09/2019. History of left breast cancer : Status post lumpectomy, chemotherapy, and radiation. Coronary artery disease : With history of stent to LAD done at [facility]. Chronic anticoagulation : Warfarin for paroxysmal atrial fibrillation. Chronic kidney disease, stage 3 (moderate) : GFR ranging between 43 and > 60. Essential hypertension Iron deficiency anemia Mild persistent asthma without complication Surgical History Surgical History History of permanent cardiac pacemaker placement (~04/07/23) History of right hip hemiarthroplasty (08/30/19) History of bladder suspension procedure History of hysterectomy History of D&C History of lumpectomy of left breast History of cholecystectomy History of appendectomy History of heart artery stent : Stent to LAD, done at [facility]. History of bilateral cataract extraction Family History Family History Father Family history of diabetes mellitus in first degree relative Hypertension Cerebrovascular accident Mother Family history of heart disease in male family member before age 55 Patient's mother is , Onset Age: 68 Family history of coronary artery disease, Onset Age: 68 Hypertension, Onset Age: 68 Sibling Cerebrovascular accident Other Diabetes mellitus Social History Social History Social History: The patient is and lives in [place]. She has 7 children. 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 Her son, Jn, is her surrogate decision maker and she wishes to be a full code. She is a lifelong nonsmoker and denies alcohol and drug abuse. Smoking status: Never smoker Second hand tobacco smoke exposure: Yes Alcohol intake: never Substance use: never Substance use type: does not use Do You Feel Safe in your Home?: Yes Lack of Transportation: No Lack of Food: Never True Current Housing: I Have Housing Concerned About Future Housing: No Difficulty Paying Gas/Electric Bills: No Difficulty Paying for Meds: No Currently Unemployed: No Education: High School Diploma/GED Difficulty w/ Childcare or Family Care: No Living arrangements: with family Gender identity (if verbalized by the patient): Female Spiritual care concerns: No Agree to blood products: Yes Meds Home Medications and Allergies Home Medications ?Medication ?Instructions ?Recorded ?Confirmed ?Type [id number]-[id number] 8 mg-folic 400 1 tablet PO DAILY 06/22/19 08/12/24 History mcg-K 50 mcg-lutein 300 mcg tablet (Centrum Silver Women) carvedilol 25 mg tablet (Coreg) 2.5 mg PO Q12HR 08/29/20 08/12/24 History nitroglycerin 0.4 mg sublingual 0.4 mg sublingual PRN PRN Chest 01/12/21 08/12/24 History tablet Pain klhV-W8-C-R-flnfjm-vzxrcyj-min 1 tablet PO BID 01/12/21 08/12/24 History 3,300 unit-5 mg-200mg-75 unit tablet ER (ICaps) pen needle, diabetic 32 gauge x #50 ea 01/13/22 08/12/24 Rx 1/4 (BD Ultra-Fine Micro Pen Needle) acetaminophen 325 mg capsule 650 mg (2 x 325 mg) PO Q8H PRN 02/24/22 08/12/24 Rx (Tylenol) pain #20 caps clopidogrel 75 mg tablet (Plavix) 75 mg PO DAILY #30 tabs 05/14/22 08/12/24 Rx albuterol sulfate 2.5 mg/3 mL 2.5 mg (3 mL) inhalation Q6H PRN 01/20/24 08/12/24 Rx (0.083 %) solution for nebulization shortness of breath or wheezing #180 mL apixaban 5 mg tablet 2.5 mg PO BID 04/27/24 08/13/24 History rosuvastatin 20 mg tablet 10 mg PO DAILY 05/19/24 08/12/24 History vit 1 tablet PO DAILY 05/19/24 08/12/24 History [id number]-[id number] 500 mg-50 mg-25 mg-40 mg tablet (Bioflex) insulin glargine 100 unit/mL (3 32 unit subcut DAILY 08/12/24 08/12/24 History mL) subcutaneous pen (Lantus Solostar U-100 Insulin) Allergies Allergy/AdvReac Type Severity Reaction Status Date / Time Penicillins Allergy Mild Rash Verified 08/12/24 15:11 oxycodone AdvReac Mild Vomiting Verified 08/12/24 15:11 codeine AdvReac Vomiting Verified 08/12/24 15:11 morphine AdvReac Vomiting Verified 08/12/24 15:11 Vital Signs Vital Signs - 24 hr 08/12/24 15:09 08/12/24 19:22 08/12/24 20:30 Temperature 36.2 C L 36.7 C 36.3 C L Pulse Rate 85 75 91 Respiratory Rate 20 20 17 Blood Pressure 152/70 H 147/91 H 121/92 H Pulse Oximetry 99 97 94 Oxygen Delivery 08/12/24 20:42 08/12/24 23:18 08/13/24 04:49 Temperature 36.9 C Pulse Rate 70 73 Respiratory Rate 17 Blood Pressure 114/69 Pulse Oximetry 95 Oxygen Delivery Room Air 08/13/24 08:25 08/13/24 08:28 08/13/24 13:24 Temperature 36.1 C L Pulse Rate 64 67 Respiratory Rate 18 Blood Pressure 107/53 L Pulse Oximetry 97 Oxygen Delivery Room Air Exam Const: General: comfortable Other: Very pleasant elderly lady with her right knee elevated on a pillow no distress at this time watching television HENMT: Mouth: Yes moist mucous membranes Eyes: Sclera: sclerae normal Neck: Neck: supple and no JVD Resp: Effort & Inspection: normal respiratory effort Auscultation: clear to auscultation bilaterally Cardio: Rate: regular rate Rhythm: abnormal rhythm irregularly irregular GI: GI Palp: Yes Soft to palpation Auscultation: normal bowel sounds Skin: General skin exam: normal color Neuro: Other: Alert and oriented x3 Extrem: Other: No edema, good distal perfusion Results Labs and Meds 08/12/24 13:12 08/12/24 13:12 Lab results: Intake and Output 08/12/24 08/13/24 08/13/24 23:59 07:59 15:59 Intake Total 550 480 Output Total 500 200 Balance 50 280 Intake: Oral 550 480 Output: Urine 500 200
[2024-08-13 16:56] LABS: Glucose Point of Care 189 mg/dl (65-105)
[2024-08-13 20:18] LABS: Glucose Point of Care 273 mg/dl (65-105)
[2024-08-13 20:38] VITALS: BP 121/57; PULSE 63; RESP 18; TEMP 36.4; O2SAT 95
[2024-08-13 22:01] VITALS: PULSE 74
[2024-08-13] MEDS: INSULIN ASPART (*BKC) 100 UNITS/ML SUB-Q (22:05)
[2024-08-14] MEDS: methylPREDNISolone (MEDROL) DOSEPACK 4 MG TABLETS PO ×4 (05:50→21:11)
[2024-08-14 06:00] VITALS: BP 133/71; PULSE 68; RESP 18; TEMP 36.4; O2SAT 97
[2024-08-14 08:13] LABS: Glucose Point of Care 205 mg/dl (65-105)
[2024-08-14] MEDS: CLOPIDOGREL BISULFATE 75 MG TABLET PO (08:31)
[2024-08-14] MEDS: ROSUVASTATIN 10 MG TABLET PO (08:31)
[2024-08-14] MEDS: DOCUSATE SODIUM 100 MG CAPSULE PO ×2 (08:31→21:11)
[2024-08-14] MEDS: INSULIN ASPART (*BKC) 100 UNITS/ML SUB-Q ×3 (08:32→21:10)
[2024-08-14] MEDS: INSULIN GLARGINE (*BKC) 100 UNITS/ML 32 UNITS SUB-Q (08:32)
[2024-08-14 08:33] VITALS: PULSE 68
[2024-08-14] MEDS: carvediloL 6.25 MG TABLET PO ×2 (08:33→21:11)
[2024-08-14] MEDS: traMADol HCL (*CRX) 50 MG TABLET PO ×2 (08:45→22:25)
[2024-08-14 12:03] LABS: Glucose Point of Care 391 mg/dl (65-105)
--- NOTE | 2024-08-14 12:25 | P.DS_ITS ---
DS: Admitting Diagnosis Discharge Date 08/14/24 Admitting Diagnosis Knee pain post-injection DS: Discharge Diagnosis Discharge Diagnosis (1) Hemarthrosis of knee, right: Code(s): M25.061 - Hemarthrosis, right knee Status: Acute DS: Summary Hospital Course Hospital Course: A 3-year-old female history of CAD with stents recently placed, pacemaker, atrial fibrillation, diabetes, history of left breast cancer, presents the hospital with knee pain after an injection. Patient states that she did by numbers after injection however this morning when she woke up she tried to stand she cannot bear weight on her leg she fell backwards onto the bed. Patient denies hitting her head or any injuries from the fall. She only complains of right knee pain. Patient was in her orthopedic office on 08/09/2024 for re-evaluation for her knee pain and she received 15 mg of Kenalog which she tolerated well. CT shows fluid collection in the knee. Aspiration in the emergency department revealed blood. She is anticoagulation until January after a recent cardiac stent. CT knee showed hemarthrosis right knee, ortho was consulted and recommended conservative management. Cardiology was consulted and recommended discontinuing only Eliquis and continuing Plavix due to recent stents. Patient discharged today to [facility]. F/u with PCP in 3-5 days, F/u with ortho and cardiology as instructed. Time Spent with Patient Time attestation: Total time spent providing and/or coordinating discharge services: DS: Data Data Completed and Pending Labs on day of discharge: Labs from last 24 hours 08/14/24 08/14/24 08/13/24 11:58 08:08 19:57 POC Capillary Glucose 391 H 205 H 273 H 08/13/24 08/13/24 16:53 11:44 POC Capillary Glucose 189 H 238 H Discharge Plan Discharge Attending physician on discharge: Sue Glasgow Consulting providers: Terrance Ruiz; John Najera Discharging Clinician: Sue Glasgow Anticipated Discharge Date/Time: 08/14/24 12:22 Patient Disposition: [facility] Activity: as tolerated Diet: heart healthy Patient Instructions: Clopidogrel (By mouth), Apixaban (By mouth), Safe Use of Anticoagulants (DC) Patient Language: Kazakh Follow-up/Referrals: Ede Chavarria MD [Physician] - Discharge Medications: Continued nitroglycerin 0.4 mg tablet, sublingual 0.4 mg sublingual PRN PRN (Reason: Chest Pain) Patient Comments: has not taken ICaps 3,[id number] [id number]-[id number]-unit Tablet Extended Release 1 tablet PO BID acetaminophen [Tylenol] 325 mg capsule 650 mg PO Q8H PRN (Reason: pain) Qty: 20 0RF Bioflex 122-41-73-40 mg tablet 1 tablet PO DAILY Rx Instructions: 1 tab daily rosuvastatin 20 mg tablet 10 mg PO DAILY Centrum Silver Women 8 mg iron-400 mcg-300 mcg tablet 1 tablet PO DAILY albuterol sulfate 2.5 mg /3 mL (0.083 %) solution for nebulization 2.5 mg inhalation Q6H PRN (Reason: shortness of breath or wheezing) Qty: 180 0RF carvedilol [Coreg] 25 mg tablet 2.5 mg PO Q12HR clopidogrel [Plavix] 75 mg tablet 75 mg PO DAILY Qty: 30 3RF insulin glargine [Lantus Solostar U-100 Insulin] 100 unit/mL (3 mL) insulin pen 32 unit subcut DAILY (DME) pen needle, diabetic [BD Ultra-Fine Micro Pen Needle] 32 gauge x 1/4 needle See Rx Instructions .Route Qty: 50 4RF Rx Instructions: As directed weekly Discontinued apixaban 5 mg tablet 2.5 mg PO BID Date of admission: 08/13/24 08:08 Primary Care Provider: Kortney Aguirre Admitting Provider: Ollie Steele Attending physician on admission: Ollie Steele Condition: Improved
--- NOTE | 2024-08-14 13:23 | P.PNOP_ITS ---
Progress Note: A&P Assessment and Plan (1) Hemarthrosis of knee, right: Code(s): M25.061 - Hemarthrosis, right knee Status: Acute Assessment and Plan: Hospital day 3.. Patient did not require any pain medication and did not take any Tylenol or tramadol yesterday or during the night and this morning she walked quite a bit with therapy but has developed excruciating pain again in the right knee. She has very little movement. There is no erythema but she has more ecchymosis now around the knee and upper calf and the effusion is somewhat firm. She did have a dose of tramadol earlier but it has not helped. She does not tolerate oxycodone. She does tolerate IV morphine when given with Zofran and we are giving her 2 mg of IV morphine and Zofran dose now and a 1000 mg of Tylenol. She is on day 2. Of her Medrol Dosepak. She is not considered a good candidate for nonsteroidal anti-inflammatory medication because of her coronary artery disease and stent. We can repeat the morphine if she does not get satisfactory relief. I am going to order Tylenol on a scheduled basis for her and I have encouraged her to use the tramadol every 6 hours until her pain has improved. Dr. Zamora saw her yesterday and noted that the Eliquis can be put on hold until her hematoma has resolved. Her Subjective Subjective Date/Time Seen: 08/14/24 13:23 Objective Data Vital Signs Vital Signs: Vital Signs - 24 hr 08/13/24 13:24 08/13/24 15:00 08/13/24 20:38 Temperature 36.1 C L 36.4 C Pulse Rate 67 63 Respiratory Rate 18 18 Blood Pressure 107/53 L 121/57 L Pulse Oximetry 97 95 Oxygen Delivery Room Air 08/13/24 22:01 08/14/24 06:00 08/14/24 08:30 Temperature 36.4 C Pulse Rate 74 68 Respiratory Rate 18 Blood Pressure 133/71 Pulse Oximetry 97 Oxygen Delivery Room Air 08/14/24 08:33 Temperature Pulse Rate 68 Respiratory Rate Blood Pressure Pulse Oximetry Oxygen Delivery Intake/Output Intake/Output: Intake & Output 08/11/24 08/12/24 08/13/24 08/15/24 23:59 23:59 23:59 00:59 Intake Total 2120 630 Output Total 900 Balance 1220 630 Meds/Results Medications: Active Medications Generic Name Dose Route Start Last Admin Trade Name Freq PRN Reason Stop Dose Admin Acetaminophen 1,000 mg 08/14/24 13:11 Acetaminophen 500 Mg Tablet PO 08/14/24 13:12 ONCE ONE Acetaminophen 650 mg 08/14/24 13:20 Acetaminophen 325 Mg Tablet PO Q6H DAYSI Carvedilol 6.25 mg 08/12/24 23:10 08/14/24 08:33 Carvedilol 6.25 Mg Tablet PO 6.25 mg Q12HR DAYSI Administration Clopidogrel Bisulfate 75 mg 08/13/24 09:00 08/14/24 08:31 Clopidogrel Bisulfate 75 Mg Tablet PO 75 mg DAILY DAYSI Administration Dextrose 12.5 gm 08/12/24 22:51 Dextrose 50% 25 Gm/50 Ml Syringe IV PUSH PRN PRN Hypoglycemia Protocol Docusate Sodium 100 mg 08/12/24 21:00 08/14/24 08:31 Docusate Sodium 100 Mg Capsule PO 100 mg Q12HR DAYSI Administration Glucagon 1 mg 08/12/24 22:51 Glucagon For Inj 1 Mg Vial IM PRN PRN Hypoglycemia Protocol Glucose 15 gm 08/12/24 22:51 Glucose Oral Gel 15 Gm Of Glucse In 37.5 Gm Tube PO PRN PRN Hypoglycemia Protocol Dextrose 1,000 mls @ 100 mls/hr 08/12/24 22:51 Dextrose 5% 1,000 Ml IVPB PRN PRN Hypoglycemia Protocol Insulin Aspart 1 - 3 units 08/13/24 21:45 08/13/24 22:05 Insulin Aspart (*Bkc) 100 Units/Ml SUB-Q 2 units HS DAYSI Administration Protocol Insulin Aspart 3 - 6 units 08/14/24 08:00 08/14/24 12:16 Insulin Aspart (*Bkc) 100 Units/Ml SUB-Q 6 units TIDWM DAYSI Administration Protocol Insulin Glargine 32 units 08/13/24 09:00 08/14/24 08:32 Insulin Glargine (*Bkc) 100 Units/Ml SUB-Q 32 units DAILY DAYSI Administration Methylprednisolone 4 mg 08/12/24 06:30 08/14/24 12:13 Methylprednisolone (Medrol) Dosepack 4 Mg Tablets PO 08/17/24 07:29 4 mg 0630,1200,1700,2100 DAYSI Administration Taper Morphine Sulfate 2 mg 08/14/24 13:09 Morphine Sulfate (*Crx) 2 Mg/Ml Inj IV PUSH 08/14/24 13:10 ONCE ONE Nitroglycerin 0.4 mg 08/12/24 22:49 Nitroglycerin Sl 0.4 Mg Tablet SUBLINGUAL PRN PRN Chest Pain Ondansetron HCl 4 mg 08/12/24 18:03 Ondansetron Inj 4 Mg/2 Ml Vial IV PUSH Q4H PRN Nausea Ondansetron HCl 4 mg 08/14/24 13:12 Ondansetron Hcl Odt 4 Mg Tablet PO Q6H PRN Nausea And Vomiting Oxycodone HCl 2.5 mg 08/12/24 18:08 08/13/24 02:39 Oxycodone Hcl (*Crx) 2.5 Mg Tab Ir PO 2.5 mg Q4H PRN Administration Pain Rated 7-10 Rosuvastatin Calcium 10 mg 08/13/24 09:00 08/14/24 08:31 Rosuvastatin 10 Mg Tablet PO 10 mg DAILY DAYSI Administration Tramadol HCl 50 mg 08/12/24 20:59 08/14/24 08:45 Tramadol Hcl (*Crx) 50 Mg Tablet PO 50 mg Q6H PRN Administration Pain Rated 4-6 Radiology Results: ITS Impressions Knee X-Ray 08/12/24 13:39 IMPRESSION: 1. Moderate right knee osteoarthritis. 2. Large right knee joint effusion with loose body. Knee CT 08/12/24 15:02 IMPRESSION: 1. Large complex joint effusion and/or synovitis at the right suprapatellar pouch with differential including hemarthrosis or septic arthritis in the appropriate clinical setting. 2. Relatively advanced healing of a nondisplaced intra-articular patellar fract ure. 3. Chondrocalcinosis and tricompartmental osteoarthritis at the right knee with moderate joint space or in the medial compartment and severe interspace joint the medial aspect of the patellofemoral compartment on prior radiographs. Labs Labs: Laboratory Results - last 24 hr 08/13/24 08/13/24 08/14/24 16:53 19:57 08:08 POC Capillary Glucose 189 H 273 H 205 H 08/14/24 11:58 POC Capillary Glucose 391 H
[2024-08-14] MEDS: MORPHINE SULFATE (*CRX) 2 MG/ML INJ IV PUSH (13:25)
[2024-08-14] MEDS: ONDANSETRON HCL ODT 4 MG TABLET PO (13:25)
[2024-08-14] MEDS: ACETAMINOPHEN 500 MG TABLET 1000 MG PO (13:26)
[2024-08-14 14:00] VITALS: BP 125/59; PULSE 74; RESP 18; TEMP 36.5; O2SAT 97
[2024-08-14 17:17] LABS: Glucose Point of Care 142 mg/dl (65-105)
[2024-08-14] MEDS: ACETAMINOPHEN 325 MG TABLET 650 MG PO (18:40)
[2024-08-14] MEDS: polyethylene glycoL 3350 17 GM POWD.PACK PO (18:41)
[2024-08-14 20:00] VITALS: PULSE 63; RESP 20; O2SAT 97
[2024-08-14 20:55] VITALS: BP 117/60; PULSE 63; RESP 20; TEMP 36.1; O2SAT 97
[2024-08-14 21:03] LABS: Glucose Point of Care 273 mg/dl (65-105)
[2024-08-14 21:11] VITALS: PULSE 63
[2024-08-15] MEDS: ACETAMINOPHEN 325 MG TABLET 650 MG PO ×3 (00:19→12:22)
[2024-08-15 04:33] VITALS: BP 133/73; PULSE 62; RESP 18; TEMP 36.1; O2SAT 96
[2024-08-15] MEDS: methylPREDNISolone (MEDROL) DOSEPACK 4 MG TABLETS PO ×2 (05:39→12:23)
--- NOTE | 2024-08-15 09:22 | P.PNOP_ITS ---
Progress Note: A&P Assessment and Plan (1) Hemarthrosis of knee, right: Code(s): M25.061 - Hemarthrosis, right knee Status: Acute Assessment and Plan: Patient is feeling much better today. She states she did have more soreness again last night and took tramadol which helped. Her knee does not look more swollen. She denied any history of blood clot problems in her legs but she is at increased risk for DVT because of her immobility and having been on Eliquis until recently. I spoke with Dr. Ruiz and we will put her on 40 mg Lovenox daily as a low-dose anticoagulation for DVT prophylaxis only. She is going to follow up with Dr. Ruiz in 2 weeks. Her hemoglobin today is the same as on admission 13.5. Platelets [id number]. White count borderline elevated at 10.2 which is less than on admission. Again her C- reactive protein on admission was < 0.5 the arguing against infection Plan is going to be for her to be transferred to the acute rehab today. Will order a CBC in 4 days to make sure that her platelets do not drop precipitously following initiation of Lovenox. Subjective Subjective Date/Time Seen: 08/15/24 09:22 Objective Data Vital Signs Vital Signs: Vital Signs - 24 hr 08/14/24 14:00 08/14/24 20:00 08/14/24 20:55 Temperature 36.5 C 36.1 C L Pulse Rate 74 63 63 Respiratory Rate 18 20 20 Blood Pressure 125/59 L 117/60 Pulse Oximetry 97 97 97 Oxygen Delivery Room Air 08/14/24 21:11 08/15/24 04:33 Temperature 36.1 C L Pulse Rate 63 62 Respiratory Rate 18 Blood Pressure 133/73 Pulse Oximetry 96 Oxygen Delivery Intake/Output Intake/Output: Intake & Output 08/12/24 08/13/24 08/15/24 08/15/24 23:59 23:59 00:59 23:59 Intake Total 2120 870 250 Output Total 900 1000 Balance 1220 870 -750 Meds/Results Medications: Active Medications Generic Name Dose Route Start Last Admin Trade Name Freq PRN Reason Stop Dose Admin Acetaminophen 650 mg 08/14/24 18:00 08/15/24 05:39 Acetaminophen 325 Mg Tablet PO 650 mg Q6HR DAYSI Administration Carvedilol 6.25 mg 08/12/24 23:10 08/14/24 21:11 Carvedilol 6.25 Mg Tablet PO 6.25 mg Q12HR DAYSI Administration Clopidogrel Bisulfate 75 mg 08/13/24 09:00 08/14/24 08:31 Clopidogrel Bisulfate 75 Mg Tablet PO 75 mg DAILY DAYSI Administration Dextrose 12.5 gm 08/12/24 22:51 Dextrose 50% 25 Gm/50 Ml Syringe IV PUSH PRN PRN Hypoglycemia Protocol Docusate Sodium 100 mg 08/12/24 21:00 08/14/24 21:11 Docusate Sodium 100 Mg Capsule PO 100 mg Q12HR DAYSI Administration Glucagon 1 mg 08/12/24 22:51 Glucagon For Inj 1 Mg Vial IM PRN PRN Hypoglycemia Protocol Glucose 15 gm 08/12/24 22:51 Glucose Oral Gel 15 Gm Of Glucse In 37.5 Gm Tube PO PRN PRN Hypoglycemia Protocol Dextrose 1,000 mls @ 100 mls/hr 08/12/24 22:51 Dextrose 5% 1,000 Ml IVPB PRN PRN Hypoglycemia Protocol Insulin Aspart 1 - 3 units 08/13/24 21:45 08/14/24 21:10 Insulin Aspart (*Bkc) 100 Units/Ml SUB-Q 2 units HS DAYSI Administration Protocol Insulin Aspart 3 - 6 units 08/14/24 08:00 08/14/24 18:13 Insulin Aspart (*Bkc) 100 Units/Ml SUB-Q Not Given TIDWM DAYSI Protocol Insulin Glargine 32 units 08/13/24 09:00 08/14/24 08:32 Insulin Glargine (*Bkc) 100 Units/Ml SUB-Q 32 units DAILY DAYSI Administration Methylprednisolone 4 mg 08/12/24 06:30 08/15/24 05:39 Methylprednisolone (Medrol) Dosepack 4 Mg Tablets PO 08/17/24 07:29 4 mg 0630,1200,2100 DAYSI Administration Taper Nitroglycerin 0.4 mg 08/12/24 22:49 Nitroglycerin Sl 0.4 Mg Tablet SUBLINGUAL PRN PRN Chest Pain Ondansetron HCl 4 mg 08/12/24 18:03 Ondansetron Inj 4 Mg/2 Ml Vial IV PUSH Q4H PRN Nausea Ondansetron HCl 4 mg 08/14/24 13:12 08/14/24 13:25 Ondansetron Hcl Odt 4 Mg Tablet PO 4 mg Q6H PRN Administration Nausea And Vomiting Oxycodone HCl 2.5 mg 08/12/24 18:08 08/13/24 02:39 Oxycodone Hcl (*Crx) 2.5 Mg Tab Ir PO 2.5 mg Q4H PRN Administration Pain Rated 7-10 Polyethylene Glycol 17 gm 08/14/24 17:05 08/14/24 18:41 Polyethylene Glycol 3350 17 Gm Powd.Pack PO 17 gm QAM PRN Administration Constipation Rosuvastatin Calcium 10 mg 08/13/24 09:00 08/14/24 08:31 Rosuvastatin 10 Mg Tablet PO 10 mg DAILY DAYSI Administration Tramadol HCl 50 mg 08/12/24 20:59 08/14/24 22:25 Tramadol Hcl (*Crx) 50 Mg Tablet PO 50 mg Q6H PRN Administration Pain Rated 4-6 Radiology Results: ITS Impressions Knee X-Ray 08/12/24 13:39 IMPRESSION: 1. Moderate right knee osteoarthritis. 2. Large right knee joint effusion with loose body. Knee CT 08/12/24 15:02 IMPRESSION: 1. Large complex joint effusion and/or synovitis at the right suprapatellar pouch with differential including hemarthrosis or septic arthritis in the appropriate clinical setting. 2. Relatively advanced healing of a nondisplaced intra-articular patellar fracture. 3. Chondrocalcinosis and tricompartmental osteoarthritis at the right knee with moderate joint space or in the medial compartment and severe interspace joint the medial aspect of the patellofemoral compartment on prior radiographs. Labs Labs: Laboratory Results - last 24 hr 08/14/24 08/14/24 08/14/24 11:58 17:06 20:59 POC Capillary Glucose 391 H 142 H 273 H
[2024-08-15 09:30] VITALS: PULSE 62
[2024-08-15 09:30] LABS: Glucose Point of Care 164 mg/dl (65-105)
[2024-08-15] MEDS: carvediloL 6.25 MG TABLET PO (09:30)
[2024-08-15] MEDS: DOCUSATE SODIUM 100 MG CAPSULE PO (09:30)
[2024-08-15] MEDS: CLOPIDOGREL BISULFATE 75 MG TABLET PO (09:31)
[2024-08-15] MEDS: ROSUVASTATIN 10 MG TABLET PO (09:31)
[2024-08-15 09:34] VITALS: RESP 18; O2SAT 96
[2024-08-15] MEDS: INSULIN GLARGINE (*BKC) 100 UNITS/ML 32 UNITS SUB-Q (09:34)
--- NOTE | 2024-08-15 10:06 | P.DS_ITS ---
DS: Admitting Diagnosis Discharge Date 08/15/24 Admitting Diagnosis Knee pain post-injection DS: Summary Hospital Course Hospital Course: A 3-year-old female history of CAD with stents recently placed, pacemaker, atrial fibrillation, diabetes, history of left breast cancer, presents the hospital with knee pain after an injection. Patient states that she did by numbers after injection however this morning when she woke up she tried to stand she cannot bear weight on her leg she fell backwards onto the bed. Patient denies hitting her head or any injuries from the fall. She only complains of right knee pain. Patient was in her orthopedic office on 08/09/2024 for re-evaluation for her knee pain and she received 15 mg of Kenalog which she tolerated well. CT shows fluid collection in the knee. Aspiration in the emergency department revealed blood. She is anticoagulation until January after a recent cardiac stent. CT knee showed hemarthrosis right knee, ortho was consulted and recommended conservative management. Cardiology was consulted and recommended discontinuing only Eliquis and continuing Plavix due to recent stents. Pain controlled much better. Patient discharged today to [facility]. F/u with PCP in 3-5 days, F/u with ortho and cardiology as instructed. Time Spent with Patient Time attestation: Total time spent providing and/or coordinating discharge services: DS: Data Data Completed and Pending Labs on day of discharge: Labs from last 24 hours 08/15/24 08/14/24 08/14/24 07:59 20:59 17:06 POC Capillary Glucose 164 H 273 H 142 H 08/14/24 11:58 POC Capillary Glucose 391 H Discharge Plan Discharge Attending physician on discharge: Sue Glasgow Consulting providers: Terrance Ruiz; John Najera Discharging Clinician: Sue Glasgow Anticipated Discharge Date/Time: 08/14/24 12:22 Patient Disposition: [facility] Activity: as tolerated Diet: heart healthy Discharge Instructions: Patient may be weight-bearing as tolerated on right leg. Gentle range of motion as comfort allows. Straight leg raises and quad sets. CBC on 08/19/2024. Call MD if platelets less than 100,000 or hemoglobin less than 9. Patient to follow-up with Dr. Ruiz in 2 weeks. Continue on the Lovenox 40 mg Q 24 hours until patient is resumed on her previous dose of Eliquis 2.5 mg q.12 hours which was her after her hemarthrosis has resolved. May apply ice to the right knee as patient wishes. Elevate the right leg as much as possible. Avoid prolonged periods of sitting in the chair. Patient Instructions: Clopidogrel (By mouth), Apixaban (By mouth), Safe Use of Anticoagulants (DC) Patient Language: Senegalese Follow-up/Referrals: Ede Chavarria MD [Physician] - Discharge Medications: New tramadol 50 mg Tablet 50 mg PO Q6H PRN (Reason: Pain Rated 4-6) Qty: 40 0RF enoxaparin [Lovenox] 40 mg/0.4 mL syringe 40 mg subcut Q24H Qty: 8 0RF acetaminophen 325 mg Tablet 650 mg PO Q6HR Qty: 100 0RF Continued nitroglycerin 0.4 mg tablet, sublingual 0.4 mg sublingual PRN PRN (Reason: Chest Pain) Patient Comments: has not taken ICaps [id number],[id number] Tablet Extended Release 1 tablet PO BID acetaminophen [Tylenol] 325 mg capsule 650 mg PO Q8H PRN (Reason: pain) Qty: 20 0RF Bioflex 135-84-77-40 mg tablet 1 tablet PO DAILY Rx Instructions: 1 tab daily rosuvastatin 20 mg tablet 10 mg PO DAILY Centrum Silver Women 8 mg iron-400 mcg-300 mcg tablet 1 tablet PO DAILY albuterol sulfate 2.5 mg /3 mL (0.083 %) solution for nebulization 2.5 mg inhalation Q6H PRN (Reason: shortness of breath or wheezing) Qty: 180 0RF carvedilol [Coreg] 25 mg tablet 2.5 mg PO Q12HR clopidogrel [Plavix] 75 mg tablet 75 mg PO DAILY Qty: 30 3RF insulin glargine [Lantus Solostar U-100 Insulin] 100 unit/mL (3 mL) insulin pen 32 unit subcut DAILY (DME) pen needle, diabetic [BD Ultra-Fine Micro Pen Needle] 32 gauge x 1/4 needle See Rx Instructions .Route Qty: 50 4RF Rx Instructions: As directed weekly Discontinued apixaban 5 mg tablet 2.5 mg PO BID Date of admission: 08/13/24 08:08 Primary Care Provider: Kortney Aguirre Admitting Provider: Ollie Steele Attending physician on admission: Ollie tSeele Condition: Improved
[2024-08-15] MEDS: ENOXAPARIN 40 MG/0.4 ML SYRINGE SUB-Q (10:18)
[2024-08-15 11:02] LABS: Basophils Percent Auto 0.3 % (0.2-1.2); Hematocrit 41.1 % (37.0-47.0); Hemoglobin 13.5 g/dL (12.0-15.0); Immature Granulocyte Absolute 0.03 K/mm3 (0.00-0.031); Immature Granulocyte Percent A 0.3 % (0-0.5); Lymphocytes Absolute Auto 2.49 K/mm3 (0.9-3.2); Lymphocytes Percent Auto 24.3 % (18.3-44.2); Mean Corpuscular HGB Conc 32.8 g/dl (32-36); Mean Corpuscular Hemoglobin 30.9 pg (26-34); Mean Corpuscular Volume 94.1 fl (80-100); Monocytes Absolute Auto 0.5 K/mm3 (0.1-0.6); Monocytes Percent Auto 4.6 % (2.6-8.5); Neutrophils Absolute Auto 7.2 K/mm3 (1.3-6.7); Neutrophils Percent Auto 70.5 % (45.5-73.1); Platelet Count Result 255 k/mm3 (150-375); Red Blood Count 4.37 M/mm3 (4.2-5.4); Red Cell Distribution Width 14.6 % (11.5-14.5); White Blood Count 10.2 K/mm3 (4.5-10.0)
[2024-08-15] MEDS: INSULIN ASPART (*BKC) 100 UNITS/ML SUB-Q (12:00)
[2024-08-15 12:01] LABS: Glucose Point of Care 256 mg/dl (65-105)
== END 2024-08-15 14:10 | DRG 554 ==
LOC: ANHED 13:01 → ANH2MED 19:40
PROVIDERS: Orthopaedic Surgery; Admitting Provider Internal Medicine; Emergency Provider Emergency Medicine; PCP Family Medicine; Visit Provider Internal Medicine
DX: M25.061 Hemarthrosis, right knee (principal); I48.20 Chronic atrial fibrillation, unspecified; M17.11 Unilateral primary osteoarthritis, right knee; I35.0 Nonrheumatic aortic (valve) stenosis; I25.10 Atherosclerotic heart disease of native coronary artery without angina pectoris; I12.9 Hypertensive chronic kidney disease with stage 1 through stage 4 chronic kidney disease, or unspecified chronic kidney disease; N18.30 Chronic kidney disease, stage 3 unspecified; D50.9 Iron deficiency anemia, unspecified; E11.9 Type 2 diabetes mellitus without complications; J45.30 Mild persistent asthma, uncomplicated; M54.12 Radiculopathy, cervical region; G47.33 Obstructive sleep apnea (adult) (pediatric); Z95.0 Presence of cardiac pacemaker; Z79.01 Long term (current) use of anticoagulants; Z79.02 Long term (current) use of antithrombotics/antiplatelets; Z79.4 Long term (current) use of insulin; Z86.0101 Personal history of adenomatous and serrated colon polyps; Z79.899 Other long term (current) drug therapy; Z87.11 Personal history of peptic ulcer disease; Z85.3 Personal history of malignant neoplasm of breast; Z95.5 Presence of coronary angioplasty implant and graft
CPT/HCPCS: 20610; 36415; 73562; 73700; 80053; 82948; 85025; 85610; 85652; 85730; 86140; 96374; 96375; 96376; 97110; 97161; 97530; 99285; A9270; G0378; J1100; J1171; J1650; J1815; J2004; J2270; J2405